=== PATIENT | female | born 1975 | race Caucasian/White ===

== ENCOUNTER → 2016-10-04 | Outpatient (CLI) | payer BC ==
[~2016-10-04] MED LIST: LIOT50TA3 PO; LTHCR300 PO; LTHSR450 PO; MULT-589 PO; RSP3 PO
[2016-10-04 09:45] LABS: GLUCOSE,FASTING 89 mg/dl (70-99)
[2016-10-04 09:55] LABS: ESTIMATED AVERAGE GLUCOSE 100 mg/dl; HA1C FLAG Normal (Normal)
== END | disposition home or self-care (01) ==
LOC: C.LAB 08:24
PROVIDERS: ATTEND Psychiatry & Neurology Psychiatry
DX: F31.2 Bipolar disorder, current episode manic severe with psychotic features (principal); F41.1 Generalized anxiety disorder; Z79.899 Other long term (current) drug therapy

== ENCOUNTER → 2016-11-19 | Outpatient (CLI) | payer BC ==
[2016-11-19 12:25] LABS: BLOOD UREA NITROGEN 10 mg/dl (7-18); BUN/CREATININE RATIO 17.8 (10-20); CARBON DIOXIDE 30 mmol/L (21-32); CHLORIDE 105 mmol/L (98-107); CREATININE 0.57 mg/dl (0.60-1.20); GLUCOSE 90 mg/dl (70-99); POTASSIUM 4.3 mmol/L (3.5-5.1); SODIUM 140 mmol/L (136-145)
[2016-11-19 12:35] LABS: THYROID STIMULATING HORMONE 0.154 uIu/ml (0.300-4.500)
== END | disposition home or self-care (01) ==
LOC: C.LAB 10:05
PROVIDERS: ATTEND Internal Medicine
DX: E03.9 Hypothyroidism, unspecified (principal); G47.00 Insomnia, unspecified

== ENCOUNTER → 2017-05-24 | Outpatient (CLI) | payer BC ==
[2017-05-24 10:35] LABS: HEMOGLOBIN A1C 4.9 % (4.5-5.6)
[2017-05-24 10:48] LABS: BLOOD UREA NITROGEN 11 mg/dl (7-18); CALCIUM 8.4 mg/dl (8.5-10.1); CARBON DIOXIDE 26 mmol/L (21-32); CREATININE 0.57 mg/dl (0.60-1.20); GLUCOSE 81 mg/dl (70-99); POTASSIUM 3.6 mmol/L (3.5-5.1); SODIUM 136 mmol/L (136-145)
[2017-05-24 10:51] LABS: CHOLESTEROL 199 mg/dl (0-200); LDL CHOLESTEROL CALCULATED 130 mg/dl
== END | disposition home or self-care (01) ==
LOC: C.LAB 09:33
PROVIDERS: ATTEND Internal Medicine
DX: E03.9 Hypothyroidism, unspecified (principal); F31.9 Bipolar disorder, unspecified

== ENCOUNTER 2019-02-25 14:34 | Inpatient (IN) ==
[2019-02-25] MEDS ORDERED: diazePAM 5 MG TABLET PO ONE (14:55)
[2019-02-25 15:22] LABS: Basophils # (auto) 0.02 K/uL (0-0.2); Basophils % (auto) 0.3 %; Eosinophils # (auto) 0.04 K/uL (0-0.5); Eosinophils % (auto) 0.5 %; Hematocrit (blood only) 42.2 % (37-47); Hemoglobin 14.4 g/dL (12.0-16.0); Immature Granulocytes # (auto) 0.01 K/uL (0.00-0.02); Immature Granulocytes % (auto) 0.1 %; Lymphocytes # (auto) 1.89 K/uL (1.2-3.4); Lymphocytes % (auto) 24.3 %; Mean Corpuscular Hemoglobin 30.5 pg (25-34); Mean Corpuscular Hgb Conc 34.1 g/dL (32-36); Mean Corpuscular Volume 89.4 fL (80-100); Mean Platelet Volume 9.5 fL (7.4-10.4); Monocytes # (auto) 0.38 K/uL (0.11-0.59); Monocytes % (auto) 4.9 %; Neutrophils # (auto) 5.43 K/uL (1.4-6.5); Neutrophils % (auto) 69.9 %; Platelet Count 284 K/uL (130-400); RDW Coefficient of Variation 12.4 % (11.5-14.5); RDW Standard Deviation 40.4 fL (36.4-46.3); Red Blood Count 4.72 M/uL (4.2-5.4); White Blood Count 7.77 K/uL (4.8-10.8)
[2019-02-25 15:41] LABS: Albumin Level 4.6 gm/dl (3.4-5.0); Calcium 8.9 mg/dl (8.5-10.1); Est GFR (African American) 83.4; Est GFR (Non-African American) 71.9; Potassium 3.8 mmol/L (3.5-5.1)
[2019-02-25 15:51] LABS: Albumin Globulin Ratio 1.3 (0.9-2); Bilirubin,Total 0.5 mg/dl (0.2-1); Globulin 3.6 gm/dl (2.5-4.0); Thyroid Stimulating Hormone 0.007 uIu/ml (0.300-4.500); Total Protein 8.2 gm/dl (6.4-8.2)
[2019-02-25 15:54] LABS: Appearance Urine Clear (Clear); Bilirubin Urine Negative (Negative); Blood Urine Negative (Negative); Color Urine Yellow; Glucose Urine UA Negative (Negative); Ketones Urine Negative (Negative); Leukocyte Esterase Urine Negative (Negative); Nitrite Urine Negative (Negative); Protein Urine Negative (Negative); Specific Gravity Urine 1.008 (1.000-1.030); Urobilinogen Urine Negative (Negative)
[2019-02-25 15:55] LABS: Acetaminophen < 2 ug/ml (10-30)
[2019-02-25 15:56] LABS: Salicylate < 1.7 mg/dl (2.8-20)
[2019-02-25 16:04] LABS: T4 Free Thyroxine 0.19 ng/dl (0.8-1.6)
[2019-02-25 16:15] LABS: Pregnancy Test, Serum Negative (Negative)
[2019-02-25 16:43] LABS: Amphetamines+Metham, Urine Neg (Neg); Barbiturates, Urine Neg (Neg); Benzodiazepine, Urine Neg (Neg); Cocaine, Urine Neg (Neg); MDMA (Ecstacy), Urine Neg (Neg); Methadone, Urine Neg (Neg); Opiate, Urine Neg (Neg); Phencyclidine, Urine Neg (Neg)
--- NOTE | 2019-02-25 18:19 | Emergency Department Note ---
Entered by Sanjana Alarcon acting as a scribe for History of Present Illness General Chief complaint: Mental Health Evaluation Stated complaint: MENTAL HEALTH EVALUATION Time Seen by Provider: 02/25/19 14:44 Source: patient History of Present Illness Provider complaint: Mental Health Evaluation Onset (ago): day(s) 6 Location: head Relieved By: + none Exacerbated By: + other (Stress) Associated symptoms: + other (Problems sleeping) The patient is a 43 year old female who presents to the Emergency Room with complaints of worsening mental health that began 6 days ago. The patient states that her symptoms are exacerbated by "extreme stress" but are not relieved by anything specific. The patient reports experiencing problems with sleeping. The patient's psychiatrist called in because the patient is experiencing a manic episode. The patient's mother reports that she is worried that the patient is going to hurt herself. Home Medications Home Medications Medication Instructions Recorded Confirmed Type diazepam 2 mg tablet 2 mg PO HS PRN tab 12/21/18 02/25/19 History risperidone 0.25 mg tablet 0.25 mg PO HS tab 12/21/18 02/25/19 History temazepam 7.5 mg capsule 7.5 mg PO HS PRN #30 cap 12/21/18 02/25/19 History liothyronine 50 mcg tablet 52.5 mcg PO BID 12/25/18 02/25/19 History multivitamin capsule 1 cap PO DAILY 12/25/18 02/25/19 History progesterone micronized 50 mg PO DAILY 02/25/19 02/25/19 History progesterone micronized 100 mg PO 1400 02/25/19 02/25/19 History Allergies Allergy/AdvReac Type Severity Reaction Status Date / Time chlorpromazine AdvReac Severe cardiac Verified 02/25/19 15:38 [From Thorazine] haloperidol [From Haldol] AdvReac Severe metabolic Verified 02/25/19 15:41 syndrome lithium AdvReac Severe metabolic Verified 02/25/19 15:42 syndrome olanzapine [From Zyprexa] AdvReac Severe metabolic Verified 02/25/19 15:39 syndrome paliperidone [From Invega] AdvReac Severe metabolic Verified 02/25/19 15:42 syndrome zolpidem [From Ambien] AdvReac Severe metabolic Verified 02/25/19 15:41 syndrome Past Med/Surg History Medical History Bipolar disorder Hypothyroidism Tinea pedis Hypertension Herpes zoster Surgical History H/O oral surgery Family History Father , FROM [place] AGE 52 Myocardial infarction Mother Ovarian cancer Social History Preferred Language: Syriac Communication Ability: Effective Visual Impairment: No Limitations Hearing Ability: Normal Tree Wrapper Required: No Beliefs That Will Affect Care: None Feels Safe at Home: Yes Smoking Status: Never smoker Hx Alcohol Use: Yes (social) Review of Systems See HPI for pertinent positives & negatives. and A total of 10 systems reviewed and were otherwise negative Physical Exam Vital Signs Vital Signs - 24 hr 02/25/19 14:39 02/25/19 16:35 02/25/19 19:45 Temperature 36.9 C Temperature Source Oral Oral Sepsis Recent Fever Within 48 Hours No Sepsis New/Unexplained Change in Mental Status No Sepsis Action Taken by Nursing No Action Required Pulse Rate 117 H 94 H Respiratory Rate 18 16 Respiratory Effort / Characteristics Non-Labored Spontaneous Respiratory Depth Normal Blood Pressure 143/103 H 116/82 Blood Pressure Mean 116 Pulse Oximetry 97 98 Oxygen Delivery Method Room Air Room Air GENERAL: Awake, alert, well-appearing, in no acute distress HENT: Normocephalic, atraumatic. Oropharynx unremarkable. EYES: Normal conjunctiva. Sclera non-icteric. NECK: Supple. No nuchal rigidity. FROM. No JVD. RESPIRATORY: Clear to auscultation. CARDIAC: Regular rate, normal rhythm. Extremities warm and well perfused. Pulses equal. ABDOMEN: Soft, non-distended. No tenderness to palpation. No rebound or guarding. No masses. RECTAL: Deferred. MUSCULOSKELETAL: Chest examination reveals no tenderness. The back is symmetrical on inspection without obvious abnormality. There is no CVA tenderness to palpation. No joint edema. LOWER EXTREMITIES: Calves are equal size bilaterally and non-tender. No edema. No discoloration. NEURO: Normal sensorium. No sensory or motor deficits noted. SKIN: No rash or jaundice noted. PSYCH: Manic. Flight of ideas. Pressured speech. Course 1451: Past medical records reviewed. The patient was evaluated in room A05. A complete history and physical exam was performed. Administered Medications Hydroxyzine HCl (Vistaril) 25 mg PO Q4H PRN PRN Reason: Anxiety Stop: 03/27/19 19:44 Last Admin: 02/26/19 12:06 Dose: 25 mg Documented by: [id number] Multivitamins (Multivitamin Tab) 1 tab PO 0600 [facility] Stop: 03/29/19 05:59 Last Admin: 02/27/19 06:03 Dose: 1 tab Documented by: [id number] Liothyronine 52.5 Mcg ~Non-Formulary Patient's Own Med 1 ea PO BID@0900,1400 [facility] Stop: 03/27/19 20:59 Last Admin: 02/27/19 14:43 Dose: 1 ea Documented by: [id number] Admin: 02/27/19 06:06 Dose: 1 ea Documented by: [id number] Admin: 02/26/19 14:23 Dose: 1 ea Documented by: [id number] Admin: 02/26/19 06:42 Dose: 1 ea Documented by: [id number] Progesterone 100 Mg: Non-Formulary Patient's Own Med 0.5 ea SL 06 [facility] Stop: 03/29/19 05:59 Last Admin: 02/27/19 06:06 Dose: 0.5 ea Documented by: [id number] Progesterone 100 Mg: Non-Formulary Patient's Own Med 1 ea SL 1929 [facility] Stop: 03/28/19 19:29 Last Admin: 02/27/19 19:35 Dose: 0.5 tabs Documented by: [id number] Admin: 02/26/19 19:35 Dose: 0.5 tabs Documented by: [id number] Risperidone (Risperdal) 0.5 mg PO 1929 [facility] Stop: 03/28/19 19:29 Last Admin: 02/27/19 19:30 Dose: 0.5 mg Documented by: [id number] Admin: 02/26/19 19:34 Dose: 0.5 mg Documented by: [id number] Temazepam (Restoril) 15 mg PO HSZ PRN PRN Reason: Insomnia Stop: 03/28/19 11:20 Last Admin: 02/26/19 20:27 Dose: 15 mg Documented by: [id number] Discontinued Medications Diazepam (Valium) 10 mg PO NOW ONE Stop: 02/25/19 14:56 Last Admin: 02/25/19 15:25 Dose: 10 mg Documented by: [id number] Multivitamins (Multivitamin Tab) 1 tab PO DAILY [facility] Stop: 03/28/19 08:59 Last Admin: 02/26/19 08:19 Dose: 1 tab Documented by: [id number] Cytomel 52.5 Mcg~Non -Formulary Patient's Own Med 1 ea PO BID [facility] Stop: 03/27/19 20:59 Last Admin: 02/25/19 21:55 Dose: Not Given Documented by: [id number] Progesterone 100mg Sl Tab~Non-Formulary Patient's Own Med 0.5 ea SL QAM [facility] Stop: 03/28/19 08:59 Last Admin: 02/26/19 06:43 Dose: 0.5 ea Documented by: [id number] Progesterone 100 Mg: Non-Formulary Patient's Own Med 1 ea SL HS [facility] Stop: 03/27/19 21:59 Last Admin: 02/25/19 22:36 Dose: 1 ea Documented by: [id number] Risperidone (Risperdal) 0.25 mg PO HS [facility] Stop: 03/27/19 20:59 Last Admin: 02/25/19 22:32 Dose: 0.25 mg Documented by: [id number] Medical Decision Making Differential Diagnosis Differential diagnosis: Etiologies such as psychiatric disorder, infection, hypoglycemia, electrolyte abnormalities, cardiac sources, intracerebral event, toxicological process, n eurologic disorder, as well as others were entertained. Medical Records Attestation: I reviewed the patient's medical records. Home Medications Current Medication List: was personally reviewed by me Laboratory Data Result diagrams: 02/25/19 15:10 02/25/19 15:10 Lab Results 02/25/19 02/25/19 02/25/19 Range/Units 15:10 15:10 15:10 WBC 7.77 (4.8-10.8) K/uL RBC 4.72 (4.2-5.4) M/uL Hgb 14.4 (12.0-16.0) g/dL Hct 42.2 (37-47) % MCV 89.4 (80-100) fL MCH 30.5 (25-34) pg MCHC 34.1 (32-36) g/dL RDW Std Deviation 40.4 (36.4-46.3) fL RDW Coeff of Snow 12.4 (11.5-14.5) % Plt Count 284 (130-400) K/uL MPV 9.5 (7.4-10.4) fL Immature Gran % (Auto) 0.1 % Neut % (Auto) 69.9 % Lymph % (Auto) 24.3 % [place] % (Auto) 4.9 % Eos % (Auto) 0.5 % Baso % (Auto) 0.3 % Immature Gran # (Auto) 0.01 (0.00-0.02) K/uL Neut # (Auto) 5.43 (1.4-6.5) K/uL Lymph # (Auto) 1.89 (1.2-3.4) K/uL [place] # (Auto) 0.38 (0.11-0.59) K/uL Eos # (Auto) 0.04 (0-0.5) K/uL Baso # (Auto) 0.02 (0-0.2) K/uL Sodium 139 (136-145) mmol/L Potassium 3.8 (3.5-5.1) mmol/L Chloride 105 (98-107) mmol/L Carbon Dioxide 28 (21-32) mmol/L Anion Gap 6.0 (3-11) BUN 11 (7-18) mg/dl Creatinine 0.96 (0.6-1.2) mg/dl Est Cr Clr Drug Dosing 62.0 ml/min Est GFR ( Amer) 83.4 Est GFR (Non-Af Amer) 71.9 BUN/Creatinine Ratio 12.0 (10-20) Glucose 142 H (70-99) mg/dl Calcium 8.9 (8.5-10.1) mg/dl Total Bilirubin 0.5 (0.2-1) mg/dl AST 8 L (15-37) U/L ALT 25 (12-78) U/L Alkaline Phosphatase 60 (45-117) U/L Total Protein 8.2 (6.4-8.2) gm/dl Albumin 4.6 (3.4-5.0) gm/dl Globulin 3.6 (2.5-4.0) gm/dl Albumin/Globulin Ratio 1.3 (0.9-2) TSH 0.007 L (0.300-4.500) uIu/ml Free T4 0.19 L (0.8-1.6) ng/dl HCG, Qual (Negative) Urine Color Urine Appearance (Clear) Urine pH (4.5-7.5) Ur Specific [place] (1.000-1.030) Urine Protein (Negative) Urine Glucose (UA) (Negative) Urine Ketones (Negative) Urine Blood (Negative) Urine Nitrite (Negative) Urine Bilirubin (Negative) Urine Urobilinogen (Negative) Ur Leukocyte Esterase (Negative) Salicylates < 1.7 L (2.8-20) mg/dl Urine Opiates Screen (Neg) Ur Methadone, Qual (Neg) Acetaminophen < 2 L (10-30) ug/ml Urine Barbiturates (Neg) Ur Phencyclidine (PCP) (Neg) U Amphetamin/Meth Scrn (Neg) MDMA (Ecstasy) Screen (Neg) U Benzodiazepines Scrn (Neg) Ur Cocaine Metabolite (Neg) U Marijuana (THC) Screen (Neg) Ethyl Alcohol mg/dL (0-3) mg/dl 02/25/19 02/25/19 02/25/19 Range/Units 15:10 15:13 15:20 WBC (4.8-10.8) K/uL RBC (4.2-5.4) M/uL Hgb (12.0-16.0) g/dL Hct (37-47) % MCV (80-100) fL MCH (25-34) pg MCHC (32-36) g/dL RDW Std Deviation (36.4-46.3) fL RDW Coeff of [place] (11.5-14.5) % Plt Count (130-400) K/uL MPV (7.4-10.4) fL Immature Gran % (Auto) % Neut % (Auto) % Lymph % (Auto) % [place] % (Auto) % Eos % (Auto) % Baso % (Auto) % Immature Gran # (Auto) (0.00-0.02) K/uL Neut # (Auto) (1.4-6.5) K/uL Lymph # (Auto) (1.2-3.4) K/uL [place] # (Auto) (0.11-0.59) K/uL Eos # (Auto) (0-0.5) K/uL Baso # (Auto) (0-0.2) K/uL Sodium (136-145) mmol/L Potassium (3.5-5.1) mmol/L Chloride (98-107) mmol/L Carbon Dioxide (21-32) mmol/L Anion Gap (3-11) BUN (7-18) mg/dl Creatinine (0.6-1.2) mg/dl Est Cr Clr Drug Dosing ml/min Est GFR ( Amer) Est GFR (Non-Af Amer) BUN/Creatinine Ratio (10-20) Glucose (70-99) mg/dl Calcium (8.5-10.1) mg/dl Total Bilirubin (0.2-1) mg/dl AST (15-37) U/L ALT (12-78) U/L Alkaline Phosphatase (45-117) U/L Total Protein (6.4-8.2) gm/dl Albumin (3.4-5.0) gm/dl Globulin (2.5-4.0) gm/dl Albumin/Globulin Ratio (0.9-2) TSH (0.300-4.500) uIu/ml Free T4 (0.8-1.6) ng/dl HCG, Qual Negative (Negative) Urine Color Urine Appearance (Clear) Urine pH (4.5-7.5) Ur Specific [place] (1.000-1.030) Urine Protein (Negative) Urine Glucose (UA) (Negative) Urine Ketones (Negative) Urine Blood (Negative) Urine Nitrite (Negative) Urine Bilirubin (Negative) Urine Urobilinogen (Negative) Ur Leukocyte Esterase (Negative) Salicylates (2.8-20) mg/dl Urine Opiates Screen Neg (Neg) Ur Methadone, Qual Neg (Neg) Acetaminophen (10-30) ug/ml Urine Barbiturates Neg (Neg) Ur Phencyclidine (PCP) Neg (Neg) U Amphetamin/Meth Scrn Neg (Neg) MDMA (Ecstasy) Screen Neg (Neg) U Benzodiazepines Scrn Neg (Neg) Ur Cocaine Metabolite Neg (Neg) U Marijuana (THC) Screen Neg (Neg) Ethyl Alcohol mg/dL < 3.0 (0-3) mg/dl 02/25/19 Range/Units 15:20 WBC (4.8-10.8) K/uL RBC (4.2-5.4) M/uL Hgb (12.0-16.0) g/dL Hct (37-47) % MCV (80-100) fL MCH (25-34) pg MCHC (32-36) g/dL RDW Std Deviation (36.4-46.3) fL RDW Coeff of [place] (11.5-14.5) % Plt Count (130-400) K/uL MPV (7.4-10.4) fL Immature Gran % (Auto) % Neut % (Auto) % Lymph % (Auto) % [place] % (Auto) % Eos % (Auto) % Baso % (Auto) % Immature Gran # (Auto) (0.00-0.02) K/uL Neut # (Auto) (1.4-6.5) K/uL Lymph # (Auto) (1.2-3.4) K/uL [place] # (Auto) (0.11-0.59) K/uL Eos # (Auto) (0-0.5) K/uL Baso # (Auto) (0-0.2) K/uL Sodium (136-145) mmol/L Potassium (3.5-5.1) mmol/L Chloride (98-107) mmol/L Carbon Dioxide (21-32) mmol/L Anion Gap (3-11) BUN (7-18) mg/dl Creatinine (0.6-1.2) mg/dl Est Cr Clr Drug Dosing ml/min Est GFR ( Amer) Est GFR (Non-Af Amer) BUN/Creatinine Ratio (10-20) Glucose (70-99) mg/dl Calcium (8.5-10.1) mg/dl Total Bilirubin (0.2-1) mg/dl AST (15-37) U/L ALT (12-78) U/L Alkaline Phosphatase (45-117) U/L Total Protein (6.4-8.2) gm/dl Albumin (3.4-5.0) gm/dl Globulin (2.5-4.0) gm/dl Albumin/Globulin Ratio (0.9-2) TSH (0.300-4.500) uIu/ml Free T4 (0.8-1.6) ng/dl HCG, Qual (Negative) Urine Color Yellow Urine Appearance Clear (Clear) Urine pH 6.0 (4.5-7.5) Ur Specific [place] 1.008 (1.000-1.030) Urine Protein Negative (Negative) Urine Glucose (UA) Negative (Negative) Urine Ketones Negative (Negative) Urine Blood Negative (Negative) Urine Nitrite Negative (Negative) Urine Bilirubin Negative (Negative) Urine Urobilinogen Negative (Negative) Ur Leukocyte Esterase Negative (Negative) Salicylates (2.8-20) mg/dl Urine Opiates Screen (Neg) Ur Methadone, Qual (Neg) Acetaminophen (10-30) ug/ml Urine Barbiturates (Neg) Ur Phencyclidine (PCP) (Neg) U Amphetamin/Meth Scrn (Neg) MDMA (Ecstasy) Screen (Neg) U Benzodiazepines Scrn (Neg) Ur Cocaine Metabolite (Neg) U Marijuana (THC) Screen (Neg) Ethyl Alcohol mg/dL (0-3) mg/dl Blood Pressure Blood Pressure Findings: Elevated blood pressure Blood Pressure Disposition: Referred to patients primary care provider MDM Narrative This is a 43-year-old female who presents emergency department over concerns of a manic episode. The patient was given Valium here in the emergency department. She was medically cleared by me. She was independently evaluated by case management as well as [facility]. and was subsequently admitted to [facility]. Patient and family were in agreement with the treatment plan. Impression & Plan Mood disorder Discharge Plan Visit Data *Final* Discharge Date/Time: 02/25/19 19:45 Chief Complaint: Mental Health Evaluation Stated Complaint: MENTAL HEALTH EVALUATION ED Provider: Tommy Dubose Discharge Problem: Mood disorder Patient Disposition: Admitted As Inpatient Discharge Instructions Interventions: ED Discharge Assessment Last Done: 02/25/19 19:45 The talat's documentation has been prepared under my direction and personally reviewed by me in its entirety. I confirm that the note above accurately reflects all work, treatment, procedures, and medical decision making performed by me.
[2019-02-25] MEDS ORDERED: MAGNESIUM HYDROXIDE SUSP 30 ML UDC PO PRN (19:45)
[2019-02-25] MEDS ORDERED: BISMUTH SUBSALICYLATE PER ML OMNICELL CHARGE PO PRN (19:45)
[2019-02-25] MEDS ORDERED: ACETAMINOPHEN 325 MG TAB PO PRN (19:45)
[2019-02-25] MEDS ORDERED: SODIUM CHLORIDE 0.65% NA SOLN 45 ML (OCEAN) PRN (19:45)
[2019-02-25] MEDS ORDERED: ALUMINUM/MAGNESIUM SUSP 30 ML UDC PO PRN (19:45)
[2019-02-25] MEDS ORDERED: NON-FORMULARY PATIENT'S OWN MED SCH (20:45)
[2019-02-25] MEDS ORDERED: risperiDONE 0.5 MG TABLET PO SCH (21:00)
[2019-02-25] MEDS ORDERED: NON-FORMULARY PATIENT'S OWN MED PO SCH (21:00)
[2019-02-25] MEDS ORDERED: LIOTHYRONINE SODIUM 25 MCG TAB PO SCH (21:00)
[2019-02-25] MEDS ORDERED: LIOTHYRONINE PO SCH (21:00)
[2019-02-25] MEDS ORDERED: PROGESTERONE 100 MG SL SCH (22:00)
[2019-02-26] MEDS: LIOTHYRONINE PO SCH ×2 (06:42→14:23)
[2019-02-26] MEDS ORDERED: PROGESTERONE 100 MG SL SCH ×2 (09:00→14:00)
[2019-02-26] MEDS ORDERED: MULTIVITAMIN TAB PO SCH (09:00)
--- NOTE | 2019-02-26 11:22 | History & Physical ---
Date of Service February 26, 2019 Impression / Recommendations Impression 43-year-old single female who lives with her mother in [place], has a history of bipolar type I, and is admitted with manic symptoms. She has been maintained on very low-dose risperidone, with frequent breakthrough symptoms, and per her own report had a fairly severe episode of psychosis over the summer which she opted to treat at home and took months to resolve. She reports chronic interpersonal discord with her mother, as mother would like her mood symptoms to be better controlled and they frequently disagree about the severity or even presence of active manic symptoms. Currently, she is recognizing that she is manic, and willing to increase her risperidone to 0.5 mg at bedtime and utilize diazepam and temazepam for sleep and anxiety. Inpatient treatment is medically necessary due to the severity of her symptoms and inability to function outside of the hospital. (1) Bipolar disorder: 02/26 -continue voluntary hospitalization, every 15 minute checks for safety, participation in groups and therapy. -Work on healthy coping skills and discharge safety plan. -Increase risperidone to 0.5 mg at bedtime. Check fasting lipid profile and glucose tomorrow. -Continue home dose of temazepam 15 mg at bedtime as needed and diazepam 2 mg daily as needed for severe anxiety/vargas. -Coordinate care with Dr. Locke; called him and left a message requesting a return call. -Coordinate care with therapist Sheila Buchanan. Family therapy has been recommended for the patient and her mother, and the patient is willing to pursue this. Present on Admission?: Yes (2) Hypothyroidism: Continue home dose of liothyronine. TSH on admission 0.007, and free T4 0.19. Present on Admission?: Yes Inventory Assets Strengths: Stable housing, supportive family, good rapport with outpatient providers Needs: Better control of vargas, family therapy Risk Factors Assessment Male: No : Yes Do You Have Access To A Gun?: No Health Problems: No Mental Health Diagnoses: Yes Substance Use Disorders: No Previous Attempt: No Family History of Suicide: No Previous Psychiatric Hospitalization: Yes Hopelessness: No Smoker: No Protective Factors Assessment : No Responsible for Young Children: No Employed: No Stable Relationships: No Supportive Family: Yes Good Rapport with Provider: Yes Psychiatric History Identifying Data CHINO ALONZO is a 43-year-old F who currently lives in [] [alone] with [], has a history of [], and was admitted on 02/25/19 19:55 on a [201 voluntary] [302 involuntary] commitment for []. Chief Complaint "I was doing great until the past 6 days". History of Present Illness On my assessment, the patient states she was referred to the hospital after her appointment with Dr. Locke yesterday, which she and her mother attended. She was doing well until 1 week ago on Halloween, as she was getting manic and her mother pointed out she was acting inappropriately. She and her mother have "not been getting along well at all world war III broke out." States their interactions got so heated that "I thought I might have to call crisis." She says her mother is "furious at me for not seeing my symptoms," although notes she trusts her mother and sister, who have been telling her she's manic and she needs to raise her risperidone dose. She admits thoughts are racing, and "I need things to be slowed down." Sleep is decreased and energy high. States she also had "a big blowup" with her brother 2 weeks ago, stating he a "toxic malignant narcissist, they want to destroy the family." She states she knows she is manic and needs to increase her risperidone, but only wants to increase to 0.5mg, and wants to add temazepam for sleep, as it has been helpful in the past. She denies SI, HI, and hallucinations, but reports paranoia "that if I talk to anyone, it will cause a problem with my mom." States there was an interaction with a neighbor months ago that her mother keeps bringing up, "I feel like I can't say anything right." Feels "under a microscope at home." She is also upset that "I lost my driving privileges," stating her mother "doesn't think I can focus" because of an incident with some curtains, that was difficult to follow. She states that over the summer she was "really stressed," and talks about buying 19 bowls "which I needed," and socks, and that mother thought these were symptoms of vargas, which the patient disagrees with. She says she called crisis in the middle of the night to come talk to her about the stress that this caused. She reports that in September she got psychotic but treated it at home by increasing her risperidone dose to 0.5mg daily and living "on the sun porch, it was my recovery room, surrounded by green." Another topic of contention with her mother is the patient's online dating, stating she wants to travel out of town to meet men, and her mother worries about her safety. She states she went to [facility] to meet a man and "my mom thought I was manic, but I wasn't, I know what was going on in my mind." She says she went to [facility] with her mother and sister the next day "and it was terrible,t hey picked on me about my hair and clothes." She has been taking diazepam about 50% of days for the past week, and has been exercising regularly as that helps stabilize mood. She states that Dr. Locke recommended she and her mother get family therapy, which she agrees with. Past Psychiatric History Previous Psych History: Previously saw Dr. Peter Current Psychiatric Diagnosis: Bipolar disorder Outpatient Services: Psychiatrist: Dr. Locke since 11/2017 Therapist: Loretta Bar Previous Psych Admissions: Multiple, last here 09/2017; [facility] Do You Have Access To A Gun?: No History of Previous Suicide Attempt: No Past Medication Trials: Luvox lithium (6 trials, thyroid issues) hydroxyzine zolpidem diazepam sertraline Allergies Allergy/AdvReac Type Severity Reaction Status Date / Time chlorpromazine AdvReac Severe cardiac Verified 02/25/19 15:38 [From Thorazine] haloperidol [From Haldol] AdvReac Severe metabolic Verified 02/25/19 15:41 syndrome lithium AdvReac Severe metabolic Verified 02/25/19 15:42 syndrome olanzapine [From Zyprexa] AdvReac Severe metabolic Verified 02/25/19 15:39 syndrome paliperidone [From Invega] AdvReac Severe metabolic Verified 02/25/19 15:42 syndrome zolpidem [From Ambien] AdvReac Severe metabolic Verified 02/25/19 15:41 syndrome Home Medications Home Medications Medication Instructions Recorded Confirmed Type diazepam 2 mg tablet 2 mg PO HS PRN tab 12/21/18 02/25/19 History risperidone 0.25 mg tablet 0.25 mg PO HS tab 12/21/18 02/25/19 History temazepam 7.5 mg capsule 7.5 mg PO HS PRN #30 cap 12/21/18 02/25/19 History liothyronine 50 mcg tablet 52.5 mcg PO BID 12/25/18 02/25/19 History multivitamin capsule 1 cap PO DAILY 12/25/18 02/25/19 History progesterone micronized 50 mg PO DAILY 02/25/19 02/25/19 History progesterone micronized 100 mg PO 1400 02/25/19 02/25/19 History Family History Family History of: Depression, Alcoholism/Drug Abuse (Per records, mother with history of alcohol abuse), Other-List under Comment and Bipolar (Maternal aunt) Family Mental Health History Comment: personality disorder Alcohol History Hx of Alcohol Use Over the Past 12 Months: No AUDIT Total Score: 0 Smoking Use Have You Smoked or Used Tobacco Products in the Last 30 Days: No Smoking Status: Never smoker Substance History Hx of Prescription Med Misuse Over the Past 12 Months: No Hx of Over the Counter Med Misuse Over the Past 12 Months: No Hx of Inhalent Misuse Over the Past 12 Months: No Hx of Organic Substance Use Over the Past 12 Months: No Hx of Illegal Substances/Street Drug Use Over Past 12 Months: No Problems as a Result of Past Substance Use: None Identified Personal History Living Arrangements: Home Living Arrangements Comments: With mother in [place] Highest Grade Completed: Graduate School Employment Status: 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 (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, 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.) Marital Status: Single Beliefs That Will Affect Care: None Current Legal Problems: No Hx Traumatic Life Events: No Patient History Medical History Bipolar disorder Hypothyroidism Tinea pedis Hypertension Herpes zoster Surgical History H/O oral surgery Family History Father , FROM [place] AGE 52 Myocardial infarction Mother Ovarian cancer Social History Preferred Language: Samoan Communication Ability: Effective Visual Impairment: No Limitations Hearing Ability: Normal Welt Cutter Required: No Beliefs That Will Affect Care: None Feels Safe at Home: Yes Smoking Status: Never smoker Hx Alcohol Use: Yes (social) Review of Systems Review of Systems: All systems reviewed & are unremarkable except as noted in HPI & below Physical Exam Psychiatric: Orientation: alert and cooperative Apperance: appropriately dressed and appropriately groomed; + did not appear stated age (Younger than stated age) Eye Contact: good eye contact Motor Behavior: steady gait and station and + psychomotor agitation Dramatic gesturing Speech is rapid, pressured, slightly loud Expansive, mildly irritable Thought Process: + flight of ideas and + looseness of associations Thought Content: + preoccupation (Wi th her assertions that her behavior does not represent manic symptoms and disagreements with mother about this) Suicidal Thoughts: denies suicidal thoughts Homicidal Thoughts: denies homicidal thoughts Hallucinations: no auditory hallucinations and no visual hallucinations Cognition: language grossly intact; + attention not intact Estimated Intelligence: consistent with education level Insight: + impaired insight Judgement: + fair judgement Vital Signs (Past 24 Hours): Last Vital Signs Temp 36.9 C 02/26/19 06:52 Pulse 88 02/26/19 06:53 Resp 16 02/26/19 06:52 BP 123/87 02/26/19 06:53 Pulse Ox 98 02/25/19 19:45 Exam Statement: A physical exam was performed in the ER prior to admission to the unit by Dr. Tommy Dubose. I accept that physical as correct/medical clearance for the inpatient physical exam. Results & Data Laboratory Results Laboratory Results - last 24 hr 02/25/19 02/25/19 02/25/19 15:10 15:10 15:10 WBC 7.77 RBC 4.72 Hgb 14.4 Hct 42.2 MCV 89.4 MCH 30.5 MCHC 34.1 RDW Std Deviation 40.4 RDW Coeff of Snow 12.4 Plt Count 284 MPV 9.5 Immature Gran % (Auto) 0.1 Neut % (Auto) 69.9 Lymph % (Auto) 24.3 [place] % (Auto) 4.9 Eos % (Auto) 0.5 Baso % (Auto) 0.3 Immature Gran # (Auto) 0.01 Neut # (Auto) 5.43 Lymph # (Auto) 1.89 [place] # (Auto) 0.38 Eos # (Auto) 0.04 Baso # (Auto) 0.02 Sodium 139 Potassium 3.8 Chloride 105 Carbon Dioxide 28 Anion Gap 6.0 BUN 11 Creatinine 0.96 Est Cr Clr Drug Dosing 62.0 Est GFR ( Amer) 83.4 Est GFR (Non-Af Amer) 71.9 BUN/Creatinine Ratio 12.0 Glucose 142 H Calcium 8.9 Total Bilirubin 0.5 AST 8 L ALT 25 Alkaline Phosphatase 60 Total Protein 8.2 Albumin 4.6 Globulin 3.6 Albumin/Globulin Ratio 1.3 TSH 0.007 L Free T4 0.19 L HCG, Qual Urine Color Urine Appearance Urine pH Ur Specific [place] Urine Protein Urine Glucose (UA) Urine Ketones Urine Blood Urine Nitrite Urine Bilirubin Urine Urobilinogen Ur Leukocyte Esterase Salicylates < 1.7 L Urine Opiates Screen Ur Methadone, Qual Acetaminophen < 2 L Urine Barbiturates Ur Phencyclidine (PCP) U Amphetamin/Meth Scrn MDMA (Ecstasy) Screen U Benzodiazepines Scrn Ur Cocaine Metabolite U Marijuana (THC) Screen Ethyl Alcohol mg/dL 02/25/19 02/25/19 02/25/19 15:10 15:13 15:20 WBC RBC Hgb Hct MCV MCH MCHC RDW Std Deviation RDW Coeff of [place] Plt Count MPV Immature Gran % (Auto) Neut % (Auto) Lymph % (Auto) [place] % (Auto) Eos % (Auto) Baso % (Auto) Immature Gran # (Auto) Neut # (Auto) Lymph # (Auto) [place] # (Auto) Eos # (Auto) Baso # (Auto) Sodium Potassium Chloride Carbon Dioxide Anion Gap BUN Creatinine Est Cr Clr Drug Dosing Est GFR ( Amer) Est GFR (Non-Af Amer) BUN/Creatinine Ratio Glucose Calcium Total Bilirubin AST ALT Alkaline Phosphatase Total Protein Albumin Globulin Albumin/Globulin Ratio TSH Free T4 HCG, Qual Negative Urine Color Urine Appearance Urine pH Ur Specific [place] Urine Protein Urine Glucose (UA) Urine Ketones Urine Blood Urine Nitrite Urine Bilirubin Urine Urobilinogen Ur Leukocyte Esterase Salicylates Urine Opiates Screen Neg Ur Methadone, Qual Neg Acetaminophen Urine Barbiturates Neg Ur Phencyclidine (PCP) Neg U Amphetamin/Meth Scrn Neg MDMA (Ecstasy) Screen Neg U Benzodiazepines Scrn Neg Ur Cocaine Metabolite Neg U Marijuana (THC) Screen Neg Ethyl Alcohol mg/dL < 3.0 02/25/19 15:20 WBC RBC Hgb Hct MCV MCH MCHC RDW Std Deviation RDW Coeff of [place] Plt Count MPV Immature Gran % (Auto) Neut % (Auto) Lymph % (Auto) [place] % (Auto) Eos % (Auto) Baso % (Auto) Immature Gran # (Auto) Neut # (Auto) Lymph # (Auto) [place] # (Auto) Eos # (Auto) Baso # (Auto) Sodium Potassium Chloride Carbon Dioxide Anion Gap BUN Creatinine Est Cr Clr Drug Dosing Est GFR ( Amer) Est GFR (Non-Af Amer) BUN/Creatinine Ratio Glucose Calcium Total Bilirubin AST ALT Alkaline Phosphatase Total Protein Albumin Globulin Albumin/Globulin Ratio TSH Free T4 HCG, Qual Urine Color Yellow Urine Appearance Clear Urine pH 6.0 Ur Specific [place] 1.008 Urine Protein Negative Urine Glucose (UA) Negative Urine Ketones Negative Urine Blood Negative Urine Nitrite Negative Urine Bilirubin Negative Urine Urobilinogen Negative Ur Leukocyte Esterase Negative Salicylates Urine Opiates Screen Ur Methadone, Qual Acetaminophen Urine Barbiturates Ur Phencyclidine (PCP) U Amphetamin/Meth Scrn MDMA (Ecstasy) Screen U Benzodiazepines Scrn Ur Cocaine Metabolite U Marijuana (THC) Screen Ethyl Alcohol mg/dL Current Inpatient Medications Current Inpatient Medications: Current Inpatient Medications Acetaminophen (Tylenol) 650 mg PO Q4H PRN PRN Reason: Headache or Minor Fever Stop: 03/27/19 19:44 Al Hydrox/Mg Hydrox/Simethicone (Maalox) 30 ml PO Q4H PRN PRN Reason: GI Upset Stop: 03/27/19 19:44 Bismuth Subsalicylate (Kaopectate) 15 ml PO PRN PRN PRN Reason: Loose Stool Stop: 03/27/19 19:44 Hydroxyzine HCl (Vistaril) 25 mg PO Q4H PRN PRN Reason: Anxiety Stop: 03/27/19 19:44 Hydroxyzine HCl (Vistaril) 50 mg PO HSZ PRN PRN Reason: Insomnia Stop: 03/27/19 19:44 Magnesium Hydroxide (Milk Of Magnesia) 30 ml PO DAILY PRN PRN Reason: Constipation Stop: 03/27/19 19:44 Multivitamins (Multivitamin Tab) 1 tab PO DAILY [place] Stop: 03/28/19 08:59 Last Admin: 02/26/19 08:19 Dose: 1 tab Documented by: Progesterone 100mg Sl Tab~Non-Formulary Patient's Own Med 0.5 ea SL QAM [facility] Stop: 03/28/19 08:59 Last Admin: 02/26/19 06:43 Dose: 0.5 ea Documented by: Progesterone 100 Mg: Non-Formulary Patient's Own Med 1 ea SL HS [facility] Stop: 03/27/19 21:59 Last Admin: 02/25/19 22:36 Dose: 1 ea Documented by: Liothyronine 52.5 Mcg ~Non-Formulary Patient's Own Med 1 ea PO BID@0900,1400 [facility] Stop: 03/27/19 20:59 Last Admin: 02/26/19 06:42 Dose: 1 ea Documented by: Risperidone (Risperdal) 0.25 mg PO [facility] Stop: 03/27/19 20:59 Last Admin: 02/25/19 22:32 Dose: 0.25 mg Documented by: Sodium Chloride ([place] Nasal) 1 - 2 sprays NA PRN PRN PRN Reason: Nasal Dryness/Congestion Stop: 03/27/19 19:44
[2019-02-26] MEDS ORDERED: diazePAM 2 MG TABLET PO PRN (12:23)
[2019-02-26] MEDS: risperiDONE 0.5 MG TABLET PO SCH (19:34)
[2019-02-26] MEDS: TEMAZEPAM 15 MG CAPSULE PO PRN (20:27)
[2019-02-26] MEDS ORDERED: risperiDONE 0.5 MG TABLET PO SCH (22:00)
[2019-02-27] MEDS: MULTIVITAMIN TAB PO SCH (06:03)
[2019-02-27] MEDS: LIOTHYRONINE PO SCH ×2 (06:06→14:43)
[2019-02-27 07:38] LABS: Glucose Fasting 87 mg/dl (70-99)
[2019-02-27 07:45] LABS: Chol HDL Ratio 3; Cholesterol 177 mg/dl (0-200); HDL Cholesterol 62 mg/dl; LDL Cholesterol Calculated 106 mg/dl; Triglycerides 46 mg/dl (0-150); VLDL Cholesterol 9 mg/dl
--- NOTE | 2019-02-27 17:37 | Psychiatric Progress Note ---
Date of Service February 27, 2019 Impression / Recommendations Impression 43-year-old single female who lives with her mother in [place], has a history of bipolar type I, and is admitted with manic symptoms. She has been maintained on very low-dose risperidone, with frequent breakthrough symptoms, and per her own report had a fairly severe episode of psychosis over the summer which she opted to treat at home and took months to resolve. She reports chronic interpersonal discord with her mother, as mother would like her mood symptoms to be better controlled and they frequently disagree about the severity or even presence of active manic symptoms. Currently, she is recognizing that she is manic, and willing to increase her risperidone to 0.5 mg at bedtime and utilize diazepam and temazepam for sleep and anxiety. Inpatient treatment is medically necessary due to the severity of her symptoms and inability to function outside of the hospital. The team agrees that the patient's condition has improved somewhat since the dose of risperidone has been increased. However, she continues to exhibit symptoms of vargas that include pressured speech and circumferential reality and tangentiality that sometimes approached flight of ideas. She does not exhibit an expansive, markedly irritable, or elated mood. However, she professes to have more insight into her condition and then she actually seems to have. She is fully pleasant and cooperative until the question of persistent, active psychiatric symptoms is raised, at which point the patient bristles and becomes visibly angry when I reflected that, in fact, I see pretty clear symptoms of persistent hypomania. I also got a bit of a "taste" of the patient's tendency to excitedly argue points, rather than consider what is being said to herand I can imagine that the patient's disagreements with her mother often center around the same tendency. She also tends to intellectualize her symptoms, minimize them, and a regular significance. I strongly advised the patient that she is going to need a higher dose than 0.5 mg of risperidone, given her past history and the fact that this would be a much lower dose than standard given her symptoms. However, the patient does have a point in saying that while she will except that she still has certain symptoms she has improved and would like to wait another day or 2 at the dose of 0.5 mg to see if she does not continue to improve. (1) Bipolar disorder: 02/26 -continue voluntary hospitalization, every 15 minute checks for safety, participation in groups and therapy. -Work on healthy coping skills and discharge safety plan. -Increase risperidone to 0.5 mg at bedtime. Check fasting lipid profile and glucose tomorrow. -Continue home dose of temazepam 15 mg at bedtime as needed and diazepam 2 mg daily as needed for severe anxiety/vargas. -Coordinate care with Dr. Locke; called him and left a message requesting a return call. -Coordinate care with therapist Sheila Buchanan. Family therapy has been recommended for the patient and her mother, and the patient is willing to pursue this. 02/27 -Today, the patient told me that she would consider increasing her dose of risperidone from 0.5 mg at bedtime to 0.75 mg at bedtime, but would have to "think about it, first." We have all strongly advised the patient that this is likely to be an inadequate dose, and that her insistence on not having a higher dose is likely to lead to a prolonged hospital stay. The patient does say that she will except this assertion, but is asking to wait another "day or 2" before increasing the dose. -She required temazepam last night for sleep, and says that part of the problem for her is that she typically goes to bed before 8:00 every night and awakens at about 4 in the morning the next day, so that the hours of sleep here in the hospital feel artificial 2 or and her assertion is that, at home, she sleeps much better than she has here. -The patient is very interested in family therapy, and says that she has read that family therapy is almost always recommended in cases in which a family member has bipolar disorder. I attempted to explain to the patient that that will depend upon the preparedness of the patient to actively and appropriately participated in the therapy. The patient indicated that she found this assertion to be irritating, but, as noted above, she is easily irritated and has trouble accepting thoughts and feedback that are inconsistent with her own assumptions. (This latter issue may be partially characterologic, but I believe it is intensified by the patient's hypomanic state.) (2) Hypothyroidism: Continue home dose of liothyronine. TSH on admission 0.007, and free T4 0.19. Inventory Assets Strengths: Stable housing, supportive family, good rapport with outpatient providers Needs: Better control of vargas, family therapy Risk Factors Assessment Male: No : Yes Do You Have Access To A Gun?: No Health Problems: No Mental Health Diagnoses: Yes Substance Use Disorders: No Previous Attempt: No Family History of Suicide: No Previous Psychiatric Hospitalization: Yes Hopelessness: No Smoker: No Protective Factors Assessment : No Responsible for Young Children: No Employed: No Stable Relationships: No Supportive Family: Yes Good Rapport with Provider: Yes Interval History Chief Complaint "I needed my medication adjusted". Review of Systems Sleep Information Total Hours of Sleep: 8.5 Sleep Comments: awake at 0600 Meal Information Percent Meal Consumed - Breakfast: 100 Percent Meal Consumed - Lunch: 100 Percent Meal Consumed - Dinner: 100 Subjective Subjective Patient was seen & assessed and interval progress reviewed with treatment team. I met individually with the patient in order to assess her current mental status, evaluate her response to treatment, coordinate any necessary changes in the patient's treatment regimen together with the patient, and address questions, issues and concerns that may arise. The patient begins by telling me that she recognized that she was becoming "hypomanic" and also recognizes that when she saw her outpatient psychiatrist it would be necessary for her to increase her dose of risperidone. Her perception is that the admission was precipitated by the fact that she and her mother had been bickering ("[place] War [place]") at home, a circumstance that she seems to attribute primarily to her mother, rather than to her self. She reports that on the evening prior to her admission she and her mother had been arguing, her mother stood in front of her and, while "yelling" at the patient and shaking her finger and the patient's face, stated something such as "I give up!" Which the patient said "well you did better" The patient's mother, according to patient, perceived this as a threat, possibly of physical harm, while the patient, herself, said that she had not meant to imply any threat of violence but, instead, meant that she thought that the situation had to be deescalated by the mother backing down and leaving the room. She said that the bickering continued the next day in the patient's outpatient psychiatrist office, and the patient says that she thinks that her doctor was overwhelmed by the fact that the patient and her mother argued loudly in his presence. She noted that he essentially said, "I think you need to go to the hospital" (to the patient) and "you need a break" (to the patient's mother.) When asked what symptoms of hypomania she felt that she was exhibiting, the patient had some trouble identifying what those were, but said that she knew she was thinking too fast, talking too fast, and her thoughts toward fully formed are organized. The patient also tells me that, as recently as 2017, she had presented with which she refers to as "bad psychotic symptoms," which, according the patient, included delusional believes, and auditory hallucinations. The patient acknowledges that in 2018, during the hospitalization, she needed to take risperidone at a dose of "close to 4 mg a day," and that, at that time, she needed the high dose because of her active symptomatology. However, she notes that for the past year or so she has been "fully stable" until recently on a dose of 0.25 mg once a day at bedtime. She agrees with her mother's report that her symptoms began to worsen towards the end of January and have crescendoed since then. Today, the patient notes that she feels that some of the stress she is feeling at home has to do with her mother's concern with the fact that the patient has been attempting to find a romantic partner through Internet "matches." The patient reports that she is not placing herself in danger with the men with whom she is communicating through the Internet, and is only met 1 of them in person. In that case, she only agreed to meet the man in a "neutral" location (a diner) for in an expensive dinner. She adds, "I liked him, I do not think I need to see him again, but it was not a bad date. He is not just an I am. He was also reluctant to picker tender a $10 check." The patient's point is that the mother's concerns in this regard are unfounded. Her belief is that hospitalization was arranged because the mother had implied that, perhaps, the patient was potentially violent. The patient, herself, insists that she has never been violent, was not suicidal, and has never threatened her mother with physical harm. Physical Exam Psychiatric Orientation: alert and oriented x 3 Apperance: appropriately dressed, appropriately groomed and appeared stated age Eye Contact: + fair eye contact Motor Behavior: steady gait and station Speech: + pressured speech Affect: + labile affect (Affect is mildly labile, and she clearly bristle when I pointed out evidence that her symptoms of hypomania have not fully resolved. Generally, however, she was pleasant and cooperative.) "I think I am in a good mood. I am happy, but not too happy." Thought Process: + circumstantial thought process and + tangential thought process Thought Content: reality based without delusions Suicidal Thoughts: denies suicidal thoughts Homicidal Thoughts: denies homicidal thoughts Hallucinations: no auditory hallucinations Cognition: recent memory grossly intact, remote memory grossly intact and l anguage grossly intact Estimated Intelligence: + above average estimated intelligence Insight: + limited insight When asked, Pointblank, if she thinks that she is continuing to show any symptoms of hypomania (in the face of pretty clear persistent symptoms) the patient hesitated, said "not really," and then said "well, may be, but it is m uch much better. I do not need more medicine." The patient also repeatedly asserted that she knows her own body about her than any psychiatrist and that she knows what the right dose of medications are for her. Judgement: + limited judgement Vital Signs (Past 24 Hours) Last Vital Signs Temp 36.5 C 02/27/19 06:23 Pulse 106 H 02/27/19 06:23 Resp 16 02/27/19 06:23 BP 122/88 02/27/19 06:23 Pulse Ox 98 02/25/19 19:45 Results & Data Laboratory Results Laboratory Results - last 24 hr 02/27/19 06:48 Fasting Glucose 87 Triglycerides 46 Cholesterol 177 LDL Cholesterol, Calc 106 VLDL Cholesterol, Calc 9 HDL Cholesterol 62 Cholesterol/HDL Ratio 3 Current Inpatient Medications Current Inpatient Medications: Current Inpatient Medications Acetaminophen (Tylenol) 650 mg PO Q4H PRN PRN Reason: Headache or Minor Fever Stop: 03/27/19 19:44 Al Hydrox/Mg Hydrox/Simethicone (Maalox) 30 ml PO Q4H PRN PRN Reason: GI Upset Stop: 03/27/19 19:44 Bismuth Subsalicylate (Kaopectate) 15 ml PO PRN PRN PRN Reason: Loose Stool Stop: 03/27/19 19:44 Diazepam (Valium) 2 mg PO DAILY PRN PRN Reason: anxiety or vargas Stop: 03/28/19 12:22 Hydroxyzine HCl (Vistaril) 25 mg PO Q4H PRN PRN Reason: Anxiety Stop: 03/27/19 19:44 Last Admin: 02/26/19 12:06 Dose: 25 mg Documented by: Hydroxyzine HCl (Vistaril) 50 mg PO HSZ PRN PRN Reason: Insomnia Stop: 03/27/19 19:44 Magnesium Hydroxide (Milk Of Magnesia) 30 ml PO DAILY PRN PRN Reason: Constipation Stop: 03/27/19 19:44 Multivitamins (Multivitamin Tab) 1 tab PO 0600 [facility] Stop: 03/29/19 05:59 Last Admin: 02/27/19 06:03 Dose: 1 tab Documented by: Liothyronine 52.5 Mcg ~Non-Formulary Patient's Own Med 1 ea PO BID@0900,1400 [facility] Stop: 03/27/19 20:59 Last Admin: 02/27/19 14:43 Dose: 1 ea Documented by: Progesterone 100 Mg: Non-Formulary Patient's Own Med 0.5 ea SL 06 [facility] Stop: 03/29/19 05:59 Last Admin: 02/27/19 06:06 Dose: 0.5 ea Documented by: Progesterone 100 Mg: Non-Formulary Patient's Own Med 1 ea SL 1929 [facility] Stop: 03/28/19 19:29 Last Admin: 02/26/19 19:35 Dose: 0.5 tabs Documented by: Risperidone (Risperdal) 0.5 mg PO 193 [facility] Stop: 03/28/19 19:29 Last Admin: 02/26/19 19:34 Dose: 0.5 mg Documented by: Sodium Chloride ([place] Nasal) 1 - 2 sprays NA PRN PRN PRN Reason: Nasal Dryness/Congestion Stop: 03/27/19 19:44 Temazepam (Restoril) 15 mg PO HSZ PRN PRN Reason: Insomnia Stop: 03/28/19 11:20 Last Admin: 02/26/19 20:27 Dose: 15 mg Documented by: Mental Health & Subst Abuse Tx Therapist Name of Therapist: Dr. Lia Bar Date of Therapist Appointment: 03/05/19 Time of Therapist Appointment: 10:45am Post Discharge Appointments Primary Care Physician Name Of Family Doctor: ORQUIDEA Mcdowell Time of Appointment with PCP: June 2019
[2019-02-27] MEDS: risperiDONE 0.5 MG TABLET PO SCH (19:30)
[2019-02-27] MEDS: TEMAZEPAM 15 MG CAPSULE PO PRN (20:24)
[2019-02-28] MEDS: MULTIVITAMIN TAB PO SCH (06:01)
[2019-02-28] MEDS: LIOTHYRONINE PO SCH ×2 (06:02→14:01)
--- NOTE | 2019-02-28 10:23 | Psychiatric Progress Note ---
Date of Service February 28, 2019 Impression / Recommendations Impression 43-year-old single female who lives with her mother in [place], has a history of bipolar type I, and is admitted with manic symptoms. She has been maintained on very low-dose risperidone, with frequent breakthrough symptoms, and per her own report had a fairly severe episode of psychosis over the summer which she opted to treat at home and took months to resolve. She reports chronic interpersonal discord with her mother, as mother would like her mood symptoms to be better controlled and they frequently disagree about the severity or even presence of active manic symptoms. She is recognizing that she has been manic, and was willing to increase her risperidone to 0.5 mg at bedtime and utilize diazepam and temazepam for sleep and anxiety. Inpatient treatment is medically necessary due to the severity of her symptoms and inability to function outside of the hospital. (1) Bipolar disorder: 02/26 -continue voluntary hospitalization, every 15 minute checks for safety, participation in groups and therapy. -Work on healthy coping skills and discharge safety plan. -Increase risperidone to 0.5 mg at bedtime. Check fasting lipid profile and glucose tomorrow. -Continue home dose of temazepam 15 mg at bedtime as needed and diazepam 2 mg daily as needed for severe anxiety/vargas. -Coordinate care with Dr. Locke; called him and left a message requesting a return call. -Coordinate care with therapist Sheila Buchanan. Family therapy has been recommended for the patient and her mother, and the patient is willing to pursue this. 02/27 -Today, the patient told me that she would consider increasing her dose of risperidone from 0.5 mg at bedtime to 0.75 mg at bedtime, but would have to "think about it, first." We have all strongly advised the patient that this is likely to be an inadequate dose, and that her insistence on not having a higher dose is likely to lead to a prolonged hospital stay. The patient does say that she will except this assertion, but is asking to wait another "day or 2" before increasing the dose. -She required temazepam last night for sleep, and says that part of the problem for her is that she typically goes to bed before 8:00 every night and awakens at about 4 in the morning the next day, so that the hours of sleep here in the hospital feel artificial 2 or and her assertion is that, at home, she sleeps much better than she has here. -The patient is very interested in family therapy, and says that she has read that family therapy is almost always recommended in cases in which a family member has bipolar disorder. I attempted to explain to the patient that that will depend upon the preparedness of the patient to actively and appropriately participated in the therapy. The patient indicated that she found this assertion to be irritating, but, as noted above, she is easily irritated and has trouble accepting thoughts and feedback that are inconsistent with her own assumptions. (This latter issue may be partially characterologic, but I believe it is intensified by the patient's hypomanic state.) 02/28 - Continue risperidone at 0.5mg qHS, as patient is reporting response to dose increase and is declining recommendation for further titration - Pt is at least agreeable to maintaining this dosage, rather than rapidly requesting taper on discharge - Determine if appropriate to have a family meeting prior to discharge - Coordinate with outpatient providers (2) Hypothyroidism: Continue home dose of liothyronine. TSH on admission 0.007, and free T4 0.19. Inventory Assets Strengths: Stable housing, supportive family, good rapport with outpatient providers Needs: Better control of vargas, family therapy Risk Factors Assessment Male: No : Yes Do You Have Access To A Gun?: No Health Problems: No Mental Health Diagnoses: Yes Substance Use Disorders: No Previous Attempt: No Family History of Suicide: No Previous Psychiatric Hospitalization: Yes Hopelessness: No Smoker: No Protective Factors Assessment : No Responsible for Young Children: No Employed: No Stable Relationships: No Supportive Family: Yes Good Rapport with Provider: Yes Interval History Identifying Information CHINO ALONZO is a 43-year-old female admitted voluntarily on 02/25/19 at 19:55 for mood instability and reported manic behaviors of decreased sleep, increased risk taking behaviors, impulsive spending, and racing thoughts. Pt was admitted at recommendation of her psychiatrist, after her mother verbalized concern during an outpatient appointment. Chief Complaint "Much better, my thoughts are much better." Review of Systems Notes Constitutional: denied Cardiovascular: denied Respiratory: denied Gastrointestinal: denied Neurological: denied Psychiatric: denies symptoms other than stated above Total of at least 10 systems reviewed, pertinent positives as above and in HPI. Sleep Information Total Hours of Sleep: 7 Sleep Comments: awake at 0600 Meal Information Percent Meal Consumed - Breakfast: 100 Percent Meal Consumed - Lunch: 100 Percent Meal Consumed - Dinner: 100 Subjective Subjective Patient was seen & assessed and interval progress reviewed with nursing and social work. Staff report the patient's mother verbalized additional concerns about the patient's behavior at home, apparently stating the patient would not be permitted to return home without agreeing to further titration of her risperidone. Pt was seen today to assess progress since admission. Pt states she is "much better" today, reporting improvement in mood and thoughts process. Pt feels that her "doubled dose" of risperidone is demonstrating increased efficacy over the day today. She states she is feeling "smoother" and "my brain is sorted out so much better." Pt states that she had planned on requesting a higher dose of risperidone at her outpatient psychiatric appointment, but "my mother screwed all that up." Pt was advised to consider maintaining her discharge dose of risperidone to improve stability and avoid the idea of having to guess if a medication increase is necessary of "if it will get better on its own." Pt tells this provider that she is planning to maintain 0.5mg of risperidone "for a long, long time." Pt was encouraged to consider further titration during this admission, but declines at this time. She denies SI/HI and other needs or concerns presently. Physical Exam Psychiatric Orientation: alert, oriented x 3 and cooperative (and pleasant) Apperance: appropriately dressed (casually, in sweater and gym pants), appropriately groomed and appeared stated age Eye Contact: good eye contact Motor Behavior: steady gait and station and no abnormal motor movements Speech: + pressured speech (somewhat) and normal rate/rhythm/volume of speech Affect: euthymic affect and mood congruent with affect Mood: no depressed mood ("much better") Thought Process: goal directed thought process and clear/coherent thought process Thought Content: reality based without delusions; no hopelessness Suicidal Thoughts: denies suicidal thoughts and denies suicidal intent Homicidal Thoughts: denies homicidal thoughts Hallucinations: no auditory hallucinations and no visual hallucinations Cognition: attention grossly intact and language grossly intact Insight: + limited insight (improving over course of admission) limited insight with regard to perceived benefits of therapeutic dosing of risperidone Judgement: + fair judgement Vital Signs (Past 24 Hours) Last Vital Signs Temp 36.7 C 02/28/19 07:00 Pulse 99 H 02/28/19 07:01 Resp 18 11/09/19 07:00 BP 144/91 H 02/28/19 07:01 Pulse Ox 98 02/25/19 19:45 Results & Data Current Inpatient Medications Current Inpatient Medications: Current Inpatient Medications Acetaminophen (Tylenol) 650 mg PO Q4H PRN PRN Reason: Headache or Minor Fever Stop: 03/27/19 19:44 Al Hydrox/Mg Hydrox/Simethicone (Maalox) 30 ml PO Q4H PRN PRN Reason: GI Upset Stop: 03/27/19 19:44 Bismuth Subsalicylate (Kaopectate) 15 ml PO PRN PRN PRN Reason: Loose Stool Stop: 03/27/19 19:44 Diazepam (Valium) 2 mg PO DAILY PRN PRN Reason: anxiety or vargas Stop: 03/28/19 12:22 Hydroxyzine HCl (Vistaril) 25 mg PO Q4H PRN PRN Reason: Anxiety Stop: 03/27/19 19:44 Last Admin: 02/26/19 12:06 Dose: 25 mg Documented by: Hydroxyzine HCl (Vistaril) 50 mg PO HSZ PRN PRN Reason: Insomnia Stop: 03/27/19 19:44 Magnesium Hydroxide (Milk Of Magnesia) 30 ml PO DAILY PRN PRN Reason: Constipation Stop: 03/27/19 19:44 Multivitamins (Multivitamin Tab) 1 tab PO 0600 [facility] Stop: 03/29/19 05:59 Last Admin: 02/28/19 06:01 Dose: 1 tab Documented by: Liothyronine 52.5 Mcg ~Non-Formulary Patient's Own Med 1 ea PO BID@0900,1400 [facility] Stop: 03/27/19 20:59 Last Admin: 02/28/19 06:02 Dose: 1 ea Documented by: Progesterone 100 Mg: Non-Formulary Patient's Own Med 0.5 ea SL 0600 [facility] Stop: 03/29/19 05:59 Last Admin: 02/28/19 06:03 Dose: 0.5 ea Documented by: Progesterone 100 Mg: Non-Formulary Patient's Own Med 1 ea SL 1930 [facility] Stop: 03/28/19 19:29 Last Admin: 02/27/19 19:35 Dose: 0.5 tabs Documented by: Risperidone (Risperdal) 0.5 mg PO 1929 [facility] Stop: 03/28/19 19:29 Last Admin: 02/27/19 19:30 Dose: 0.5 mg Documented by: Sodium Chloride ([place] Nasal) 1 - 2 sprays NA PRN PRN PRN Reason: Nasal Dryness/Congestion Stop: 03/27/19 19:44 Temazepam (Restoril) 15 mg PO HSZ PRN PRN Reason: Insomnia Stop: 03/28/19 11:20 Last Admin: 02/27/19 20:24 Dose: 15 mg Documented by: Mental Health & Subst Abuse Tx Therapist Name of Therapist: Dr. Lia Bar Date of Therapist Appointment: 03/05/19 Time of Therapist Appointment: 10:45am Post Discharge Appointments Primary Care Physician Name Of Family Doctor: ORQUIDEA Mcdowell Time of Appointment with PCP: June 2019
[2019-02-28] MEDS: risperiDONE 0.5 MG TABLET PO SCH (19:10)
[2019-03-01] MEDS: LIOTHYRONINE PO SCH ×2 (05:56→13:57)
[2019-03-01] MEDS: MULTIVITAMIN TAB PO SCH (06:21)
--- NOTE | 2019-03-01 10:06 | Psychiatric Progress Note ---
Date of Service March 01, 2019 Impression / Recommendations Impression 43-year-old single female who lives with her mother in [place], has a history of bipolar type I, and is admitted with manic symptoms. She has been maintained on very low-dose risperidone, with frequent breakthrough symptoms, and per her own report had a fairly severe episode of psychosis over the summer which she opted to treat at home and took months to resolve. She reports chronic interpersonal discord with her mother, as mother would like her mood symptoms to be better controlled and they frequently disagree about the severity or even presence of active manic symptoms. She is recognizing that she has been manic, and was willing to increase her risperidone to 0.5 mg at bedtime and utilize diazepam and temazepam for sleep and anxiety. Inpatient treatment is medically necessary due to the severity of her symptoms and inability to function outside of the hospital. (1) Bipolar disorder: 02/26 -continue voluntary hospitalization, every 15 minute checks for safety, participation in groups and therapy. -Work on healthy coping skills and discharge safety plan. -Increase risperidone to 0.5 mg at bedtime. Check fasting lipid profile and glucose tomorrow. -Continue home dose of temazepam 15 mg at bedtime as needed and diazepam 2 mg daily as needed for severe anxiety/vargas. -Coordinate care with Dr. Locke; called him and left a message requesting a return call. -Coordinate care with therapist Sheila Buchanan. Family therapy has been recommended for the patient and her mother, and the patient is willing to pursue this. 02/27 -Today, the patient told me that she would consider increasing her dose of risperidone from 0.5 mg at bedtime to 0.75 mg at bedtime, but would have to "think about it, first." We have all strongly advised the patient that this is likely to be an inadequate dose, and that her insistence on not having a higher dose is likely to lead to a prolonged hospital stay. The patient does say that she will except this assertion, but is asking to wait another "day or 2" before increasing the dose. -She required temazepam last night for sleep, and says that part of the problem for her is that she typically goes to bed before 8:00 every night and awakens at about 4 in the morning the next day, so that the hours of sleep here in the hospital feel artificial 2 or and her assertion is that, at home, she sleeps much better than she has here. -The patient is very interested in family therapy, and says that she has read that family therapy is almost always recommended in cases in which a family member has bipolar disorder. I attempted to explain to the patient that that will depend upon the preparedness of the patient to actively and appropriately participated in the therapy. The patient indicated that she found this assertion to be irritating, but, as noted above, she is easily irritated and has trouble accepting thoughts and feedback that are inconsistent with her own assumptions. (This latter issue may be partially characterologic, but I believe it is intensified by the patient's hypomanic state.) 02/28 - 03/01 - Continue risperidone at 0.5mg qHS, as patient is reporting response to dose increase and is declining recommendation for further titration - Pt is at least agreeable to maintaining this dosage, rather than rapidly requesting taper on discharge - Determine if appropriate to have a family meeting prior to discharge - Coordinate with outpatient providers (2) Hypothyroidism: Continue home dose of liothyronine. TSH on admission 0.007, and free T4 0.19. Inventory Assets Strengths: Stable housing, supportive family, good rapport with outpatient providers Needs: Better control of vargas, family therapy Risk Factors Assessment Male: No : Yes Do You Have Access To A Gun?: No Health Problems: No Mental Health Diagnoses: Yes Substance Use Disorders: No Previous Attempt: No Family History of Suicide: No Previous Psychiatric Hospitalization: Yes Hopelessness: No Smoker: No Protective Factors Assessment : No Responsible for Young Children: No Employed: No Stable Relationships: No Supportive Family: Yes Good Rapport with Provider: Yes Interval History Identifying Information ALBINO ALONZO is a 43-year-old female admitted voluntarily on 02/25/19 at 19:55 for mood instability and reported manic behaviors of decreased sleep, increased risk taking behaviors, impulsive spending, and racing thoughts. Pt was admitted at recommendation of her psychiatrist, after her mother verbalized concern during an outpatient appointment. Chief Complaint "Yeah, we wrote letters during group. I wrote one to myself." Review of Systems Notes Constitutional: denied Cardiovascular: denied Respiratory: denied Gastrointestinal: denied Neurological: denied Psychiatric: denies symptoms other than stated above Total of at least 10 systems reviewed, pertinent positives as above and in HPI. Sleep Information Total Hours of Sleep: 5.75 Sleep Comments: Albino was up early per her usual to get quality nurse medications. Meal Information Percent Meal Consumed - Breakfast: 100 Percent Meal Consumed - Lunch: 100 Percent Meal Consumed - Dinner: 100 Subjective Subjective Patient was seen & assessed and interval progress reviewed with nursing and social work. Staff report the patient has been doing well and is participating regularly in group programming. She did receive a prn of hydroxyzine yesterday, after a reportedly difficult conversation with her mother. She is anticipating another visit with her mother this afternoon. Pt was seen today to assess progress since admission. Pt states she is doing "much better" and has noticed improvement in her condition over the course of her hospitalization. She participated in a letter-writing group this morning, stating she wrote a letter "to myself, to remind myself to use my coping skills and stay on the right path." Pt states she is "feeling hopeful" for the visit with her mother later, and admits that they have been having decent phone calls. Pt states that she would like for her mother and her to "start over today", as she feels her mother has been holding several events "over my head, holding me under a microscope." Pt states is planning to "choose my battles" regarding arguments the pair has had, and to "just lover her." Pt declines any adjustments to her medication, again reiterating that she recognized she would need a dose increase, and is now feeling that her mood is stable and her thoughts are appropriately slowed. Pt denies other needs or concerns at this time, and is willing to schedule a family meeting with her mother for early this coming week. Physical Exam Psychiatric Orientation: alert, oriented x 3 and cooperative (and pleasant) Apperance: appropriately dressed (casually, in zip-up sweatshirt and running pants), appropriately groomed and appeared stated age Eye Contact: good eye contact Motor Behavior: steady gait and station and no abnormal motor movements Speech: normal rate/rhythm/volume of speech Affect: euthymic affect (mildly elevated, but significantly more consistent) and mood congruent with affect Mood: no depressed mood ("Pretty good, I feel a lot better") Thought Process: goal directed thought process and clear/coherent thought process ("slowed down enough that I can see things better") Thought Content: reality based without delusions; no hopelessness and no worthlessness Suicidal Thoughts: denies suicidal thoughts Homicidal Thoughts: denies homicidal thoughts Hallucinations: no auditory hallucinations and no visual hallucinations Cognition: attention grossly intact and language grossly intact Insight: + fair insight Judgement: + fair judgement Vital Signs (Past 24 Hours) Last Vital Signs Temp 36.7 C 03/01/19 06:44 Pulse 81 03/01/19 06:44 Resp 18 03/01/19 06:44 BP 130/90 03/01/19 06:44 Pulse Ox 98 02/25/19 19:45 Results & Data Current Inpatient Medications Current Inpatient Medications: Current Inpatient Medications Acetaminophen (Tylenol) 650 mg PO Q4H PRN PRN Reason: Headache or Minor Fever Stop: 03/27/19 19:44 Al Hydrox/Mg Hydrox/Simethicone (Maalox) 30 ml PO Q4H PRN PRN Reason: GI Upset Stop: 03/27/19 19:44 Bismuth Subsalicylate (Kaopectate) 15 ml PO PRN PRN PRN Reason: Loose Stool Stop: 03/27/19 19:44 Diazepam (Valium) 2 mg PO DAILY PRN PRN Reason: anxiety or vargas Stop: 03/28/19 12:22 Hydroxyzine HCl (Vistaril) 25 mg PO Q4H PRN PRN Reason: Anxiety Stop: 03/27/19 19:44 Last Admin: 02/26/19 12:06 Dose: 25 mg Documented by: Hydroxyzine HCl (Vistaril) 50 mg PO HSZ PRN PRN Reason: Insomnia Stop: 03/27/19 19:44 Magnesium Hydroxide (Milk Of Magnesia) 30 ml PO DAILY PRN PRN Reason: Constipation Stop: 03/27/19 19:44 Multivitamins (Multivitamin Tab) 1 tab PO 0600 [facility] Stop: 03/29/19 05:59 Last Admin: 03/01/19 06:21 Dose: 1 tab Documented by: Liothyronine 52.5 Mcg ~Non-Formulary Patient's Own Med 1 ea PO BID@0900,1400 [facility] Stop: 03/27/19 20:59 Last Admin: 03/01/19 05:56 Dose: 1 ea Documented by: Progesterone 100 Mg: Non-Formulary Patient's Own Med 0.5 ea SL 0600 [facility] Stop: 03/29/19 05:59 Last Admin: 03/01/19 06:00 Dose: 0.5 ea Documented by: Progesterone 100 Mg: Non-Formulary Patient's Own Med 1 ea SL 1929 [facility] Stop: 03/28/19 19:29 Last Admin: 02/28/19 19:11 Dose: 0.5 tabs Documented by: Risperidone (Risperdal) 0.5 mg PO 1929 [facility] Stop: 03/28/19 19:29 Last Admin: 02/28/19 19:10 Dose: 0.5 mg Documented by: Sodium Chloride ([place] Nasal) 1 - 2 sprays NA PRN PRN PRN Reason: Nasal Dryness/Congestion Stop: 03/27/19 19:44 Temazepam (Restoril) 15 mg PO HSZ PRN PRN Reason: Insomnia Stop: 03/28/19 11:20 Last Admin: 02/27/19 20:24 Dose: 15 mg Documented by: Mental Health & Subst Abuse Tx Therapist Name of Therapist: Dr. Lia Bar Date of Therapist Appointment: 03/05/19 Time of Therapist Appointment: 10:45am Post Discharge Appointments Primary Care Physician Name Of Family Doctor: ORQUIDEA Mcdowell Time of Appointment with PCP: June 2019
[2019-03-01] MEDS: risperiDONE 0.5 MG TABLET PO SCH (19:34)
[2019-03-02] MEDS: LIOTHYRONINE PO SCH ×2 (05:58→14:37)
[2019-03-02] MEDS: MULTIVITAMIN TAB PO SCH (07:57)
--- NOTE | 2019-03-02 11:50 | Psychiatric Progress Note ---
Date of Service March 02, 2019 Impression / Recommendations Impression 43-year-old single female who lives with her mother in [place], has a history of bipolar type I, and is admitted with manic symptoms. She has been maintained on very low-dose risperidone, with frequent breakthrough symptoms, and per her own report had a fairly severe episode of psychosis over the summer which she opted to treat at home and took months to resolve. She reports chronic interpersonal discord with her mother, as mother would like her mood symptoms to be better controlled and they frequently disagree about the severity or even presence of active manic symptoms. She is recognizing that she has been manic, and was willing to increase her risperidone to 0.5 mg at bedtime and utilize diazepam and temazepam for sleep and anxiety. Participated in family meeting with mother, where boundaries were a topic discussed. Pt is to return to live with her mother after discharge. Inpatient treatment is medically necessary due to the severity of her symptoms and inability to function outside of the hospital. (1) Bipolar disorder: 02/26 -continue voluntary hospitalization, every 15 minute checks for safety, participation in groups and therapy. -Work on healthy coping skills and discharge safety plan. -Increase risperidone to 0.5 mg at bedtime. Check fasting lipid profile and glucose tomorrow. -Continue home dose of temazepam 15 mg at bedtime as needed and diazepam 2 mg daily as needed for severe anxiety/vargas. -Coordinate care with Dr. Locke; called him and left a message requesting a return call. -Coordinate care with therapist Sheila Buchanan. Family therapy has been recommended for the patient and her mother, and the patient is willing to pursue this. 02/27 -Today, the patient told me that she would consider increasing her dose of risperidone from 0.5 mg at bedtime to 0.75 mg at bedtime, but would have to "think about it, first." We have all strongly advised the patient that this is likely to be an inadequate dose, and that her insistence on not having a higher dose is likely to lead to a prolonged hospital stay. The patient does say that she will except this assertion, but is asking to wait another "day or 2" before increasing the dose. -She required temazepam last night for sleep, and says that part of the problem for her is that she typically goes to bed before 8:00 every night and awakens at about 4 in the morning the next day, so that the hours of sleep here in the hospital feel artificial 2 or and her assertion is that, at home, she sleeps much better than she has here. -The patient is very interested in family therapy, and says that she has read that family therapy is almost always recommended in cases in which a family member has bipolar disorder. I attempted to explain to the patient that that will depend upon the preparedness of the patient to actively and appropriately participated in the therapy. The patient indicated that she found this assertion to be irritating, but, as noted above, she is easily irritated and has trouble accepting thoughts and feedback that are inconsistent with her own assumptions. (This latter issue may be partially characterologic, but I believe it is intensified by the patient's hypomanic state.) 02/28 - 03/01 - Continue risperidone at 0.5mg qHS, as patient is reporting response to dose increase and is declining recommendation for further titration - Pt is at least agreeable to maintaining this dosage, rather than rapidly requesting taper on discharge - Determine if appropriate to have a family meeting prior to discharge - Coordinate with outpatient providers 03/02 - Continue risperidone 0.5mg qHS, as patient continues to decline further titration - Family meeting held via phone with mother this morning. It reportedly went well and boundaries were discussed - Still attempting to solidify outpatient appointments with therapist and psychiatrist (2) Hypothyroidism: Continue home dose of liothyronine. TSH on admission 0.007, and free T4 0.19. Inventory Assets Strengths: Stable housing, supportive family, good rapport with outpatient providers Needs: Better control of vargas, family therapy Risk Factors Assessment Male: No : Yes Do You Have Access To A Gun?: No Health Problems: No Mental Health Diagnoses: Yes Substance Use Disorders: No Previous Attempt: No Family History of Suicide: No Previous Psychiatric Hospitalization: Yes Hopelessness: No Smoker: No Protective Factors Assessment : No Responsible for Young Children: No Employed: No Stable Relationships: No Supportive Family: Yes Good Rapport with Provider: Yes Interval History Identifying Information CHINO ALONZO is a 43-year-old female admitted voluntarily on 02/25/19 at 19:55 for mood instability and reported manic behaviors of decreased sleep, increased risk taking behaviors, impulsive spending, and racing thoughts. Pt was admitted at recommendation of her psychiatrist, after her mother verbalized concern during an outpatient appointment. Chief Complaint "I feel much better after my meeting with my mom." Review of Systems Notes Constitutional: denied Cardiovascular: denied Respiratory: denied Gastrointestinal: denied Neurological: denied Psychiatric: denies symptoms other than stated above Total of at least 10 systems reviewed, pertinent positives as above and in HPI. Sleep Information Total Hours of Sleep: 7 Sleep Comments: awake at 0600 for her usual am meds Meal Information Percent Meal Consumed - Breakfast: 100 Percent Meal Consumed - Lunch: 100 Percent Meal Consumed - Dinner: 100 Nutrition Comment: documented from the patient meal record Subjective Subjective Patient was seen & assessed and interval progress reviewed with treatment team. Staff reports the patient appears to be improving in regards to elevated mood and pressured speech. She appears to be less reactive during interactions with her mother. She is scheduled for a family meeting with her mother by phone this morning. Patient was seen today following this meeting to assess progress since admission. Patient states the meeting went well, and she feels "much better" now that she and her mother have talked. The patient states they were able to discuss the differences and what she and her mother perceive as symptoms of vargas. Patient states that she was able to provide explanations as to why she does not do some of her behavior as abnormal. Patient also demonstrated insight by recognizing that there are some behaviors that she needs to change in order to help her mother feel more comfortable. Patient states that she is planning to keep her bedroom neat, as this is been an area of concern in the past. She is also planning to "give up the [employer]", as she states "even though I am not really excessively spending, I think my mom sees the bags and thinks that I am manic." The patient states that she was pleased to hear that her mother is planning to pursue individual counseling as well. Patient was able to recognize what she believes to be manic symptoms, indicating a need for medication adjustments: These include, "finishing my mother sentences" and "when my thoughts and reactions are just too quick." Patient states she is hopeful for "a new beginning" with her mother. She states her mother felt comfortable with her returning home tomorrow, and patient feels comfortable with this as well. Patient is aware that aftercare appointments have not all been scheduled at this time. Patient denies suicidal ideation and other needs or concerns presently. Physical Exam Psychiatric Orientation: alert, oriented x 3 and cooperative (And pleasant) Apperance: appropriately dressed, appropriately groomed and appeared stated age Eye Contact: good eye contact Motor Behavior: steady gait and station and no abnormal motor movements Speech: normal rate/rhythm/volume of speech Affect: euthymic affect (Remains mildly elevated; however, less reactive) and mood congruent with affect Mood: no depressed mood ("I am feeling much better") Thought Process: goal directed thought process, clear/coherent thought process and thought association intact Thought Content: reality based without delusions; no hopelessness Suicidal Thoughts: denies suicidal thoughts and denies suicidal intent Homicidal Thoughts: denies homicidal thoughts Hallucinations: no auditory hallucinations and no visual hallucinations Cognition: attention grossly intact and language grossly intact Insight: + fair insight Judgement: + fair judgement Vital Signs (Past 24 Hours) Last Vital Signs Temp 36.6 C 03/02/19 06:55 Pulse 79 03/02/19 06:56 Resp 18 03/02/19 06:55 BP 104/67 03/02/19 06:56 Pulse Ox 98 02/25/19 19:45 Results & Data Current Inpatient Medications Current Inpatient Medications: Current Inpatient Medications Acetaminophen (Tylenol) 650 mg PO Q4H PRN PRN Reason: Headache or Minor Fever Stop: 03/27/19 19:44 Al Hydrox/Mg Hydrox/Simethicone (Maalox) 30 ml PO Q4H PRN PRN Reason: GI Upset Stop: 03/27/19 19:44 Bismuth Subsalicylate (Kaopectate) 15 ml PO PRN PRN PRN Reason: Loose Stool Stop: 03/27/19 19:44 Diazepam (Valium) 2 mg PO DAILY PRN PRN Reason: anxiety or vargas Stop: 03/28/19 12:22 Hydroxyzine HCl (Vistaril) 25 mg PO Q4H PRN PRN Reason: Anxiety Stop: 03/27/19 19:44 Last Admin: 02/26/19 12:06 Dose: 25 mg Documented by: Hydroxyzine HCl (Vistaril) 50 mg PO HSZ PRN PRN Reason: Insomnia Stop: 03/27/19 19:44 Magnesium Hydroxide (Milk Of Magnesia) 30 ml PO DAILY PRN PRN Reason: Constipation Stop: 03/27/19 19:44 Multivitamins (Multivitamin Tab) 1 tab PO 0600 [facility] Stop: 03/29/19 05:59 Last Admin: 03/02/19 07:57 Dose: 1 tab Documented by: Liothyronine 52.5 Mcg ~Non-Formulary Patient's Own Med 1 ea PO BID@0900,1400 [facility] Stop: 03/27/19 20:59 Last Admin: 03/02/19 05:58 Dose: 1 ea Documented by: Progesterone 100 Mg: Non-Formulary Patient's Own Med 0.5 ea SL 06 [facility] Stop: 03/29/19 05:59 Last Admin: 03/02/19 06:01 Dose: 0.5 ea Documented by: Progesterone 100 Mg: Non-Formulary Patient's Own Med 1 ea SL 1929 [facility] Stop: 03/28/19 19:29 Last Admin: 03/01/19 19:34 Dose: 0.5 tabs Documented by: Risperidone (Risperdal) 0.5 mg PO 1929 [facility] Stop: 03/28/19 19:29 Last Admin: 03/01/19 19:34 Dose: 0.5 mg Documented by: Sodium Chloride ([place] Nasal) 1 - 2 sprays NA PRN PRN PRN Reason: Nasal Dryness/Congestion Stop: 03/27/19 19:44 Temazepam (Restoril) 15 mg PO HSZ PRN PRN Reason: Insomnia Stop: 03/28/19 11:20 Last Admin: 02/27/19 20:24 Dose: 15 mg Documented by: Mental Health & Subst Abuse Tx Therapist Name of Therapist: Dr. Lia Bar Date of Therapist Appointment: 03/05/19 Time of Therapist Appointment: 10:45am Post Discharge Appointments Primary Care Physician Name Of Family Doctor: ORQUIDEA Mcdowell Time of Appointment with PCP: June 2019 Other #1: Name of Aftercare Appointment: [facility] Crisis Hotline Phone Number of Aftercare Appointment: Aftercare Appointment Comment: As Needed. #2: Name of Aftercare Appointment: [facility] Hotline Phone Number of Aftercare Appointment: [phone] Aftercare Appointment Comment: Hotline for someone to talk to as needed. Not a crisis line, but similar. #3: Name of Aftercare Appointment: Dr. Swathi Owusu Phone Number of Aftercare Appointment: [phone] Aftercare Appointment Comment: [address] [place] [address]
[2019-03-02] MEDS: risperiDONE 0.5 MG TABLET PO SCH (18:58)
[2019-03-02] MEDS: TEMAZEPAM 15 MG CAPSULE PO PRN (23:02)
[2019-03-03] MEDS: LIOTHYRONINE PO SCH ×2 (05:57→14:06)
[2019-03-03] MEDS: MULTIVITAMIN TAB PO SCH (05:57)
--- NOTE | 2019-03-03 09:24 | Discharge Summary ---
Date of Service March 03, 2019 History of Present Illness On my assessment, the patient states she was referred to the hospital after her appointment with Dr. Locke yesterday, which she and her mother attended. She was doing well until 1 week ago on , as she was getting manic and her mother pointed out she was acting inappropriately. She and her mother have "not been getting along well at all world war III broke out." States their interactions got so heated that "I thought I might have to call crisis." She says her mother is "furious at me for not seeing my symptoms," although notes she trusts her mother and sister, who have been telling her she's manic and she needs to raise her risperidone dose. She admits thoughts are racing, and "I need things to be slowed down." Sleep is decreased and energy high. States she also had "a big blowup" with her brother 2 weeks ago, stating he a "toxic malignant narcissist, they want to destroy the family." She states she knows she is manic and needs to increase her risperidone, but only wants to increase to 0.5mg, and wants to add temazepam for sleep, as it has been helpful in the past. She denies SI, HI, and hallucinations, but reports paranoia "that if I talk to anyone, it will cause a problem with my mom." States there was an interaction with a neighbor months ago that her mother keeps bringing up, "I feel like I can't say anything right." Feels "under a microscope at home." She is also upset that "I lost my driving privileges," stating her mother "doesn't think I can focus" because of an incident with some curtains, that was difficult to follow. She states that over the summer she was "really stressed," and talks about bu dorothea 19 bowls "which I needed," and socks, and that mother thought these were symptoms of vargas, which the patient disagrees with. She says she called crisis in the middle of the night to come talk to her about the stress that this caused. She reports that in September she got psychotic but treated it at home by increasing her risperidone dose to 0.5mg daily and living "on the sun porch, it was my recovery room, surrounded by green." Another topic of contention with her mother is the patient's online dating, stating she wants to travel out of town to meet men, and her mother worries about her safety. She states she went to [place] to meet a man and "my mom thought I was manic, but I wasn't, I know what was going on in my mind." She says she went [facility] her mother and sister the next day "and it was terrible,t hey picked on me about my hair and clothes." She has been taking diazepam about 50% of days for the past week, and has been exercising regularly as that helps stabilize mood. She states that Dr. Locke recommended she and her mother get family therapy, which she agrees with. Physical Exam Psychiatric Orientation: alert and cooperative Apperance: appropriately dressed, appropriately groomed and appeared stated age Eye Contact: good eye contact Motor Behavior: steady gait and station and no abnormal motor movements Hyperverbal, pressured, rapid. Mildly expansive. "Really good." Thought Process: + circumstantial thought process But able to be redirected. Thought Content: + cognitive distortions (Rationalizing her manic symptoms.) Suicidal Thoughts: denies suicidal thoughts Homicidal Thoughts: denies homicidal thoughts Hallucinations: no auditory hallucinations and no visual hallucinations Cognition: recent memory grossly intact, attention grossly intact and language grossly intact Estimated Intelligence: consistent with education level Insight: + limited insight Judgement: + fair judgement Vital Signs (Past 24 Hours) Last Vital Signs Temp 36.4 C L 03/03/19 07:04 Pulse 114 H 03/03/19 07:05 Resp 18 03/03/19 07:04 BP 133/89 03/03/19 07:05 Pulse Ox 98 02/25/19 19:45 Principal Diagnosis Bipolar disorder type I, current episode manic Psychiatric Data Patient was hospitalized on our unit for 6 days. On admission, her risperidone was increased to 0.5 mg at bedtime. She declined recommendations for further dose increase, stating her belief that she was "not really manic," and that her mother was overreacting to her behavior. She utilized temazepam for sleep, and was observed to be sleeping well in the hospital. She was eating well, and performing ADLs independently. She attended and participated in groups and therapy, and was appropriate in her behaviors and interactions with others. Care was coordinated with her outpatient psychiatrist and therapist, and a referral made for family therapy for the patient and her mother. Her outpatient therapist, Lia Bar Psy.D., was contacted and provided information: She has been working with [facility] and weekly sessions since October 2014, and has noted increased symptoms over the past 3 months, including irritability, pressured speech, and increased interpersonal conflict between she and her mother. She admitted to purchasing multiple things, for example 11 bowls at a [employer] store and like new children's toys, but provided explanations for why she did this, and felt that her mother was overreacting and mistakenly attributing her behavior to vargas. Although for the past month Albino reported that she and her mother had been able to process some of their arguments, Albino continued to present as more keyed up and animated, with significant interpersonal sensitivity. She reported feeling unfairly criticized by both her mother and sister, with significant frustration that they were pointing out her problematic behaviors, for example of accusing her being too loud, inappropriate, and embarrassing when out in public. She had a family meeting with her mother on 03/02/2019; during which her mother stated her intention to get her own therapist whom she wanted to teacher about her daughter's illness. Passive aggressive behavior and poor boundaries were evident, and mother was critical of the patient and her treating clinicians. The patient tolerated it well, took notes, and stated she felt the meeting went well. The patient reported that mood improved and stabilized while on the unit, and she felt optimistic that she and her mother would be able to improve their relationship and communication. A referral was placed to [facility] unit requesting case management services, but noted she did not want her mother to know about it. Day of Discharge Assessment Staff report the patient is attending and participating in groups, is hyperverbal but able to be redirected, and continues to eat and sleep well. She has taken temazepam for sleep 3 out of the last 5 nights, and has not required diazepam. On my assessment, she reports mood has stabilized, her thoughts are no longer racing, and that she feels calmer and less anxious. She denies thoughts of harming herself or anyone else, and denies psychotic symptoms. She denies side effects to medications, and feels she is on the appropriate dose of risperidone and does not need to increase it further. She states that her meeting with the director social welfare and her mother was very helpful, "because she is getting her own therapist." She is hopeful that they can continue to work on their relationship and appropriate boundaries. She continues to focus on the many examples of times when she feels her mother misinterpreted her behavior as manifestations of vargas. She is focused on switching to a different therapist, as her mother has encouraged her to do this, but reiterated that the recommendation was for both she and her mother to continue individual therapy, while also pursuing family counseling with a separate therapist. She is requesting discharge, and denies any safety concerns with leaving the hospital. Transition of Care Transition Of Care Record: was reviewed with the patient Advance Directives Advance Directives Information Provided: Yes Advance Directives: Yes Mental Health Advance Directive: Yes Advance Directives on File: Yes Living Will: Yes Power of Loader Operator Supervisor: Yes Advance Directives Reason:: Declines as Mental Health Visit. Risk Factors Assessment Risk factors were mitigated by admission to the inpatient unit, adjusting medications to target manic symptoms, psychoeducation about her diagnosis and the recommended treatment, coordination of care with her outpatient psychiatrist and therapist, and a family meeting with her mother whom she lives with and has significant interpersonal conflict, involving her in groups and therapy, working on healthy coping skills and a discharge safety plan. She was referred for high level of outpatient services (family therapy and blended case management), and although additional medication titration was recommended, she declined. Although she continues to have mild manic symptoms, she is in good behavioral control and is reporting improvement in symptoms since the time of admission, has consistently denied thoughts of harming herself or others, and has not been threatening or aggressive. She is eating, sleeping, and tending to her ADLs independently. She is requesting discharge, and as she is no longer at acute risk of harm to herself, can be managed as an outpatient at this time. She denies a history of violence, has not endorsed thoughts of harming others or aggressive behavior, and is not at increased risk for harm to others. Male: No : Yes Do You Have Access To A Gun?: No Health Problems: No Mental Health Diagnoses: Yes Substance Use Disorders: No Previous Attempt: No Family History of Suicide: No Previous Psychiatric Hospitalization: Yes Hopelessness: No Smoker: No Protective Factors Assessment : No Responsible for Young Children: No Employed: No Stable Relationships: No Supportive Family: Yes Good Rapport with Provider: Yes Tobacco Cessation at Discharge Tobacco Cessation Medication Prescribed at Discharge: Not Applicable/Non-Smoker Total Time Total Time Spent: Greater Than 30 Minutes Discharge Data Consultations 02/25/19 19:46 ED Decision to Admit Stat Lab Results 02/25/19 02/25/19 02/25/19 15:10 15:10 15:10 WBC 7.77 RBC 4.72 Hgb 14.4 Hct 42.2 MCV 89.4 MCH 30.5 MCHC 34.1 RDW Std Deviation 40.4 RDW Coeff of Snow 12.4 Plt Count 284 MPV 9.5 Immature Gran % (Auto) 0.1 Neut % (Auto) 69.9 Lymph % (Auto) 24.3 Harney % (Auto) 4.9 Eos % (Auto) 0.5 Baso % (Auto) 0.3 Immature Gran # (Auto) 0.01 Neut # (Auto) 5.43 Lymph # (Auto) 1.89 Harney # (Auto) 0.38 Eos # (Auto) 0.04 Baso # (Auto) 0.02 Sodium 139 Potassium 3.8 Chloride 105 Carbon Dioxide 28 Anion Gap 6.0 BUN 11 Creatinine 0.96 Est Cr Clr Drug Dosing 62.0 Est GFR ( Amer) 83.4 Est GFR (Non-Af Amer) 71.9 BUN/Creatinine Ratio 12.0 Glucose 142 H Fasting Glucose Calcium 8.9 Total Bilirubin 0.5 AST 8 L ALT 25 Alkaline Phosphatase 60 Total Protein 8.2 Albumin 4.6 Globulin 3.6 Albumin/Globulin Ratio 1.3 Triglycerides Cholesterol LDL Cholesterol, Calc VLDL Cholesterol, Calc HDL Cholesterol Cholesterol/HDL Ratio TSH 0.007 L Free T4 0.19 L HCG, Qual Urine Color Urine Appearance Urine pH Ur Specific Richmond Urine Protein Urine Glucose (UA) Urine Ketones Urine Blood Urine Nitrite Urine Bilirubin Urine Urobilinogen Ur Leukocyte Esterase Salicylates < 1.7 L Urine Opiates Screen Ur Methadone, Qual Acetaminophen < 2 L Urine Barbiturates Ur Phencyclidine (PCP) U Amphetamin/Meth Scrn MDMA (Ecstasy) Screen U Benzodiazepines Scrn Ur Cocaine Metabolite U Marijuana (THC) Screen Ethyl Alcohol mg/dL 02/25/19 02/25/19 02/25/19 15:10 15:13 15:20 WBC RBC Hgb Hct MCV MCH MCHC RDW Std Deviation RDW Coeff of Snow Plt Count MPV Immature Gran % (Auto) Neut % (Auto) Lymph % (Auto) Harney % (Auto) Eos % (Auto) Baso % (Auto) Immature Gran # (Auto) Neut # (Auto) Lymph # (Auto) Harney # (Auto) Eos # (Auto) Baso # (Auto) Sodium Potassium Chloride Carbon Dioxide Anion Gap BUN Creatinine Est Cr Clr Drug Dosing Est GFR ( Amer) Est GFR (Non-Af Amer) BUN/Creatinine Ratio Glucose Fasting Glucose Calcium Total Bilirubin AST ALT Alkaline Phosphatase Total Protein Albumin Globulin Albumin/Globulin Ratio Triglycerides Cholesterol LDL Cholesterol, Calc VLDL Cholesterol, Calc HDL Cholesterol Cholesterol/HDL Ratio TSH Free T4 HCG, Qual Negative Urine Color Urine Appearance Urine pH Ur Specific Richmond Urine Protein Urine Glucose (UA) Urine Ketones Urine Blood Urine Nitrite Urine Bilirubin Urine Urobilinogen Ur Leukocyte Esterase Salicylates Urine Opiates Screen Neg Ur Methadone, Qual Neg Acetaminophen Urine Barbiturates Neg Ur Phencyclidine (PCP) Neg U Amphetamin/Meth Scrn Neg MDMA (Ecstasy) Screen Neg U Benzodiazepines Scrn Neg Ur Cocaine Metabolite Neg U Marijuana (THC) Screen Neg Ethyl Alcohol mg/dL < 3.0 02/25/19 02/27/19 15:20 06:48 WBC RBC Hgb Hct MCV MCH MCHC RDW Std Deviation RDW Coeff of Snow Plt Count MPV Immature Gran % (Auto) Neut % (Auto) Lymph % (Auto) Harney % (Auto) Eos % (Auto) Baso % (Auto) Immature Gran # (Auto) Neut # (Auto) Lymph # (Auto) Harney # (Auto) Eos # (Auto) Baso # (Auto) Sodium Potassium Chloride Carbon Dioxide Anion Gap BUN Creatinine Est Cr Clr Drug Dosing Est GFR ( Amer) Est GFR (Non-Af Amer) BUN/Creatinine Ratio Glucose Fasting Glucose 87 Calcium Total Bilirubin AST ALT Alkaline Phosphatase Total Protein Albumin Globulin Albumin/Globulin Ratio Triglycerides 46 Cholesterol 177 LDL Cholesterol, Calc 106 VLDL Cholesterol, Calc 9 HDL Cholesterol 62 Cholesterol/HDL Ratio 3 TSH Free T4 HCG, Qual Urine Color Yellow Urine Appearance Clear Urine pH 6.0 Ur Specific Richmond 1.008 Urine Protein Negative Urine Glucose (UA) Negative Urine Ketones Negative Urine Blood Negative Urine Nitrite Negative Urine Bilirubin Negative Urine Urobilinogen Negative Ur Leukocyte Esterase Negative Salicylates Urine Opiates Screen Ur Methadone, Qual Acetaminophen Urine Barbiturates Ur Phencyclidine (PCP) U Amphetamin/Meth Scrn MDMA (Ecstasy) Screen U Benzodiazepines Scrn Ur Cocaine Metabolite U Marijuana (THC) Screen Ethyl Alcohol mg/dL Hospital Course (1) Bipolar disorder: 02/26 -continue voluntary hospitalization, every 15 minute checks for safety, participation in groups and therapy. -Work on healthy coping skills and discharge safety plan. -Increase risperidone to 0.5 mg at bedtime. Check fasting lipid profile and glucose tomorrow. -Continue home dose of temazepam 15 mg at bedtime as needed and diazepam 2 mg daily as needed for severe anxiety/vargas. -Coordinate care with Dr. Locke; called him and left a message requesting a return call. -Coordinate care with therapist Sheila Buchanan. Family therapy has been recommended for the patient and her mother, and the patient is willing to pursue this. 02/27 -Today, the patient told me that she would consider increasing her dose of risperidone from 0.5 mg at bedtime to 0.75 mg at bedtime, but would have to "think about it, first." We have all strongly advised the patient that this is likely to be an inadequate dose, and that her insistence on not having a higher dose is likely to lead to a prolonged hospital stay. The patient does say that she will except this assertion, but is asking to wait another "day or 2" before increasing the dose. -She required temazepam last night for sleep, and says that part of the problem for her is that she typically goes to bed before 8:00 every night and awakens at about 4 in the morning the next day, so that the hours of sleep here in the hospital feel artificial 2 or and her assertion is that, at home, she sleeps much better than she has here. -The patient is very interested in family therapy, and says that she has read that family therapy is almost always recommended in cases in which a family member has bipolar disorder. I attempted to explain to the patient that that will depend upon the preparedness of the patient to actively and appropriately participated in the therapy. The patient indicated that she found this assertion to be irritating, but, as noted above, she is easily irritated and has trouble accepting thoughts and feedback that are inconsistent with her own assumptions. (This latter issue may be partially characterologic, but I believe it is intensified by the patient's hypomanic state.) 02/28 - 03/01 - Continue risperidone at 0.5mg qHS, as patient is reporting response to dose increase and is declining recommendation for further titration - Pt is at least agreeable to maintaining this dosage, rather than rapidly requesting taper on discharge - Determine if appropriate to have a family meeting prior to discharge - Coordinate with outpatient providers 03/02 - Continue risperidone 0.5mg qHS, as patient continues to decline further titration - Family meeting held via phone with mother this morning. It reportedly went well and boundaries were discussed - Still attempting to solidify outpatient appointments with therapist and psychiatrist 03/03 -Patient requesting discharge. States she has ample supply of risperidone at home, so no new prescription issued. -Follow-up with Dr. Locke 03/11/2019, and therapist Lia Bar 03/05/2019. -Referral was made to Swathi Owusu for family therapy for the patient and her mother. -Referral made to the [facility] for blended case management. -Fasting glucose and lipid profile checked on 02/27/2019 for monitoring on an atypical antipsychotic; all values within normal limits. (2) Hypothyroidism: Continue home dose of liothyronine. TSH on admission 0.007, and free T4 0.19. Mental Health & Subst Abuse Tx Psychiatrist Name of Psychiatrist: [facility] - Dr. Locke Psychiatrist's Date of Appointment with Psychiatrist: 03/11/19 Time of Appointment with Psychiatrist: 11:20 a.m. Psychiatric Appointment Comment: [id number], [place] [address] Therapist Name of Therapist: Dr. Lia Bar Therapist's Date of Therapist Appointment: 03/05/19 Time of Therapist Appointment: 10:45am Therapy Appointment Comment: [id number], [place] [address] Provisioning Specialist Name of Provisioning Specialist: [employer] Phone Number for Provisioning Specialist: [phone] Time of Appointment with Provisioning Specialist: Will follow up with you to complete referral Case Management Appointment Comment: [address] [facility], [address], [place] Post Discharge Appointments Primary Care Physician Name Of Family Doctor: [facility] Time of Appointment with PCP: June 2019 Provider Appointment Comment: [id number], [place] [address] Smoking Cessation Counseling Tobacco Cessation Medication Prescribed at Discharge: Not Applicable/Non-Smoker Contact Information Discharge Discharge [address]: [address] [place] [address] Discharge Plan Discharge Items Patient Disposition: Home - Self-Care Reason For Visit: BIPOLAR DISORDER Discharge Diagnosis: bipolar disorder, current episode manic Activity: Per Instructions section Non-emergency contact: Primary Care Provider, Psychiatrist and Therapist Call non-emergency contact if: you have any medication questions and your symptoms worsen Follow-up/Referrals: James [facility] MD [Primary Care Provider] - Diet: Regular Addtl Attending Provider Instructions: SPECIAL CARE INSTRUCTIONS: 1. Follow through with your scheduled aftercare appointments. If unable to keep an appointment, please call to reschedule. 2. Take your medication only as prescribed. Medication should not be changed or stopped without the approval of your doctor. In the event of worsening symptoms or concerns about side effects, contact your doctor immediately. 3. Utilize new healthy coping skills, anger management skills, and stress management skills learned during your hospitalization. Journal feelings and process them with a support person. Identify stressors or situations that may result in relapse, deterioration or inappropriate behaviors and develop a plan to deal with those issues. 4. If your coping skills are ineffective and you are in crisis, contact your outpatient providers for direction. If unable to reach your providers, please call the CAN HELP LINE AT or go to the closest Emergency Room. 5. Avoid alcohol and un-prescribed drugs. 6. You have been provided with the Mental Health Advance Directives Pamphlet for your review. AFTERCARE APPOINTMENTS: * Please call your insurance company prior to your scheduled appointment to confirm your aftercare providers are covered. Take your insurance information to your appointments. WHO TO CALL AND WHEN: Medical Emergencies: For questions or emergencies related to your hospital stay, please contact the Inpatient Behavioral Health Unit at [phone]. A orthotic/prosthetic clinician is on-call 12/11 for the Behavioral Health Unit for emergencies At any time you feel your situation is an emergency, you may also call 911 immediately. Your Doctors Instructions noted above were prepared by provider Noemi Tavera MD. Pending Studies at Discharge: No Stand-Alone Forms: [facility], Smoking Cessation Medications and DC Order Prescriptions: Continued diazepam 2 mg tablet 2 mg PO HS PRN (Reason: Anxiety) RF: 0 temazepam 7.5 mg capsule 7.5 mg PO HS PRN (Reason: Anxiety) Qty: 30 RF: 0 liothyronine 50 mcg tablet 52.5 mcg PO BID RF: 0 multivitamin capsule 1 cap PO DAILY RF: 0 progesterone micronized 100 mg Capsule 100 mg PO 1400 RF: 0 progesterone micronized 100 mg Capsule 50 mg PO DAILY RF: 0 Changed risperidone 0.25 mg tablet 0.5 mg PO HS Qty: 0 RF: 0 Discharge Orders: Discharge Order (Routine); Ordered 03/03/19 Ordered By: Noemi Tavera Admission Data Admit Date/Time: 02/25/19 19:55 Attending Provider: Noemi Tavera Admit Provider: Audrey Keen Primary Care Provider: James [facility] Other Providers: Audrey Keen Coding Level of Care Code 23293 D/C day mgmt > 30 min Diagnoses Bipolar disorder F31.9 Hypothyroidism E03.9
== END 2019-03-03 16:00 | disposition home or self-care (01) | DRG 885 ==
LOC: ED 14:34 → 3S 19:45

== ENCOUNTER 2020-09-14 11:16 | Inpatient (IN) ==
[2020-09-14 11:39] VITALS: O2SAT 99
[2020-09-14 11:49] LABS: Basophils # (auto) 0.01 K/uL (0-0.2); Basophils % (auto) 0.1 %; Eosinophils # (auto) 0.01 K/uL (0-0.5); Eosinophils % (auto) 0.1 %; Hematocrit (blood only) 43.2 % (37-47); Hemoglobin 14.9 g/dL (12.0-16.0); Immature Granulocytes # (auto) 0.01 K/uL (0.00-0.02); Immature Granulocytes % (auto) 0.1 %; Lymphocytes # (auto) 1.34 K/uL (1.2-3.4); Mean Corpuscular Hemoglobin 30.4 pg (25-34); Mean Corpuscular Hgb Conc 34.5 g/dL (32-36); Mean Corpuscular Volume 88.2 fL (80-100); Mean Platelet Volume 9.3 fL (7.4-10.4); Monocytes # (auto) 0.45 K/uL (0.11-0.59); Monocytes % (auto) 5.7 %; Neutrophils # (auto) 6.05 K/uL (1.4-6.5); Platelet Count 299 K/uL (130-400); RDW Standard Deviation 41.5 fL (36.4-46.3); White Blood Count 7.87 K/uL (4.8-10.8)
[2020-09-14 12:10] LABS: Alanine Aminotransferase 41 U/L (12-78); Albumin Level 4.4 gm/dl (3.4-5.0); Aspartate Aminotransferase 18 U/L (15-37); BUN Creatinine Ratio 14.8 (10-20); Blood Urea Nitrogen 9 mg/dl (7-18); Carbon Dioxide 24 mmol/L (21-32); Chloride 106 mmol/L (98-107); Creatinine Clr Calc Pharmacy 120.5 ml/min; Est GFR (African American) 128.1 ml/min; Est GFR (Non-African American) 110.5 ml/min; Glucose 108 mg/dl (70-99); Potassium 3.4 mmol/L (3.5-5.1); Sodium 137 mmol/L (136-145)
[2020-09-14 12:11] LABS: Appearance Urine Clear (Clear); Bilirubin Urine Negative (Negative); Blood Urine Negative (Negative); Color Urine Yellow; Glucose Urine UA Negative (Negative); Ketones Urine Trace (Negative); Leukocyte Esterase Urine Negative (Negative); Nitrite Urine Negative (Negative); Protein Urine Negative (Negative); Specific Gravity Urine 1.005 (1.000-1.030); Urobilinogen Urine Negative (Negative); pH Urine 6.5 (4.5-7.5)
[2020-09-14 12:16] LABS: Amphetamines+Metham, Urine Neg (Neg); Barbiturates, Urine Neg (Neg); Benzodiazepine, Urine Neg (Neg); Cocaine, Urine Neg (Neg); MDMA (Ecstacy), Urine Neg (Neg); Methadone, Urine Neg (Neg); Opiate, Urine Neg (Neg); Phencyclidine, Urine Neg (Neg)
[2020-09-14 12:20] LABS: Albumin Globulin Ratio 1.3 (0.9-2); Alkaline Phosphatase 62 U/L (45-117); Bilirubin,Total 0.7 mg/dl (0.2-1); Globulin 3.3 gm/dl (2.5-4.0); Thyroid Stimulating Hormone < 0.005 uIu/ml (0.300-4.500); Total Protein 7.7 gm/dl (6.4-8.2)
[2020-09-14 12:27] LABS: Acetaminophen < 2 ug/ml (10-30); Salicylate < 1.7 mg/dl (2.8-20)
--- NOTE | 2020-09-14 12:35 | Emergency Department Note ---
Impression & Plan Bipolar disorder, Mood disorder ED Provider Note NAME: CHINO ALONZO AGE: 45 SEX: F : 1975 ARRIVES VIA: Ambulance INFORMANT: Patient ED PROVIDER(S): Kris Vaz DO CHIEF COMPLAINT: Mood disorder HPI: Patient is a 45-year-old female that presents to the ER for not being able to sleep. She notes that she has been unable to sleep for the past 2 nights. She has been following up with her psychiatrist Dr. Brand. She denies any suicidal or homicidal ideations. No auditory visual hallucinations. She notes her mind is not racing but that she cannot just fall asleep. They recently increased her risperidone but does not believe that is helping. ROS: See above HPI for pertinent positives & negatives. A total of 10 systems reviewed and were otherwise negative. PAST MEDICAL HISTORY:See Below PAST SURGICAL HISTORY:See Below FAMILY HISTORY:See Below SOCIAL HISTORY:See Below HOME MEDICATIONS:See Below ALLERGIES:See Below VITALS:See Below PHYSICAL EXAMINATION: GENERAL: Sitting up in bed, alert, well appearing, well nourished, no distress, non-toxic EYE EXAM: normal conjunctiva. PERRL and EOM's grossly intact. OROPHARYNX: no exudate, no erythema, lips, buccal mucosa, and tongue normal and mucous membranes are moist NECK: supple, no nuchal rigidity, no adenopathy, non-tender LUNGS: Clear to auscultation. Normal chest wall mechanics HEART: no murmurs, S1 normal and S2 normal ABDOMEN: abdomen soft, non-tender, normo-active bowel sounds, no masses, no rebound or guarding. UPPER EXTREMITIES: upper extremities are grossly normal. LOWER EXTREMITIES: No pitting edema. NEURO EXAM: Normal sensorium, cranial nerves II-XII grossly intact, normal speech, no gross weakness of arms, no gross weakness of legs. PSYCH: Denies any suicidal homicidal ideations. No auditory visual hallucinations MEDICAL DECISION MAKING: Patient is a 45-year-old female who presents the ER for depression. She was referred in by her psychiatrist. Labs were obtained and showed no significant leukocytosis or anemia. BMP with mild hypokalemia. LFTs bilirubin was unremarkable. TSH was low. Free T4 was low. This will need to be followed up on by her PCP. BMP was unremarkable. was negative. Tox was negative. Covid was negative. Patient was seen and evaluated admitted to [facility]. Observation Status: Indication: Medical stability Patient with a family history of cancer, was seen first at 1125 hrs and was necessary in order to determine medical stability and avoid unnecessary admissi on. Upon reevaluation, 4.5 hours of observation revealed that the patient should be admitted to [address] [place] [address]. Disposition date and time 09/14/20 1600. Triage Nursing notes reviewed. Limited review of prior medical records performed Vital Signs: reviewed and remarkable for HTN Differential diagnosis: Mood disorder, infection, hypoglycemia, electrolyte abnormalities, cardiac sources, intracerebral event, toxicologic, trauma, neurologic, as well as other pathologies. ER treatment provided: See below Diagnostics interpreted by me: Laboratory studies: As stated above and show below. Imaging studies: See below Consultation(s): none Procedures: none Critical Care: None Past Med/Surg History Medical History (Updated 09/14/20 @ 17:03 by Kris Vaz DO) Bipolar disorder Herpes zoster (2018) Hypertension Hypothyroidism Tinea pedis Surgical History H/O oral surgery Family History Father , FROM [place] AGE 52 Myocardial infarction Mother Ovarian cancer Denies family history of Colon cancer Prostate cancer Breast cancer Social History Smoking Status: Never smoker Hx Alcohol Use: Yes (social) Preferred Language: Tajik Communication Ability: Effective Visual Impairment: No Limitations Hearing Ability: Normal Food Processor Required: No Beliefs That Will Affect Care: None Feels Safe at Home: Yes Assistive Devices: None Allergies Allergies Allergy/AdvReac Type Severity Reaction Status Date / Time chlorpromazine AdvReac Severe cardiac Verified 06/25/19 14:37 [From Thorazine] haloperidol [From Haldol] AdvReac Severe metabolic Verified 06/25/19 14:37 syndrome lithium AdvReac Severe metabolic Verified 06/25/19 14:37 syndrome olanzapine [From Zyprexa] AdvReac Severe metabolic Verified 06/25/19 14:37 syndrome paliperidone [From Invega] AdvReac Severe metabolic Verified 06/25/19 14:37 syndrome zolpidem [From Ambien] AdvReac Severe metabolic Verified 06/25/19 14:37 syndrome Home Meds Home Medications Medication Instructions Recorded Confirmed diazepam 2 mg tablet 2 mg PO HS PRN tab 12/21/18 09/14/20 temazepam 7.5 mg capsule 30 mg PO HS PRN #30 cap 12/21/18 09/14/20 liothyronine 50 mcg tablet 52.5 mcg PO BID 12/25/18 09/14/20 multivitamin 1 cap PO DAILY 12/25/18 09/14/20 progesterone micronized 50 mg PO DAILY 02/25/19 09/14/20 progesterone micronized 100 mg PO 1400 02/25/19 09/14/20 risperidone 0.25 mg disintegrating 0.75 mg PO BID tab 06/25/19 09/14/20 tablet Results & Data (ED) Vital Signs Vital Signs - 24 hr 09/14/20 11:36 09/14/20 14:08 Temperature 36.8 C Temperature Source Oral Pulse Rate 98 H Pulse Rate [Finger] 88 Respiratory Rate 16 17 Blood Pressure 178/105 H Blood Pressure [Right Arm] 157/89 H Blood Pressure Mean 129 Blood Pressure Mean [Right Arm] 111 Pulse Oximetry 99 99 Oxygen Delivery Method Room Air Room Air Sepsis Recent Fever Within 48 Hours No Sepsis New/Unexplained Change in Mental Status N/A Sepsis Action Taken by Nursing No Action Required Laboratory Data Result diagrams: 09/14/20 11:31 09/14/20 11:31 Lab Results 09/14/20 09/14/20 09/14/20 Range/Units 11:22 11:22 11:22 WBC (4.8-10.8) K/uL RBC (4.2-5.4) M/uL Hgb (12.0-16.0) g/dL Hct (37-47) % MCV (80-100) fL MCH (25-34) pg MCHC (32-36) g/dL RDW Std Deviation (36.4-46.3) fL RDW Coeff of Snow (11.5-14.5) % Plt Count (130-400) K/uL MPV (7.4-10.4) fL Immature Gran % (Auto) % Neut % (Auto) % Lymph % (Auto) % [place] % (Auto) % Eos % (Auto) % Baso % (Auto) % Neut # (Auto) (1.4-6.5) K/uL Lymph # (Auto) (1.2-3.4) K/uL [place] # (Auto) (0.11-0.59) K/uL Eos # (Auto) (0-0.5) K/uL Baso # (Auto) (0-0.2) K/uL Immature Gran # (Auto) (0.00-0.02) K/uL Sodium (136-145) mmol/L Potassium (3.5-5.1) mmol/L Chloride (98-107) mmol/L Carbon Dioxide (21-32) mmol/L Anion Gap (3-11) BUN (7-18) mg/dl Creatinine (0.6-1.2) mg/dl Est Cr Clr Drug Dosing ml/min Est GFR ( Amer) ml/min Est GFR (Non-Af Amer) ml/min BUN/Creatinine Ratio (10-20) Glucose (70-99) mg/dl Calcium (8.5-10.1) mg/dl Total Bilirubin (0.2-1) mg/dl AST (15-37) U/L ALT (12-78) U/L Alkaline Phosphatase (45-117) U/L Total Protein (6.4-8.2) gm/dl Albumin (3.4-5.0) gm/dl Globulin (2.5-4.0) gm/dl Albumin/Globulin Ratio (0.9-2) TSH (0.300-4.500) uIu/ml Free T4 (0.8-1.6) ng/dl Free T3 (2.3-4.2) pg/ml Urine Color Yellow Urine Appearance Clear (Clear) Urine pH 6.5 (4.5-7.5) Ur Specific Lohn 1.005 (1.000-1.030) Urine Protein Negative (Negative) Urine Glucose (UA) Negative (Negative) Urine Ketones Trace H (Negative) Urine Blood Negative (Negative) Urine Nitrite Negative (Negative) Urine Bilirubin Negative (Negative) Urine Urobilinogen Negative (Negative) Ur Leukocyte Esterase Negative (Negative) POC Ur Test NEG (NEG) Salicylates (2.8-20) mg/dl Urine Opiates Screen Neg (Neg) Ur Methadone, Qual Neg (Neg) Acetaminophen (10-30) ug/ml Urine Barbiturates Neg (Neg) Ur Phencyclidine (PCP) Neg (Neg) U Amphetamin/Meth Scrn Neg (Neg) MDMA (Ecstasy) Screen Neg (Neg) U Benzodiazepines Scrn Neg (Neg) Ur Cocaine Metabolite Neg (Neg) U Marijuana (THC) Screen Neg (Neg) Ethyl Alcohol mg/dL (0-3) mg/dl COVID-19 Eval Order SARS-CoV-2, RNA, NAAT (NEGATIVE) 09/14/20 09/14/20 09/14/20 Range/Units 11:31 11:31 11:31 WBC 7.87 (4.8-10.8) K/uL RBC 4.90 (4.2-5.4) M/uL Hgb 14.9 (12.0-16.0) g/dL Hct 43.2 (37-47) % MCV 88.2 (80-100) fL MCH 30.4 (25-34) pg MCHC 34.5 (32-36) g/dL RDW Std Deviation 41.5 (36.4-46.3) fL RDW Coeff of Snow 13.0 (11.5-14.5) % Plt Count 299 (130-400) K/uL MPV 9.3 (7.4-10.4) fL Immature Gran % (Auto) 0.1 % Neut % (Auto) 77.0 % Lymph % (Auto) 17.0 % [place] % (Auto) 5.7 % Eos % (Auto) 0.1 % Baso % (Auto) 0.1 % Neut # (Auto) 6.05 (1.4-6.5) K/uL Lymph # (Auto) 1.34 (1.2-3.4) K/uL [place] # (Auto) 0.45 (0.11-0.59) K/uL Eos # (Auto) 0.01 (0-0.5) K/uL Baso # (Auto) 0.01 (0-0.2) K/uL Immature Gran # (Auto) 0.01 (0.00-0.02) K/uL Sodium 137 (136-145) mmol/L Potassium 3.4 L (3.5-5.1) mmol/L Chloride 106 (98-107) mmol/L Carbon Dioxide 24 (21-32) mmol/L Anion Gap 6.0 (3-11) BUN 9 (7-18) mg/dl Creatinine 0.58 L (0.6-1.2) mg/dl Est Cr Clr Drug Dosing 120.5 ml/min Est GFR ( Amer) 128.1 ml/min Est GFR (Non-Af Amer) 110.5 ml/min BUN/Creatinine Ratio 14.8 (10-20) Glucose 108 H (70-99) mg/dl Calcium 9.0 (8.5-10.1) mg/dl Total Bilirubin 0.7 (0.2-1) mg/dl AST 18 (15-37) U/L ALT 41 (12-78) U/L Alkaline Phosphatase 62 (45-117) U/L Total Protein 7.7 (6.4-8.2) gm/dl Albumin 4.4 (3.4-5.0) gm/dl Globulin 3.3 (2.5-4.0) gm/dl Albumin/Globulin Ratio 1.3 (0.9-2) TSH < 0.005 L (0.300-4.500) uIu/ml Free T4 (0.8-1.6) ng/dl Free T3 (2.3-4.2) pg/ml Urine Color Urine Appearance (Clear) Urine pH (4.5-7.5) Ur Specific Lohn (1.000-1.030) Urine Protein (Negative) Urine Glucose (UA) (Negative) Urine Ketones (Negative) Urine Blood (Negative) Urine Nitrite (Negative) Urine Bilirubin (Negative) Urine Urobilinogen (Negative) Ur Leukocyte Esterase (Negative) POC Ur Test (NEG) Salicylates < 1.7 L (2.8-20) mg/dl Urine Opiates Screen (Neg) Ur Methadone, Qual (Neg) Acetaminophen < 2 L (10-30) ug/ml Urine Barbiturates (Neg) Ur Phencyclidine (PCP) (Neg) U Amphetamin/Meth Scrn (Neg) MDMA (Ecstasy) Screen (Neg) U Benzodiazepines Scrn (Neg) Ur Cocaine Metabolite (Neg) U Marijuana (THC) Screen (Neg) Ethyl Alcohol mg/dL (0-3) mg/dl COVID-19 Eval Order SARS-CoV-2, RNA, NAAT (NEGATIVE) 05/09/14/20 09/14/20 Range/Units 11:31 11:31 11:32 WBC (4.8-10.8) K/uL RBC (4.2-5.4) M/uL Hgb (12.0-16.0) g/dL Hct (37-47) % MCV (80-100) fL MCH (25-34) pg MCHC (32-36) g/dL RDW Std Deviation (36.4-46.3) fL RDW Coeff of Snow (11.5-14.5) % Plt Count (130-400) K/uL MPV (7.4-10.4) fL Immature Gran % (Auto) % Neut % (Auto) % Lymph % (Auto) % [place] % (Auto) % Eos % (Auto) % Baso % (Auto) % Neut # (Auto) (1.4-6.5) K/uL Lymph # (Auto) (1.2-3.4) K/uL [place] # (Auto) (0.11-0.59) K/uL Eos # (Auto) (0-0.5) K/uL Baso # (Auto) (0-0.2) K/uL Immature Gran # (Auto) (0.00-0.02) K/uL Sodium (136-145) mmol/L Potassium (3.5-5.1) mmol/L Chloride (98-107) mmol/L Carbon Dioxide (21-32) mmol/L Anion Gap (3-11) BUN (7-18) mg/dl Creatinine (0.6-1.2) mg/dl Est Cr Clr Drug Dosing ml/min Est GFR ( Amer) ml/min Est GFR (Non-Af Amer) ml/min BUN/Creatinine Ratio (10-20) Glucose (70-99) mg/dl Calcium (8.5-10.1) mg/dl Total Bilirubin (0.2-1) mg/dl AST (15-37) U/L ALT (12-78) U/L Alkaline Phosphatase (45-117) U/L Total Protein (6.4-8.2) gm/dl Albumin (3.4-5.0) gm/dl Globulin (2.5-4.0) gm/dl Albumin/Globulin Ratio (0.9-2) TSH (0.300-4.500) uIu/ml Free T4 0.17 L (0.8-1.6) ng/dl Free T3 6.17 H (2.3-4.2) pg/ml Urine Color Urine Appearance (Clear) Urine pH (4.5-7.5) Ur Specific Lohn (1.000-1.030) Urine Protein (Negative) Urine Glucose (UA) (Negative) Urine Ketones (Negative) Urine Blood (Negative) Urine Nitrite (Negative) Urine Bilirubin (Negative) Urine Urobilinogen (Negative) Ur Leukocyte Esterase (Negative) POC Ur Test (NEG) Salicylates (2.8-20) mg/dl Urine Opiates Screen (Neg) Ur Methadone, Qual (Neg) Acetaminophen (10-30) ug/ml Urine Barbiturates (Neg) Ur Phencyclidine (PCP) (Neg) U Amphetamin/Meth Scrn (Neg) MDMA (Ecstasy) Screen (Neg) U Benzodiazepines Scrn (Neg) Ur Cocaine Metabolite (Neg) U Marijuana (THC) Screen (Neg) Ethyl Alcohol mg/dL < 3.0 (0-3) mg/dl COVID-19 Eval Order SARS-CoV-2, RNA, NAAT (NEGATIVE) 09/14/20 09/14/20 Range/Units 13:40 13:40 WBC (4.8-10.8) K/uL RBC (4.2-5.4) M/uL Hgb (12.0-16.0) g/dL Hct (37-47) % MCV (80-100) fL MCH (25-34) pg MCHC (32-36) g/dL RDW Std Deviation (36.4-46.3) fL RDW Coeff of Snow (11.5-14.5) % Plt Count (130-400) K/uL MPV (7.4-10.4) fL Immature Gran % (Auto) % Neut % (Auto) % Lymph % (Auto) % [place] % (Auto) % Eos % (Auto) % Baso % (Auto) % Neut # (Auto) (1.4-6.5) K/uL Lymph # (Auto) (1.2-3.4) K/uL [place] # (Auto) (0.11-0.59) K/uL Eos # (Auto) (0-0.5) K/uL Baso # (Auto) (0-0.2) K/uL Immature Gran # (Auto) (0.00-0.02) K/uL Sodium (136-145) mmol/L Potassium (3.5-5.1) mmol/L Chloride (98-107) mmol/L Carbon Dioxide (21-32) mmol/L Anion Gap (3-11) BUN (7-18) mg/dl Creatinine (0.6-1.2) mg/dl Est Cr Clr Drug Dosing ml/min Est GFR ( Amer) ml/min Est GFR (Non-Af Amer) ml/min BUN/Creatinine Ratio (10-20) Glucose (70-99) mg/dl Calcium (8.5-10.1) mg/dl Total Bilirubin (0.2-1) mg/dl AST (15-37) U/L ALT (12-78) U/L Alkaline Phosphatase (45-117) U/L Total Protein (6.4-8.2) gm/dl Albumin (3.4-5.0) gm/dl Globulin (2.5-4.0) gm/dl Albumin/Globulin Ratio (0.9-2) TSH (0.300-4.500) uIu/ml Free T4 (0.8-1.6) ng/dl Free T3 (2.3-4.2) pg/ml Urine Color Urine Appearance (Clear) Urine pH (4.5-7.5) Ur Specific Lohn (1.000-1.030) Urine Protein (Negative) Urine Glucose (UA) (Negative) Urine Ketones (Negative) Urine Blood (Negative) Urine Nitrite (Negative) Urine Bilirubin (Negative) Urine Urobilinogen (Negative) Ur Leukocyte Esterase (Negative) POC Ur Test (NEG) Salicylates (2.8-20) mg/dl Urine Opiates Screen (Neg) Ur Methadone, Qual (Neg) Acetaminophen (10-30) ug/ml Urine Barbiturates (Neg) Ur Phencyclidine (PCP) (Neg) U Amphetamin/Meth Scrn (Neg) MDMA (Ecstasy) Screen (Neg) U Benzodiazepines Scrn (Neg) Ur Cocaine Metabolite (Neg) U Marijuana (THC) Screen (Neg) Ethyl Alcohol mg/dL (0-3) mg/dl COVID-19 Eval Order Covid19 [facility] SARS-CoV-2, RNA, NAAT NEGATIVE (NEGATIVE) Administered Medications Quetiapine Fumarate (Quetiapine Fumarate 25 Mg Tablet) 50 mg PO Q4 PRN PRN Reason: Anxiety/Insomnia Stop: 10/14/20 19:59 Last Admin: 09/14/20 16:50 Dose: 50 mg Documented by: [id number] Discharge Plan Visit Data Chief Complaint: Mental Health Evaluation ED Provider: Kris Vaz Discharge Problem: Bipolar disorder, Mood disorder Discharge Instructions Interventions: ED Discharge Assessment Last Done: 09/14/20 15:30 Discharge Problem: Bipolar disorder Qualifiers: Active/Remission status: remission status unspecified Qualified Code(s): F31.9 - Bipolar disorder, unspecified
[2020-09-14] MEDS ORDERED: SODIUM CHLORIDE 0.65% NA SOLN 45 ML (OCEAN) PRN (14:47)
[2020-09-14] MEDS ORDERED: BISMUTH SUBSALICYLATE LIQD 236 ML PO PRN (14:47)
[2020-09-14] MEDS ORDERED: ALUMINUM/MAGNESIUM SUSP 30 ML UDC PO PRN (14:47)
[2020-09-14] MEDS ORDERED: MAGNESIUM HYDROXIDE SUSP 30 ML UDC PO PRN (14:47)
[2020-09-14] MEDS ORDERED: hydrOXYzine HCl 25 MG TAB PO PRN ×2 (14:47)
[2020-09-14] MEDS ORDERED: ACETAMINOPHEN 325 MG TAB PO PRN (14:47)
[2020-09-14] MEDS ORDERED: TEMAZEPAM 15 MG CAPSULE PO PRN ×2 (14:50→20:00)
[2020-09-14] MEDS ORDERED: risperiDONE ODT 0.5 MG SOLTAB PO PRN (15:12)
[2020-09-14] MEDS ORDERED: BENZTROPINE MESYLATE 0.5 MG TAB PO PRN (15:12)
--- NOTE | 2020-09-14 16:39 | History & Physical ---
Date of Service September 14, 2020 Impression / Recommendations Impression 45 yo female disabled from longstanding bipolar I dx, overcorrected for hypothyroidism for >1 year presents with recurrent vargas (insomnia 3 days but disorganized thoughts/mood shift/preoccupations requiring hospitalization for >1 week). She was hospitalized at the recommendation of her outpatient psychiatrist who knows her very well. (1) Bipolar disorder: 09/14/20 The patient was admitted to the [facility] ([facility]) on q15 min checks (behavioral with suicide precautions) for safety. The patient will participate in group, recreational, and milieu therapies and will be offered additional individual and family sessions as clinically appropriate. She was unable to fully review the risks/benefits/alternatives re: antipsychotic medication as a mood stabilizer at this time. She is not willing to take extra Risperdal. Will offer Seroquel 50 mg as a 1 time dose as she would like to rest and titrate if needed; I cannot currently confirm past reaction to thorazine. She does have a fasting lipid profile on her chart from June 2020 but no recent fasting glucose so ordered for the am. Active/Remission status: currently active Current bipolar episode type: manic Current episode severity: moderate Qualified Code(s): F31.12 - Bipolar disorder, current episode manic without psychotic features, moderate (2) Abnormal thyroid stimulating hormone (TSH) level: the patient's liothyronine will be held pending consultation with her rattan worker and/or Dr. Mcdowell as overcorrection appears to be worsening and thyrotoxicosis may be contributing to her presentation. Inventory Assets Strengths: intelligent, voluntary Needs: increase insight into medical impact to her psychiatric condition. Risk Factors Assessment Do You Have Access To A Gun?: No Protective Factors Assessment Employed: No Psychiatric History Identifying Data CHINO ALONZO is a 45-year-old F who was referred to the ED by her outpatient psychiatrist Dr. Locke. She has a history of bipolar disorder, and was admitted on 09/14/20 14:47 on a 201 voluntary commitment for vargas. Chief Complaint "I'm not having racing thoughts I just need to be put down, I feel like my eyes are popping open". clarified that "put down" means medicated for sleep. History of Present Illness The patient's speech is fast and she is not particularly cooperative with interview. She would only confirm that she needs sleep and that her meds are "exactly where they should be" and limited interview even further when I suggested that her thyroid overcorrection could be contributing to her presentation. She was unsure about signing a release for her rattan worker as "I don't want you to change anything" and a free T3 and T4 were added to her ED labs. She denies racing thoughts but is disorganized in conversation. 09/14/20 13:37 - Case Management ED Psych by Cecilia Cohen Received a call from Dr. Locke LEATHER LEVELER reporting that he saw pt yesterday and spoke to her today. Hx of bipolar, currently paranoid, bizarre and delusional thinking..."family never wanted her" not sleeping, psychosis...but will minimize symptoms. Mom is undergoing intensive treatment for melanoma/CA....and patient is her major support... wanted to increase her meds to risperdal 0.75 mg BID...and patient was/may not be receptive to that...also restoril 30 mg HS. Mom called EMS. Met with patient who appears to be having difficulty processing thoughts and questions asked of her. Pt reports that she has not slept at all for over 24 hours. She reports that she is in a manic phase. When asked how long this has been going on she states 24 hours and 6 months. When asked what her stressors are she reports I wanted my brother to come home without his corcoran on. Apparently her brother lives in [place]. Pt states I need to be in the hospital, I need a meal. I need to be amongst friends. Pt denies SI, she denies prior SA. She has had previous inpatient treatment at [facility], [facility] and [facility]. Pt difficult to assess due to her difficulty processing and long delays is answering questions. Also reviewed previous record from 2019 where she was admitted for similar symptoms. She denies "any problems since then" and denied any other hospitalizations. She repeatedly requested thorazine as "I got it once when I was 17 yo". Reviewed it is an allergy on her [facility] chart from 2019. I imagine means tachy or orthostasis but she is a very poor historian at this time. Past Psychiatric History Previous Psych History: prior course of treatment with Dr. Peter Current Psychiatric Diagnosis: Bipolar I Outpatient Services: [facility], [facility] therapist Sheila Buchanan. Previous Psych Admissions: multiple--[facility] (03/10 most recent, 10/07), also [facility], and [facility] starting in her teens. Do You Have Access To A Gun?: No History of Previous Suicide Attempt: No Describe Attempts in the Past: Denies SI/SA Past Medication Trials: likely not an inclusive list but chart notes thorazine, haldol, lithium, olanzapine, paliperidone, zolpidem, Luvox, current meds, Zoloft. PDMP database reviewed given combo of Valium and Restoril prns. Allergies Allergy/AdvReac Type Severity Reaction Status Date / Time chlorpromazine AdvReac Severe cardiac Verified 06/25/19 14:37 [From Thorazine] haloperidol [From Haldol] AdvReac Severe metabolic Verified 06/25/19 14:37 syndrome lithium AdvReac Severe metabolic Verified 06/25/19 14:37 syndrome olanzapine [From Zyprexa] AdvReac Severe metabolic Verified 06/25/19 14:37 syndrome paliperidone [From Invega] AdvReac Severe metabolic Verified 06/25/19 14:37 syndrome zolpidem [From Ambien] AdvReac Severe metabolic Verified 06/25/19 14:37 syndrome Home Medications Medication Instructions Recorded Confirmed Type diazepam 2 mg tablet 2 mg PO HS PRN tab 12/21/18 09/14/20 History temazepam 7.5 mg capsule 30 mg PO HS PRN #30 cap 12/21/18 09/14/20 History liothyronine 50 mcg tablet 52.5 mcg PO BID 12/25/18 09/14/20 History multivitamin 1 cap PO DAILY 12/25/18 09/14/20 History progesterone micronized 50 mg PO DAILY 02/25/19 09/14/20 History progesterone micronized 100 mg PO 1400 02/25/19 09/14/20 History risperidone 0.25 mg disintegrating 0.75 mg PO BID tab 06/25/19 09/14/20 History tablet Family History Family History of: Doesn't Know Alcohol History Hx of Alcohol Use Over the Past 12 Months: No Smoking Use Smoking Status: Never smoker Substance History Hx of Prescription Med Misuse Over the Past 12 Months: No Hx of Over the Counter Med Misuse Over the Past 12 Months: No Hx of Inhalent Misuse Over the Past 12 Months: No Hx of Organic Substance Use Over the Past 12 Months: No Hx of Illegal Substances/Street Drug Use Over Past 12 Months: No Personal History Living Arrangements: Home (with mother but seems irritated about it) Highest Grade Completed: Graduate School 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) Marital Status: Single Number Of Children: 0 Beliefs That Will Affect Care: None Hx Traumatic Life Events: No Patient History Medical History (Updated 09/14/20 @ 16:51 by Audrey Keen MD) Bipolar disorder Herpes zoster (2018) Hypertension Hypothyroidism Tinea pedis Surgical History H/O oral surgery Family History Father , FROM [place] AGE 52 Myocardial infarction Mother Ovarian cancer Denies family history of Colon cancer Prostate cancer Breast cancer Social History Smoking Status: Never smoker Hx Alcohol Use: Yes (social) Preferred Language: Romanian Communication Ability: Effective Visual Impairment: No Limitations Hearing Ability: Normal [employer] Required: No Beliefs That Will Affect Care: None Feels Safe at Home: Yes Assistive Devices: None Review of Systems Review of Systems: Unobtainable due to mental health condition Physical Exam Psychiatric: Orientation: alert Apperance: + disheveled Eye Contact: + poor eye contact Motor Behavior: + psychomotor agitation Speech: + pressured speech Affect: + constricted affect Mood: + anxious mood and + irritable mood Thought Process: + concrete thought process Thought Content: + cognitive distortions Suicidal Thoughts: denies suicidal thoughts Homicidal Thoughts: denies homicidal thoughts Hallucinations: no auditory hallucinations and no visual hallucinations Cognition: + attention not intact Estimated Intelligence: consistent with education level Insight: + poor insight Judgement: + poor judgement Vital Signs (Past 24 Hours): Last Vital Signs Temp 36.8 C 09/14/20 11:36 Pulse 82 09/14/20 15:30 Resp 17 09/14/20 15:30 BP 168/90 H 09/14/20 15:30 Pulse Ox 99 09/14/20 15:30 Exam Statement: A physical exam was performed in the ED by Dr. Vaz for the purposes of medical clearance. I accept that physical as correct and adequate for the purposes of the inpatient physical exam. Results & Data ([facility]) Laboratory Results Laboratory Results - last 24 hr 09/14/20 09/14/20 09/14/20 11:22 11:22 11:22 WBC RBC Hgb Hct MCV MCH MCHC RDW Std Deviation RDW Coeff of [place] Plt Count MPV Immature Gran % (Auto) Neut % (Auto) Lymph % (Auto) [place] % (Auto) Eos % (Auto) Baso % (Auto) Neut # (Auto) Lymph # (Auto) [place] # (Auto) Eos # (Auto) Baso # (Auto) Immature Gran # (Auto) Sodium Potassium Chloride Carbon Dioxide Anion Gap BUN Creatinine Est Cr Clr Drug Dosing Est GFR ( Amer) Est GFR (Non-Af Amer) BUN/Creatinine Ratio Glucose Calcium Total Bilirubin AST ALT Alkaline Phosphatase Total Protein Albumin Globulin Albumin/Globulin Ratio TSH Free T4 Free T3 Urine Color Yellow Urine Appearance Clear Urine pH 6.5 Ur Specific [place] 1.005 Urine Protein Negative Urine Glucose (UA) Negative Urine Ketones Trace H Urine Blood Negative Urine Nitrite Negative Urine Bilirubin Negative Urine Urobilinogen Negative Ur Leukocyte Esterase Negative POC Ur Test NEG Salicylates Urine Opiates Screen Neg Ur Methadone, Qual Neg Acetaminophen Urine Barbiturates Neg Ur Phencyclidine (PCP) Neg U Amphetamin/Meth Scrn Neg MDMA (Ecstasy) Screen Neg U Benzodiazepines Scrn Neg Ur Cocaine Metabolite Neg U Marijuana (THC) Screen Neg Ethyl Alcohol mg/dL COVID-19 Eval Order SARS-CoV-2, RNA, NAAT 09/14/20 09/14/20 09/14/20 11:31 11:31 11:31 WBC 7.87 RBC 4.90 Hgb 14.9 Hct 43.2 MCV 88.2 MCH 30.4 MCHC 34.5 RDW Std Deviation 41.5 RDW Coeff of Snow 13.0 Plt Count 299 MPV 9.3 Immature Gran % (Auto) 0.1 Neut % (Auto) 77.0 Lymph % (Auto) 17.0 [place] % (Auto) 5.7 Eos % (Auto) 0.1 Baso % (Auto) 0.1 Neut # (Auto) 6.05 Lymph # (Auto) 1.34 [place] # (Auto) 0.45 Eos # (Auto) 0.01 Baso # (Auto) 0.01 Immature Gran # (Auto) 0.01 Sodium 137 Potassium 3.4 L Chloride 106 Carbon Dioxide 24 Anion Gap 6.0 BUN 9 Creatinine 0.58 L Est Cr Clr Drug Dosing 120.5 Est GFR ( Amer) 128.1 Est GFR (Non-Af Amer) 110.5 BUN/Creatinine Ratio 14.8 Glucose 108 H Calcium 9.0 Total Bilirubin 0.7 AST 18 ALT 41 Alkaline Phosphatase 62 Total Protein 7.7 Albumin 4.4 Globulin 3.3 Albumin/Globulin Ratio 1.3 TSH < 0.005 L Free T4 Free T3 Urine Color Urine Appearance Urine pH Ur Specific [place] Urine Protein Urine Glucose (UA) Urine Ketones Urine Blood Urine Nitrite Urine Bilirubin Urine Urobilinogen Ur Leukocyte Esterase POC Ur Test Salicylates < 1.7 L Urine Opiates Screen Ur Methadone, Qual Acetaminophen < 2 L Urine Barbiturates Ur Phencyclidine (PCP) U Amphetamin/Meth Scrn MDMA (Ecstasy) Screen U Benzodiazepines Scrn Ur Cocaine Metabolite U Marijuana (THC) Screen Ethyl Alcohol mg/dL COVID-19 Eval Order SARS-CoV-2, RNA, NAAT 09/14/20 09/14/20 09/14/20 11:31 11:31 11:32 WBC RBC Hgb Hct MCV MCH MCHC RDW Std Deviation RDW Coeff of [place] Plt Count MPV Immature Gran % (Auto) Neut % (Auto) Lymph % (Auto) [place] % (Auto) Eos % (Auto) Baso % (Auto) Neut # (Auto) Lymph # (Auto) [place] # (Auto) Eos # (Auto) Baso # (Auto) Immature Gran # (Auto) Sodium Potassium Chloride Carbon Dioxide Anion Gap BUN Creatinine Est Cr Clr Drug Dosing Est GFR ( Amer) Est GFR (Non-Af Amer) BUN/Creatinine Ratio Glucose Calcium Total Bilirubin AST ALT Alkaline Phosphatase Total Protein Albumin Globulin Albumin/Globulin Ratio TSH Free T4 0.17 L Free T3 6.17 H Urine Color Urine Appearance Urine pH Ur Specific [place] Urine Protein Urine Glucose (UA) Urine Ketones Urine Blood Urine Nitrite Urine Bilirubin Urine Urobilinogen Ur Leukocyte Esterase POC Ur Test Salicylates Urine Opiates Screen Ur Methadone, Qual Acetaminophen Urine Barbiturates Ur Phencyclidine (PCP) U Amphetamin/Meth Scrn MDMA (Ecstasy) Screen U Benzodiazepines Scrn Ur Cocaine Metabolite U Marijuana (THC) Screen Ethyl Alcohol mg/dL < 3.0 COVID-19 Eval Order SARS-CoV-2, RNA, NAAT 09/14/20 09/14/20 13:40 13:40 WBC RBC Hgb Hct MCV MCH MCHC RDW Std Deviation RDW Coeff of [place] Plt Count MPV Immature Gran % (Auto) Neut % (Auto) Lymph % (Auto) [place] % (Auto) Eos % (Auto) Baso % (Auto) Neut # (Auto) Lymph # (Auto) [place] # (Auto) Eos # (Auto) Baso # (Auto) Immature Gran # (Auto) Sodium Potassium Chloride Carbon Dioxide Anion Gap BUN Creatinine Est Cr Clr Drug Dosing Est GFR ( Amer) Est GFR (Non-Af Amer) BUN/Creatinine Ratio Glucose Calcium Total Bilirubin AST ALT Alkaline Phosphatase Total Protein Albumin Globulin Albumin/Globulin Ratio TSH Free T4 Free T3 Urine Color Urine Appearance Urine pH Ur Specific [place] Urine Protein Urine Glucose (UA) Urine Ketones Urine Blood Urine Nitrite Urine Bilirubin Urine Urobilinogen Ur Leukocyte Esterase POC Ur Test Salicylates Urine Opiates Screen Ur Methadone, Qual Acetaminophen Urine Barbiturates Ur Phencyclidine (PCP) U Amphetamin/Meth Scrn MDMA (Ecstasy) Screen U Benzodiazepines Scrn Ur Cocaine Metabolite U Marijuana (THC) Screen Ethyl Alcohol mg/dL COVID-19 Eval [facility] SARS-CoV-2, RNA, NAAT NEGATIVE Current Inpatient Medications Current Inpatient Medications: Current Inpatient Medications Acetaminophen (Acetaminophen 325 Mg Tab) 650 mg PO Q4H PRN PRN Reason: Headache or Minor Fever Stop: 10/14/20 14:46 Al Hydrox/Mg Hydrox/Simethicone (Aluminum/Magnesium Susp 30 Ml Udc) 30 ml PO Q4H PRN PRN Reason: GI Upset Stop: 10/14/20 14:46 Benztropine Mesylate (Benztropine Mesylate 0.5 Mg Tab) 0.5 mg PO Q6H PRN PRN Reason: muscle spasm Stop: 10/14/20 15:11 Bismuth Subsalicylate (Bismuth Subsalicylate Liqd 236 Ml) 15 ml PO PRN PRN PRN Reason: Loose Stool Stop: 10/14/20 14:46 Diazepam (Diazepam 2 Mg Tablet) 2 mg PO DAILY PRN PRN Reason: Anxiety Stop: 10/14/20 19:59 Hydroxyzine HCl (Hydroxyzine Hcl 25 Mg Tab) 50 mg PO HSZ PRN PRN Reason: Insomnia Stop: 10/14/20 14:46 Hydroxyzine HCl (Hydroxyzine Hcl 25 Mg Tab) 25 mg PO Q4H PRN PRN Reason: Anxiety Stop: 10/14/20 14:46 Magnesium Hydroxide (Magnesium Hydroxide Susp 30 Ml Udc) 30 ml PO DAILY PRN PRN Reason: Constipation Stop: 10/14/20 14:46 Miscellaneous (Progesterone~Order Awaiting Action) 1 ea N/A QS [place] Stop: 10/14/20 15:59 Miscellaneous (Progesterone~Order Awaiting Action) 1 ea N/A QS [place] Stop: 10/14/20 15:59 Multivitamins/Minerals (Cerovite Adv Formula Tab) 1 tab PO DAILY [place] Stop: 10/15/20 08:59 Quetiapine Fumarate (Quetiapine Fumarate 25 Mg Tablet) 50 mg PO Q4 PRN PRN Reason: Anxiety/Insomnia Stop: 10/14/20 19:59 Risperidone (Risperidone Odt 0.5 Mg Soltab) 0.75 mg PO BID@0900,1930 [place] Stop: 10/14/20 19:29 Sodium Chloride (Sodium Chloride 0.65% Na Soln 45 Ml (Faith)) 1 - 2 sprays NA PRN PRN PRN Reason: Nasal Dryness/Congestion Stop: 10/14/20 14:46 Temazepam (Temazepam 15 Mg Capsule) 30 mg PO HS PRN PRN Reason: Insomnia Stop: 10/14/20 19:59
[2020-09-14] MEDS: QUEtiapine FUMARATE 25 MG TABLET PO PRN ×2 (16:50→22:24)
[2020-09-14] MEDS: diazePAM 2 MG TABLET PO PRN (19:08)
[2020-09-14] MEDS: risperiDONE ODT 0.5 MG SOLTAB PO SCH (19:09)
[2020-09-14] MEDS ORDERED: risperiDONE ODT 0.5 MG SOLTAB PO SCH (21:00)
[2020-09-15] MEDS: QUEtiapine FUMARATE 25 MG TABLET PO PRN ×3 (03:16→17:28)
[2020-09-15] MEDS: CEROVITE ADV FORMULA TAB PO SCH (09:07)
[2020-09-15] MEDS: risperiDONE ODT 0.5 MG SOLTAB PO SCH ×2 (09:07→22:11)
--- NOTE | 2020-09-15 12:05 | Psychiatric Progress Note ---
Date of Service September 15, 2020 Impression / Recommendations Impression 45 yo female disabled from longstanding bipolar I dx, overcorrected for hypothyroidism for >1 year presents with recurrent vargas (insomnia 3 days but disorganized thoughts/mood shift/preoccupations requiring hospitalization for >1 week). Hospitalized for severe insomnia and psychosis. Currently preoccupied with socio political content, paranoid delusions and highly resistant to medications. (1) Bipolar disorder: 09/15/20 patient discussed with outpatient psychiatrist Dr. Locke. Ideally would titrate her Risperdal to 1 mg BID when agreeable, supports use of prn Seroquel for now, no documentation re: thorazine allergy and feels it would be preferrable to Restoril if able to try/taper here. States that she has been decompensating in the setting of increased stress of dealing with mother's help (treatment for malignant melanoma). 09/14/20 The patient was admitted to the [facility] ([facility] mental health unit) on q15 min checks (behavioral with suicide precautions) for safety. The patient will participate in group, recreational, and milieu therapies and will be offered additional individual and family sessions as clinically appropriate. She was unable to fully review the risks/benefits/alternatives re: antipsychotic medication as a mood stabilizer at this time. She is not willing to take extra Risperdal. Will offer Seroquel 50 mg as a 1 time dose as she would like to rest and titrate if needed; I cannot currently confirm past reaction to thorazine. She does have a fasting lipid profile on her chart from June 2020 but no recent fasting glucose so ordered for the am. (2) Abnormal thyroid stimulating hormone (TSH) level: 09/15/20 >1 hr spent calling patient's PCP Dr. Mcdowell to coordinate care and called [facility] and [facility] pharmacies trying to track down prescriber for her liothyronine. Staff able to get additional info from mother and I spoke with Lilian Moreno at [facility] in [place]. Reviewed patient's thyroid labs and she agreed that should be decreased due to concerns about manic presentation. I've decide to cut the dose in half after discussion with hospitalist (patient is not able to tolerate a formal consult at this time) and will require repeat labs in 6 weeks. 09/14/20 the patient's liothyronine will be held pending consultation with her papeterie table assembler and/or Dr. Mcdowell as overcorrection appears to be worsening and thyrotoxicosis may be contributing to her presentation. Inventory Assets Strengths: intelligent, voluntary Needs: increase insight into medical impact to her psychiatric condition. Risk Factors Assessment Do You Have Access To A Gun?: No Protective Factors Assessment Employed: No Interval History Chief Complaint "either take that mask off or you get out of here right now!" Review of Systems Sleep Information Total Hours of Sleep: 5 Meal Information Percent Meal Consumed - Breakfast: 0 Percent Meal Consumed - Dinner: 0 Nutrition Comment: pt. did not want to come out of her room Subjective Subjective Patient was seen & assessed and interval progress reviewed with nursing and social work. patient charged at a staff yesterday in fear yelling "we have to get out of here". She slept 5 hrs then again with 2 prn doses of Seroquel. Makes repeated statements about CovID not being real and demanding to call [facility] Marcos. easily overstimulated. unable to eat with peers in day room, in room with lights out. staff checked on her when screaming and she stated she was silent screaming for . Prn Valium and SEroquel prior to my interaction with her. Physical Exam Psychiatric Orientation: alert Apperance: + disheveled Eye Contact: + poor eye contact Motor Behavior: + psychomotor agitation Speech: + pressured speech Affect: + constricted affect Mood: + anxious mood and + irritable mood Thought Process: + concrete thought process Thought Content: + cognitive distortions Suicidal Thoughts: denies suicidal thoughts Homicidal Thoughts: denies homicidal thoughts Hallucinations: no auditory hallucinations and no visual hallucinations Cognition: + attention not intact Estimated Intelligence: consistent with education level Insight: + poor insight Judgement: + poor judgement Vital Signs (Past 24 Hours) Last Vital Signs Temp 36.6 C 09/14/20 17:28 Pulse 81 09/14/20 17:28 Resp 18 09/14/20 17:28 BP 159/97 H 09/14/20 17:28 Pulse Ox 99 09/14/20 17:28 Results & Data ([facility]) Laboratory Results Laboratory Results - last 24 hr 09/14/20 09/14/20 09/14/20 11:22 11:22 11:31 Sodium 137 Potassium 3.4 L Chloride 106 Carbon Dioxide 24 Anion Gap 6.0 BUN 9 Creatinine 0.58 L Est Cr Clr Drug Dosing 120.5 Est GFR ( Amer) 128.1 Est GFR (Non-Af Amer) 110.5 BUN/Creatinine Ratio 14.8 Glucose 108 H Fasting Glucose Calcium 9.0 Total Bilirubin 0.7 AST 18 ALT 41 Alkaline Phosphatase 62 Total Protein 7.7 Albumin 4.4 Globulin 3.3 Albumin/Globulin Ratio 1.3 TSH < 0.005 L Free T4 Free T3 Urine Color Yellow Urine Appearance Clear Urine pH 6.5 Ur Specific [place] 1.005 Urine Protein Negative Urine Glucose (UA) Negative Urine Ketones Trace H Urine Blood Negative Urine Nitrite Negative Urine Bilirubin Negative Urine Urobilinogen Negative Ur Leukocyte Esterase Negative Salicylates Urine Opiates Screen Neg Ur Methadone, Qual Neg Acetaminophen Urine Barbiturates Neg Ur Phencyclidine (PCP) Neg U Amphetamin/Meth Scrn Neg MDMA (Ecstasy) Screen Neg U Benzodiazepines Scrn Neg Ur Cocaine Metabolite Neg U Marijuana (THC) Screen Neg Ethyl Alcohol mg/dL COVID-19 Eval Order SARS-CoV-2, RNA, NAAT 09/14/20 09/14/20 09/14/20 11:31 11:31 11:31 Sodium Potassium Chloride Carbon Dioxide Anion Gap BUN Creatinine Est Cr Clr Drug Dosing Est GFR ( Amer) Est GFR (Non-Af Amer) BUN/Creatinine Ratio Glucose Fasting Glucose Calcium Total Bilirubin AST ALT Alkaline Phosphatase Total Protein Albumin Globulin Albumin/Globulin Ratio TSH Free T4 0.17 L Free T3 Urine Color Urine Appearance Urine pH Ur Specific [place] Urine Protein Urine Glucose (UA) Urine Ketones Urine Blood Urine Nitrite Urine Bilirubin Urine Urobilinogen Ur Leukocyte Esterase Salicylates < 1.7 L Urine Opiates Screen Ur Methadone, Qual Acetaminophen < 2 L Urine Barbiturates Ur Phencyclidine (PCP) U Amphetamin/Meth Scrn MDMA (Ecstasy) Screen U Benzodiazepines Scrn Ur Cocaine Metabolite U Marijuana (THC) Screen Ethyl Alcohol mg/dL < 3.0 COVID-19 Eval Order SARS-CoV-2, RNA, NAAT 09/14/20 09/14/20 09/14/20 11:32 13:40 13:40 Sodium Potassium Chloride Carbon Dioxide Anion Gap BUN Creatinine Est Cr Clr Drug Dosing Est GFR ( Amer) Est GFR (Non-Af Amer) BUN/Creatinine Ratio Glucose Fasting Glucose Calcium Total Bilirubin AST ALT Alkaline Phosphatase Total Protein Albumin Globulin Albumin/Globulin Ratio TSH Free T4 Free T3 6.17 H Urine Color Urine Appearance Urine pH Ur Specific [place] Urine Protein Urine Glucose (UA) Urine Ketones Urine Blood Urine Nitrite Urine Bilirubin Urine Urobilinogen Ur Leukocyte Esterase Salicylates Urine Opiates Screen Ur Methadone, Qual Acetaminophen Urine Barbiturates Ur Phencyclidine (PCP) U Amphetamin/Meth Scrn MDMA (Ecstasy) Screen U Benzodiazepines Scrn Ur Cocaine Metabolite U Marijuana (THC) Screen Ethyl Alcohol mg/dL COVID-19 Eval [facility] SARS-CoV-2, RNA, NAAT NEGATIVE 09/15/20 07:36 Sodium Potassium Chloride Carbon Dioxide Anion Gap BUN Creatinine Est Cr Clr Drug Dosing Est GFR ( Amer) Est GFR (Non-Af Amer) BUN/Creatinine Ratio Glucose Fasting Glucose 79 Calcium Total Bilirubin AST ALT Alkaline Phosphatase Total Protein Albumin Globulin Albumin/Globulin Ratio TSH Free T4 Free T3 Urine Color Urine Appearance Urine pH Ur Specific [place] Urine Protein Urine Glucose (UA) Urine Ketones Urine Blood Urine Nitrite Urine Bilirubin Urine Urobilinogen Ur Leukocyte Esterase Salicylates Urine Opiates Screen Ur Methadone, Qual Acetaminophen Urine Barbiturates Ur Phencyclidine (PCP) U Amphetamin/Meth Scrn MDMA (Ecstasy) Screen U Benzodiazepines Scrn Ur Cocaine Metabolite U Marijuana (THC) Screen Ethyl Alcohol mg/dL COVID-19 Eval Order SARS-CoV-2, RNA, NAAT Current Inpatient Medications Current Inpatient Medications: Current Inpatient Medications Acetaminophen (Acetaminophen 325 Mg Tab) 650 mg PO Q4H PRN PRN Reason: Headache or Minor Fever Stop: 10/14/20 14:46 Al Hydrox/Mg Hydrox/Simethicone (Aluminum/Magnesium Susp 30 Ml Udc) 30 ml PO Q4H PRN PRN Reason: GI Upset Stop: 10/14/20 14:46 Benztropine Mesylate (Benztropine Mesylate 0.5 Mg Tab) 0.5 mg PO Q6H PRN PRN Reason: muscle spasm Stop: 10/14/20 15:11 Bismuth Subsalicylate (Bismuth Subsalicylate Liqd 236 Ml) 15 ml PO PRN PRN PRN Reason: Loose Stool Stop: 10/14/20 14:46 Diazepam (Diazepam 2 Mg Tablet) 2 mg PO DAILY PRN PRN Reason: Anxiety Stop: 10/14/20 19:59 Last Admin: 09/14/20 19:08 Dose: 2 mg Documented by: Hydroxyzine HCl (Hydroxyzine Hcl 25 Mg Tab) 50 mg PO HSZ PRN PRN Reason: Insomnia Stop: 10/14/20 14:46 Hydroxyzine HCl (Hydroxyzine Hcl 25 Mg Tab) 25 mg PO Q4H PRN PRN Reason: Anxiety Stop: 10/14/20 14:46 Magnesium Hydroxide (Magnesium Hydroxide Susp 30 Ml Udc) 30 ml PO DAILY PRN PRN Reason: Constipation Stop: 10/14/20 14:46 Miscellaneous (Progesterone~Order Awaiting Action) 1 ea N/A QS [facility] Stop: 10/14/20 15:59 Miscellaneous (Progesterone~Order Awaiting Action) 1 ea N/A QS [facility] Stop: 10/14/20 15:59 Multivitamins/Minerals (Cerovite Adv Formula Tab) 1 tab PO DAILY [place] Stop: 10/15/20 08:59 Last Admin: 09/15/20 09:07 Dose: 1 tab Documented by: Quetiapine Fumarate (Quetiapine Fumarate 25 Mg Tablet) 50 mg PO Q4 PRN PRN Reason: Anxiety/Insomnia Stop: 10/14/20 19:59 Last Admin: 09/15/20 03:16 Dose: 50 mg Documented by: Risperidone (Risperidone Odt 0.5 Mg Soltab) 0.75 mg PO BID@0900,1930 [facility] Stop: 10/14/20 19:29 Last Admin: 09/15/20 09:07 Dose: 0.75 mg Documented by: Sodium Chloride (Sodium Chloride 0.65% Na Soln 45 Ml ([place])) 1 - 2 sprays NA PRN PRN PRN Reason: Nasal Dryness/Congestion Stop: 10/14/20 14:46 Temazepam (Temazepam 15 Mg Capsule) 30 mg PO HS PRN PRN Reason: Insomnia Stop: 10/14/20 19:59 Last Admin: 09/14/20 22:23 Dose: 30 mg Documented by: Mental Health & Subst Abuse Tx Psychiatrist Name of Psychiatrist: [facility] - Dr. Locek Psychiatrist's Psychiatric Appointment Comment: [facility] Therapist Name of Therapist: Dr. Swathi Owusu Therapist's Therapy Appointment Comment: [address] [facility] Electronic Equipment Maint Tech Name of Electronic Equipment Maint Tech: None Post Discharge Appointments Primary Care Physician Name Of Family Doctor: ORQUIDEA Mcdowell Primary Care Provider Appointment Comment: [address] Contact Information Discharge Discharge [address]: [address] [place] [address] (1) Bipolar disorder Active/Remission status: remission status unspecified Qualified Code(s): F31.9 - Bipolar disorder, unspecified
[2020-09-15] MEDS: diazePAM 2 MG TABLET PO PRN (12:32)
[2020-09-15] MEDS ORDERED: QUEtiapine FUMARATE 100 MG TABLET PO PRN (13:16)
[2020-09-15] MEDS ORDERED: LORazepam 2 MG/ML VIAL (IM USE) IM STA (22:25)
[2020-09-15] MEDS ORDERED: LORazepam 2 MG/ML VIAL (IM USE) ONE (22:26)
--- NOTE | 2020-09-15 22:34 | Progress Note ---
Date of Service September 15, 2020 Assessment & Plan Admission and Anticipated Discharge Date Admission Date: 302 completed, security to unit to assist staff in administering Ativan 2 mg IM now. Will attempt to provide necessary personal care after. Mother notified by nursing and delegate. Multiple attempts were made to maintain patient on voluntary commitment. Subjective patient has been escalating, wandering into peer room and refusing to leave and using personal items (like chapstick) as remains delusional and doesn't believe that COVID exists. She attempted to hit security earlier during room change. This alternates with periods of catatonia where refuses to respond to staff. She urinated on self and was resistant/swatted at staff when they attempted to change her as soaked up front of top of scrubs and lower. Spoke with delegate Malcom on way to examine patient. Patient would not engage in exam with me. Review of Systems Review of Systems: Unobtainable due to cognitive status Physical Exam Physical Exam: patient refused to engaged with me, staring at ceiling catatonic, mouth movements. she then everted gaze. psychomotor retardation. smells of urine.
[2020-09-15] MEDS ORDERED: LORazepam 2 MG/ML VIAL (IM USE) IM PRN (23:08)
[2020-09-16] MEDS: CEROVITE ADV FORMULA TAB PO SCH (09:40)
[2020-09-16] MEDS ORDERED: LORazepam 1 MG TAB PO PRN (12:13)
--- NOTE | 2020-09-16 12:24 | Psychiatric Progress Note ---
Date of Service September 16, 2020 Impression / Recommendations Impression 45 yo female admit with disorganized and paranoid thoughts and severe insomnia due to bipolar illness as well as contributing factor of iatrogenic hyperthyroidism. She is now on a 302 involuntary commitment due to disorganized and unsafe behaviors on unit. (1) Bipolar disorder: 09/16/20 Today she is agreeable to Risperdal increase. Sleep has improved largely without Seroquel so will d/c in favor of Risperdal M tab prn as her preference. Reviewed that treatment of choice for catatonia (should recur) is Ativan and will receive 1 mg standing this pm in addition to prn. If recurs would suggest standing dosing. 303 petition completed for hearing on 09/20 at 10 am. 09/15/20 patient discussed with outpatient psychiatrist Dr. Locke. Ideally would titrate her Risperdal to 1 mg BID when agreeable, supports use of prn Seroquel for now, no documentation re: thorazine allergy and feels it would be preferrable to Restoril if able to try/taper here. States that she has been d ecompensating in the setting of increased stress of dealing with mother's help (treatment for malignant melanoma). 09/14/20 The patient was admitted to the [facility] ([facility] mental health unit) on q15 min checks (behavioral with suicide precautions) for safety. The patient will participate in group, recreational, and milieu therapies and will be offered additional individual and family sessions as clinically appropriate. She was unable to fully review the risks/benefits/alternatives re: antipsychotic medication as a mood stabilizer at this time. She is not willing to take extra Risperdal. Will offer Seroquel 50 mg as a 1 time dose as she would like to rest and titrate if needed; I cannot currently confirm past reaction to thorazine. She does have a fasting lipid profile on her chart from June 2020 but no recent fasting glucose so ordered for the am. (2) Abnormal thyroid stimulating hormone (TSH) level: 09/16/20--restart liothyronine at 50 mcg daily starting tomorrow am. ?possible second dose contributing to sleep difficulties and overall dose to manic presentation/psychosis. 09/15/20 >1 hr spent calling patient's PCP Dr. Mcdowell to coordinate care and called [facility] and [facility] pharmacies trying to track down prescriber for her liothyronine. Staff able to get additional info from mother and I spoke with Lilian Moreno at [facility] in [place]. Reviewed patient's thyroid labs and she agreed that should be decreased due to concerns about manic presentation. I've decide to cut the dose in half after discussion with hospitalist (patient is not able to tolerate a formal consult at this time) and will require repeat labs in 6 weeks. 09/14/20 the patient's liothyronine will be held pending consultation with her sap consultant and/or Dr. Mcdowell as overcorrection appears to be worsening and thyrotoxicosis may be contributing to her presentation. Risk Factors Assessment Do You Have Access To A Gun?: No Protective Factors Assessment Employed: No Interval History Chief Complaint "no I don't remember but believe I get like that, yeah I'll take whatever". Review of Systems Sleep Information Total Hours of Sleep: 4.75 Meal Information Percent Meal Consumed - Breakfast: 100 Percent Meal Consumed - Lunch: 100 Percent Meal Consumed - Dinner: 0 Nutrition Comment: Pt is resting. Subjective Subjective Patient was seen & assessed and interval progress reviewed with treatment team. See interim progress note, patient decompensated yesterday pm and was exhibiting near aggression alternating with catatonia due to disorganization. No futher incontinence. Pleasant this am, slept well, ate in day room and attended group. Met with patient to review change in commitment status, indication for IM, and med changes recommended in consultation with outpatient psychiatrist. She was thankful for her care and was made aware of 303 commitment hearing next week as behavior has been unpredictable. Physical Exam Psychiatric Orientation: alert Apperance: appropriately dressed Eye Contact: good eye contact Motor Behavior: no abnormal motor movements less spontaneous, still borders on pressured. Affect: + constricted affect Mood: + anxious mood Thought Process: + tangential thought process Thought Content: + paranoid Suicidal Thoughts: denies suicidal thoughts Homicidal Thoughts: denies homicidal thoughts Hallucinations: no auditory hallucinations and no visual hallucinations Cognition: + attention not intact Estimated Intelligence: consistent with education level Insight: + impaired insight Judgement: + impaired judgement Vital Signs (Past 24 Hours) Last Vital Signs Temp 36.6 C 09/14/20 17:28 Pulse 81 09/14/20 17:28 Resp 18 09/14/20 17:28 BP 159/97 H 09/14/20 17:28 Pulse Ox 99 09/14/20 17:28 Results & Data ([facility]) Current Inpatient Medications Current Inpatient Medications: Current Inpatient Medications Acetaminophen (Acetaminophen 325 Mg Tab) 650 mg PO Q4H PRN PRN Reason: Headache or Minor Fever Stop: 10/14/20 14:46 Al Hydrox/Mg Hydrox/Simethicone (Aluminum/Magnesium Susp 30 Ml Udc) 30 ml PO Q4H PRN PRN Reason: GI Upset Stop: 10/14/20 14:46 Benztropine Mesylate (Benztropine Mesylate 0.5 Mg Tab) 0.5 mg PO Q6H PRN PRN Reason: muscle spasm Stop: 10/14/20 15:11 Bismuth Subsalicylate (Bismuth Subsalicylate Liqd 236 Ml) 15 ml PO PRN PRN PRN Reason: Loose Stool Stop: 10/14/20 14:46 Hydroxyzine HCl (Hydroxyzine Hcl 25 Mg Tab) 50 mg PO HSZ PRN PRN Reason: Insomnia Stop: 10/14/20 14:46 Hydroxyzine HCl (Hydroxyzine Hcl 25 Mg Tab) 25 mg PO Q4H PRN PRN Reason: Anxiety Stop: 10/14/20 14:46 Lorazepam (Lorazepam 2 Mg/Ml Vial (Im Use)) 2 mg IM Q6 PRN PRN Reason: Agitation Stop: 10/15/20 23:07 Magnesium Hydroxide (Magnesium Hydroxide Susp 30 Ml Udc) 30 ml PO DAILY PRN PRN Reason: Constipation Stop: 10/14/20 14:46 Miscellaneous (Progesterone~Order Awaiting Action) 1 ea N/A QS [facility] Stop: 10/14/20 15:59 Last Admin: 09/16/20 09:44 Dose: Not Given Documented by: Multivitamins/Minerals (Cerovite Adv Formula Tab) 1 tab PO DAILY [place] Stop: 10/15/20 08:59 Last Admin: 09/16/20 09:40 Dose: 1 tab Documented by: Quetiapine Fumarate (Quetiapine Fumarate 100 Mg Tablet) 100 mg PO DAILY PRN PRN Reason: Insomnia Stop: 10/15/20 19:29 Risperidone (Risperidone Odt 1mg) 1 mg PO BID@0900,1930 [facility] Stop: 10/15/20 23:46 Last Admin: 09/16/20 09:40 Dose: 1 mg Documented by: Sodium Chloride (Sodium Chloride 0.65% Na Soln 45 Ml ([place])) 1 - 2 sprays NA PRN PRN PRN Reason: Nasal Dryness/Congestion Stop: 10/14/20 14:46 Temazepam (Temazepam 15 Mg Capsule) 30 mg PO HS PRN PRN Reason: Insomnia Stop: 10/14/20 19:59 Last Admin: 09/14/20 22:23 Dose: 30 mg Documented by: Mental Health & Subst Abuse Tx Psychiatrist Name of Psychiatrist: [facility] - Dr. Locke Psychiatrist's Psychiatric Appointment Comment: [facility] Therapist Name of Therapist: Dr. Swathi Owusu Therapist's Therapy Appointment Comment: [address] [facility] Wage Conciliator Name of Wage Conciliator: None Post Discharge Appointments Primary Care Physician Name Of Family Doctor: ORQUIDEA Mcdowell Primary Care Provider Appointment Comment: [address] Contact Information Discharge Discharge Address: [address] [place] [address] (1) Bipolar disorder Active/Remission status: remission status unspecified Qualified Code(s): F31.9 - Bipolar disorder, unspecified
[2020-09-16] MEDS: LORazepam 1 MG TAB PO SCH (19:00)
[2020-09-16] MEDS ORDERED: LORazepam 1 MG TAB PO SCH (19:30)
[2020-09-17] MEDS: LIOTHYRONINE SODIUM 25 MCG TAB PO SCH (07:41)
[2020-09-17] MEDS: CEROVITE ADV FORMULA TAB PO SCH (07:41)
--- NOTE | 2020-09-17 13:17 | Psychiatric Progress Note ---
Date of Service September 17, 2020 Impression / Recommendations Impression 45 yo female admit with disorganized and paranoid thoughts and severe insomnia due to bipolar illness as well as contributing factor of iatrogenic hyperthyroidism. She is now on a 302 involuntary commitment due to disorganized and unsafe behaviors on unit. (1) Bipolar disorder: 09/17/2020 We will continue with up titration of risperidone. Patient currently on 1 mg twice daily, will plan to increase nighttime dose to 2 mg to aid with sleep as well as mood stabilization. 09/16/20 Today she is agreeable to Risperdal increase. Sleep has improved largely without Seroquel so will d/c in favor of Risperdal M tab prn as her preference. Reviewed that treatment of choice for catatonia (should recur) is Ativan and will receive 1 mg standing this pm in addition to prn. If recurs would suggest standing dosing. 303 petition completed for hearing on 09/20 at 10 am. 09/15/20 patient discussed with outpatient psychiatrist Dr. Locke. Ideally would titrate her Risperdal to 1 mg BID when agreeable, supports use of prn Seroquel for now, no documentation re: thorazine allergy and feels it would be preferrable to Restoril if able to try/taper here. States that she has been de compensating in the setting of increased stress of dealing with mother's help (treatment for malignant melanoma). 09/14/20 The patient was admitted to the [facility] ([facility] mental health unit) on q15 min checks (behavioral with suicide precautions) for safety. The patient will participate in group, recreational, and milieu therapies and will be offered additional individual and family sessions as clinically appropriate. She was unable to fully review the risks/benefits/alternatives re: antipsychotic medication as a mood stabilizer at this time. She is not willing to take extra Risperdal. Will offer Seroquel 50 mg as a 1 time dose as she would like to rest and titrate if needed; I cannot currently confirm past reaction to thorazine. She does have a fasting lipid profile on her chart from June 2020 but no recent fasting glucose so ordered for the am. (2) Abnormal thyroid stimulating hormone (TSH) level: 09/16/20--restart liothyronine at 50 mcg daily starting tomorrow am. ?possible second dose contributing to sleep difficulties and overall dose to manic presentation/psychosis. 09/15/20 >1 hr spent calling patient's PCP Dr. Mcdowell to coordinate care and called [facility] and [facility] pharmacies trying to track down prescriber for her liothyronine. Staff able to get additional info from mother and I spoke with Lilian Moreno at [facility] in [place]. Reviewed patient's thyroid labs and she agreed that should be decreased due to concerns about manic presentation. I've decide to cut the dose in half after discussion with hospitalist (patient is not able to tolerate a formal consult at this time) and will require repeat labs in 6 weeks. 09/14/20 the patient's liothyronine will be held pending consultation with her campus wellness coordinator and/or Dr. Mcdowell as overcorrection appears to be worsening and thyrotoxicosis may be contributing to her presentation. Risk Factors Assessment Do You Have Access To A Gun?: No Protective Factors Assessment Employed: No Interval History Chief Complaint "I know a lot of things that can get me in a lot of trouble". Review of Systems Sleep Information Total Hours of Sleep: 5 Meal Information Percent Meal Consumed - Breakfast: 100 Percent Meal Consumed - Lunch: 100 Percent Meal Consumed - Dinner: 100 Nutrition Comment: Pt is resting. Subjective Subjective Patient was seen & assessed and interval progress reviewed with treatment team nursing and social work. Patient reporting poor sleep with early awakenings. She reports a strong appetite denies any issues eating. Patient is denying any side effects of the medication currently. Agreeable to increase dosage. Regarding her symptoms, patient continues to be disorganized, tangential, rapid and pressurized with her speech, and expressing increased goal oriented activity indicative of acute vargas. Some work was done today to get patient to have some insight into this. She recognizes her need for hospitalization as well as medications. Does waver on this however during the course of the conversation. Her level of intellect is beneficial for her insight. Physical Exam Psychiatric Orientation: alert Apperance: appropriately dressed and + disheveled Eye Contact: good eye contact and + poor eye contact Motor Behavior: no abnormal motor movements and + psychomotor agitation Speech: + pressured speech Affect: + constricted affect Mood: + anxious mood and + irritable mood Thought Process: + tangential thought process and + concrete thought process Thought Content: + paranoid and + cognitive distortions Suicidal Thoughts: denies suicidal thoughts Homicidal Thoughts: denies homicidal thoughts Hallucinations: no auditory hallucinations and no visual hallucinations Cognition: + attention not intact Estimated Intelligence: consistent with education level Insight: + poor insight and + impaired insight Judgement: + poor judgement and + impaired judgement Vital Signs (Past 24 Hours) Last Vital Signs Temp 36.7 C 09/17/20 06:00 Pulse 91 H 09/17/20 06:33 Resp 16 09/17/20 06:00 BP 140/97 09/17/20 06:33 Pulse Ox 99 09/14/20 17:28 Results & Data ([facility]) Current Inpatient Medications Current Inpatient Medications: Current Inpatient Medications Acetaminophen (Acetaminophen 325 Mg Tab) 650 mg PO Q4H PRN PRN Reason: Headache or Minor Fever Stop: 10/14/20 14:46 Al Hydrox/Mg Hydrox/Simethicone (Aluminum/Magnesium Susp 30 Ml Udc) 30 ml PO Q4H PRN PRN Reason: GI Upset Stop: 10/14/20 14:46 Benztropine Mesylate (Benztropine Mesylate 0.5 Mg Tab) 0.5 mg PO Q6H PRN PRN Reason: muscle spasm Stop: 10/14/20 15:11 Bismuth Subsalicylate (Bismuth Subsalicylate Liqd 236 Ml) 15 ml PO PRN PRN PRN Reason: Loose Stool Stop: 10/14/20 14:46 Hydroxyzine HCl (Hydroxyzine Hcl 25 Mg Tab) 50 mg PO HSZ PRN PRN Reason: Insomnia Stop: 10/14/20 14:46 Hydroxyzine HCl (Hydroxyzine Hcl 25 Mg Tab) 25 mg PO Q4H PRN PRN Reason: Anxiety Stop: 10/14/20 14:46 Liothyronine Sodium (Liothyronine Sodium 25 Mcg Tab) 50 mcg PO QAM [place] Stop: 10/17/20 08:59 Last Admin: 09/17/20 07:41 Dose: 50 mcg Documented by: Lorazepam (Lorazepam 2 Mg/Ml Vial (Im Use)) 2 mg IM Q6 PRN PRN Reason: Agitation Stop: 10/15/20 23:07 Lorazepam (Lorazepam 1 Mg Tab) 1 mg PO Q4 PRN PRN Reason: Anxiety/Agitation Stop: 10/16/20 12:12 Last Admin: 09/17/20 11:34 Dose: 1 mg Documented by: Lorazepam (Lorazepam 1 Mg Tab) 1 mg PO DAILY@1930 [place] Stop: 10/16/20 19:29 Last Admin: 09/16/20 19:00 Dose: 1 mg Documented by: Magnesium Hydroxide (Magnesium Hydroxide Susp 30 Ml Udc) 30 ml PO DAILY PRN PRN Reason: Constipation Stop: 10/14/20 14:46 Multivitamins/Minerals (Cerovite Adv Formula Tab) 1 tab PO DAILY [place] Stop: 10/15/20 08:59 Last Admin: 09/17/20 07:41 Dose: 1 tab Documented by: Risperidone (Risperidone Odt 1mg) 1 mg PO BID@0900,1930 [place] Stop: 10/15/20 23:46 Last Admin: 09/17/20 07:41 Dose: 1 mg Documented by: Risperidone (Risperidone Odt 1mg) 1 mg PO Q6 PRN PRN Reason: Anxiety/Agitation Stop: 10/16/20 12:12 Last Admin: 09/17/20 11:34 Dose: 1 mg Documented by: Sodium Chloride (Sodium Chloride 0.65% Na Soln 45 Ml ([place])) 1 - 2 sprays NA PRN PRN PRN Reason: Nasal Dryness/Congestion Stop: 10/14/20 14:46 Mental Health & Subst Abuse Tx Psychiatrist Name of Psychiatrist: [facility] - Dr. Locke Psychiatrist's Psychiatric Appointment Comment: [facility] Therapist Name of Therapist: Dr. Swathi Owusu Therapist's Therapy Appointment Comment: [address] [facility] [place] Integrated Pest Management Technician Name of Integrated Pest Management Technician: None Post Discharge Appointments Primary Care Physician Name Of Family Doctor: ORQUIDEA Mcdowell Primary Care Provider Appointment Comment: [address] Contact Information Discharge Discharge [address]: [address] [place] [id number] (1) Bipolar disorder Active/Remission status: remission status unspecified Qualified Code(s): F31.9 - Bipolar disorder, unspecified
[2020-09-17] MEDS: LORazepam 1 MG TAB PO SCH (19:35)
[2020-09-18] MEDS: LIOTHYRONINE SODIUM 25 MCG TAB PO SCH (08:35)
[2020-09-18] MEDS: CEROVITE ADV FORMULA TAB PO SCH (08:40)
--- NOTE | 2020-09-18 15:45 | Psychiatric Progress Note ---
Date of Service September 18, 2020 Impression / Recommendations Impression 45 yo female admit with disorganized and paranoid thoughts and severe insomnia due to bipolar illness as well as contributing factor of iatrogenic hyperthyroidism. She is now on a 302 involuntary commitment due to disorganized and unsafe behaviors on unit. (1) Bipolar disorder: 09/17/2020 We will continue with up titration of risperidone. Patient currently on 1 mg twice daily, will plan to increase nighttime dose to 2 mg to aid with sleep as well as mood stabilization. 09/16/20 Today she is agreeable to Risperdal increase. Sleep has improved largely without Seroquel so will d/c in favor of Risperdal M tab prn as her preference. Reviewed that treatment of choice for catatonia (should recur) is Ativan and will receive 1 mg standing this pm in addition to prn. If recurs would suggest standing dosing. 303 petition completed for hearing on 09/20 at 10 am. 09/15/20 patient discussed with outpatient psychiatrist Dr. Locke. Ideally would titrate her Risperdal to 1 mg BID when agreeable, supports use of prn Seroquel for now, no documentation re: thorazine allergy and feels it would be preferrable to Restoril if able to try/taper here. States that she has been de compensating in the setting of increased stress of dealing with mother's help (treatment for malignant melanoma). 09/14/20 The patient was admitted to the [facility] ([facility]) on q15 min checks (behavioral with suicide precautions) for safety. The patient will participate in group, recreational, and milieu therapies and will be offered additional individual and family sessions as clinically appropriate. She was unable to fully review the risks/benefits/alternatives re: antipsychotic medication as a mood stabilizer at this time. She is not willing to take extra Risperdal. Will offer Seroquel 50 mg as a 1 time dose as she would like to rest and titrate if needed; I cannot currently confirm past reaction to thorazine. She does have a fasting lipid profile on her chart from June 2020 but no recent fasting glucose so ordered for the am. (2) Abnormal thyroid stimulating hormone (TSH) level: 09/16/20--restart liothyronine at 50 mcg daily starting tomorrow am. ?possible second dose contributing to sleep difficulties and overall dose to manic presentation/psychosis. 09/15/20 >1 hr spent calling patient's PCP Dr. Mcdowell to coordinate care and called [facility] and [facility] pharmacies trying to track down prescriber for her liothyronine. Staff able to get additional info from mother and I spoke with Lilian Moreno at [facility] in [place]. Reviewed patient's thyroid labs and she agreed that should be decreased due to concerns about manic presentation. I've decide to cut the dose in half after discussion with hospitalist (patient is not able to tolerate a formal consult at this time) and will require repeat labs in 6 weeks. 09/14/20 the patient's liothyronine will be held pending consultation with her gis web developer and/or Dr. Mcdowell as overcorrection appears to be worsening and thyrotoxicosis may be contributing to her presentation. Risk Factors Assessment Do You Have Access To A Gun?: No Protective Factors Assessment Employed: No Interval History Chief Complaint "I am doing okay". Review of Systems Sleep Information Total Hours of Sleep: 5.5 Meal Information Percent Meal Consumed - Breakfast: 100 Percent Meal Consumed - Lunch: 100 Percent Meal Consumed - Dinner: 100 Nutrition Comment: Pt is resting. Subjective Subjective Patient was seen & assessed and interval progress reviewed with treatment team nursing and social work Patient appears to be making incremental progress. Still somewhat disordered and tangential. Delusional believes still present. Had difficult time in group yesterday had to be redirected at times. Patient is somewhat hesitant to take medications but is ultimately able to with some encouragement. Patient took wide. Of risperidone, was spoken to about incorporating this into her standing regimen. Patient initially hesitant. Reports achieving sleep last night with the increased dosage. Reports no issues with meals. No side effects reported or observed. Physical Exam Psychiatric Orientation: alert Apperance: appropriately dressed and + disheveled Eye Contact: good eye contact and + poor eye contact Motor Behavior: no abnormal motor movements and + psychomotor agitation Speech: + pressured speech Affect: + constricted affect Mood: + anxious mood and + irritable mood Thought Process: + tangential thought process and + concrete thought process Thought Content: + paranoid and + cognitive distortions Suicidal Thoughts: denies suicidal thoughts Homicidal Thoughts: denies homicidal thoughts Hallucinations: no auditory hallucinations and no visual hallucinations Cognition: + attention not intact Estimated Intelligence: consistent with education level Insight: + poor insight and + impaired insight Judgement: + poor judgement and + impaired judgement Vital Signs (Past 24 Hours) Last Vital Signs Temp 36.6 C 09/18/20 06:00 Pulse 100 H 09/18/20 06:29 Resp 16 09/18/20 06:00 BP 133/90 09/18/20 06:29 Pulse Ox 99 09/14/20 17:28 Results & Data ([facility]) Current Inpatient Medications Current Inpatient Medications: Current Inpatient Medications Acetaminophen (Acetaminophen 325 Mg Tab) 650 mg PO Q4H PRN PRN Reason: Headache or Minor Fever Stop: 10/14/20 14:46 Al Hydrox/Mg Hydrox/Simethicone (Aluminum/Magnesium Susp 30 Ml Udc) 30 ml PO Q4H PRN PRN Reason: GI Upset Stop: 10/14/20 14:46 Benztropine Mesylate (Benztropine Mesylate 0.5 Mg Tab) 0.5 mg PO Q6H PRN PRN Reason: muscle spasm Stop: 10/14/20 15:11 Bismuth Subsalicylate (Bismuth Subsalicylate Liqd 236 Ml) 15 ml PO PRN PRN PRN Reason: Loose Stool Stop: 10/14/20 14:46 Hydroxyzine HCl (Hydroxyzine Hcl 25 Mg Tab) 50 mg PO HSZ PRN PRN Reason: Insomnia Stop: 10/14/20 14:46 Hydroxyzine HCl (Hydroxyzine Hcl 25 Mg Tab) 25 mg PO Q4H PRN PRN Reason: Anxiety Stop: 10/14/20 14:46 Liothyronine Sodium (Liothyronine Sodium 25 Mcg Tab) [facility] Stop: 10/17/20 08:59 Last Admin: 09/18/20 08:35 Dose: 50 mcg Documented by: Lorazepam (Lorazepam 2 Mg/Ml Vial (Im Use)) 2 mg IM Q6 PRN PRN Reason: Agitation Stop: 10/15/20 23:07 Lorazepam (Lorazepam 1 Mg Tab) 1 mg PO Q4 PRN PRN Reason: Anxiety/Agitation Stop: 10/16/20 12:12 Last Admin: 09/17/20 11:34 Dose: 1 mg Documented by: Lorazepam (Lorazepam 1 Mg Tab) 1 mg PO DAILY@1930 [facility] Stop: 10/16/20 19:29 Last Admin: 09/17/20 19:35 Dose: 1 mg Documented by: Magnesium Hydroxide (Magnesium Hydroxide Susp 30 Ml Udc) 30 ml PO DAILY PRN PRN Reason: Constipation Stop: 10/14/20 14:46 Multivitamins/Minerals (Cerovite Adv Formula Tab) 1 tab PO DAILY [place] Stop: 10/15/20 08:59 Last Admin: 09/18/20 08:40 Dose: 1 tab Documented by: Risperidone (Risperidone Odt 1mg) 1 mg PO Q6 PRN PRN Reason: Anxiety/Agitation Stop: 10/16/20 12:12 Last Admin: 09/18/20 11:23 Dose: 1 mg Documented by: Risperidone (Risperidone Odt 1mg) 2 mg PO 1929 [place] Stop: 10/17/20 19:29 Last Admin: 09/17/20 19:46 Dose: 2 mg Documented by: Sodium Chloride (Sodium Chloride 0.65% Na Soln 45 Ml ([employer])) 1 - 2 sprays NA PRN PRN PRN Reason: Nasal Dryness/Congestion Stop: 10/14/20 14:46 Mental Health & Subst Abuse Tx Psychiatrist Name of Psychiatrist: [facility] - Dr. Locke Psychiatrist's Psychiatric Appointment Comment: [address] Therapist Name of Therapist: Dr. Swathi Owusu Therapist's Therapy Appointment Comment: [address] [facility] Rubber Cutter Name of Rubber Cutter: None Post Discharge Appointments Primary Care Physician Name Of Family Doctor: ORQUIDEA Mcdowell Primary Care Provider Appointment Comment: [address] Contact Information Discharge Discharge Address: [address] [place] [address] (1) Bipolar disorder Active/Remission status: remission status unspecified Qualified Code(s): F31.9 - Bipolar disorder, unspecified
[2020-09-18] MEDS: LORazepam 1 MG TAB PO SCH (19:06)
[2020-09-19] MEDS: CEROVITE ADV FORMULA TAB PO SCH (07:59)
[2020-09-19] MEDS: LIOTHYRONINE SODIUM 25 MCG TAB PO SCH (08:00)
--- NOTE | 2020-09-19 15:22 | Psychiatric Progress Note ---
Date of Service September 19, 2020 Impression / Recommendations Impression 45 yo female admit with disorganized and paranoid thoughts and severe insomnia due to bipolar illness as well as contributing factor of iatrogenic hyperthyroidism. She is now on a 302 involuntary commitment due to disorganized and unsafe behaviors on unit. (1) Bipolar disorder: 1patient continues to display manic symptoms. Will increase risperidone to 2 mg twice daily starting tomorrow. 09/17/2020 We will continue with up titration of risperidone. Patient currently on 1 mg twice daily, will plan to increase nighttime dose to 2 mg to aid with sleep as well as mood stabilization. 09/16/20 Today she is agreeable to Risperdal increase. Sleep has improved largely without Seroquel so will d/c in favor of Risperdal M tab prn as her preference. Reviewed that treatment of choice for catatonia (should recur) is Ativan and will receive 1 mg standing this pm in addition to prn. If recurs would suggest standing dosing. 303 petition completed for hearing on 09/20 at 10 am. 09/15/20 patient discussed with outpatient psychiatrist Dr. Locke. Ideally would titrate her Risperdal to 1 mg BID when agreeable, supports use of prn Seroquel for now, no documentation re: thorazine allergy and feels it would be preferrable to Restoril if able to try/taper here. States that she has been decompensating in the setting of increased stress of dealing with mother's help (treatment for malignant melanoma). 09/14/20 The patient was admitted to the [facility] ([facility] inpatient mental health unit) on q15 min checks (behavioral with suicide precautions) for safety. The patient will participate in group, recreational, and milieu therapies and will be offered additional individual and family sessions as clinically appropriate. She was unable to fully review the risks/benefits/alternatives re: antipsychotic medication as a mood stabilizer at this time. She is not willing to take extra Risperdal. Will offer Seroquel 50 mg as a 1 time dose as she would like to rest and titrate if needed; I cannot currently confirm past reaction to thorazine. She does have a fasting lipid profile on her chart from June 2020 but no recent fasting glucose so ordered for the am. (2) Abnormal thyroid stimulating hormone (TSH) level: 09/16/20--restart liothyronine at 50 mcg daily starting tomorrow am. ?possible second dose contributing to sleep difficulties and overall dose to manic presentation/psychosis. 09/15/20 >1 hr spent calling patient's PCP Dr. Mcdowell to coordinate care and called [facility] and [facility] pharmacies trying to track down prescriber for her liothyronine. Staff able to get additional info from mother and I spoke with Lilian Moreno at [facility] in [place]. Reviewed patient's thyroid labs and she agreed that should be decreased due to concerns about manic presentation. I've decide to cut the dose in half after discussion with hospitalist (patient is not able to tolerate a formal consult at this time) and will require repeat labs in 6 weeks. 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 Mcdowell as overcorrection appears to be worsening and thyrotoxicosis may be contributing to her presentation. Risk Factors Assessment Do You Have Access To A Gun?: No Protective Factors Assessment Employed: No Interval History Chief Complaint "I'm doing really good, i feel really good". Review of Systems Sleep Information Total Hours of Sleep: 6 Meal Information Percent Meal Consumed - Breakfast: 100 Percent Meal Consumed - Lunch: 100 Percent Meal Consumed - Dinner: 100 Nutrition Comment: Pt is resting. Subjective Subjective Patient was seen & assessed and interval progress reviewed with treatment team nursing and social work Patient reports a decent night of sleep and is reporting a strong appetite and finishing all her meals. No side effects of the medication reported or observed. Patient did mention feeling a little tired after the medication but was instructed that this is to be expected. Patient stated that she was feeling much better, but then went on to talk about worship and politics incessantly in a very pressured way. 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 Patient initially was not happy to hear this and resisted taking any more medication. Eventually she was able to be talked into accepting the increase in treatment. Physical Exam Psychiatric Orientation: alert Apperance: appropriately dressed and + disheveled Eye Contact: good eye contact and + poor eye contact Motor Behavior: no abnormal motor movements and + psychomotor agitation Speech: + pressured speech Affect: + constricted affect Mood: + anxious mood and + irritable mood Thought Process: + tangential thought process and + concrete thought process Thought Content: + paranoid and + cognitive distortions Suicidal Thoughts: denies suicidal thoughts Homicidal Thoughts: denies homicidal thoughts Hallucinations: no auditory hallucinations and no visual hallucinations Cognition: + attention not intact Estimated Intelligence: consistent with education level Insight: + poor insight and + impaired insight Judgement: + poor judgement and + impaired judgement Vital Signs (Past 24 Hours) Last Vital Signs Temp 36.7 C 09/19/20 06:00 Pulse 89 09/19/20 06:29 Resp 15 09/19/20 06:00 BP 129/87 09/19/20 06:29 Pulse Ox 99 09/14/20 17:28 Results & Data ([facility]) Current Inpatient Medications Current Inpatient Medications: Current Inpatient Medications Acetaminophen (Acetaminophen 325 Mg Tab) 650 mg PO Q4H PRN PRN Reason: Headache or Minor Fever Stop: 10/14/20 14:46 Al Hydrox/Mg Hydrox/Simethicone (Aluminum/Magnesium Susp 30 Ml Udc) 30 ml PO Q4H PRN PRN Reason: GI Upset Stop: 10/14/20 14:46 Benztropine Mesylate (Benztropine Mesylate 0.5 Mg Tab) 0.5 mg PO Q6H PRN PRN Reason: muscle spasm Stop: 10/14/20 15:11 Bismuth Subsalicylate (Bismuth Subsalicylate Liqd 236 Ml) 15 ml PO PRN PRN PRN Reason: Loose Stool Stop: 10/14/20 14:46 Hydroxyzine HCl (Hydroxyzine Hcl 25 Mg Tab) 50 mg PO HSZ PRN PRN Reason: Insomnia Stop: 10/14/20 14:46 Hydroxyzine HCl (Hydroxyzine Hcl 25 Mg Tab) 25 mg PO Q4H PRN PRN Reason: Anxiety Stop: 10/14/20 14:46 Liothyronine Sodium (Liothyronine Sodium 25 Mcg Tab) 50 mcg PO QAM [place] Stop: 10/17/20 08:59 Last Admin: 09/19/20 08:00 Dose: 50 mcg Documented by: Lorazepam (Lorazepam 2 Mg/Ml Vial (Im Use)) 2 mg IM Q6 PRN PRN Reason: Agitation Stop: 10/15/20 23:07 Lorazepam (Lorazepam 1 Mg Tab) 1 mg PO Q4 PRN PRN Reason: Anxiety/Agitation Stop: 10/16/20 12:12 Last Admin: 09/17/20 11:34 Dose: 1 mg Documented by: Lorazepam (Lorazepam 1 Mg Tab) 1 mg PO DAILY@1930 [place] Stop: 10/16/20 19:29 Last Admin: 09/18/20 19:06 Dose: 1 mg Documented by: Magnesium Hydroxide (Magnesium Hydroxide Susp 30 Ml Udc) 30 ml PO DAILY PRN PRN Reason: Constipation Stop: 10/14/20 14:46 Multivitamins/Minerals (Cerovite Adv Formula Tab) 1 tab PO DAILY [place] Stop: 10/15/20 08:59 Last Admin: 09/19/20 07:59 Dose: 1 tab Documented by: Risperidone (Risperidone Odt 1mg) 1 mg PO Q6 PRN PRN Reason: Anxiety/Agitation Stop: 10/16/20 12:12 Last Admin: 09/18/20 11:23 Dose: 1 mg Documented by: Risperidone (Risperidone Odt 1mg) 2 mg PO BID [place] Stop: 10/19/20 20:59 Sodium Chloride (Sodium Chloride 0.65% Na Soln 45 Ml ([place])) 1 - 2 sprays NA PRN PRN PRN Reason: Nasal Dryness/Congestion Stop: 10/14/20 14:46 Mental Health & Subst Abuse Tx Psychiatrist Name of Psychiatrist: [facility] - Dr. Locke Psychiatrist's Psychiatric Appointment Comment: [facility] Therapist Name of Therapist: Dr. Swathi Owusu Therapist's Therapy Appointment Comment: [address] [facility] Neuropsychology Division Chief Name of Neuropsychology Division Chief: None Post Discharge Appointments Primary Care Physician Name Of Family Doctor: ORQUIDEA Mcdowell Primary Care Provider Appointment Comment: [address] Contact Information Discharge Discharge [address]: [address] [place] [id number] (1) Bipolar disorder Active/Remission status: remission status unspecified Qualified Code(s): F31.9 - Bipolar disorder, unspecified
[2020-09-19] MEDS: LORazepam 1 MG TAB PO SCH (19:22)
[2020-09-20] MEDS: LIOTHYRONINE SODIUM 25 MCG TAB PO SCH (07:59)
[2020-09-20] MEDS: CEROVITE ADV FORMULA TAB PO SCH (07:59)
--- NOTE | 2020-09-20 13:11 | Psychiatric Progress Note ---
Date of Service September 20, 2020 Impression / Recommendations Impression 45 yo female admit with disorganized and paranoid thoughts and severe insomnia due to bipolar illness as well as contributing factor of iatrogenic hyperthyroidism. She is now on a 302 involuntary commitment due to disorganized and unsafe behaviors on unit. (1) Bipolar disorder: 1patient continues to display manic symptoms. Will increase risperidone to 2 mg twice daily starting tomorrow. 09/17/2020 We will continue with up titration of risperidone. Patient currently on 1 mg twice daily, will plan to increase nighttime dose to 2 mg to aid with sleep as well as mood stabilization. 09/16/20 Today she is agreeable to Risperdal increase. Sleep has improved largely without Seroquel so will d/c in favor of Risperdal M tab prn as her preference. Reviewed that treatment of choice for catatonia (should recur) is Ativan and will receive 1 mg standing this pm in addition to prn. If recurs would suggest standing dosing. 303 petition completed for hearing on 09/20 at 10 am. 09/15/20 patient discussed with outpatient psychiatrist Dr. Locke. Ideally would titrate her Risperdal to 1 mg BID when agreeable, supports use of prn Seroquel for now, no documentation re: thorazine allergy and feels it would be preferrable to Restoril if able to try/taper here. States that she has been decompensating in the setting of increased stress of dealing with mother's help (treatment for malignant melanoma). 09/14/20 The patient was admitted to the [facility] ([facility] inpatient mental health unit) on q15 min checks (behavioral with suicide precautions) for safety. The patient will participate in group, recreational, and milieu therapies and will be offered additional individual and family sessions as clinically appropriate. She was unable to fully review the risks/benefits/alternatives re: antipsychotic medication as a mood stabilizer at this time. She is not willing to take extra Risperdal. Will offer Seroquel 50 mg as a 1 time dose as she would like to rest and titrate if needed; I cannot currently confirm past reaction to thorazine. She does have a fasting lipid profile on her chart from June 2020 but no recent fasting glucose so ordered for the am. (2) Abnormal thyroid stimulating hormone (TSH) level: 09/16/20--restart liothyronine at 50 mcg daily starting tomorrow am. ?possible second dose contributing to sleep difficulties and overall dose to manic presentation/psychosis. 09/15/20 >1 hr spent calling patient's PCP Dr. Mcdowell to coordinate care and called [facility] and [facility] pharmacies trying to track down prescriber for her liothyronine. Staff able to get additional info from mother and I spoke with Lilian Moreno at [facility] in [place]. Reviewed patient's thyroid labs and she agreed that should be decreased due to concerns about manic presentation. I've decide to cut the dose in half after discussion with hospitalist (patient is not able to tolerate a formal consult at this time) and will require repeat labs in 6 weeks. 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 Mcdowell as overcorrection appears to be worsening and thyrotoxicosis may be contributing to her presentation. 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 Review of Systems Sleep Information Total Hours of Sleep: 5.5 Sleep Comments: Pt was awake occasionally through the night but with redirection was able to return to bed and sleep. Meal Information Percent Meal Consumed - Breakfast: 100 Percent Meal Consumed - Lunch: 100 Percent Meal Consumed - Dinner: 100 Nutrition Comment: Pt is resting. Subjective Subjective Patient was seen & assessed and interval progress reviewed with treatment team nursing and social work Patient reports sleeping somewhat decently last night. She reports feeling tired this morning due to the medication. Patient still with bizarre thoughts and tangential thought process as well as pressured speech and delusional believes. Does seem to be somewhat less distressed by them and more easily redirectable, however patient's thinking is still not appropriate or logical at this time. Court was held today for the patient, at first patient stated she wanted to attend later decided against it. Court supported the petition to extend inpatient stay. Physical Exam Mental Examination Appearance: Well Groomed Eye Contact: Maintains Eye Contact Motor Behavior: Unremarkable Speech: Tangential and Pressured Mood: Irritable and Expansive Affect: Irritable and Labile Thought Process: Disorganized, Perseveration and Tangential Insight: Fair Judgement: Poor Psychiatric Orientation: alert Apperance: appropriately dressed and + disheveled Eye Contact: good eye contact and + poor eye contact Motor Behavior: no abnormal motor movements and + psychomotor agitation Speech: + pressured speech Affect: + constricted affect Mood: + anxious mood and + irritable mood Thought Process: + tangential thought process and + concrete thought process Thought Content: + paranoid and + cognitive distortions Suicidal Thoughts: denies suicidal thoughts Homicidal Thoughts: denies homicidal thoughts Hallucinations: no auditory hallucinations and no visual hallucinations Cognition: + attention not intact Estimated Intelligence: consistent with education level Insight: + poor insight and + impaired insight Judgement: + poor judgement and + impaired judgement Vital Signs (Past 24 Hours) Last Vital Signs Temp 36.6 C 09/20/20 06:36 Pulse 96 H 09/20/20 06:37 Resp 16 09/20/20 06:36 BP 134/93 09/20/20 06:37 Pulse Ox 99 09/14/20 17:28 Results & Data ([facility]) Current Inpatient Medications Current Inpatient Medications: Current Inpatient Medications Acetaminophen (Acetaminophen 325 Mg Tab) 650 mg PO Q4H PRN PRN Reason: Headache or Minor Fever Stop: 10/14/20 14:46 Al Hydrox/Mg Hydrox/Simethicone (Aluminum/Magnesium Susp 30 Ml Udc) 30 ml PO Q4H PRN PRN Reason: GI Upset Stop: 10/14/20 14:46 Benztropine Mesylate (Benztropine Mesylate 0.5 Mg Tab) 0.5 mg PO Q6H PRN PRN Reason: muscle spasm Stop: 10/14/20 15:11 Bismuth Subsalicylate (Bismuth Subsalicylate Liqd 236 Ml) 15 ml PO PRN PRN PRN Reason: Loose Stool Stop: 10/14/20 14:46 Hydroxyzine HCl (Hydroxyzine Hcl 25 Mg Tab) 50 mg PO HSZ PRN PRN Reason: Insomnia Stop: 10/14/20 14:46 Hydroxyzine HCl (Hydroxyzine Hcl 25 Mg Tab) 25 mg PO Q4H PRN PRN Reason: Anxiety Stop: 10/14/20 14:46 Liothyronine Sodium (Liothyronine Sodium 25 Mcg Tab) 50 mcg PO QAM [place] Stop: 10/17/20 08:59 Last Admin: 09/20/20 07:59 Dose: 50 mcg Documented by: Lorazepam (Lorazepam 2 Mg/Ml Vial (Im Use)) 2 mg IM Q6 PRN PRN Reason: Agitation Stop: 10/15/20 23:07 Lorazepam (Lorazepam 1 Mg Tab) 1 mg PO Q4 PRN PRN Reason: Anxiety/Agitation Stop: 10/16/20 12:12 Last Admin: 09/17/20 11:34 Dose: 1 mg Documented by: Lorazepam (Lorazepam 1 Mg Tab) 1 mg PO DAILY@1930 [facility] Stop: 10/16/20 19:29 Last Admin: 09/19/20 19:22 Dose: 1 mg Documented by: Magnesium Hydroxide (Magnesium Hydroxide Susp 30 Ml Udc) 30 ml PO DAILY PRN PRN Reason: Constipation Stop: 10/14/20 14:46 Multivitamins/Minerals (Cerovite Adv Formula Tab) 1 tab PO DAILY [place] Stop: 10/15/20 08:59 Last Admin: 09/20/20 07:59 Dose: 1 tab Documented by: Risperidone (Risperidone Odt 1mg) 1 mg PO Q6 PRN PRN Reason: Anxiety/Agitation Stop: 10/16/20 12:12 Last Admin: 09/18/20 11:23 Dose: 1 mg Documented by: Risperidone (Risperidone Odt 1mg) 2 mg PO BID [place] Stop: 10/19/20 20:59 Last Admin: 09/20/20 07:59 Dose: 2 mg Documented by: Sodium Chloride (Sodium Chloride 0.65% Na Soln 45 Ml ([place])) 1 - 2 sprays NA PRN PRN PRN Reason: Nasal Dryness/Congestion Stop: 10/14/20 14:46 Mental Health & Subst Abuse Tx Psychiatrist Name of Psychiatrist: [facility] - Dr. Locke Psychiatrist's Psychiatric Appointment Comment: [address] Therapist Name of Therapist: Dr. Swathi Owusu Therapist's Therapy Appointment Comment: [address] [facility] Engine Installer Name of Engine Installer: None Post Discharge Appointments Primary Care Physician Name Of Family Doctor: ORQUIDEA Mcdowell Primary Care Provider Appointment Comment: [address] [facility], [address] [place] [address] Contact Information Discharge Discharge Address: [address] [place] [address], [place], [place] [address] (1) Bipolar disorder Active/Remission status: remission status unspecified Qualified Code(s): F31.9 - Bipolar disorder, unspecified
[2020-09-20] MEDS: LORazepam 1 MG TAB PO SCH (19:32)
[2020-09-21] MEDS: CEROVITE ADV FORMULA TAB PO SCH (09:11)
[2020-09-21] MEDS: LIOTHYRONINE SODIUM 25 MCG TAB PO SCH (09:11)
--- NOTE | 2020-09-21 13:28 | Psychiatric Progress Note ---
Date of Service September 21, 2020 Impression / Recommendations Impression 45 yo female admit with disorganized and paranoid thoughts and severe insomnia due to bipolar illness as well as contributing factor of iatrogenic hyperthyroidism. She is now on a 302 involuntary commitment due to disorganized and unsafe behaviors on unit. (1) Bipolar disorder: 09/21/2020-- PAtient continues on 2mg BID of risperidone. 09/19/2020atient continues to display manic symptoms. Will increase risperidone to 2 mg twice daily starting tomorrow. 09/17/2020 We will continue with up titration of risperidone. Patient currently on 1 mg twice daily, will plan to increase nighttime dose to 2 mg to aid with sleep as well as mood stabilization. 09/16/20 Today she is agreeable to Risperdal increase. Sleep has improved largely without Seroquel so will d/c in favor of Risperdal M tab prn as her preference. Reviewed that treatment of choice for catatonia (should recur) is Ativan and will receive 1 mg standing this pm in addition to prn. If recurs would suggest standing dosing. 303 petition completed for hearing on 09/20 at 10 am. 09/15/20 patient discussed with outpatient psychiatrist Dr. Locke. Ideally would titrate her Risperdal to 1 mg BID when agreeable, supports use of prn Seroquel for now, no documentation re: thorazine allergy and feels it would be preferrable to Restoril if able to try/taper here. States that she has been decompensating in the setting of increased stress of dealing with mother's help (treatment for malignant melanoma). 09/14/20 The patient was admitted to the [facility] ([facility] mental [facility] unit) on q15 min checks (behavioral with suicide precautions) for safety. The patient will participate in group, recreational, and milieu therapies and will be offered additional individual and family sessions as clinically appropriate. She was unable to fully review the risks/benefits/alternatives re: antipsychotic medication as a mood stabilizer at this time. She is not willing to take extra Risperdal. Will offer Seroquel 50 mg as a 1 time dose as she would like to rest and titrate if needed; I cannot currently confirm past reaction to thorazine. She does have a fasting lipid profile on her chart from June 2020 but no recent fasting glucose so ordered for the am. (2) Abnormal thyroid stimulating hormone (TSH) level: 09/16/20--restart liothyronine at 50 mcg daily starting tomorrow am. ?possible second dose contributing to sleep difficulties and overall dose to manic presentation/psychosis. 09/15/20 >1 hr spent calling patient's PCP Dr. Mcdowell to coordinate care and called [facility] and [facility] pharmacies trying to track down prescriber for her liothyronine. Staff able to get additional info from mother and I spoke with Lilian Moreno at [facility] in [place]. Reviewed patient's thyroid labs and she agreed that should be decreased due to concerns about manic presentation. I've decide to cut the dose in half after discussion with hospitalist (patient is not able to tolerate a formal consult at this time) and will require repeat labs in 6 weeks. 09/14/20 the patient's liothyronine will be held pending consultation with her coke wheeler and/or Dr. Mcdowell as overcorrection appears to be worsening and thyrotoxicosis may be contributing to her presentation. Risk Factors Assessment Do You Have Access To A Gun?: No Protective Factors Assessment Employed: No Interval History Chief Complaint "I'm okay but the medication makes me tired". Review of Systems Sleep Information Total Hours of Sleep: 7.75 Sleep Comments: pt on q-15 minute checks Meal Information Percent Meal Consumed - Breakfast: 100 Percent Meal Consumed - Lunch: 100 Percent Meal Consumed - Dinner: 100 Nutrition Comment: Pt is resting. Subjective Subjective Patient was seen & assessed and interval progress reviewed with treatment team nursing and social work Patient reports compliance with medications. She does report feeling tired from the increased dose. she was educated that this is to be expected and not to worry as she will grow tolerant to its sedating properties. Patient still somewhat hyper-focused on conspiracies. Continues to deny her need for more medication or longer treatment but is cooperative with care and recommendations. Patient continues with pressured speech. Physical Exam Psychiatric Orientation: alert Apperance: appropriately dressed and + disheveled Eye Contact: good eye contact and + poor eye contact Motor Behavior: no abnormal motor movements and + psychomotor agitation Speech: + pressured speech Affect: + constricted affect Mood: + anxious mood and + irritable mood Thought Process: + tangential thought process and + concrete thought process Thought Content: + paranoid and + cognitive distortions Suicidal Thoughts: denies suicidal thoughts Homicidal Thoughts: denies homicidal thoughts Hallucinations: no auditory hallucinations and no visual hallucinations Cognition: + attention not intact Estimated Intelligence: consistent with education level Insight: + poor insight and + impaired insight Judgement: + poor judgement and + impaired judgement Vital Signs (Past 24 Hours) Last Vital Signs Temp 37 C 09/21/20 06:32 Pulse 80 09/21/20 06:33 Resp 16 09/21/20 06:32 BP 127/90 09/21/20 06:33 Pulse Ox 99 09/14/20 17:28 Results & Data ([facility]) Current Inpatient Medications Current Inpatient Medications: Current Inpatient Medications Acetaminophen (Acetaminophen 325 Mg Tab) 650 mg PO Q4H PRN PRN Reason: Headache or Minor Fever Stop: 10/14/20 14:46 Al Hydrox/Mg Hydrox/Simethicone (Aluminum/Magnesium Susp 30 Ml Udc) 30 ml PO Q4H PRN PRN Reason: GI Upset Stop: 10/14/20 14:46 Benztropine Mesylate (Benztropine Mesylate 0.5 Mg Tab) 0.5 mg PO Q6H PRN PRN Reason: muscle spasm Stop: 10/14/20 15:11 Bismuth Subsalicylate (Bismuth Subsalicylate Liqd 236 Ml) 15 ml PO PRN PRN PRN Reason: Loose Stool Stop: 10/14/20 14:46 Hydroxyzine HCl (Hydroxyzine Hcl 25 Mg Tab) 50 mg PO HSZ PRN PRN Reason: Insomnia Stop: 10/14/20 14:46 Hydroxyzine HCl (Hydroxyzine Hcl 25 Mg Tab) 25 mg PO Q4H PRN PRN Reason: Anxiety Stop: 10/14/20 14:46 Liothyronine Sodium (Liothyronine Sodium 25 Mcg Tab) 50 mcg PO QAM [place] Stop: 10/17/20 08:59 Last Admin: 09/21/20 09:11 Dose: 50 mcg Documented by: Lorazepam (Lorazepam 2 Mg/Ml Vial (Im Use)) 2 mg IM Q6 PRN PRN Reason: Agitation Stop: 10/15/20 23:07 Lorazepam (Lorazepam 1 Mg Tab) 1 mg PO Q4 PRN PRN Reason: Anxiety/Agitation Stop: 10/16/20 12:12 Last Admin: 09/17/20 11:34 Dose: 1 mg Documented by: Lorazepam (Lorazepam 1 Mg Tab) 1 mg PO DAILY@1930 [facility] Stop: 10/16/20 19:29 Last Admin: 09/20/20 19:32 Dose: 1 mg Documented by: Magnesium Hydroxide (Magnesium Hydroxide Susp 30 Ml Udc) 30 ml PO DAILY PRN PRN Reason: Constipation Stop: 10/14/20 14:46 Multivitamins/Minerals (Cerovite Adv Formula Tab) 1 tab PO DAILY [place] Stop: 10/15/20 08:59 Last Admin: 09/21/20 09:11 Dose: 1 tab Documented by: Risperidone (Risperidone Odt 1mg) 1 mg PO Q6 PRN PRN Reason: Anxiety/Agitation Stop: 10/16/20 12:12 Last Admin: 09/18/20 11:23 Dose: 1 mg Documented by: Risperidone (Risperidone Odt 1mg) 2 mg PO BID [place] Stop: 10/19/20 20:59 Last Admin: 09/21/20 09:11 Dose: 2 mg Documented by: Sodium Chloride (Sodium Chloride 0.65% Na Soln 45 Ml ([place])) 1 - 2 sprays NA PRN PRN PRN Reason: Nasal Dryness/Congestion Stop: 10/14/20 14:46 Mental Health & Subst Abuse Tx Psychiatrist Name of Psychiatrist: [facility] - Dr. Locke Psychiatrist's Psychiatric Appointment Comment: [facility] Therapist Name of Therapist: Dr. Swathi Owusu Therapist's Therapy Appointment Comment: [address] [facility] Vineyard Tender Name of Vineyard Tender: None Post Discharge Appointments Primary Care Physician Name Of Family Doctor: ORQUIDEA Mcdowell Primary Care Provider Appointment Comment: [address] Contact Information Discharge Discharge Address: [address] [place] [id number] (1) Bipolar disorder Active/Remission status: remission status unspecified Qualified Code(s): F31.9 - Bipolar disorder, unspecified
[2020-09-21] MEDS: LORazepam 1 MG TAB PO SCH (20:25)
[2020-09-22] MEDS: LIOTHYRONINE SODIUM 25 MCG TAB PO SCH (08:41)
[2020-09-22] MEDS: CEROVITE ADV FORMULA TAB PO SCH (08:41)
--- NOTE | 2020-09-22 15:26 | Psychiatric Progress Note ---
Date of Service September 22, 2020 Impression / Recommendations Impression 45 yo female admit with disorganized and paranoid thoughts and severe insomnia due to bipolar illness as well as contributing factor of iatrogenic hyperthyroidism. She is now on a 302 involuntary commitment due to disorganized and unsafe behaviors on unit. (1) Bipolar disorder: 09/21/2020-- PAtient continues on 2mg BID of risperidone. 09/19/2020atient continues to display manic symptoms. Will increase risperidone to 2 mg twice daily starting tomorrow. 09/17/2020 We will continue with up titration of risperidone. Patient currently on 1 mg twice daily, will plan to increase nighttime dose to 2 mg to aid with sleep as well as mood stabilization. 09/16/20 Today she is agreeable to Risperdal increase. Sleep has improved largely without Seroquel so will d/c in favor of Risperdal M tab prn as her preference. Reviewed that treatment of choice for catatonia (should recur) is Ativan and will receive 1 mg standing this pm in addition to prn. If recurs would suggest standing dosing. 303 petition completed for hearing on 09/20 at 10 am. 09/15/20 patient discussed with outpatient psychiatrist Dr. Locke. Ideally would titrate her Risperdal to 1 mg BID when agreeable, supports use of prn Seroquel for now, no documentation re: thorazine allergy and feels it would be preferrable to Restoril if able to try/taper here. States that she has been decompensating in the setting of increased stress of dealing with mother's help (treatment for malignant melanoma). 09/14/20 The patient was admitted to the [facility] on q15 min checks (behavioral with suicide precautions) for safety. The patient will participate in group, recreational, and milieu therapies and will be offered additional individual and family sessions as clinically appropriate. She was unable to fully review the risks/benefits/alternatives re: antipsychotic medication as a mood stabilizer at this time. She is not willing to take extra Risperdal. Will offer Seroquel 50 mg as a 1 time dose as she would like to rest and titrate if needed; I cannot currently confirm past reaction to thorazine. She does have a fasting lipid profile on her chart from June 2020 but no recent fasting glucose so ordered for the am. (2) Abnormal thyroid stimulating hormone (TSH) level: 09/16/20--restart liothyronine at 50 mcg daily starting tomorrow am. ?possible second dose contributing to sleep difficulties and overall dose to manic presentation/psychosis. 09/15/20 >1 hr spent calling patient's PCP Dr. Mcdowell to coordinate care and called [facility] and [facility] pharmacies trying to track down prescriber for her liothyronine. Staff able to get additional info from mother and I spoke with Lilian Moreno at [facility] in [place]. Reviewed patient's thyroid labs and she agreed that should be decreased due to concerns about manic presentation. I've decide to cut the dose in half after discussion with hospitalist (patient is not able to tolerate a formal consult at this time) and will require repeat labs in 6 weeks. 09/14/20 the patient's liothyronine will be held pending consultation with her chauffeur motorbus and/or Dr. Mcdowell as overcorrection appears to be worsening and thyrotoxicosis may be contributing to her presentation. Risk Factors Assessment Do You Have Access To A Gun?: No Protective Factors Assessment Employed: No Interval History Chief Complaint "I'm feeling fine today, I realized a lot". Review of Systems Sleep Information Total Hours of Sleep: 6.5 Sleep Comments: pt on q-15 minute checks Meal Information Percent Meal Consumed - Breakfast: 100 Percent Meal Consumed - Lunch: 100 Percent Meal Consumed - Dinner: 100 Nutrition Comment: Pt is resting. Subjective Subjective Patient was seen & assessed and interval progress reviewed with treatment team nursing and social work Patient reports that she is feeling better. reports that her thoughts are more organized and that her mood is less chaotic. She participates meaningfully in group, although is still somewhat tangential at times. Patient states that she is no longer so tired in the mornings. She feels she is getting accustomed to the medications. Physical Exam Psychiatric Orientation: alert Apperance: appropriately dressed and + disheveled Eye Contact: good eye contact and + poor eye contact Motor Behavior: no abnormal motor movements and + psychomotor agitation Speech: + pressured speech Affect: + constricted affect Mood: + anxious mood and + irritable mood Thought Process: + tangential thought process and + concrete thought process Thought Content: + paranoid and + cognitive distortions Suicidal Thoughts: denies suicidal thoughts Homicidal Thoughts: denies homicidal thoughts Hallucinations: no auditory hallucinations and no visual hallucinations Cognition: + attention not intact Estimated Intelligence: consistent with education level Insight: + poor insight and + impaired insight Judgement: + poor judgement and + impaired judgement Vital Signs (Past 24 Hours) Last Vital Signs Temp 36.7 C 09/22/20 06:00 Pulse 86 09/22/20 06:40 Resp 16 09/22/20 06:00 BP 134/89 09/22/20 06:40 Pulse Ox 99 09/14/20 17:28 Results & Data ([facility]) Current Inpatient Medications Current Inpatient Medications: Current Inpatient Medications Acetaminophen (Acetaminophen 325 Mg Tab) 650 mg PO Q4H PRN PRN Reason: Headache or Minor Fever Stop: 10/14/20 14:46 Al Hydrox/Mg Hydrox/Simethicone (Aluminum/Magnesium Susp 30 Ml Udc) 30 ml PO Q4H PRN PRN Reason: GI Upset Stop: 10/14/20 14:46 Benztropine Mesylate (Benztropine Mesylate 0.5 Mg Tab) 0.5 mg PO Q6H PRN PRN Reason: muscle spasm Stop: 10/14/20 15:11 Bismuth Subsalicylate (Bismuth Subsalicylate Liqd 236 Ml) 15 ml PO PRN PRN PRN Reason: Loose Stool Stop: 10/14/20 14:46 Hydroxyzine HCl (Hydroxyzine Hcl 25 Mg Tab) 50 mg PO HSZ PRN PRN Reason: Insomnia Stop: 10/14/20 14:46 Hydroxyzine HCl (Hydroxyzine Hcl 25 Mg Tab) 25 mg PO Q4H PRN PRN Reason: Anxiety Stop: 10/14/20 14:46 Liothyronine Sodium (Liothyronine Sodium 25 Mcg Tab) 50 mcg PO QAM [place] Stop: 10/17/20 08:59 Last Admin: 09/22/20 08:41 Dose: 50 mcg Documented by: Lorazepam (Lorazepam 2 Mg/Ml Vial (Im Use)) 2 mg IM Q6 PRN PRN Reason: Agitation Stop: 10/15/20 23:07 Lorazepam (Lorazepam 1 Mg Tab) 1 mg PO Q4 PRN PRN Reason: Anxiety/Agitation Stop: 10/16/20 12:12 Last Admin: 09/17/20 11:34 Dose: 1 mg Documented by: Lorazepam (Lorazepam 1 Mg Tab) 1 mg PO DAILY@1930 [place] Stop: 10/16/20 19:29 Last Admin: 09/21/20 20:25 Dose: 1 mg Documented by: Magnesium Hydroxide (Magnesium Hydroxide Susp 30 Ml Udc) 30 ml PO DAILY PRN PRN Reason: Constipation Stop: 10/14/20 14:46 Last Admin: 09/22/20 13:55 Dose: 30 ml Documented by: Multivitamins/Minerals (Cerovite Adv Formula Tab) 1 tab PO DAILY [place] Stop: 10/15/20 08:59 Last Admin: 09/22/20 08:41 Dose: 1 tab Documented by: Risperidone (Risperidone Odt 1mg) 1 mg PO Q6 PRN PRN Reason: Anxiety/Agitation Stop: 10/16/20 12:12 Last Admin: 09/18/20 11:23 Dose: 1 mg Documented by: Risperidone (Risperidone Odt 1mg) 2 mg PO BID [place] Stop: 10/19/20 20:59 Last Admin: 09/22/20 08:42 Dose: 2 mg Documented by: Sodium Chloride (Sodium Chloride 0.65% Na Soln 45 Ml ([place])) 1 - 2 sprays NA PRN PRN PRN Reason: Nasal Dryness/Congestion Stop: 10/14/20 14:46 Mental Health & Subst Abuse Tx Psychiatrist Name of Psychiatrist: [facility] - Dr. Locke Psychiatrist's Psychiatric Appointment Comment: [facility] Therapist Name of Therapist: Dr. Swathi Owusu Therapist's Date of Therapist Appointment: 09/30/20 Time of Therapist Appointment: 10:00 am Therapy Appointment Comment: [address] [facility] Medical Program Specialist Name of Medical Program Specialist: None Post Discharge Appointments Primary Care Physician Name Of Family Doctor: ORQUIDEA Mcdowell Primary Care Provider Appointment Comment: [facility] Contact Information Discharge Discharge Address: [address] [place] [address] (1) Bipolar disorder Active/Remission status: remission status unspecified Qualified Code(s): F31.9 - Bipolar disorder, unspecified
[2020-09-22] MEDS: LORazepam 1 MG TAB PO SCH (19:49)
[2020-09-23] MEDS: CEROVITE ADV FORMULA TAB PO SCH (08:42)
[2020-09-23] MEDS: LIOTHYRONINE SODIUM 25 MCG TAB PO SCH (08:42)
--- NOTE | 2020-09-23 13:58 | Psychiatric Progress Note ---
Date of Service September 23, 2020 Impression / Recommendations Impression 45 yo female admit with disorganized and paranoid thoughts and severe insomnia due to bipolar illness as well as contributing factor of iatrogenic hyperthyroidism. She is now on a 302 involuntary commitment due to disorganized and unsafe behaviors on unit. (1) Bipolar disorder: 09/21/2020-- Patient continues on 2mg BID of risperidone. 09/19/2020atient continues to display manic symptoms. Will increase risperidone to 2 mg twice daily starting tomorrow. 09/17/2020 We will continue with up titration of risperidone. Patient currently on 1 mg twice daily, will plan to increase nighttime dose to 2 mg to aid with sleep as well as mood stabilization. 09/16/20 Today she is agreeable to Risperdal increase. Sleep has improved largely without Seroquel so will d/c in favor of Risperdal M tab prn as her preference. Reviewed that treatment of choice for catatonia (should recur) is Ativan and will receive 1 mg standing this pm in addition to prn. If recurs would suggest standing dosing. 303 petition completed for hearing on 09/20 at 10 am. 09/15/20 patient discussed with outpatient psychiatrist Dr. Locke. Ideally would titrate her Risperdal to 1 mg BID when agreeable, supports use of prn Seroquel for now, no documentation re: thorazine allergy and feels it would be preferrable to Restoril if able to try/taper here. States that she has been decompensating in the setting of increased stress of dealing with mother's help (treatment for malignant melanoma). 09/14/20 The patient was admitted to the [facility] on q15 min checks (behavioral with suicide precautions) for safety. The patient will participate in group, recreational, and milieu therapies and will be offered additional individual and family sessions as clinically appropriate. She was unable to fully review the risks/benefits/alternatives re: antipsychotic medication as a mood stabilizer at this time. She is not willing to take extra Risperdal. Will offer Seroquel 50 mg as a 1 time dose as she would like to rest and titrate if needed; I cannot currently confirm past reaction to thorazine. She does have a fasting lipid profile on her chart from June 2020 but no recent fasting glucose so ordered for the am. (2) Abnormal thyroid stimulating hormone (TSH) level: 09/16/20--restart liothyronine at 50 mcg daily starting tomorrow am. ?possible second dose contributing to sleep difficulties and overall dose to manic presentation/psychosis. 09/15/20 >1 hr spent calling patient's PCP Dr. Mcdowell to coordinate care and called [facility] and [facility] pharmacies trying to track down prescriber for her liothyronine. Staff able to get additional info from mother and I spoke with Lilian Moreno at [facility] in [place]. Reviewed patient's thyroid labs and she agreed that should be decreased due to concerns about manic presentation. I've decide to cut the dose in half after discussion with hospitalist (patient is not able to tolerate a formal consult at this time) and will require repeat labs in 6 weeks. 09/14/20 the patient's liothyronine will be held pending consultation with her geometrician and/or Dr. Mcdowell as overcorrection appears to be worsening and thyrotoxicosis may be contributing to her presentation. Risk Factors Assessment Do You Have Access To A Gun?: No Protective Factors Assessment Employed: No Interval History Chief Complaint "Thank you I am feeling good". Review of Systems Sleep Information Total Hours of Sleep: 7 Sleep Comments: pt on q-15 minute checks Meal Information Percent Meal Consumed - Breakfast: 100 Percent Meal Consumed - Lunch: 100 Percent Meal Consumed - Dinner: 100 Nutrition Comment: Pt is resting. Subjective Subjective Patient was seen & assessed and interval progress reviewed with treatment team nursing and social work. Patient seen today interacting appropriately with peers. Attends group and participates meaningfully. Patient denies any side effects of the medication. She reports that she is sleeping well with an estimated 7 hours of sleep per night. She also states that she is eating well without issues with appetite. Patient's mood is more level. She is less distressed by these conspiracy theories that she constantly talks about. She does continue to speak of these conspiracies but is not as hyper focused on them. Speech is still somewhat pressured although much improved. Physical Exam Psychiatric Orientation: alert Apperance: appropriately dressed and + disheveled Eye Contact: good eye contact and + poor eye contact Motor Behavior: no abnormal motor movements and + psychomotor agitation Speech: + pressured speech Affect: + constricted affect Mood: + anxious mood and + irritable mood Thought Process: + tangential thought process and + concrete thought process Thought Content: + paranoid and + cognitive distortions Suicidal Thoughts: denies suicidal thoughts Homicidal Thoughts: denies homicidal thoughts Hallucinations: no auditory hallucinations and no visual hallucinations Cognition: + attention not intact Estimated Intelligence: consistent with education level Insight: + poor insight and + impaired insight Judgement: + poor judgement and + impaired judgement Vital Signs (Past 24 Hours) Last Vital Signs Temp 36.9 C 09/23/20 06:00 Pulse 90 09/23/20 06:26 Resp 16 09/23/20 06:00 BP 118/85 09/23/20 06:26 Pulse Ox 99 09/14/20 17:28 Results & Data ([facility]) Current Inpatient Medications Current Inpatient Medications: Current Inpatient Medications Acetaminophen (Acetaminophen 325 Mg Tab) 650 mg PO Q4H PRN PRN Reason: Headache or Minor Fever Stop: 10/14/20 14:46 Al Hydrox/Mg Hydrox/Simethicone (Aluminum/Magnesium Susp 30 Ml Udc) 30 ml PO Q4H PRN PRN Reason: GI Upset Stop: 10/14/20 14:46 Benztropine Mesylate (Benztropine Mesylate 0.5 Mg Tab) 0.5 mg PO Q6H PRN PRN Reason: muscle spasm Stop: 10/14/20 15:11 Bismuth Subsalicylate (Bismuth Subsalicylate Liqd 236 Ml) 15 ml PO PRN PRN PRN Reason: Loose Stool Stop: 10/14/20 14:46 Hydroxyzine HCl (Hydroxyzine Hcl 25 Mg Tab) 50 mg PO HSZ PRN PRN Reason: Insomnia Stop: 10/14/20 14:46 Hydroxyzine HCl (Hydroxyzine Hcl 25 Mg Tab) 25 mg PO Q4H PRN PRN Reason: Anxiety Stop: 10/14/20 14:46 Liothyronine Sodium (Liothyronine Sodium 25 Mcg Tab) 50 mcg PO QAM [place] Stop: 10/17/20 08:59 Last Admin: 09/23/20 08:42 Dose: 50 mcg Documented by: Lorazepam (Lorazepam 2 Mg/Ml Vial (Im Use)) 2 mg IM Q6 PRN PRN Reason: Agitation Stop: 10/15/20 23:07 Lorazepam (Lorazepam 1 Mg Tab) 1 mg PO Q4 PRN PRN Reason: Anxiety/Agitation Stop: 10/16/20 12:12 Last Admin: 09/17/20 11:34 Dose: 1 mg Documented by: Lorazepam (Lorazepam 1 Mg Tab) 1 mg PO DAILY@1930 [place] Stop: 10/16/20 19:29 Last Admin: 09/22/20 19:49 Dose: 1 mg Documented by: Magnesium Hydroxide (Magnesium Hydroxide Susp 30 Ml Udc) 30 ml PO DAILY PRN PRN Reason: Constipation Stop: 10/14/20 14:46 Last Admin: 09/22/20 13:55 Dose: 30 ml Documented by: Multivitamins/Minerals (Cerovite Adv Formula Tab) 1 tab PO DAILY [place] Stop: 10/15/20 08:59 Last Admin: 09/23/20 08:42 Dose: 1 tab Documented by: Risperidone (Risperidone Odt 1mg) 1 mg PO Q6 PRN PRN Reason: Anxiety/Agitation Stop: 10/16/20 12:12 Last Admin: 09/18/20 11:23 Dose: 1 mg Documented by: Risperidone (Risperidone Odt 1mg) 2 mg PO BID [place] Stop: 10/19/20 20:59 Last Admin: 09/23/20 08:42 Dose: 2 mg Documented by: Sodium Chloride (Sodium Chloride 0.65% Na Soln 45 Ml ([place])) 1 - 2 sprays NA P RN PRN PRN Reason: Nasal Dryness/Congestion Stop: 10/14/20 14:46 Mental Health & Subst Abuse Tx Psychiatrist Name of Psychiatrist: [facility] - Dr. Locke Psychiatrist's Psychiatric Appointment Comment: [facility] [address] Therapist Name of Therapist: Dr. Swathi Owusu Therapist's Date of Therapist Appointment: 09/30/20 Time of Therapist Appointment: 10:00 am Therapy Appointment Comment: [address] [facility] Workforce Services Representative Name of Workforce Services Representative: None Post Discharge Appointments Primary Care Physician Name Of Family Doctor: ORQUIDEA Mcdowell Primary Care Provider Appointment Comment: [facility] [address] Contact Information Discharge Discharge Address: [address] [place] [id number] (1) Bipolar disorder Active/Remission status: remission status unspecified Qualified Code(s): F31.9 - Bipolar disorder, unspecified
[2020-09-23] MEDS: LORazepam 1 MG TAB PO SCH (19:34)
[2020-09-24] MEDS: LIOTHYRONINE SODIUM 25 MCG TAB PO SCH (08:26)
[2020-09-24] MEDS: CEROVITE ADV FORMULA TAB PO SCH (08:26)
--- NOTE | 2020-09-24 16:38 | Psychiatric Progress Note ---
Date of Service September 24, 2020 Impression / Recommendations Impression 45 yo female admit with disorganized and paranoid thoughts and severe insomnia due to bipolar illness as well as contributing factor of iatrogenic hyperthyroidism. She is now on a 302 involuntary commitment due to disorganized and unsafe behaviors on unit. (1) Bipolar disorder: 09/24/20- Will decrease Risperidone to 3mg daily and monitor, - consider additinal mood stabilizer , encourage use of benadryl for sleep. 09/21/2020-- Patient continues on 2mg BID of risperidone. 09/19/2020atient continues to display manic symptoms. Will increase risperidone to 2 mg twice daily starting tomorrow. 09/17/2020 We will continue with up titration of risperidone. Patient currently on 1 mg twice daily, will plan to increase nighttime dose to 2 mg to aid with sleep as well as mood stabilization. 09/16/20 Today she is agreeable to Risperdal increase. Sleep has improved largely without Seroquel so will d/c in favor of Risperdal M tab prn as her preference. Reviewed that treatment of choice for catatonia (should recur) is Ativan and will receive 1 mg standing this pm in addition to prn. If recurs would suggest standing dosing. 303 petition completed for hearing on 09/20 at 10 am. 09/15/20 patient discussed with outpatient psychiatrist Dr. Locke. Ideally would titrate her Risperdal to 1 mg BID when agreeable, supports use of prn Seroquel for now, no documentation re: thorazine allergy and feels it would be preferrable to Restoril if able to try/taper here. States that she has been decompensating in the setting of increased stress of dealing with mother's help (treatment for malignant melanoma). 09/14/20 The patient was admitted to the [facility] ([facility] inpatient mental health unit) on q15 min checks (behavioral with suicide precautions) for safety. The patient will participate in group, recreational, and milieu therapies and will be offered additional individual and family sessions as clinically appropriate. She was unable to fully review the risks/benefits/alternatives re: antipsychotic medication as a mood stabilizer at this time. She is not willing to take extra Risperdal. Will offer Seroquel 50 mg as a 1 time dose as she would like to rest and titrate if needed; I cannot currently confirm past reaction to thorazine. She does have a fasting lipid profile on her chart from June 2020 but no recent fasting glucose so ordered for the am. (2) Abnormal thyroid stimulating hormone (TSH) level: 09/16/20--restart liothyronine at 50 mcg daily starting tomorrow am. ?possible second dose contributing to sleep difficulties and overall dose to manic presentation/psychosis. 09/15/20 >1 hr spent calling patient's PCP Dr. Mcdowell to coordinate care and called [facility] and [facility] pharmacies trying to track down prescriber for her liothyronine. Staff able to get additional info from mother and I spoke with Lilian Moreno at [facility] in [place]. Reviewed patient's thyroid labs and she agreed that should be decreased due to concerns about manic presentation. I've decide to cut the dose in half after discussion with hospitalist (patient is not able to tolerate a formal consult at this time) and will require repeat labs in 6 weeks. 09/14/20 the patient's liothyronine will be held pending consultation with her sizing machine and drier operator and/or Dr. Mcdowell as overcorrection appears to be worsening and thyrotoxicosis may be contributing to her presentation. Risk Factors Assessment Do You Have Access To A Gun?: No Protective Factors Assessment Employed: No Interval History Chief Complaint "[I think I am much happier with way things are going I feel good about the current arrangements with my family"]". Review of Systems Sleep Information Total Hours of Sleep: 6.5 Sleep Comments: pt on q-15 minute checks Meal Information Percent Meal Consumed - Breakfast: 100 Percent Meal Consumed - Lunch: 100 Percent Meal Consumed - Dinner: 100 Nutrition Comment: Pt is resting. Subjective Subjective Patient was seen & assessed and interval progress reviewed with nursing and social work patient reports that current dose of risperidone is giving her a tight band around her head" I would like to sleep and I can see why the doctor would have raised my dose but I would feel more comfortable with 3.5 mg/day" patient sleeping well eating all her meals slept 6-1/2 hours yesterday patient also taking daily showers patient had a very active family meeting with good participation. Physical Exam Psychiatric Orientation: alert, oriented x 3, oriented to person and cooperative Apperance: appropriately dressed; not disheveled Eye Contact: good eye contact; not poor eye contact Motor Behavior: no abnormal motor movements; no psychomotor agitation Speech: + pressured speech Affect: + anxious affect; no constricted affect Mood: + anxious mood; no irritable mood Thought Process: clear/coherent thought process, + perseveration and + concrete thought process; thought process not tangential Thought Content: + cognitive distortions; not paranoid Suicidal Thoughts: denies suicidal thoughts Homicidal Thoughts: denies homicidal thoughts Hallucinations: no auditory hallucinations and no visual hallucinations Cognition: + attention not intact Estimated Intelligence: consistent with education level Insight: + impaired insight; not poor insight Judgement: + impaired judgement; not poor judgement Improved judgment , working with provider on medication doses Vital Signs (Past 24 Hours) Last Vital Signs Temp 36.8 C 09/24/20 06:28 Pulse 93 H 09/24/20 06:29 Resp 16 09/24/20 06:28 BP 119/74 09/24/20 06:29 Pulse Ox 99 09/14/20 17:28 Results & Data ([facility]) Current Inpatient Medications Current Inpatient Medications: Current Inpatient Medications Acetaminophen (Acetaminophen 325 Mg Tab) 650 mg PO Q4H PRN PRN Reason: Headache or Minor Fever Stop: 10/14/20 14:46 Al Hydrox/Mg Hydrox/Simethicone (Aluminum/Magnesium Susp 30 Ml Udc) 30 ml PO Q4H PRN PRN Reason: GI Upset Stop: 10/14/20 14:46 Benztropine Mesylate (Benztropine Mesylate 0.5 Mg Tab) 0.5 mg PO Q6H PRN PRN Reason: muscle spasm Stop: 10/14/20 15:11 Bismuth Subsalicylate (Bismuth Subsalicylate Liqd 236 Ml) 15 ml PO PRN PRN PRN Reason: Loose Stool Stop: 10/14/20 14:46 Diphenhydramine HCl (Diphenhydramine Capsule 25 Mg Cap) 50 mg PO HS PRN PRN Reason: Insomnia Stop: 10/24/20 12:56 Hydroxyzine HCl (Hydroxyzine Hcl 25 Mg Tab) 50 mg PO HSZ PRN PRN Reason: Insomnia Stop: 10/14/20 14:46 Hydroxyzine HCl (Hydroxyzine Hcl 25 Mg Tab) 25 mg PO Q4H PRN PRN Reason: Anxiety Stop: 10/14/20 14:46 Liothyronine Sodium (Liothyronine Sodium 25 Mcg Tab) 50 mcg PO QAM [place] Stop: 10/17/20 08:59 Last Admin: 09/24/20 08:26 Dose: 50 mcg Documented by: Lorazepam (Lorazepam 2 Mg/Ml Vial (Im Use)) 2 mg IM Q6 PRN PRN Reason: Agitation Stop: 10/15/20 23:07 Lorazepam (Lorazepam 1 Mg Tab) 1 mg PO Q4 PRN PRN Reason: Anxiety/Agitation Stop: 10/16/20 12:12 Last Admin: 09/17/20 11:34 Dose: 1 mg Documented by: Lorazepam (Lorazepam 1 Mg Tab) 1 mg PO DAILY@1930 [place] Stop: 10/16/20 19:29 Last Admin: 09/23/20 19:34 Dose: 1 mg Documented by: Magnesium Hydroxide (Magnesium Hydroxide Susp 30 Ml Udc) 30 ml PO DAILY PRN PRN Reason: Constipation Stop: 10/14/20 14:46 Last Admin: 09/22/20 13:55 Dose: 30 ml Documented by: Multivitamins/Minerals (Cerovite Adv Formula Tab) 1 tab PO DAILY [place] Stop: 10/15/20 08:59 Last Admin: 09/24/20 08:26 Dose: 1 tab Documented by: Risperidone (Risperidone Odt 1mg) 2 mg PO HS [place] Stop: 10/24/20 21:59 Risperidone (Risperidone Odt 1mg) 1 mg PO QAM [place] Stop: 10/25/20 08:59 Sodium Chloride (Sodium Chloride 0.65% Na Soln 45 Ml ([place])) 1 - 2 sprays NA PRN PRN PRN Reason: Nasal Dryness/Congestion Stop: 10/14/20 14:46 Mental Health & Subst Abuse Tx Psychiatrist Name of Psychiatrist: [facility] - Dr. Locke Psychiatrist's Date of Appointment with Psychiatrist: 09/28/20 Time of Appointment with Psychiatrist: 12:00 p.m. Psychiatric Appointment Comment: [facility] Therapist Name of Therapist: Dr. Swathi Owusu Therapist's Date of Therapist Appointment: 09/30/20 Time of Therapist Appointment: 10:00 am Therapy Appointment Comment: [address] [facility] Diesel Scoop Operator Name of Diesel Scoop Operator: None Post Discharge Appointments Primary Care Physician Name Of Family Doctor: ORQUIDEA Mcdowell Primary Care Date of Appointment with PCP: 10/04/20 Time of Appointment with PCP: 1:30 p.m. Provider Appointment Comment: [facility] [address] Contact Information Discharge Discharge Address: [address] [place] [address] (1) Bipolar disorder Active/Remission status: remission status unspecified Qualified Code(s): F31.9 - Bipolar disorder, unspecified
[2020-09-24] MEDS: LORazepam 1 MG TAB PO SCH (20:14)
[2020-09-24] MEDS: diphenhydrAMINE Capsule 25 MG CAP PO PRN (20:52)
[2020-09-25] MEDS: LIOTHYRONINE SODIUM 25 MCG TAB PO SCH (08:44)
[2020-09-25] MEDS: CEROVITE ADV FORMULA TAB PO SCH (08:44)
--- NOTE | 2020-09-25 12:00 | Psychiatric Progress Note ---
Date of Service September 25, 2020 Impression / Recommendations Impression 45 yo female admit with disorganized and paranoid thoughts and severe insomnia due to bipolar illness as well as contributing factor of iatrogenic hyperthyroidism. She is now on a 302 involuntary commitment due to disorganized and unsafe behaviors on unit. (1) Bipolar disorder: 09/25/20- [place] she slept really well last night felt the Benadryl helped. We will continue 3 mg of Risperdal will monitor for decompensating symptoms given patient has been known to decompensate on lower doses of medication. 09/24/20- Will decrease Risperidone to 3mg daily and monitor, - consider additinal mood stabilizer , encourage use of benadryl for sleep. 09/21/2020-- Patient continues on 2mg BID of risperidone. 09/19/2020atient continues to display manic symptoms. Will increase risperidone to 2 mg twice daily starting tomorrow. 09/17/2020 We will continue with up titration of risperidone. Patient currently on 1 mg twice daily, will plan to increase nighttime dose to 2 mg to aid with sleep as well as mood stabilization. 09/16/20 Today she is agreeable to Risperdal increase. Sleep has improved largely without Seroquel so will d/c in favor of Risperdal M tab prn as her preference. Reviewed that treatment of choice for catatonia (should recur) is Ativan and will receive 1 mg standing this pm in addition to prn. If recurs would suggest standing dosing. 303 petition completed for hearing on 09/20 at 10 am. 09/15/20 patient discussed with outpatient psychiatrist Dr. Locke. Ideally would titrate her Risperdal to 1 mg BID when agreeable, supports use of prn Seroquel for now, no documentation re: thorazine allergy and feels it would be preferrable to Restoril if able to try/taper here. States that she has been decompensating in the setting of increased stress of dealing with mother's help (treatment for malignant melanoma). 09/14/20 The patient was admitted to the [facility] on q15 min checks (behavioral with suicide precautions) for safety. The patient will participate in group, recreational, and milieu therapies and will be offered additional individual and family sessions as clinically appropriate. She was unable to fully review the risks/benefits/alternatives re: antipsychotic medication as a mood stabilizer at this time. She is not willing to take extra Risperdal. Will offer Seroquel 50 mg as a 1 time dose as she would like to rest and titrate if needed; I cannot currently confirm past reaction to thorazine. She does have a fasting lipid profile on her chart from June 2020 but no recent fasting glucose so ordered for the am. (2) Abnormal thyroid stimulating hormone (TSH) level: 09/25/20-stable at this time continues on Cytomel will follow-up with outpatient flight engineer manager on discharge. 09/16/20--restart liothyronine at 50 mcg daily starting tomorrow am. ?possible second dose contributing to sleep difficulties and overall dose to manic presentation/psychosis. 09/15/20 >1 hr spent calling patient's PCP Dr. Mcdowell to coordinate care and called [facility] and [facility] pharmacies trying to track down prescriber for her liothyronine. Staff able to get additional info from mother and I spoke with Lilian Moreno at [facility] in [place]. Reviewed patient's thyroid labs and she agreed that should be decreased due to concerns about manic presentation. I've decide to cut the dose in half after discussion with hospitalist (patient is not able to tolerate a formal consult at this time) and will require repeat labs in 6 weeks. 09/14/20 the patient's liothyronine will be held pending consultation with her flight engineer manager and/or Dr. Mcdowell as overcorrection appears to be worsening and thyrotoxicosis may be contributing to her presentation. Risk Factors Assessment Do You Have Access To A Gun?: No Protective Factors Assessment Employed: No Interval History Chief Complaint "[I think I am doing better I am looking forward to the lower dose of the Risperdal I am also concerned about taking my medications too late]". Review of Systems Sleep Information Total Hours of Sleep: 6.75 Sleep Comments: Pt verbalized that she felt she woke early at approximately 0330. 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 Meal Information Percent Meal Consumed - Breakfast: 100 Percent Meal Consumed - Lunch: 100 Percent Meal Consumed - Dinner: 100 Nutrition Comment: Pt is resting. Subjective Subjective Patient was seen & assessed and interval progress reviewed with nursing and social work Patient reports feeling happy within the Risperdal dose that she is planning to trial today she also reports wanting to Take her meds earlier because her bedtime is 8 PM per patient. Telephone Order Dispatcher encouraged patient to keep her bedtime at 9 PM to discourage media analytics manager awakening. Patient also felt the Benadryl helped significantly with sleep. No evidence of response to internal stimuli conversation was appropriate. Denies suicidal thoughts. Physical Exam Psychiatric Orientation: alert, oriented x 3, oriented to person and cooperative Apperance: appropriately dressed; not disheveled Eye Contact: good eye contact; not poor eye contact Motor Behavior: no abnormal motor movements; no psychomotor agitation Speech: + pressured speech Affect: + anxious affect; no constricted affect Mood: + anxious mood; no irritable mood Thought Process: clear/coherent thought process, + perseveration and + concrete thought process; thought process not tangential Thought Content: + cognitive distortions; not paranoid Suicidal Thoughts: denies suicidal thoughts Homicidal Thoughts: denies homicidal thoughts Hallucinations: no auditory hallucinations and no visual hallucinations Cognition: + attention not intact Estimated Intelligence: consistent with education level Insight: + impaired insight; not poor insight Judgement: + impaired judgement; not poor judgement Vital Signs (Past 24 Hours) Last Vital Signs Temp 36.8 C 09/25/20 06:38 Pulse 75 09/25/20 06:39 Resp 16 09/25/20 06:38 BP 119/85 09/25/20 06:39 Pulse Ox 99 09/14/20 17:28 Results & Data ([facility]) Current Inpatient Medications Current Inpatient Medications: Current Inpatient Medications Acetaminophen (Acetaminophen 325 Mg Tab) 650 mg PO Q4H PRN PRN Reason: Headache or Minor Fever Stop: 10/14/20 14:46 Al Hydrox/Mg Hydrox/Simethicone (Aluminum/Magnesium Susp 30 Ml Udc) 30 ml PO Q4H PRN PRN Reason: GI Upset Stop: 10/14/20 14:46 Benztropine Mesylate (Benztropine Mesylate 0.5 Mg Tab) 0.5 mg PO Q6H PRN PRN Reason: muscle spasm Stop: 10/14/20 15:11 Bismuth Subsalicylate (Bismuth Subsalicylate Liqd 236 Ml) 15 ml PO PRN PRN PRN Reason: Loose Stool Stop: 10/14/20 14:46 Diphenhydramine HCl (Diphenhydramine Capsule 25 Mg Cap) 50 mg PO HS PRN PRN Reason: Insomnia Stop: 10/24/20 12:56 Last Admin: 09/24/20 20:52 Dose: 50 mg Documented by: Hydroxyzine HCl (Hydroxyzine Hcl 25 Mg Tab) 50 mg PO HSZ PRN PRN Reason: Insomnia Stop: 10/14/20 14:46 Hydroxyzine HCl (Hydroxyzine Hcl 25 Mg Tab) 25 mg PO Q4H PRN PRN Reason: Anxiety Stop: 10/14/20 14:46 Liothyronine Sodium (Liothyronine Sodium 25 Mcg Tab) 50 mcg PO QAM [place] Stop: 10/17/20 08:59 Last Admin: 09/25/20 08:44 Dose: 50 mcg Documented by: Lorazepam (Lorazepam 2 Mg/Ml Vial (Im Use)) 2 mg IM Q6 PRN PRN Reason: Agitation Stop: 10/15/20 23:07 Lorazepam (Lorazepam 1 Mg Tab) 1 mg PO Q4 PRN PRN Reason: Anxiety/Agitation Stop: 10/16/20 12:12 Last Admin: 09/17/20 11:34 Dose: 1 mg Documented by: Lorazepam (Lorazepam 1 Mg Tab) 1 mg PO DAILY@1930 [facility] Stop: 10/16/20 19:29 Last Admin: 09/24/20 20:14 Dose: 1 mg Documented by: Magnesium Hydroxide (Magnesium Hydroxide Susp 30 Ml Udc) 30 ml PO DAILY PRN PRN Reason: Constipation Stop: 10/14/20 14:46 Last Admin: 09/22/20 13:55 Dose: 30 ml Documented by: Multivitamins/Minerals (Cerovite Adv Formula Tab) 1 tab PO DAILY [place] Stop: 10/15/20 08:59 Last Admin: 09/25/20 08:44 Dose: 1 tab Documented by: Risperidone (Risperidone Odt 1mg) 2 mg PO HS [place] Stop: 10/24/20 21:59 Last Admin: 09/24/20 20:49 Dose: 2 mg Documented by: Risperidone (Risperidone Odt 1mg) 1 mg PO QAM [place] Stop: 10/25/20 08:59 Last Admin: 09/25/20 08:44 Dose: 1 mg Documented by: Sodium Chloride (Sodium Chloride 0.65% Na Soln 45 Ml ([place])) 1 - 2 sprays NA PRN PRN PRN Reason: Nasal Dryness/Congestion Stop: 10/14/20 14:46 Mental Health & Subst Abuse Tx Psychiatrist Name of Psychiatrist: [facility] - Dr. Locke Psychiatrist's Date of Appointment with Psychiatrist: 09/28/20 Time of Appointment with Psychiatrist: 12:00 p.m. Psychiatric Appointment Comment: [facility] Therapist Name of Therapist: Dr. Swathi Owusu Therapist's Date of Therapist Appointment: 09/30/20 Time of Therapist Appointment: 10:00 am Therapy Appointment Comment: [address] [facility] Metal Tank Builder Name of Metal Tank Builder: None Post Discharge Appointments Primary Care Physician Name Of Family Doctor: ORQUIDEA Mcdowell Primary Care Date of Appointment with PCP: 10/04/20 Time of Appointment with PCP: 1:30 p.m. Provider Appointment Comment: [address] Contact Information Discharge Discharge Address: [address] [place] [id number] (1) Bipolar disorder Active/Remission status: remission status unspecified Qualified Code(s): F31.9 - Bipolar disorder, unspecified
[2020-09-25] MEDS: LORazepam 1 MG TAB PO SCH (20:48)
[2020-09-25] MEDS: diphenhydrAMINE Capsule 25 MG CAP PO PRN (21:06)
[2020-09-26] MEDS: CEROVITE ADV FORMULA TAB PO SCH (08:33)
[2020-09-26] MEDS: LIOTHYRONINE SODIUM 25 MCG TAB PO SCH (08:33)
--- NOTE | 2020-09-26 19:23 | Psychiatric Progress Note ---
Date of Service September 26, 2020 Impression / Recommendations Impression 45 yo female admit with disorganized and paranoid thoughts and severe insomnia due to bipolar illness as well as contributing factor of iatrogenic hyperthyroidism. She is now on a 302 involuntary commitment due to disorganized and unsafe behaviors on unit. (1) Bipolar disorder: 09/26/20- no side effects from loer dose noted 09/25/20- [place] she slept really well last night felt the Benadryl helped. We will continue 3 mg of Risperdal will monitor for decompensating symptoms given patient has been known to decompensate on lower doses of medication. 09/24/20- Will decrease Risperidone to 3mg daily and monitor, - consider additinal mood stabilizer , encourage use of benadryl for sleep. 09/21/2020-- Patient continues on 2mg BID of risperidone. 09/19/2020atient continues to display manic symptoms. Will increase risperidone to 2 mg twice daily starting tomorrow. 09/17/2020 We will continue with up titration of risperidone. Patient currently on 1 mg twice daily, will plan to increase nighttime dose to 2 mg to aid with sleep as well as mood stabilization. 09/16/20 Today she is agreeable to Risperdal increase. Sleep has improved largely without Seroquel so will d/c in favor of Risperdal M tab prn as her preference. Reviewed that treatment of choice for catatonia (should recur) is Ativan and will receive 1 mg standing this pm in addition to prn. If recurs would suggest standing dosing. 303 petition completed for hearing on 09/20 at 10 am. 09/15/20 patient discussed with outpatient psychiatrist Dr. Locke. Ideally would titrate her Risperdal to 1 mg BID when agreeable, supports use of prn Seroquel for now, no documentation re: thorazine allergy and feels it would be preferrable to Restoril if able to try/taper here. States that she has been decompensating in the setting of increased stress of dealing with mother's help (treatment for malignant melanoma). 09/14/20 The patient was admitted to the [facility] ([facility]) on q15 min checks (behavioral with suicide precautions) for safety. The patient will participate in group, recreational, and milieu therapies and will be offered additional individual and family sessions as clinically appropriate. She was unable to fully review the risks/benefits/alternatives re: antipsychotic medication as a mood stabilizer at this time. She is not willing to take extra Risperdal. Will offer Seroquel 50 mg as a 1 time dose as she would like to rest and titrate if needed; I cannot currently confirm past reaction to thorazine. She does have a fasting lipid profile on her chart from June 2020 but no recent fasting glucose so ordered for the am. (2) Abnormal thyroid stimulating hormone (TSH) level: 09/25/20-stable at this time continues on Cytomel will follow-up with outpatient test lab technician on discharge. 09/16/20--restart liothyronine at 50 mcg daily starting tomorrow am. ?possible second dose contributing to sleep difficulties and overall dose to manic presentation/psychosis. 09/15/20 >1 hr spent calling patient's PCP Dr. Mcdowell to coordinate care and called [facility] and [facility] pharmacies trying to track down prescriber for her liothyronine. Staff able to get additional info from mother and I spoke with Lilian Moreno at [facility] in [place]. Reviewed patient's thyroid labs and she agreed that should be decreased due to concerns about manic presentation. I've decide to cut the dose in half after discussion with hospitalist (patient is not able to tolerate a formal consult at this time) and will require repeat labs in 6 weeks. 09/14/20 the patient's liothyronine will be held pending consultation with her test lab technician and/or Dr. Mcdowell as overcorrection appears to be worsening and thyrotoxicosis may be contributing to her presentation. Risk Factors Assessment Do You Have Access To A Gun?: No Protective Factors Assessment Employed: No Interval History Chief Complaint "[I think I am doing much better]". Review of Systems Sleep Information Total Hours of Sleep: 6.5 Sleep Comments: pt given med's per rn. pt on q-15 minute check. pt stated of sleeping better last night Meal Information Percent Meal Consumed - Breakfast: 100 Percent Meal Consumed - Lunch: 100 Percent Meal Consumed - Dinner: 100 Nutrition Comment: Pt is resting. Subjective Subjective Patient was seen & assessed and interval progress reviewed with treatment team nursing and social work. Patient eating meals and grooming appears to be, denies side effects. Physical Exam Psychiatric Orientation: alert, oriented x 3, oriented to person and cooperative Apperance: appropriately dressed; not disheveled Eye Contact: good eye contact; not poor eye contact Motor Behavior: no abnormal motor movements; no psychomotor agitation Speech: + pressured speech Affect: + anxious affect; no constricted affect Mood: + anxious mood; no irritable mood Thought Process: clear/coherent thought process, + perseveration and + concrete thought process; thought process not tangential Thought Content: + cognitive distortions; not paranoid Suicidal Thoughts: denies suicidal thoughts Homicidal Thoughts: denies homicidal thoughts Hallucinations: no auditory hallucinations and no visual hallucinations Cognition: + attention not intact Estimated Intelligence: consistent with education level Insight: + impaired insight; not poor insight Judgement: + impaired judgement; not poor judgement Vital Signs (Past 24 Hours) Last Vital Signs Temp 36.7 C 09/26/20 06:40 Pulse 76 09/26/20 06:40 Resp 16 09/26/20 06:40 BP 129/88 09/26/20 06:40 Pulse Ox 99 09/14/20 17:28 Results & Data ([facility]) Current Inpatient Medications Current Inpatient Medications: Current Inpatient Medications Acetaminophen (Acetaminophen 325 Mg Tab) 650 mg PO Q4H PRN PRN Reason: Headache or Minor Fever Stop: 10/14/20 14:46 Al Hydrox/Mg Hydrox/Simethicone (Aluminum/Magnesium Susp 30 Ml Udc) 30 ml PO Q4H PRN PRN Reason: GI Upset Stop: 10/14/20 14:46 Benztropine Mesylate (Benztropine Mesylate 0.5 Mg Tab) 0.5 mg PO Q6H PRN PRN Reason: muscle spasm Stop: 10/14/20 15:11 Bismuth Subsalicylate (Bismuth Subsalicylate Liqd 236 Ml) 15 ml PO PRN PRN PRN Reason: Loose Stool Stop: 10/14/20 14:46 Diphenhydramine HCl (Diphenhydramine Capsule 25 Mg Cap) 50 mg PO HS PRN PRN Reason: Insomnia Stop: 10/24/20 12:56 Last Admin: 09/25/20 21:06 Dose: 50 mg Documented by: Hydroxyzine HCl (Hydroxyzine Hcl 25 Mg Tab) 50 mg PO HSZ PRN PRN Reason: Insomnia Stop: 10/14/20 14:46 Hydroxyzine HCl (Hydroxyzine Hcl 25 Mg Tab) 25 mg PO Q4H PRN PRN Reason: Anxiety Stop: 10/14/20 14:46 Liothyronine Sodium (Liothyronine Sodium 25 Mcg Tab) 50 mcg PO QAM [facility] Stop: 10/17/20 08:59 Last Admin: 09/26/20 08:33 Dose: 50 mcg Documented by: Lorazepam (Lorazepam 2 Mg/Ml Vial (Im Use)) 2 mg IM Q6 PRN PRN Reason: Agitation Stop: 10/15/20 23:07 Lorazepam (Lorazepam 1 Mg Tab) 1 mg PO Q4 PRN PRN Reason: Anxiety/Agitation Stop: 10/16/20 12:12 Last Admin: 09/17/20 11:34 Dose: 1 mg Documented by: Lorazepam (Lorazepam 1 Mg Tab) 1 mg PO DAILY@1930 [facility] Stop: 10/16/20 19:29 Last Admin: 09/25/20 20:48 Dose: 1 mg Documented by: Magnesium Hydroxide (Magnesium Hydroxide Susp 30 Ml Udc) 30 ml PO DAILY PRN PRN Reason: Constipation Stop: 10/14/20 14:46 Last Admin: 09/22/20 13:55 Dose: 30 ml Documented by: Multivitamins/Minerals (Cerovite Adv Formula Tab) 1 tab PO DAILY [facility] Stop: 10/15/20 08:59 Last Admin: 09/26/20 08:33 Dose: 1 tab Documented by: Risperidone (Risperidone Odt 1mg) 2 mg PO HS [facility] Stop: 10/24/20 21:59 Last Admin: 09/25/20 20:49 Dose: 2 mg Documented by: Risperidone (Risperidone Odt 1mg) 1 mg PO QAM [facility] Stop: 10/25/20 08:59 Last Admin: 09/26/20 08:33 Dose: 1 mg Documented by: Sodium Chloride (Sodium Chloride 0.65% Na Soln 45 Ml ([place])) 1 - 2 sprays NA PRN PRN PRN Reason: Nasal Dryness/Congestion Stop: 10/14/20 14:46 Mental Health & Subst Abuse Tx Psychiatrist Name of Psychiatrist: [facility] - Dr. Locke Psychiatrist's Date of Appointment with Psychiatrist: 09/28/20 Time of Appointment with Psychiatrist: 12:00 p.m. Psychiatric Appointment Comment: [address] [facility], [address] [place] [address] Therapist Name of Therapist: Dr. Swathi Owusu Therapist's Date of Therapist Appointment: 09/30/20 Time of Therapist Appointment: 10:00 am Therapy Appointment Comment: [address] [facility] Concrete Bucket Loader Name of Concrete Bucket Loader: None Post Discharge Appointments Primary Care Physician Name Of Family Doctor: ORQUIDEA Mcdowell Primary Care Date of Appointment with PCP: 10/04/20 Time of Appointment with PCP: 1:30 p.m. Provider Appointment Comment: [address] Contact Information Discharge Discharge Address: [address] [place] [address] (1) Bipolar disorder Active/Remission status: remission status unspecified Qualified Code(s): F31.9 - Bipolar disorder, unspecified
[2020-09-26] MEDS: LORazepam 1 MG TAB PO SCH (20:04)
[2020-09-26] MEDS: diphenhydrAMINE Capsule 25 MG CAP PO PRN (21:03)
[2020-09-27] MEDS: CEROVITE ADV FORMULA TAB PO SCH (08:39)
[2020-09-27] MEDS: LIOTHYRONINE SODIUM 25 MCG TAB PO SCH (08:39)
--- NOTE | 2020-09-27 19:04 | Psychiatric Progress Note ---
Date of Service September 27, 2020 Impression / Recommendations Impression 45 yo female admit with disorganized and paranoid thoughts and severe insomnia due to bipolar illness as well as contributing factor of iatrogenic hyperthyroidism. She is now on a 302 involuntary commitment due to disorganized and unsafe behaviors on unit. (1) Bipolar disorder: - doing better tolerating lower dose , will look at discharge for 09/2809/26/20- no side effects from loer dose noted 09/25/20- Scott she slept really well last night felt the Benadryl helped. We will continue 3 mg of Risperdal will monitor for decompensating symptoms given patient has been known to decompensate on lower doses of medication. 09/24/20- Will decrease Risperidone to 3mg daily and monitor, - consider additinal mood stabilizer , encourage use of benadryl for sleep. 09/21/2020-- Patient continues on 2mg BID of risperidone. 09/19/2020atient continues to display manic symptoms. Will increase risperidone to 2 mg twice daily starting tomorrow. 09/17/2020 We will continue with up titration of risperidone. Patient currently on 1 mg twice daily, will plan to increase nighttime dose to 2 mg to aid with sleep as well as mood stabilization. 09/16/20 Today she is agreeable to Risperdal increase. Sleep has improved largely without Seroquel so will d/c in favor of Risperdal M tab prn as her preference. Reviewed that treatment of choice for catatonia (should recur) is Ativan and will receive 1 mg standing this pm in addition to prn. If recurs would suggest standing dosing. 303 petition completed for hearing on 09/20 at 10 am. 09/15/20 patient discussed with outpatient psychiatrist Dr. Lcoke. Ideally would titrate her Risperdal to 1 mg BID when agreeable, supports use of prn Seroquel for now, no documentation re: thorazine allergy and feels it would be prefe rrable to Restoril if able to try/taper here. States that she has been decompensating in the setting of increased stress of dealing with mother's help (treatment for malignant melanoma). 09/14/20 The patient was admitted to the [facility] ([facility] mental health unit) on q15 min checks (behavioral with suicide precautions) for safety. The patient will participate in group, recreational, and milieu therapies and will be offered additional individual and family sessions as clinically appropriate. She was unable to fully review the risks/benefits/alternatives re: antipsychotic medication as a mood stabilizer at this time. She is not willing to take extra Risperdal. Will offer Seroquel 50 mg as a 1 time dose as she would like to rest and titrate if needed; I cannot currently confirm past reaction to thorazine. She does have a fasting lipid profile on her chart from June 2020 but no recent fasting glucose so ordered for the am. (2) Abnormal thyroid stimulating hormone (TSH) level: 09/25/20-stable at this time continues on Cytomel will follow-up with outpatient fluorescent solution mixer on discharge. 09/16/20--restart liothyronine at 50 mcg daily starting tomorrow am. ?possible second dose contributing to sleep difficulties and overall dose to manic presentation/psychosis. 09/15/20 >1 hr spent calling patient's PCP Dr. Mcdowell to coordinate care and called [facility] and [facility] pharmacies trying to track down prescriber for her liothyronine. Staff able to get additional info from mother and I spoke with Lilian Moreno at [facility] in [place]. Reviewed patient's thyroid labs and she agreed that should be decreased due to concerns about manic presentation. I've decide to cut the dose in half after discussion with hospitalist (patient is not able to tolerate a formal consult at this time) and will require repeat labs in 6 weeks. 09/14/20 the patient's liothyronine will be held pending consultation with her fluorescent solution mixer and/or Dr. Mcdowell as overcorrection appears to be worsening and thyrotoxicosis may be contributing to her presentation. Risk Factors Assessment Do You Have Access To A Gun?: No Protective Factors Assessment Employed: No Interval History Chief Complaint "[I think I am doing great]". Review of Systems Sleep Information Total Hours of Sleep: 6.5 Sleep Comments: pt given med's per rn. pt on q-15 minute check. pt stated of sleeping better last night Meal Information Percent Meal Consumed - Breakfast: 100 Percent Meal Consumed - Lunch: 100 Percent Meal Consumed - Dinner: 100 Nutrition Comment: Pt is resting. Subjective Subjective Patient was seen & assessed and interval progress reviewed with nursing and social work Patient seen in the milieu actively attending groups reports her mood is better this denies suicidal ideation affect is good no side effects to current medication denies suicidal thoughts or homicidal thoughts more organized in terms of her thinking Physical Exam Psychiatric Orientation: alert, oriented x 3, oriented to person and cooperative Apperance: appropriately dressed; not disheveled Eye Contact: good eye contact; not poor eye contact Motor Behavior: no abnormal motor movements; no psychomotor agitation Speech: + pressured speech Affect: + anxious affect; no constricted affect Mood: + anxious mood; no irritable mood Thought Process: clear/coherent thought process, + perseveration and + concrete thought process; thought process not tangential Thought Content: + cognitive distortions; not paranoid Suicidal Thoughts: denies suicidal thoughts Homicidal Thoughts: denies homicidal thoughts Hallucinations: no auditory hallucinations and no visual hallucinations Cognition: + attention not intact Estimated Intelligence: consistent with education level Insight: + impaired insight; not poor insight Judgement: + impaired judgement; not poor judgement Vital Signs (Past 24 Hours) Last Vital Signs Temp 36.6 C 09/27/20 06:41 Pulse 76 09/27/20 06:42 Resp 16 09/27/20 06:41 BP 137/92 09/27/20 06:42 Pulse Ox 99 09/14/20 17:28 Results & Data ([facility]) Current Inpatient Medications Current Inpatient Medications: Current Inpatient Medications Acetaminophen (Acetaminophen 325 Mg Tab) 650 mg PO Q4H PRN PRN Reason: Headache or Minor Fever Stop: 10/14/20 14:46 Al Hydrox/Mg Hydrox/Simethicone (Aluminum/Magnesium Susp 30 Ml Udc) 30 ml PO Q4H PRN PRN Reason: GI Upset Stop: 10/14/20 14:46 Benztropine Mesylate (Benztropine Mesylate 0.5 Mg Tab) 0.5 mg PO Q6H PRN PRN Reason: muscle spasm Stop: 10/14/20 15:11 Bismuth Subsalicylate (Bismuth Subsalicylate Liqd 236 Ml) 15 ml PO PRN PRN PRN Reason: Loose Stool Stop: 10/14/20 14:46 Diphenhydramine HCl (Diphenhydramine Capsule 25 Mg Cap) 50 mg PO HS PRN PRN Reason: Insomnia Stop: 10/24/20 12:56 Last Admin: 09/26/20 21:03 Dose: 50 mg Documented by: Hydroxyzine HCl (Hydroxyzine Hcl 25 Mg Tab) 50 mg PO HSZ PRN PRN Reason: Insomnia Stop: 10/14/20 14:46 Hydroxyzine HCl (Hydroxyzine Hcl 25 Mg Tab) 25 mg PO Q4H PRN PRN Reason: Anxiety Stop: 10/14/20 14:46 Liothyronine Sodium (Liothyronine Sodium 25 Mcg Tab) 50 mcg PO QAM [place] Stop: 10/17/20 08:59 Last Admin: 09/27/20 08:39 Dose: 50 mcg Documented by: Lorazepam (Lorazepam 2 Mg/Ml Vial (Im Use)) 2 mg IM Q6 PRN PRN Reason: Agitation Stop: 10/15/20 23:07 Lorazepam (Lorazepam 1 Mg Tab) 1 mg PO Q4 PRN PRN Reason: Anxiety/Agitation Stop: 10/16/20 12:12 Last Admin: 09/17/20 11:34 Dose: 1 mg Documented by: Lorazepam (Lorazepam 1 Mg Tab) 1 mg PO DAILY@1930 [facility] Stop: 10/16/20 19:29 Last Admin: 09/26/20 20:04 Dose: 1 mg Documented by: Magnesium Hydroxide (Magnesium Hydroxide Susp 30 Ml Udc) 30 ml PO DAILY PRN PRN Reason: Constipation Stop: 10/14/20 14:46 Last Admin: 09/22/20 13:55 Dose: 30 ml Documented by: Multivitamins/Minerals (Cerovite Adv Formula Tab) 1 tab PO DAILY [place] Stop: 10/15/20 08:59 Last Admin: 09/27/20 08:39 Dose: 1 tab Documented by: Risperidone (Risperidone Odt 1mg) 2 mg PO HS [place] Stop: 10/24/20 21:59 Last Admin: 09/26/20 21:02 Dose: 2 mg Documented by: Risperidone (Risperidone Odt 1mg) 1 mg PO QAM [place] Stop: 10/25/20 08:59 Last Admin: 09/27/20 08:39 Dose: 1 mg Documented by: Sodium Chloride (Sodium Chloride 0.65% Na Soln 45 Ml ([place])) 1 - 2 sprays NA PRN PRN PRN Reason: Nasal Dryness/Congestion Stop: 10/14/20 14:46 Mental Health & Subst Abuse Tx Psychiatrist Name of Psychiatrist: [facility] - Dr. Locke Psychiatrist's Date of Appointment with Psychiatrist: 09/28/20 Time of Appointment with Psychiatrist: 12:00 p.m. Psychiatric Appointment Comment: [facility] Therapist Name of Therapist: Dr. Swathi Owusu Therapist's Date of Therapist Appointment: 09/30/20 Time of Therapist Appointment: 10:00 am Therapy Appointment Comment: [address] [facility] [employer] Machinist Name of Marine Machinist: None Post Discharge Appointments Primary Care Physician Name Of Family Doctor: ORQUIDEA Mcdowell [facility] Date of Appointment with PCP: 10/04/20 Time of Appointment with PCP: 1:30 p.m. Provider Appointment Comment: [address] Contact Information Discharge Discharge Address: [address] [place] [address] (1) Bipolar disorder Active/Remission status: remission status unspecified Qualified Code(s): F31.9 - Bipolar disorder, unspecified
[2020-09-27] MEDS: LORazepam 1 MG TAB PO SCH (19:14)
[2020-09-27] MEDS: diphenhydrAMINE Capsule 25 MG CAP PO PRN (21:04)
[2020-09-28 06:47] VITALS: TEMP 98.2
[2020-09-28] MEDS: LIOTHYRONINE SODIUM 25 MCG TAB PO SCH (08:50)
[2020-09-28] MEDS: CEROVITE ADV FORMULA TAB PO SCH (08:51)
[2020-09-28 10:47] VITALS: BP 129/87; PULSE 88
--- NOTE | 2020-09-28 12:42 | Discharge Summary ---
Date of Service September 28, 2020 History of Present Illness CHINO SAENZ is a 45-year-old F who was referred to the ED by her outpatient psychiatrist Dr. Locke. She has a history of bipolar disorder, and was admitted on 09/14/20 14:47 on a 201 voluntary commitment. When admitted she was psychotic in the context of bipolar illness. Please refer to admission H&P below and information given by other providers 09/14/20 13:37 - Case Management ED Psych by Cecilia Cohen Received a call from Dr. Locke COLLECTIONS MANAGER reporting that he saw pt yesterday and spoke to her today. Hx of bipolar, currently paranoid, bizarre and delusional thinking..."family never wanted her" not sleeping, psychosis...but will minimize symptoms. Mom is undergoing intensive treatment for melanoma/CA....and patient is her major support... wanted to increase her meds to risperdal 0.75 mg BID...and patient was/may not be receptive to that...also restoril 30 mg HS. Mom called EMS. Met with patient who appears to be having difficulty processing thoughts and questions asked of her. Pt reports that she has not slept at all for over 24 hours. She reports that she is in a manic phase. When asked how long this has been going on she states 24 hours and 6 months. When asked what her stressors are she reports I wanted my brother to come home without his corcoran on. Apparently her brother lives in [place]. Pt states I need to be in the hospital, I need a meal. I need to be amongst friends. Pt denies SI, she denies prior SA. She has had previous inpatient treatment at [place], [facility] and [facility]. Pt difficult to assess due to her difficulty processing and long delays is answering questions. Also reviewed previous record from 2019 where she was admitted for similar symptoms. She denies "any problems since then" and denied any other hospitalizations. She repeatedly requested thorazine as "I got it once when I was 17 yo". Reviewed it is an allergy on her ishBowl chart from 2019. I imagine means tachy or orthostasis but she is a very poor historian at this time. Physical Exam Psychiatric Orientation: alert, oriented x 3, oriented to person and cooperative Apperance: appropriately dressed; not disheveled Eye Contact: good eye contact; not poor eye contact Motor Behavior: no abnormal motor movements; no psychomotor agitation Speech: + pressured speech Affect: + anxious affect; no constricted affect Mood: + anxious mood; no irritable mood Thought Process: clear/coherent thought process, + perseveration and + concrete thought process; thought process not tangential Thought Content: + cognitive distortions; not paranoid Suicidal Thoughts: denies suicidal thoughts Homicidal Thoughts: denies homicidal thoughts Hallucinations: no auditory hallucinations and no visual hallucinations Cognition: + attention not intact Estimated Intelligence: consistent with education level Insight: + impaired insight; not poor insight Judgement: + impaired judgement; not poor judgement Vital Signs (Past 24 Hours) Last Vital Signs Temp 36.8 C 09/28/20 10:46 Pulse 88 09/28/20 10:46 Resp 16 09/28/20 10:46 BP 129/87 09/28/20 10:46 Pulse Ox 99 09/28/20 10:46 Principal Diagnosis Bipolar Unspecified Psychiatric Data See daily summary report for day-to-day presentation initial safety was maintained and the patient was cooperative with care medication changes included addition of risperidone to a higher titrated to a higher dose of 3 mg daily patient tolerated this very well family session was held family was pleased with patient's progress and a safety plan was developed prior to discharge Day of Discharge Assessment Patient voices readiness for discharge she is alert affect is good there is improvement noted in her mood she denies any thoughts to harm herself or other people her thoughts remain very organized and there is no evidence of psychosis she is able to problem solve patient agrees to take the medication as prescribed and feels her current dose" is a blessing patient is stable for discharge and at this time she is stable for outpatient level of care she denies any thoughts of suicide Transition of Care Transition Of Care Record: was reviewed with the patient Advance Directives Advance Directives Information Provided: Yes Advance Directives: Yes Mental Health Advance Directive: Yes Advance Directives on File: Yes Living Will: No Power of Ct Technician: Yes Power of Ct Technician Name: Елена Saenz Power of Ct Technician (C) [phone] (H) Advance Directives Reason:: Declines as Mental Health Visit. Risk Factors Assessment Male: No Do You Have Access To A Gun?: No Mental Health Diagnoses: Yes Substance Use Disorders: No Protective Factors Assessment : No Employed: No Supportive Family: Yes Good Rapport with Provider: Yes Tobacco Cessation at Discharge Tobacco Cessation Medication Prescribed at Discharge: Not Applicable/Non-Smoker Discharge Data Lab Results 09/14/20 09/14/20 09/14/20 11:22 11:22 11:22 WBC RBC Hgb Hct MCV MCH MCHC RDW Std Deviation RDW Coeff of Snow Plt Count MPV Immature Gran % (Auto) Neut % (Auto) Lymph % (Auto) [place] % (Auto) Eos % (Auto) Baso % (Auto) Neut # (Auto) Lymph # (Auto) [place] # (Auto) Eos # (Auto) Baso # (Auto) Immature Gran # (Auto) Sodium Potassium Chloride Carbon Dioxide Anion Gap BUN Creatinine Est Cr Clr Drug Dosing Est GFR ( Amer) Est GFR (Non-Af Amer) BUN/Creatinine Ratio Glucose Fasting Glucose Calcium Total Bilirubin AST ALT Alkaline Phosphatase Total Protein Albumin Globulin Albumin/Globulin Ratio TSH Free T4 Free T3 Urine Color Yellow Urine Appearance Clear Urine pH 6.5 Ur Specific [place] 1.005 Urine Protein Negative Urine Glucose (UA) Negative Urine Ketones Trace H Urine Blood Negative Urine Nitrite Negative Urine Bilirubin Negative Urine Urobilinogen Negative Ur Leukocyte Esterase Negative POC Ur Test NEG Salicylates Urine Opiates Screen Neg Ur Methadone, Qual Neg Acetaminophen Urine Barbiturates Neg Ur Phencyclidine (PCP) Neg U Amphetamin/Meth Scrn Neg MDMA (Ecstasy) Screen Neg U Benzodiazepines Scrn Neg Ur Cocaine Metabolite Neg U Marijuana (THC) Screen Neg Ethyl Alcohol mg/dL COVID-19 Eval Order SARS-CoV-2, RNA, NAAT 09/14/20 09/14/20 09/14/20 11:31 11:31 11:31 WBC 7.87 RBC 4.90 Hgb 14.9 Hct 43.2 MCV 88.2 MCH 30.4 MCHC 34.5 RDW Std Deviation 41.5 RDW Coeff of Snow 13.0 Plt Count 299 MPV 9.3 Immature Gran % (Auto) 0.1 Neut % (Auto) 77.0 Lymph % (Auto) 17.0 [place] % (Auto) 5.7 Eos % (Auto) 0.1 Baso % (Auto) 0.1 Neut # (Auto) 6.05 Lymph # (Auto) 1.34 [place] # (Auto) 0.45 Eos # (Auto) 0.01 Baso # (Auto) 0.01 Immature Gran # (Auto) 0.01 Sodium 137 Potassium 3.4 L Chloride 106 Carbon Dioxide 24 Anion Gap 6.0 BUN 9 Creatinine 0.58 L Est Cr Clr Drug Dosing 120.5 Est GFR ( Amer) 128.1 Est GFR (Non-Af Amer) 110.5 BUN/Creatinine Ratio 14.8 Glucose 108 H Fasting Glucose Calcium 9.0 Total Bilirubin 0.7 AST 18 ALT 41 Alkaline Phosphatase 62 Total Protein 7.7 Albumin 4.4 Globulin 3.3 Albumin/Globulin Ratio 1.3 TSH < 0.005 L Free T4 Free T3 Urine Color Urine Appearance Urine pH Ur Specific [place] Urine Protein Urine Glucose (UA) Urine Ketones Urine Blood Urine Nitrite Urine Bilirubin Urine Urobilinogen Ur Leukocyte Esterase POC Ur Test Salicylates < 1.7 L Urine Opiates Screen Ur Methadone, Qual Acetaminophen < 2 L Urine Barbiturates Ur Phencyclidine (PCP) U Amphetamin/Meth Scrn MDMA (Ecstasy) Screen U Benzodiazepines Scrn Ur Cocaine Metabolite U Marijuana (THC) Screen Ethyl Alcohol mg/dL COVID-19 Eval Order SARS-CoV-2, RNA, NAAT 09/14/20 09/14/20 09/14/20 11:31 11:31 11:32 WBC RBC Hgb Hct MCV MCH MCHC RDW Std Deviation RDW Coeff of Snow Plt Count MPV Immature Gran % (Auto) Neut % (Auto) Lymph % (Auto) [place] % (Auto) Eos % (Auto) Baso % (Auto) Neut # (Auto) Lymph # (Auto) [place] # (Auto) Eos # (Auto) Baso # (Auto) Immature Gran # (Auto) Sodium Potassium Chloride Carbon Dioxide Anion Gap BUN Creatinine Est Cr Clr Drug Dosing Est GFR ( Amer) Est GFR (Non-Af Amer) BUN/Creatinine Ratio Glucose Fasting Glucose Calcium Total Bilirubin AST ALT Alkaline Phosphatase Total Protein Albumin Globulin Albumin/Globulin Ratio TSH Free T4 0.17 L Free T3 6.17 H Urine Color Urine Appearance Urine pH Ur Specific [place] Urine Protein Urine Glucose (UA) Urine Ketones Urine Blood Urine Nitrite Urine Bilirubin Urine Urobilinogen Ur Leukocyte Esterase POC Ur Test Salicylates Urine Opiates Screen Ur Methadone, Qual Acetaminophen Urine Barbiturates Ur Phencyclidine (PCP) U Amphetamin/Meth Scrn MDMA (Ecstasy) Screen U Benzodiazepines Scrn Ur Cocaine Metabolite U Marijuana (THC) Screen Ethyl Alcohol mg/dL < 3.0 COVID-19 Eval Order SARS-CoV-2, RNA, NAAT 09/14/20 09/14/20 09/15/20 13:40 13:40 07:36 WBC RBC Hgb Hct MCV MCH MCHC RDW Std Deviation RDW Coeff of Snow Plt Count MPV Immature Gran % (Auto) Neut % (Auto) Lymph % (Auto) [place] % (Auto) Eos % (Auto) Baso % (Auto) Neut # (Auto) Lymph # (Auto) [place] # (Auto) Eos # (Auto) Baso # (Auto) Immature Gran # (Auto) Sodium Potassium Chloride Carbon Dioxide Anion Gap BUN Creatinine Est Cr Clr Drug Dosing Est GFR ( Amer) Est GFR (Non-Af Amer) BUN/Creatinine Ratio Glucose Fasting Glucose 79 Calcium Total Bilirubin AST ALT Alkaline Phosphatase Total Protein Albumin Globulin Albumin/Globulin Ratio TSH Free T4 Free T3 Urine Color Urine Appearance Urine pH Ur Specific [place] Urine Protein Urine Glucose (UA) Urine Ketones Urine Blood Urine Nitrite Urine Bilirubin Urine Urobilinogen Ur Leukocyte Esterase POC Ur Test Salicylates Urine Opiates Screen Ur Methadone, Qual Acetaminophen Urine Barbiturates Ur Phencyclidine (PCP) U Amphetamin/Meth Scrn MDMA (Ecstasy) Screen U Benzodiazepines Scrn Ur Cocaine Metabolite U Marijuana (THC) Screen Ethyl Alcohol mg/dL COVID-19 Eval Order Covid19 [facility]Now [facility] SARS-CoV-2, RNA, NAAT NEGATIVE Hospital Course (1) Bipolar disorder: 09/27/20- doing better tolerating lower dose , will look at discharge for 09/2809/26/20- no side effects from loer dose noted 09/25/20- [place] she slept really well last night felt the Benadryl helped. We will continue 3 mg of Risperdal will monitor for decompensating symptoms given patient has been known to decompensate on lower doses of medication. 09/24/20- Will decrease Risperidone to 3mg daily and monitor, - consider additinal mood stabilizer , encourage use of benadryl for sleep. 09/21/2020-- Patient continues on 2mg BID of risperidone. 09/19/2020atient continues to display manic symptoms. Will increase risperidone to 2 mg twice daily starting tomorrow. 09/17/2020 We will continue with up titration of risperidone. Patient currently on 1 mg twice daily, will plan to increase nighttime dose to 2 mg to aid with sleep as well as mood stabilization. 09/16/20 Today she is agreeable to Risperdal increase. Sleep has improved largely without Seroquel so will d/c in favor of Risperdal M tab prn as her preference. Reviewed that treatment of choice for catatonia (should recur) is Ativan and will receive 1 mg standing this pm in addition to prn. If recurs would suggest standing dosing. 303 petition completed for hearing on 09/20 at 10 am. 09/15/20 patient discussed with outpatient psychiatrist Dr. Locke. Ideally would titrate her Risperdal to 1 mg BID when agreeable, supports use of prn Seroquel for now, no documentation re: thorazine allergy and feels it would be preferrable to Restoril if able to try/taper here. States that she has been decompensating in the setting of increased stress of dealing with mother's help (treatment for malignant melanoma). 09/14/20 The patient was admitted to the [facility] ([facility] inpatient mental health unit) on q15 min checks (behavioral with suicide precautions) for safety. The patient will participate in group, recreational, and milieu therapies and will be offered additional individual and family sessions as clinically appropriate. She was unable to fully review the risks/benefits/alternatives re: antipsychotic medication as a mood stabilizer at this time. She is not willing to take extra Risperdal. Will offer Seroquel 50 mg as a 1 time dose as she would like to rest and titrate if needed; I cannot currently confirm past reaction to thorazine. She does have a fasting lipid profile on her chart from June 2020 but no recent fasting glucose so ordered for the am. (2) Abnormal thyroid stimulating hormone (TSH) level: 09/25/20-stable at this time continues on Cytomel will follow-up with outpatient genetic scientist on discharge. 09/16/20--restart liothyronine at 50 mcg daily starting tomorrow am. ?possible second dose contributing to sleep difficulties and overall dose to manic presentation/psychosis. 09/15/20 >1 hr spent calling patient's PCP Dr. Mcdowell to coordinate care and called [facility] and [facility] pharmacies trying to track down prescriber for her liothyronine. Staff able to get additional info from mother and I spoke with Lilian Moreno at [facility] in [place]. Reviewed patient's thyroid labs and she agreed that should be decreased due to concerns about manic presentation. I've decide to cut the dose in half after discussion with hospitalist (patient is not able to tolerate a formal consult at this time) and will require repeat labs in 6 weeks. 09/14/20 the patient's liothyronine will be held pending consultation with her genetic scientist and/or Dr. Mcdowell as overcorrection appears to be worsening and thyrotoxicosis may be contributing to her presentation. Mental Health & Subst Abuse Tx Psychiatrist Name of Psychiatrist: [facility] - Dr. Locke *pt. is on wait list for earlier appt. Psychiatrist's Date of Appointment with Psychiatrist: 10/27/20 Time of Appointment with Psychiatrist: 8:10 AM Psychiatric Appointment Comment: [address] [facility] [place] Psychiatrist Release of Information: Obtained, Reviewed and Signed Therapist Name of Therapist: Dr. Swathi Owusu Therapist's Date of Therapist Appointment: 09/30/20 Time of Therapist Appointment: 10:00 am Therapy Appointment Comment: [address] [facility] Therapist Release of Information: Obtained, Reviewed and Signed Parts Cataloger Name of Parts Cataloger: None Post Discharge Appointments Primary Care Physician Name Of Family Doctor: [facility] - Dr. Mcdowell Primary Care Date of Appointment with PCP: 10/04/20 Time of Appointment with PCP: 1:30 p.m. Provider Appointment Comment: [address] [facility], [address] [place] [address] Primary Care Release of Information: Obtained, Reviewed and Signed Smoking Cessation Counseling Tobacco Cessation Medication Prescribed at Discharge: Not Applicable/Non-Smoker Contact Information Discharge Discharge Address: [address] [place] [address] Discharge Plan Discharge Items Patient Disposition: Home - Self-Care Reason For Visit: PSYCHOSIS Discharge Diagnosis: Bipolar Depression Condition on Discharge: Good Activity: Resume your previous activity Non-emergency contact: Primary Care Provider Call non-emergency contact if: you have any medication questions and your symptoms worsen Follow-up/Referrals: James Mcdowell MD [Primary Care Provider] - Diet: Regular Addtl Attending Provider Instructions: SPECIAL CARE INSTRUCTIONS: 1. Follow through with your scheduled aftercare appointments. If unable to keep an appointment, please call to reschedule. 2. Take your medication only as prescribed. Medication should not be changed or stopped without the approval of your doctor. In the event of worsening symptoms or concerns about side effects, contact your doctor immediately. 3. Utilize new healthy coping skills, anger management skills, and stress management skills learned during your hospitalization. Journal feelings and process them with a support person. Identify stressors or situations that may result in relapse, deterioration or inappropriate behaviors and develop a plan to deal with those issues. 4. If your coping skills are ineffective and you are in crisis, contact your outpatient providers for direction. If unable to reach your providers, please call the [facility] CRISIS LINE AT , go to the [facility] walk-in center at [address], [place], or go to the closest Emergency Room. 5. Avoid alcohol and un-prescribed drugs. 6. You have been provided with the Mental Health Advance Directives Pamphlet for your review. AFTERCARE APPOINTMENTS: * Please call your insurance company prior to your scheduled appointment to confirm your aftercare providers are covered. Take your insurance information to your appointments. WHO TO CALL AND WHEN: Medical Emergencies: For questions or emergencies related to your hospital stay, please contact the Inpatient Behavioral Health Unit at [phone]. A senior sharepoint developer is on-call 12/11 for the Behavioral Health Unit for emergencies At any time you feel your situation is an emergency, you may also call 911 immediately. Pending Studies at Discharge: No Stand-Alone Forms: My [employer], Smoking Cessation Medications and DC Order Prescriptions: New diphenhydramine HCl [Benadryl] 25 mg Capsule 50 mg PO HS PRN (Reason: anxiety) Qty: 60 RF: 0 lorazepam 1 mg Tablet 1 mg PO DAILY@1930 Qty: 30 RF: 1 liothyronine 25 mcg Tablet 50 mcg PO QAM Qty: 30 RF: 0 Certavite-Antioxidant 18-400 mg-mcg Tablet 1 tab PO DAILY Qty: 30 RF: 0 risperidone 1 mg tablet 1 mg PO DAILY Qty: 30 RF: 0 risperidone 2 mg tablet 2 mg PO HS Qty: 30 RF: 0 Discontinued diazepam 2 mg tablet 2 mg PO HS PRN (Reason: Anxiety) RF: 0 liothyronine 50 mcg tablet 52.5 mcg PO BID RF: 0 risperidone 0.25 mg tablet,disintegrating 0.75 mg PO BID RF: 0 progesterone micronized 100 mg Capsule 100 mg PO 1400 RF: 0 progesterone micronized 100 mg Capsule 50 mg PO DAILY RF: 0 multivitamin 1 tab PO DAILY RF: 0 temazepam 30 mg Capsule 30 mg PO HS PRN (Reason: Insomnia) RF: 0 Discharge Orders: Discharge Order (Routine); Ordered 09/28/20 Ordered By: Omayra Gibbons Admission Data Admit Date/Time: 09/14/20 14:47 Attending Provider: Chandana Pappas Admit Provider: Audrey Keen Primary Care Provider: James Mcdowell Other Interventions: Discharge Summary Assessment (RN) Last Done: 09/28/20 10:46 PSY Interdisciplinary Discharge Planning Last Done: 09/28/20 10:47 Coding Level of Care Code 77366 D/C day mgmt 30 min or < Diagnoses Bipolar disorder F31.9 Active/Remission status: remission status unspecified Abnormal thyroid stimulating hormone (TSH) level R79.89
== END 2020-09-28 12:18 | disposition home or self-care (01) | DRG 885 ==
LOC: ED 11:16 → SUATTDRO 14:47 → 3S 14:47

== ENCOUNTER 2020-10-28 20:56 | Inpatient (IN) ==
[2020-10-28] MEDS ORDERED: ALUMINUM/MAGNESIUM SUSP 30 ML UDC PO PRN (21:53)
[2020-10-28] MEDS ORDERED: ACETAMINOPHEN 325 MG TAB PO PRN (21:53)
[2020-10-28] MEDS ORDERED: MAGNESIUM HYDROXIDE SUSP 30 ML UDC PO PRN (21:53)
[2020-10-28] MEDS ORDERED: BISMUTH SUBSALICYLATE LIQD 236 ML PO PRN (21:53)
[2020-10-28] MEDS ORDERED: SODIUM CHLORIDE 0.65% NA SOLN 45 ML (OCEAN) PRN (21:53)
[2020-10-28] MEDS ORDERED: hydrOXYzine HCl 25 MG TAB PO PRN ×2 (21:53)
--- NOTE | 2020-10-28 21:54 | Emergency Department Note ---
ED Visit Note The patient was taken in signout from Dr. French at change of shift after the patient had been in the emergency department for approximately 87 hours with bed search pending for psychiatric admission for psychosis. The patient was initially seen by Dr. Alex on 10/24. Please see her note for details of the patient's visit. Upon signout the patient's current status was under a 303 which was approved today due to her psychosis. Patient had been seen by psychiatry, Dr. Keen, and recommendations appreciated. Recommends additional Risperdal of 1 mg if the patient were to escalate. I was informed by nursing staff that the patient was becoming more restless this evening and so she was given her 1 mg Risperdal early which per report was beg inning to have effect. She was subsequently seen by [facility] staff and admitted for further psychiatric management. .
[2020-10-28] MEDS: TEMAZEPAM 15 MG CAPSULE PO SCH (22:08)
[2020-10-28] MEDS: risperiDONE 1 MG TABLET PO PRN (22:10)
[2020-10-28] MEDS: PROPRANOLOL HCL 10 MG TAB PO SCH (22:11)
[2020-10-29] MEDS: risperiDONE 1 MG TABLET PO PRN (05:15)
[2020-10-29] MEDS: LIOTHYRONINE SODIUM 25 MCG TAB PO SCH (07:52)
[2020-10-29] MEDS: PROPRANOLOL HCL 10 MG TAB PO SCH ×2 (07:52→20:35)
[2020-10-29] MEDS ORDERED: risperiDONE 1 MG TABLET PO SCH (09:00)
--- NOTE | 2020-10-29 11:36 | History & Physical ---
Date of Service October 29, 2020 Impression / Recommendations Impression 45-year-old female with bipolar 1 and history of medication noncompliance presenting in a manic state. Patient has been taking a very low dose of risperidone which is likely contributing to her symptoms. Compliance has been an issue with this patient as she will frequently refuse increases in her medication regimen. Patient will require inpatient hospitalization for safety, stabilization, medication management. (1) Bipolar 1 disorder: The patient was admitted to the [facility] ([facility]) on every 15 minute checks (behavioral with suicide precautions for safety. The patient will participate in group, recreational, and milieu therapies and will be offered additional individual and family sessions as clinically appropriate. 10/29/2020- patient formerly 1 mg twice daily of risperidone, will plan to increase this to 2 mg twice daily over the next 2 days. Inventory Assets Strengths: Intelligence Needs: Insight Risk Factors Assessment Male: No : Yes Do You Have Access To A Gun?: No Health Problems: No Mental Health Diagnoses: Yes Substance Use Disorders: No Previous Attempt: No Psychiatric History Identifying Data ALBINO ALONZO is a 45-year-old F who currently lives with mother, has a history of bipolar 1 and noncompliance, and was admitted on 10/28/20 20:56 on a 303 involuntary commitment for acute manic episode. Chief Complaint "I just really need the help". History of Present Illness As per manager spa" Patient brought into ED by PSP. Patient was seen at her residence by mobile coffee plantation worker/Lizet who followed to ED to meet [facility] Beny delegate/Malcom to complete a petitioning statement for involuntary commitment. Petition reads: "This coffee plantation worker responded to a wellness check with PSP for Albino. Albino displayed extreme psychosis as evidenced by delusional beliefs thinking she was/is the virgin Eva. She believes her loved ones are . Albino would repeat "I can't have a knife, I can't have a knife." Albino would become verbally aggressive at times telling PSP to "fuck off. This coffee plantation worker believes a mental health evaluation is needed as soon as possible. Furthermore, this coffee plantation worker observed Albino "Kneeing" "her mother while coming down the steps." Accompanied Dr. Alex to meet with patient. Patient stated she was discharged from [facility] yesterday morning. Patient stated "they kicked me out of there. Patient stated she was on a 303. Patient talking about the illuminate and stated she "need to go to a place in [place] and there are 4 guys that need to go with me." Patient stated she "knows something that is bad." When asked what that was she replied "sex." Patient is out of touch with reality. She has flight of ideas and tangential speech. Patient stated to this emergency department aide that she believes she aborted her sister. Process of medical clearance and mental health evaluation explained to patient by physician. " Patient then spent approximately 4 days in the emergency department where she was intermittently compliant with her medication. She was visited by selling underwriter in the emergency department for purposes of 303 petition at which point she continued to display delusional, psychotic and irritable behavior. Bed availability opened up on 3 S. and patient was admitted last night, upon meeting with the patient today she is more insightful and willing to acknowledge her need for help as well as increased dosages of medication. She has thus far been compliant with her medication on the unit. She continues to display psychotic and delusional believes including paranoid and persecutory delusions about the people in [place] being after her. She denies any recent substance use or abuse. Past Psychiatric History Current Psychiatric Diagnosis: bipolar I Do You Have Access To A Gun?: No Allergies Allergy/AdvReac Type Severity Reaction Status Date / Time chlorpromazine AdvReac Severe cardiac Verified 06/25/19 14:37 [From Thorazine] haloperidol [From Haldol] AdvReac Severe metabolic Verified 06/25/19 14:37 syndrome lithium AdvReac Severe metabolic Verified 06/25/19 14:37 syndrome olanzapine [From Zyprexa] AdvReac Severe metabolic Verified 06/25/19 14:37 syndrome paliperidone [From Invega] AdvReac Severe metabolic Verified 06/25/19 14:37 syndrome zolpidem [From Ambien] AdvReac Severe metabolic Verified 06/25/19 14:37 syndrome Home Medications Medication Instructions Recorded Confirmed Type diazepam [Valium] 2 mg PO TID PRN 10/14/20 10/25/20 History liothyronine [Cytomel] 50 mcg DAILY 10/14/20 10/25/20 History risperidone 1 mg PO BID 10/14/20 10/25/20 History temazepam 30 mg PO HS 10/14/20 10/25/20 History Family History Family History of: Doesn't Know Alcohol History Hx of Alcohol Use Over the Past 12 Months: No AUDIT Total Score: 0 Smoking Use Have You Smoked or Used Tobacco Products in the Last 30 Days: No Smoking Status: Never smoker Substance History Hx of Prescription Med Misuse Over the Past 12 Months: No Hx of Over the Counter Med Misuse Over the Past 12 Months: No Hx of Inhalent Misuse Over the Past 12 Months: No Hx of Organic Substance Use Over the Past 12 Months: No Hx of Illegal Substances/Street Drug Use Over Past 12 Months: No Problems as a Result of Past Substance Use: None Identified Personal History Living Arrangements: Home Highest Grade Completed: College Marital Status: Single Beliefs That Will Affect Care: None Hx Traumatic Life Events: No Patient History Medical History (Updated 10/29/20 @ 11:44 by Chandana Pappas MD) Bipolar disorder Herpes zoster (2018) Hypertension Hypothyroidism Tinea pedis Surgical History H/O oral surgery Family History Father , FROM [place] AGE 52 Myocardial infarction Mother Ovarian cancer Denies family history of Colon cancer Prostate cancer Breast cancer Social History Smoking Status: Never smoker Hx Alcohol Use: Yes (social) Preferred Language: Qatari Communication Ability: Effective Visual Impairment: No Limitations Hearing Ability: Normal Lever Tender Required: No Beliefs That Will Affect Care: None Feels Safe at Home: No Assistive Devices: None Review of Systems Review of Systems: All systems reviewed & are unremarkable except as noted in HPI & below Physical Exam Psychiatric: Orientation: alert and oriented x 3 Apperance: appropriately groomed Eye Contact: + poor eye contact Speech: normal rate/rhythm/volume of speech Affect: + anxious affect, + labile affect and + irritable affect Mood: + anxious mood and + irritable mood Thought Process: + tangential thought process, + flight of ideas, + looseness of associations and + perseveration Thought Content: + preoccupation, + paranoid, + delusions, + ideas of reference, + persecution and + self deprecation Suicidal Thoughts: denies suicidal thoughts Homicidal Thoughts: denies homicidal thoughts Hallucinations: no auditory hallucinations and no gustatory hallucinations Cognition: recent memory grossly intact Estimated Intelligence: consistent with education level Insight: + poor insight Judgement: + poor judgement Vital Signs (Past 24 Hours): Last Vital Signs Temp 36.7 C 10/29/20 06:30 Pulse 69 10/29/20 06:30 Resp 16 10/29/20 06:30 BP 129/92 10/29/20 06:30 Pulse Ox 97 10/28/20 22:19 Exam Statement: A physical exam was performed in the ER prior to admission to the unit by Dr. Quan. I accept that physical as correct/medical clearance for the inpatient physical exam. Results & Data ([facility]) Current Inpatient Medications Current Inpatient Medications: Current Inpatient Medications Acetaminophen (Acetaminophen 325 Mg Tab) 650 mg PO Q4H PRN PRN Reason: Headache or Minor Fever Stop: 11/27/20 21:52 Al Hydrox/Mg Hydrox/Simethicone (Aluminum/Magnesium Susp 30 Ml Udc) 30 ml PO Q4H PRN PRN Reason: GI Upset Stop: 11/27/20 21:52 Bismuth Subsalicylate (Bismuth Subsalicylate Liqd 236 Ml) 15 ml PO PRN PRN PRN Reason: Loose Stool Stop: 11/27/20 21:52 Hydroxyzine HCl (Hydroxyzine Hcl 25 Mg Tab) 50 mg PO HSZ PRN PRN Reason: Insomnia Stop: 11/27/20 21:52 Hydroxyzine HCl (Hydroxyzine Hcl 25 Mg Tab) 25 mg PO Q4H PRN PRN Reason: Anxiety Stop: 11/27/20 21:52 Liothyronine Sodium (Liothyronine Sodium 25 Mcg Tab) 50 mcg PO QAM [place] Stop: 11/28/20 08:59 Last Admin: 10/29/20 07:52 Dose: 50 mcg Documented by: Lorazepam (Lorazepam 1 Mg Tab) 2 mg PO Q6 PRN PRN Reason: Anxiety/Agitation Stop: 11/27/20 21:42 Magnesium Hydroxide (Magnesium Hydroxide Susp 30 Ml Udc) 30 ml PO DAILY PRN PRN Reason: Constipation Stop: 11/27/20 21:52 Propranolol HCl (Propranolol Hcl 10 Mg Tab) 10 mg PO BID [place] Stop: 11/27/20 21:59 Last Admin: 10/29/20 07:52 Dose: 10 mg Documented by: Risperidone (Risperidone 1 Mg Tablet) 1 mg PO Q6 PRN PRN Reason: Anxiety/Agitation Stop: 11/27/20 21:43 Last Admin: 10/29/20 05:15 Dose: 1 mg Documented by: Risperidone (Risperidone 2 Mg Tablet) 2 mg PO BID [place] Stop: 11/28/20 20:59 Sodium Chloride (Sodium Chloride 0.65% Na Soln 45 Ml ([place])) 1 - 2 sprays NA PRN PRN PRN Reason: Nasal Dryness/Congestion Stop: 11/27/20 21:52 Temazepam (Temazepam 15 Mg Capsule) 30 mg PO 2100 [place] Stop: 11/28/20 20:59 Last Admin: 10/28/20 22:08 Dose: 30 mg Documented by:
[2020-10-29] MEDS: risperiDONE 2 MG TABLET PO SCH (20:35)
[2020-10-29] MEDS: TEMAZEPAM 15 MG CAPSULE PO SCH (21:29)
[2020-10-30] MEDS: PROPRANOLOL HCL 10 MG TAB PO SCH ×2 (07:46→21:25)
[2020-10-30] MEDS: LIOTHYRONINE SODIUM 25 MCG TAB PO SCH (07:46)
[2020-10-30] MEDS: risperiDONE 2 MG TABLET PO SCH (07:47)
--- NOTE | 2020-10-30 09:29 | Psychiatric Progress Note ---
Date of Service October 30, 2020 Impression / Recommendations Impression 45-year-old female with bipolar 1 and history of medication noncompliance presenting in a manic state. Patient has been taking a very low dose of risperidone which is likely contributing to her symptoms. Compliance has been an issue with this patient as she will frequently refuse increases in her medication regimen. Patient will require inpatient hospitalization for safety, stabilization, medication management. (1) Bipolar 1 disorder: The patient was admitted to the [facility] ([facility] mental health unit) on every 15 minute checks (behavioral with suicide precautions for safety. The patient will participate in group, recreational, and milieu therapies and will be offered additional individual and family sessions as clinically appropriate. 10/30/2020atient risperidone now up to 4 mg daily, patient remains psychotic and delusional, will plan to increase medication over the next coming days. 10/29/2020- patient formerly 1 mg twice daily of risperidone, will plan to increase this to 2 mg twice daily over the next 2 days. Inventory Assets Strengths: Intelligence Needs: Insight Risk Factors Assessment Male: No : Yes Do You Have Access To A Gun?: No Health Problems: No Mental Health Diagnoses: Yes Substance Use Disorders: No Previous Attempt: No Interval History Chief Complaint "I'm good i'm ready to go". Review of Systems Sleep Information Total Hours of Sleep: 7 Meal Information Percent Meal Consumed - Breakfast: 100 Percent Meal Consumed - Lunch: 100 Percent Meal Consumed - Dinner: 100 Subjective Subjective Patient was seen & assessed and interval progress reviewed with treatment team nursing and social work Patient continues to be delusional and oddly related. Continues to make strange statements regarding her ADLs and requesting to be discharged. Patient was explained that she will need several more days of medication treatment to which she was unhappy and exited the room. Did request Ativan nightly which is already prescribed to her. No side effects of the risperidone reported or observed. Patient is eating well but is reporting poor sleep despite a observed 7 hours of sleep. I spent 30 minutes with the patient, 50% of which was dedicated to counselling and coordination of care. Physical Exam Psychiatric Orientation: alert and oriented x 3 Apperance: appropriately groomed Eye Contact: + poor eye contact Speech: normal rate/rhythm/volume of speech Affect: + anxious affect, + labile affect and + irritable affect Mood: + anxious mood and + irritable mood Thought Process: + tangential thought process, + flight of ideas, + looseness of associations and + perseveration Thought Content: + preoccupation, + paranoid, + delusions, + ideas of reference, + persecution and + self deprecation Suicidal Thoughts: denies suicidal thoughts Homicidal Thoughts: denies homicidal thoughts Hallucinations: no auditory hallucinations and no gustatory hallucinations Cognition: recent memory grossly intact Estimated Intelligence: consistent with education level Insight: + poor insight Judgement: + poor judgement Vital Signs (Past 24 Hours) Last Vital Signs Temp 36.6 C 10/30/20 07:12 Pulse 83 10/30/20 07:12 Resp 18 10/30/20 07:12 BP 145/112 H 10/30/20 07:12 Pulse Ox 97 10/28/20 22:19 Results & Data ([facility]) Current Inpatient Medications Current Inpatient Medications: Current Inpatient Medications Acetaminophen (Acetaminophen 325 Mg Tab) 650 mg PO Q4H PRN PRN Reason: Headache or Minor Fever Stop: 11/27/20 21:52 Al Hydrox/Mg Hydrox/Simethicone (Aluminum/Magnesium Susp 30 Ml Udc) 30 ml PO Q4H PRN PRN Reason: GI Upset Stop: 11/27/20 21:52 Bismuth Subsalicylate (Bismuth Subsalicylate Liqd 236 Ml) 15 ml PO PRN PRN PRN Reason: Loose Stool Stop: 11/27/20 21:52 Hydroxyzine HCl (Hydroxyzine Hcl 25 Mg Tab) 50 mg PO HSZ PRN PRN Reason: Insomnia Stop: 11/27/20 21:52 Hydroxyzine HCl (Hydroxyzine Hcl 25 Mg Tab) 25 mg PO Q4H PRN PRN Reason: Anxiety Stop: 11/27/20 21:52 Liothyronine Sodium (Liothyronine Sodium 25 Mcg Tab) 50 mcg PO QAM [place] Stop: 11/28/20 08:59 Last Admin: 10/30/20 07:46 Dose: 50 mcg Documented by: Lorazepam (Lorazepam 1 Mg Tab) 2 mg PO Q6 PRN PRN Reason: Anxiety/Agitation Stop: 11/27/20 21:42 Magnesium Hydroxide (Magnesium Hydroxide Susp 30 Ml Udc) 30 ml PO DAILY PRN PRN Reason: Constipation Stop: 11/27/20 21:52 Propranolol HCl (Propranolol Hcl 10 Mg Tab) 10 mg PO BID [place] Stop: 11/27/20 21:59 Last Admin: 10/30/20 07:46 Dose: 10 mg Documented by: Risperidone (Risperidone 1 Mg Tablet) 1 mg PO Q6 PRN PRN Reason: Anxiety/Agitation Stop: 11/27/20 21:43 Last Admin: 10/29/20 05:15 Dose: 1 mg Documented by: Risperidone (Risperidone 2 Mg Tablet) 2 mg PO BID [place] Stop: 11/28/20 20:59 Last Admin: 10/30/20 07:47 Dose: 2 mg Documented by: Sodium Chloride (Sodium Chloride 0.65% Na Soln 45 Ml ([place])) 1 - 2 sprays NA PRN PRN PRN Reason: Nasal Dryness/Congestion Stop: 11/27/20 21:52 Temazepam (Temazepam 15 Mg Capsule) 30 mg PO 2100 [place] Stop: 11/28/20 20:59 Last Admin: 10/29/20 21:29 Dose: 30 mg Documented by: Mental Health & Subst Abuse Tx Psychiatrist Name of Psychiatrist: [facility] - Dr. Locke Psychiatrist's Psychiatric Appointment Comment: [address] [facility], [address] [place] [address] Therapist Name of Therapist: Dr. Swathi Owusu Therapist's [facility] Name of Director Health: None Post Discharge Appointments Primary Care Physician Name Of Family Doctor: EVA Mcdowell Primary Care Provider Appointment Comment: [address], [address], [place] Smoking Cessation Counseling Tobacco Cessation Medication Prescribed at Discharge: Not Applicable/Non-Smoker Contact Information Discharge Discharge Address: [address] [place] [id number]
[2020-10-30] MEDS ORDERED: LORazepam 2 MG/ML VIAL (IM USE) ONE (14:12)
[2020-10-30] MEDS ORDERED: HALOPERIDOL LACTATE 5 MG/ML 1 ML VIAL ONE (14:13)
[2020-10-30] MEDS ORDERED: diphenhydrAMINE 50 MG/ML VIAL ONE (14:14)
[2020-10-30] MEDS ORDERED: diphenhydrAMINE 50 MG/ML VIAL IM STA (14:21)
[2020-10-30] MEDS ORDERED: LORazepam 2 MG/ML VIAL (IM USE) IM STA (14:21)
[2020-10-30] MEDS ORDERED: HALOPERIDOL LACTATE 5 MG/ML 1 ML VIAL IM STA (14:21)
--- NOTE | 2020-10-30 15:40 | Communication Note ---
Date of Service: October 30, 2020 Nurse came to alert me that patient was being aggressive and attempting to escape from the unit. Upon speaking to the patient she demanded to be released, stated that she would be waiting there until 6 PM when her ride would arrive, and eventually became increasingly aggressive. During the encounter patient was obviously in a psychotic state with intermittent inappropriate laughing and periods of lucidity where she would respond politely followed by periods of aggression both verbal and physical. Attempts were made to walk patient back to her room however patient was incessantly refusing and continued to increase her irritability. She stated "fuck you" multiple times to nurse as well as medical writer. She motioned towards nurse and began pulling on the door at which point security was called. Security came up and helped escort the patient to her room, initially having to put hands on momentarily, however upon doing so patient then began to walk voluntarily towards her room and no longer required hands-on. Patient was ordered a IM injection of 5 mg of Haldol, 2 mg of Ativan, 50 mg of Benadryl, which she received to good effect. Patient was resting comfortably in her room following the encounter. No restraints had to be used during the course of this interaction. No staff members or patients were harmed during this interaction.
[2020-10-30] MEDS: TEMAZEPAM 15 MG CAPSULE PO SCH (21:25)
[2020-10-30] MEDS ORDERED: risperiDONE 3 MG TABLET PO SCH (22:00)
[2020-10-31] MEDS: LIOTHYRONINE SODIUM 25 MCG TAB PO SCH (07:32)
[2020-10-31] MEDS: PROPRANOLOL HCL 10 MG TAB PO SCH ×2 (07:32→21:37)
[2020-10-31] MEDS ORDERED: risperiDONE 3 MG TABLET PO SCH (09:00)
[2020-10-31] MEDS ORDERED: risperiDONE 2 MG TABLET PO SCH (09:00)
[2020-10-31] MEDS ORDERED: LORazepam 2 MG/ML VIAL (IM USE) IM PRN (10:17)
[2020-10-31] MEDS ORDERED: HALOPERIDOL LACTATE 5 MG/ML 1 ML VIAL IM PRN (10:17)
--- NOTE | 2020-10-31 12:10 | Psychiatric Progress Note ---
Date of Service October 31, 2020 Impression / Recommendations Impression 45-year-old female with bipolar 1 and history of medication noncompliance presenting in a manic state. Patient has been taking a very low dose of risperidone which is likely contributing to her symptoms. Compliance has been an issue with this patient as she will frequently refuse increases in her medication regimen. Patient will require inpatient hospitalization for safety, stabilization, medication management. (1) Bipolar 1 disorder: The patient was admitted to the [facility] ([facility]) on every 15 minute checks (behavioral with suicide precautions for safety. The patient will participate in group, recreational, and milieu therapies and will be offered additional individual and family sessions as clinically appropriate. 10/31/2020atient took 2 mg of risperidone this morning, will plan to increase to 3 mg to 4 tomorrow morning. Will increase nightly dose to 4 mg today. Also added Haldol and Ativan as needed agitation. 10/30/2020atient risperidone now up to 4 mg daily, patient remains psychotic and delusional, will plan to increase medication over the next coming days. 10/29/2020- patient formerly 1 mg twice daily of risperidone, will plan to increase this to 2 mg twice daily over the next 2 days. Inventory Assets Strengths: Intelligence Needs: Insight Risk Factors Assessment Male: No : Yes Do You Have Access To A Gun?: No Health Problems: No Mental Health Diagnoses: Yes Substance Use Disorders: No Previous Attempt: No Interval History Chief Complaint "Julianne Alvarado, thank you". Review of Systems Sleep Information Total Hours of Sleep: 8 Meal Information Percent Meal Consumed - Breakfast: 100 Percent Meal Consumed - Lunch: 100 Percent Meal Consumed - Dinner: 0 Nutrition Comment: Sleeping Subjective Subjective Patient was seen & assessed and interval progress reviewed with treatment team nursing and social work Patient continues to showcase extreme mood lability. She has pleasant and cooperative at times and then moments later will be calm aggressive with outbursts and severe delusional statements. Patient at times will have very poor insight, insisting that she is not mentally ill and demanding to leave the hospital along with noncompliance. Sometimes patient is able to be redirected and compliant with medications. Yesterday afternoon patient had a incident which required IM injections of haloperidol for her safety as well as staff safety. No side effects of Risperdal observed or reported. Patient seems to be sleeping and eating her meals okay. I spent 30 minutes with the patient, 50% of which was dedicated to counselling and coordination of care. Physical Exam Psychiatric Orientation: alert and oriented x 3 Apperance: appropriately groomed Eye Contact: + poor eye contact Speech: normal rate/rhythm/volume of speech Affect: + anxious affect, + labile affect and + irritable affect Mood: + anxious mood and + irritable mood Thought Process: + tangential thought process, + flight of ideas, + looseness of associations and + perseveration Thought Content: + preoccupation, + paranoid, + delusions, + ideas of reference, + persecution and + self deprecation Suicidal Thoughts: denies suicidal thoughts Homicidal Thoughts: denies homicidal thoughts Hallucinations: no auditory hallucinations and no gustatory hallucinations Cognition: recent memory grossly intact Estimated Intelligence: consistent with education level Insight: + poor insight Judgement: + poor judgement Vital Signs (Past 24 Hours) Last Vital Signs Temp 36.7 C 10/31/20 07:05 Pulse 99 H 10/31/20 07:06 Resp 16 10/31/20 07:05 BP 135/94 10/31/20 07:06 Pulse Ox 97 10/28/20 22:19 Results & Data ([facility]) Current Inpatient Medications Current Inpatient Medications: Current Inpatient Medications Acetaminophen (Acetaminophen 325 Mg Tab) 650 mg PO Q4H PRN PRN Reason: Headache or Minor Fever Stop: 11/27/20 21:52 Al Hydrox/Mg Hydrox/Simethicone (Aluminum/Magnesium Susp 30 Ml Udc) 30 ml PO Q4H PRN PRN Reason: GI Upset Stop: 11/27/20 21:52 Bismuth Subsalicylate (Bismuth Subsalicylate Liqd 236 Ml) 15 ml PO PRN PRN PRN Reason: Loose Stool Stop: 11/27/20 21:52 Haloperidol Lactate (Haloperidol Lactate 5 Mg/Ml 1 Ml Vial) 5 mg IM Q6 PRN PRN Reason: Severe Agitation Stop: 11/30/20 10:16 Hydroxyzine HCl (Hydroxyzine Hcl 25 Mg Tab) 50 mg PO HSZ PRN PRN Reason: Insomnia Stop: 11/27/20 21:52 Hydroxyzine HCl (Hydroxyzine Hcl 25 Mg Tab) 25 mg PO Q4H PRN PRN Reason: Anxiety Stop: 11/27/20 21:52 Liothyronine Sodium (Liothyronine Sodium 25 Mcg Tab) 50 mcg PO QAM [place] Stop: 11/28/20 08:59 Last Admin: 10/31/20 07:32 Dose: 50 mcg Documented by: Lorazepam (Lorazepam 1 Mg Tab) 2 mg PO Q6 PRN PRN Reason: Anxiety/Agitation Stop: 11/27/20 21:42 Lorazepam (Lorazepam 2 Mg/Ml Vial (Im Use)) 2 mg IM Q6 PRN PRN Reason: Agitation Stop: 11/30/20 10:16 Magnesium Hydroxide (Magnesium Hydroxide Susp 30 Ml Udc) 30 ml PO DAILY PRN PRN Reason: Constipation Stop: 11/27/20 21:52 Propranolol HCl (Propranolol Hcl 10 Mg Tab) 10 mg PO BID [place] Stop: 11/27/20 21:59 Last Admin: 10/31/20 07:32 Dose: 10 mg Documented by: Risperidone (Risperidone 1 Mg Tablet) 1 mg PO Q6 PRN PRN Reason: Anxiety/Agitation Stop: 11/27/20 21:43 Last Admin: 10/29/20 05:15 Dose: 1 mg Documented by: Risperidone (Risperidone 3 Mg Tablet) 3 mg PO QAM [place] Stop: 12/01/20 08:59 Risperidone (Risperidone 2 Mg Tablet) 4 mg PO HS [place] Stop: 11/30/20 21:59 Sodium Chloride (Sodium Chloride 0.65% Na Soln 45 Ml ([place])) 1 - 2 sprays NA PRN PRN PRN Reason: Nasal Dryness/Congestion Stop: 11/27/20 21:52 Temazepam (Temazepam 15 Mg Capsule) 30 mg PO 2100 [place] Stop: 11/28/20 20:59 Last Admin: 10/30/20 21:25 Dose: 30 mg Documented by: Mental Health & Subst Abuse Tx Psychiatrist Name of Psychiatrist: [facility] - Dr. Locke Psychiatrist's Psychiatric Appointment Comment: [address] Therapist Name of Therapist: Dr. Swathi Owusu [facility]rapist[facility] Name of Small Parts Assembler: None Post Discharge Appointments Primary Care Physician Name Of Family Doctor: EVA Mcdowell Primary Care Provider Appointment Comment: [address], [facility], [place] Smoking Cessation Counseling Tobacco Cessation Medication Prescribed at Discharge: Not Applicable/Non-Smoker Contact Information Discharge Discharge Address: [address] [place] [address]
[2020-10-31] MEDS: TEMAZEPAM 15 MG CAPSULE PO SCH (21:37)
[2020-10-31] MEDS: risperiDONE 2 MG TABLET PO SCH (21:37)
[2020-11-01] MEDS: LIOTHYRONINE SODIUM 25 MCG TAB PO SCH (08:27)
[2020-11-01] MEDS: PROPRANOLOL HCL 10 MG TAB PO SCH ×2 (08:27→23:02)
[2020-11-01] MEDS: risperiDONE 3 MG TABLET PO SCH (08:27)
--- NOTE | 2020-11-01 11:57 | Psychiatric Progress Note ---
Date of Service November 01, 2020 Impression / Recommendations Impression 45-year-old female with bipolar 1 and history of medication noncompliance presenting in a manic state. Patient has been taking a very low dose of risperidone which is likely contributing to her symptoms. Compliance has been an issue with this patient as she will frequently refuse increases in her medication regimen. Patient will require inpatient hospitalization for safety, stabilization, medication management. (1) Bipolar 1 disorder: The patient was admitted to the [facility] ([facility] unit) on every 15 minute checks (behavioral with suicide precautions for safety. The patient will participate in group, recreational, and milieu therapies and will be offered additional individual and family sessions as clinically appropriate. 11/01/2020atient continues to be compliant on risperidone and seems to be improving although mood remains labile with psychosis evident. We will plan to continue to uptitrate risperidone to max dose over the next two days 10/31/2020atient took 2 mg of risperidone this morning, will plan to increase to 3 mg to 4 tomorrow morning. Will increase nightly dose to 4 mg today. Also added Haldol and Ativan as needed agitation. 10/30/2020atient risperidone now up to 4 mg daily, patient remains psychotic and delusional, will plan to increase medication over the next coming days. 10/29/2020- patient formerly 1 mg twice daily of risperidone, will plan to increase this to 2 mg twice daily over the next 2 days. Inventory Assets Strengths: Intelligence Needs: Insight Risk Factors Assessment Male: No : Yes Do You Have Access To A Gun?: No Health Problems: No Mental Health Diagnoses: Yes Substance Use Disorders: No Previous Attempt: No Interval History Chief Complaint "Hi good morning". Review of Systems Sleep Information Total Hours of Sleep: 7 Meal Information Percent Meal Consumed - Breakfast: 100 Percent Meal Consumed - Lunch: 100 Percent Meal Consumed - Dinner: 100 Nutrition Comment: Sleeping Subjective Subjective Patient was seen & assessed and interval progress reviewed with treatment team nursing and social work Per nursing report patient is compliant with her medications, eating her meals, and sleeping a full 7 hours of sleep. Patient is often observed pacing the hallway with a blank stare on her face and at times seems to be responding internally. Patient awful also display significant mood swings with episodes of inappropriate laughter followed by episodes of unconsolable crying. Despite this, patient does seem to be improving from her initial presentation, and thankfully there were no episodes of irritability or aggression today or yesterday. Patient denies any side effects of the medications, none reported or observed. I spent 30 minutes with the patient, 50% of which was dedicated to counselling and coordination of care. Physical Exam Psychiatric Orientation: alert and oriented x 3 Apperance: appropriately groomed Eye Contact: + poor eye contact Speech: normal rate/rhythm/volume of speech Affect: + anxious affect, + labile affect and + irritable affect Mood: + anxious mood and + irritable mood Thought Process: + tangential thought process, + flight of ideas, + looseness of associations and + perseveration Thought Content: + preoccupation, + paranoid, + delusions, + ideas of reference, + persecution and + self deprecation Suicidal Thoughts: denies suicidal thoughts Homicidal Thoughts: denies homicidal thoughts Hallucinations: no auditory hallucinations and no gustatory hallucinations Cognition: recent memory grossly intact Estimated Intelligence: consistent with education level Insight: + poor insight Judgement: + poor judgement Vital Signs (Past 24 Hours) Last Vital Signs Temp 36.7 C 11/01/20 06:37 Pulse 76 11/01/20 06:38 Resp 16 11/01/20 06:37 BP 145/100 H 11/01/20 06:38 Pulse Ox 97 10/28/20 22:19 Results & Data ([facility]) Current Inpatient Medications Current Inpatient Medications: Current Inpatient Medications Acetaminophen (Acetaminophen 325 Mg Tab) 650 mg PO Q4H PRN PRN Reason: Headache or Minor Fever Stop: 11/27/20 21:52 Al Hydrox/Mg Hydrox/Simethicone (Aluminum/Magnesium Susp 30 Ml Udc) 30 ml PO Q4H PRN PRN Reason: GI Upset Stop: 11/27/20 21:52 Bismuth Subsalicylate (Bismuth Subsalicylate Liqd 236 Ml) 15 ml PO PRN PRN PRN Reason: Loose Stool Stop: 11/27/20 21:52 Haloperidol Lactate (Haloperidol Lactate 5 Mg/Ml 1 Ml Vial) 5 mg IM Q6 PRN PRN Reason: Severe Agitation Stop: 11/30/20 10:16 Hydroxyzine HCl (Hydroxyzine Hcl 25 Mg Tab) 50 mg PO HSZ PRN PRN Reason: Insomnia Stop: 11/27/20 21:52 Hydroxyzine HCl (Hydroxyzine Hcl 25 Mg Tab) 25 mg PO Q4H PRN PRN Reason: Anxiety Stop: 11/27/20 21:52 Liothyronine Sodium (Liothyronine Sodium 25 Mcg Tab) 50 mcg PO QAM [facility] Stop: 11/28/20 08:59 Last Admin: 11/01/20 08:27 Dose: 50 mcg Documented by: Lorazepam (Lorazepam 1 Mg Tab) 2 mg PO Q6 PRN PRN Reason: Anxiety/Agitation Stop: 11/27/20 21:42 Lorazepam (Lorazepam 2 Mg/Ml Vial (Im Use)) 2 mg IM Q6 PRN PRN Reason: Agitation Stop: 11/30/20 10:16 Magnesium Hydroxide (Magnesium Hydroxide Susp 30 Ml Udc) 30 ml PO DAILY PRN PRN Reason: Constipation Stop: 11/27/20 21:52 Last Admin: 10/31/20 17:47 Dose: 30 ml Documented by: Propranolol HCl (Propranolol Hcl 10 Mg Tab) 10 mg PO BID [facility] Stop: 11/27/20 21:59 Last Admin: 11/01/20 08:27 Dose: 10 mg Documented by: Risperidone (Risperidone 1 Mg Tablet) 1 mg PO Q6 PRN PRN Reason: Anxiety/Agitation Stop: 11/27/20 21:43 Last Admin: 10/29/20 05:15 Dose: 1 mg Documented by: Risperidone (Risperidone 3 Mg Tablet) 3 mg PO QAM [facility] Stop: 12/01/20 08:59 Last Admin: 11/01/20 08:27 Dose: 3 mg Documented by: Risperidone (Risperidone 2 Mg Tablet) 4 mg PO HS [facility] Stop: 11/30/20 21:59 Last Admin: 10/31/20 21:37 Dose: 4 mg Documented by: Sodium Chloride (Sodium Chloride 0.65% Na Soln 45 Ml ([facility])) 1 - 2 sprays NA PRN PRN PRN Reason: Nasal Dryness/Congestion Stop: 11/27/20 21:52 Temazepam (Temazepam 15 Mg Capsule) 30 mg PO 2100 [facility] Stop: 11/28/20 20:59 Last Admin: 10/31/20 21:37 Dose: 30 mg Documented by: Mental Health & Subst Abuse Tx Psychiatrist Name of Psychiatrist: [facility] - Dr. Locke Psychiatrist's Psychiatric Appointment Comment: [address] [facility], [place] Therapist Name of Therapist: Dr. Swathi Owusu Therapist's Therapy Appointment Comment: [address], [place] Wildlife Manager Name of Wildlife Manager: None Post Discharge Appointments Primary Care Physician Name Of Family Doctor: EVA Mcdowell Primary Care Provider Appointment Comment: [address], [place] Smoking Cessation Counseling Tobacco Cessation Medication Prescribed at Discharge: Not Applicable/Non-Smoker Contact Information Discharge Discharge Address: [address] [place] [id number]
[2020-11-01] MEDS: LORazepam 1 MG TAB PO PRN (22:35)
[2020-11-01] MEDS: TEMAZEPAM 15 MG CAPSULE PO SCH (23:02)
[2020-11-01] MEDS: risperiDONE 2 MG TABLET PO SCH (23:03)
[2020-11-02] MEDS: LIOTHYRONINE SODIUM 25 MCG TAB PO SCH (07:30)
[2020-11-02] MEDS: risperiDONE 3 MG TABLET PO SCH (07:30)
[2020-11-02] MEDS: PROPRANOLOL HCL 10 MG TAB PO SCH ×2 (07:31→19:37)
--- NOTE | 2020-11-02 10:46 | Psychiatric Progress Note ---
Date of Service November 02, 2020 Impression / Recommendations Impression 45-year-old female with bipolar 1 and history of medication noncompliance presenting in a manic state. Patient has been taking a very low dose of risperidone which is likely contributing to her symptoms. Compliance has been an issue with this patient as she will frequently refuse increases in her medication regimen. Patient will require inpatient hospitalization for safety, stabilization, medication management. (1) Bipolar 1 disorder: The patient was admitted to the [facility] ([facility] unit) on every 15 minute checks (behavioral with suicide precautions for safety. The patient will participate in group, recreational, and milieu therapies and will be offered additional individual and family sessions as clinically appropriate. 11/02/2020-- Patient noncompliant and refusing medications. Continues to to be psychotic and delusional. 11/01/2020atient continues to be compliant on risperidone and seems to be improving although mood remains labile with psychosis evident. We will plan to continue to uptitrate risperidone to max dose over the next two days 10/31/2020atient took 2 mg of risperidone this morning, will plan to increase to 3 mg to 4 tomorrow morning. Will increase nightly dose to 4 mg today. Also added Haldol and Ativan as needed agitation. 10/30/2020atient risperidone now up to 4 mg daily, patient remains psychotic and delusional, will plan to increase medication over the next coming days. 10/29/2020- patient formerly 1 mg twice daily of risperidone, will plan to increase this to 2 mg twice daily over the next 2 days. Inventory Assets Strengths: Intelligence Needs: Insight Risk Factors Assessment Male: No : Yes Do You Have Access To A Gun?: No Health Problems: No Mental Health Diagnoses: Yes Substance Use Disorders: No Previous Attempt: No Interval History Identifying Information 45-year-old woman who presented with acute manic episode in the context of known bipolar disorder. Chief Complaint "I am not taking any more medicine". Review of Systems Sleep Information Total Hours of Sleep: 6 Meal Information Percent Meal Consumed - Breakfast: 100 Percent Meal Consumed - Lunch: 100 Percent Meal Consumed - Dinner: 100 Nutrition Comment: Sleeping Subjective Subjective Patient was seen & assessed and interval progress reviewed with treatment team nursing and social work Patient continues to be labile, will start a conversation very irritably and will switch to laughing assisted through the conversation before becoming irritable again. Patient is still delusional regarding her living situation, claims that she has 6 she can live with when patient is in fact single and living with her mother. Patient was noncompliant with risperidone medication last night. Patient seems to be hyper focused on the dosing level as opposed to the effect of the medication. Today upon conversation she was initially refusing the medication, but stated that she will think about taking the medication later on tonight. It is in my medical opinion that patient will not continue to improve unless she is compliant with medications. Patient does eat her meals and is denying any side effects of the medication. Per nursing report is sleeping approximately 6 hours per night. I spent 30 minutes with the patient, 50% of which was dedicated to counselling and coordination of care. Physical Exam Psychiatric Orientation: alert and oriented x 3 Apperance: appropriately groomed Eye Contact: + poor eye contact Speech: normal rate/rhythm/volume of speech Affect: + anxious affect, + labile affect and + irritable affect Mood: + anxious mood and + irritable mood Thought Process: + tangential thought process, + flight of ideas, + looseness of associations and + perseveration Thought Content: + preoccupation, + paranoid, + delusions, + ideas of reference, + persecution and + self deprecation Suicidal Thoughts: denies suicidal thoughts Homicidal Thoughts: denies homicidal thoughts Hallucinations: no auditory hallucinations and no gustatory hallucinations Cognition: recent memory grossly intact Estimated Intelligence: consistent with education level Insight: + poor insight Judgement: + poor judgement Vital Signs (Past 24 Hours) Last Vital Signs Temp 36.7 C 11/02/20 06:18 Pulse 96 H 11/02/20 06:19 Resp 16 11/02/20 06:18 BP 135/98 11/02/20 06:19 Pulse Ox 97 10/28/20 22:19 Results & Data ([facility]) Current Inpatient Medications Current Inpatient Medications: Current Inpatient Medications Acetaminophen (Acetaminophen 325 Mg Tab) 650 mg PO Q4H PRN PRN Reason: Headache or Minor Fever Stop: 11/27/20 21:52 Al Hydrox/Mg Hydrox/Simethicone (Aluminum/Magnesium Susp 30 Ml Udc) 30 ml PO Q4H PRN PRN Reason: GI Upset Stop: 11/27/20 21:52 Bismuth Subsalicylate (Bismuth Subsalicylate Liqd 236 Ml) 15 ml PO PRN PRN PRN Reason: Loose Stool Stop: 11/27/20 21:52 Haloperidol Lactate (Haloperidol Lactate 5 Mg/Ml 1 Ml Vial) 5 mg IM Q6 PRN PRN Reason: Severe Agitation Stop: 11/30/20 10:16 Hydroxyzine HCl (Hydroxyzine Hcl 25 Mg Tab) 50 mg PO HSZ PRN PRN Reason: Insomnia Stop: 11/27/20 21:52 Hydroxyzine HCl (Hydroxyzine Hcl 25 Mg Tab) 25 mg PO Q4H PRN PRN Reason: Anxiety Stop: 11/27/20 21:52 Liothyronine Sodium (Liothyronine Sodium 25 Mcg Tab) 50 mcg PO QAM [facility] Stop: 11/28/20 08:59 Last Admin: 11/02/20 07:30 Dose: 50 mcg Documented by: Lorazepam (Lorazepam 1 Mg Tab) 2 mg PO Q6 PRN PRN Reason: Anxiety/Agitation Stop: 11/27/20 21:42 Last Admin: 11/01/20 22:35 Dose: 2 mg Documented by: Lorazepam (Lorazepam 2 Mg/Ml Vial (Im Use)) 2 mg IM Q6 PRN PRN Reason: Agitation Stop: 11/30/20 10:16 Magnesium Hydroxide (Magnesium Hydroxide Susp 30 Ml Udc) 30 ml PO DAILY PRN PRN Reason: Constipation Stop: 11/27/20 21:52 Last Admin: 10/31/20 17:47 Dose: 30 ml Documented by: Propranolol HCl (Propranolol Hcl 10 Mg Tab) 10 mg PO BID [facility] Stop: 11/27/20 21:59 Last Admin: 11/02/20 07:31 Dose: 10 mg Documented by: Risperidone (Risperidone 1 Mg Tablet) 1 mg PO Q6 PRN PRN Reason: Anxiety/Agitation Stop: 11/27/20 21:43 Last Admin: 10/29/20 05:15 Dose: 1 mg Documented by: Risperidone (Risperidone 3 Mg Tablet) 3 mg PO QAM [facility] Stop: 12/01/20 08:59 Last Admin: 11/02/20 07:30 Dose: 3 mg Documented by: Risperidone (Risperidone 2 Mg Tablet) 4 mg PO HS [facility] Stop: 11/30/20 21:59 Last Admin: 11/01/20 23:03 Dose: Not Given Documented by: Sodium Chloride (Sodium Chloride 0.65% Na Soln 45 Ml ([facility])) 1 - 2 sprays NA PRN PRN PRN Reason: Nasal Dryness/Congestion Stop: 11/27/20 21:52 Temazepam (Temazepam 15 Mg Capsule) 30 mg PO 2100 [facility] Stop: 11/28/20 20:59 Last Admin: 11/01/20 23:02 Dose: Not Given Documented by: Mental Health & Subst Abuse Tx Psychiatrist Name of Psychiatrist: [facility] - Dr. Locke Psychiatrist's Psychiatric Appointment Comment: [address] [facility], [address], [place] Therapist Name of Therapist: Dr. Swathi Owusu Therapist's Therapy Appointment [facility] [address] [facility] Supplemental Manager Name of Supplemental Manager: None Post Discharge Appointments Primary Care Physician Name Of Family Doctor: EVA Mcdowell Primary Care Provider Appointment Comment: [address], [place] Smoking Cessation Counseling Tobacco Cessation Medication Prescribed at Discharge: Not Applicable/Non-Smoker Contact Information Discharge Discharge Address: [address] [place] [address]
--- NOTE | 2020-11-02 11:31 | Communication Note ---
Date of Service: November 02, 2020 Due to patient's unimproved condition as well as medication noncompliance, I believe it is in the best interest of the patient to be provided with IM antip sychotic medications of haloperidol 5 mg if she were to refuse her p.o. risperidone. I will ask for a second psychiatrist to evaluate the patient and the medications prior to proceeding with the plan.
--- NOTE | 2020-11-02 14:47 | Communication Note ---
Date of Service: November 02, 2020 Patient seen. Interim history reviewed. Patient discussed with Dr. Pappas and nurse senior network administrator Jenny Valles RN. Attempts have been made to titrate R isperdal and she is becoming increasingly resistant and not signing LILIBETH for family. She is labile, will charge to nurses station swearing, refuse to leave area near the entrance at times as wants to leave. Lability and disorganization with pressured speech resulting in ongoing need for elopement precautions and medically necessary private room. Patient only willing to meet with me to complain about her care. She does not understand that she is on a 303 commitment and is requesting a 72 hour notice. Reality oriented. Reviewed that ideally would begin another mood stabilizing medication to minimize her total daily dose of Risperdal. She has multiple allergies listed to antipsychotics, has tolerated Haldol for acute admin and Haldol allergy could not be confirmed by her outpatient psychiatrist. She remains restless, pressured speech, labile, angry and walked out of our session. She is unable to engage in meaningful risks/benefits surrounding her treatment and has shown no improvement from last contact, in fact she is more irritable. She continues to lack insight into her need for inpatient hospitalization and mood stabilizing medication. She denies SI/HI. No evidence of EPS or akathisia. Imp: ongoing vargas Plan: I agree that patient remains at significant risk of or serious disability in the next 30 days if not hospitalized and more effective antipsychotic/mood stabilizing medication. This is her third hospitalization in recent months and following discharge from [facility] she was unable to maintain herself outside of the hospital for more than a few hours. She is will only agree to Risperdal 2 mg total daily dose which is not effective for the severity of her condition and she meets all criteria for medication over objection. My understanding is that her mother has a POA, encouraged Dr. Pappas to review the mental health wording and engage mother in the medical decision making process and discussion of preferences, ex. IM Haldol or Geodon acutely if re fusing recommended dose of Haldol and mood stabilizers. Hopefully patient will agree to a trial of Depakote or Lamictal as she improves with ongoing treatment. It is likely that she will require an extended outpatient commitment and possible conversion to a GIBBS before discharge.
[2020-11-02] MEDS: TEMAZEPAM 15 MG CAPSULE PO SCH (19:38)
[2020-11-02] MEDS: risperiDONE 2 MG TABLET PO SCH (19:38)
[2020-11-03] MEDS: LIOTHYRONINE SODIUM 25 MCG TAB PO SCH (07:35)
[2020-11-03] MEDS: risperiDONE 3 MG TABLET PO SCH (07:36)
[2020-11-03] MEDS: PROPRANOLOL HCL 10 MG TAB PO SCH ×2 (07:36→20:14)
--- NOTE | 2020-11-03 11:14 | Psychiatric Progress Note ---
Date of Service November 03, 2020 Impression / Recommendations Impression 45-year-old female with bipolar 1 and history of medication noncompliance presenting in a manic state. Patient has been taking a very low dose of risperidone which is likely contributing to her symptoms. Compliance has been an issue with this patient as she will frequently refuse increases in her medication regimen. Patient will require inpatient hospitalization for safety, stabilization, medication management. (1) Bipolar 1 disorder: The patient was admitted to the [facility] ([facility]) on every 15 minute checks (behavioral with suicide precautions for safety. The patient will participate in group, recreational, and milieu therapies and will be offered additional individual and family sessions as clinically appropriate. 11/03/2020atient was compliant with medications, will plan to increase to 4 mg twice daily starting tomorrow. 11/02/2020-- Patient noncompliant and refusing medications. Continues to to be psychotic and delusional. 11/01/2020atient continues to be compliant on risperidone and seems to be improving although mood remains labile with psychosis evident. We will plan to continue to uptitrate risperidone to max dose over the next two days 10/31/2020atient took 2 mg of risperidone this morning, will plan to increase to 3 mg to 4 tomorrow morning. Will increase nightly dose to 4 mg today. Also added Haldol and Ativan as needed agitation. 10/30/2020atient risperidone now up to 4 mg daily, patient remains psychotic and delusional, will plan to increase medication over the next coming days. 10/29/2020- patient formerly 1 mg twice daily of risperidone, will plan to increase this to 2 mg twice daily over the next 2 days. Inventory Assets Strengths: Intelligence Needs: Insight Risk Factors Assessment Male: No : Yes Do You Have Access To A Gun?: No Health Problems: No Mental Health Diagnoses: Yes Substance Use Disorders: No Previous Attempt: No Interval History Identifying Information 45-year-old woman who presented with acute manic episode in the context of known bipolar disorder. Chief Complaint "I took my medications, I need to cut my toenails, I know the rodriguez is going to make everything okay". Review of Systems Sleep Information Total Hours of Sleep: 6.75 Meal Information Percent Meal Consumed - Breakfast: 100 Percent Meal Consumed - Lunch: 100 Percent Meal Consumed - Dinner: 100 Nutrition Comment: Sleeping Subjective Subjective Patient was seen & assessed and interval progress reviewed with treatment team nursing and social work Per nursing report patient was compliant with her medications and received a good night sleep with approximately 7 hours. She is eating all her meals and has no issues with appetite. She does occasionally attend groups although interaction is minimal. Patient is still somewhat delusional although seems calmer today and more willing to be cooperative. Patient's toenails were cut today. I spent 30 minutes with the patient, 50% of which was dedicated to counselling and coordination of care. Physical Exam Psychiatric Orientation: alert and oriented x 3 Apperance: appropriately groomed Eye Contact: + poor eye contact Speech: normal rate/rhythm/volume of speech Affect: + anxious affect, + labile affect and + irritable affect Mood: + anxious mood and + irritable mood Thought Process: + tangential thought process, + flight of ideas, + looseness of associations and + perseveration Thought Content: + preoccupation, + paranoid, + delusions, + ideas of reference, + persecution and + self deprecation Suicidal Thoughts: denies suicidal thoughts Homicidal Thoughts: denies homicidal thoughts Hallucinations: no auditory hallucinations and no gustatory hallucinations Cognition: recent memory grossly intact Estimated Intelligence: consistent with education level Insight: + poor insight Judgement: + poor judgement Vital Signs (Past 24 Hours) Last Vital Signs Temp 36.6 C 11/03/20 06:38 Pulse 89 11/03/20 06:38 Resp 18 11/03/20 06:38 BP 139/100 11/03/20 06:38 Pulse Ox 97 10/28/20 22:19 Results & Data ([facility]) Current Inpatient Medications Current Inpatient Medications: Current Inpatient Medications Acetaminophen (Acetaminophen 325 Mg Tab) 650 mg PO Q4H PRN PRN Reason: Headache or Minor Fever Stop: 11/27/20 21:52 Al Hydrox/Mg Hydrox/Simethicone (Aluminum/Magnesium Susp 30 Ml Udc) 30 ml PO Q4H PRN PRN Reason: GI Upset Stop: 11/27/20 21:52 Bismuth Subsalicylate (Bismuth Subsalicylate Liqd 236 Ml) 15 ml PO PRN PRN PRN Reason: Loose Stool Stop: 11/27/20 21:52 Haloperidol Lactate (Haloperidol Lactate 5 Mg/Ml 1 Ml Vial) 5 mg IM Q6 PRN PRN Reason: Anxiety/Agitation Stop: 11/30/20 10:16 Hydroxyzine HCl (Hydroxyzine Hcl 25 Mg Tab) 50 mg PO HSZ PRN PRN Reason: Insomnia Stop: 11/27/20 21:52 Hydroxyzine HCl (Hydroxyzine Hcl 25 Mg Tab) 25 mg PO Q4H PRN PRN Reason: Anxiety Stop: 11/27/20 21:52 Liothyronine Sodium (Liothyronine Sodium 25 Mcg Tab) 50 mcg PO QAM [place] Stop: 11/28/20 08:59 Last Admin: 11/03/20 07:35 Dose: 50 mcg Documented by: Lorazepam (Lorazepam 1 Mg Tab) 2 mg PO Q6 PRN PRN Reason: Anxiety/Agitation Stop: 11/27/20 21:42 Last Admin: 11/01/20 22:35 Dose: 2 mg Documented by: Lorazepam (Lorazepam 2 Mg/Ml Vial (Im Use)) 2 mg IM Q6 PRN PRN Reason: Agitation Stop: 11/30/20 10:16 Magnesium Hydroxide (Magnesium Hydroxide Susp 30 Ml Udc) 30 ml PO DAILY PRN PRN Reason: Constipation Stop: 11/27/20 21:52 Last Admin: 10/31/20 17:47 Dose: 30 ml Documented by: Propranolol HCl (Propranolol Hcl 10 Mg Tab) 10 mg PO BID [place] Stop: 11/27/20 21:59 Last Admin: 11/03/20 07:36 Dose: 10 mg Documented by: Risperidone (Risperidone 1 Mg Tablet) 1 mg PO Q6 PRN PRN Reason: Anxiety/Agitation Stop: 11/27/20 21:43 Last Admin: 10/29/20 05:15 Dose: 1 mg Documented by: Risperidone (Risperidone 3 Mg Tablet) 3 mg PO QAM [place] Stop: 12/01/20 08:59 Last Admin: 11/03/20 07:36 Dose: 3 mg Documented by: Risperidone (Risperidone 2 Mg Tablet) 4 mg PO HS [place] Stop: 11/30/20 21:59 Last Admin: 11/02/20 19:38 Dose: 4 mg Documented by: Sodium Chloride (Sodium Chloride 0.65% Na Soln 45 Ml ([place])) 1 - 2 sprays NA PRN PRN PRN Reason: Nasal Dryness/Congestion Stop: 08/08/21 21:52 Temazepam (Temazepam 15 Mg Capsule) 30 mg PO 2100 [place] Stop: 11/28/20 20:59 Last Admin: 11/02/20 19:38 Dose: 30 mg Documented by: Mental Health & Subst Abuse Tx Psychiatrist Name of Psychiatrist: [facility] [address] - Dr. Locke Psychiatrist's Psychiatric Appointment Comment: [address] [facility], [place] Therapist Name of Therapist: Dr. Swathi Owusu Therapist's Therapy [facility]ment [facility] Name of Soap Grinder: None Post Discharge Appointments Primary Care Physician Name Of Family Doctor: EVA Mcdowell Primary Care Provider Appointment Comment: [address], [place] Smoking Cessation Counseling Tobacco Cessation Medication Prescribed at Discharge: Not Applicable/Non-Smoker Contact Information Discharge Discharge Address: [address] [place] [id number]
[2020-11-03] MEDS: LORazepam 1 MG TAB PO PRN (18:17)
[2020-11-03] MEDS: risperiDONE 2 MG TABLET PO SCH (20:12)
[2020-11-03] MEDS: TEMAZEPAM 15 MG CAPSULE PO SCH (20:18)
[2020-11-04] MEDS: PROPRANOLOL HCL 10 MG TAB PO SCH ×2 (07:33→20:43)
[2020-11-04] MEDS: risperiDONE 2 MG TABLET PO SCH ×2 (07:33→20:44)
[2020-11-04] MEDS: LIOTHYRONINE SODIUM 25 MCG TAB PO SCH (07:33)
--- NOTE | 2020-11-04 12:28 | Psychiatric Progress Note ---
Date of Service November 04, 2020 Impression / Recommendations Impression 45-year-old female with bipolar 1 and history of medication noncompliance presenting in a manic state. Patient has been taking a very low dose of risperidone which is likely contributing to her symptoms. Compliance has been an issue with this patient as she will frequently refuse increases in her medication regimen. Patient will require inpatient hospitalization for safety, stabilization, medication management. (1) Bipolar 1 disorder: The patient was admitted to the [facility] ([facility]) on every 15 minute checks (behavioral with suicide precautions for safety. The patient will participate in group, recreational, and milieu therapies and will be offered additional individual and family sessions as clinically appropriate. 11/04/2020atient continues to be psychotic and delusional. We will continue with risperidone 4 mg p.o. twice daily 11/03/2020atient was compliant with medications, will plan to increase to 4 mg twice daily starting tomorrow. 11/02/2020-- Patient noncompliant and refusing medications. Continues to to be psychotic and delusional. 11/01/2020atient continues to be compliant on risperidone and seems to be i mproving although mood remains labile with psychosis evident. We will plan to continue to uptitrate risperidone to max dose over the next two days 10/31/2020atient took 2 mg of risperidone this morning, will plan to increase to 3 mg to 4 tomorrow morning. Will increase nightly dose to 4 mg today. Also added Haldol and Ativan as needed agitation. 10/30/2020atient risperidone now up to 4 mg daily, patient remains psychotic and delusional, will plan to increase medication over the next coming days. 10/29/2020- patient formerly 1 mg twice daily of risperidone, will plan to increase this to 2 mg twice daily over the next 2 days. Inventory Assets Strengths: Intelligence Needs: Insight Risk Factors Assessment Male: No : Yes Do You Have Access To A Gun?: No Health Problems: No Mental Health Diagnoses: Yes Substance Use Disorders: No Previous Attempt: No Interval History Identifying Information 45-year-old woman who presented with acute manic episode in the context of known bipolar disorder. Chief Complaint "I am okay I need to stop the new world order from spreading the coronavirus". Review of Systems Sleep Information Total Hours of Sleep: 8 Meal Information Percent Meal Consumed - Breakfast: 100 Percent Meal Consumed - Lunch: 100 Percent Meal Consumed - Dinner: 100 Nutrition Comment: Sleeping Subjective Subjective Patient was seen & assessed and interval progress reviewed with treatment team nursing and social work Patient is still delusional and at times psychotic. Seem to be internally preoccupied, laughing and crying inappropriately. She is however compliant with medications and cooperative and redirectable. Eating meals and sleeping okay at this time. I spent 30 minutes with the patient, 50% of which was dedicated to counselling and coordination of care. Physical Exam Psychiatric Orientation: alert and oriented x 3 Apperance: appropriately groomed Eye Contact: + poor eye contact Speech: normal rate/rhythm/volume of speech Affect: + anxious affect, + labile affect and + irritable affect Mood: + anxious mood and + irritable mood Thought Process: + tangential thought process, + flight of ideas, + looseness of associations and + perseveration Thought Content: + preoccupation, + paranoid, + delusions, + ideas of reference, + persecution and + self deprecation Suicidal Thoughts: denies suicidal thoughts Homicidal Thoughts: denies homicidal thoughts Hallucinations: no auditory hallucinations and no gustatory hallucinations Cognition: recent memory grossly intact Estimated Intelligence: consistent with education level Insight: + poor insight Judgement: + poor judgement Vital Signs (Past 24 Hours) Last Vital Signs Temp 36.5 C 11/04/20 06:31 Pulse 86 11/04/20 06:31 Resp 16 11/04/20 06:31 BP 131/93 11/04/20 06:31 Pulse Ox 97 10/28/20 22:19 Results & Data ([facility]) Current Inpatient Medications Current Inpatient Medications: Current Inpatient Medications Acetaminophen (Acetaminophen 325 Mg Tab) 650 mg PO Q4H PRN PRN Reason: Headache or Minor Fever Stop: 11/27/20 21:52 Al Hydrox/Mg Hydrox/Simethicone (Aluminum/Magnesium Susp 30 Ml Udc) 30 ml PO Q4H PRN PRN Reason: GI Upset Stop: 11/27/20 21:52 Bismuth Subsalicylate (Bismuth Subsalicylate Liqd 236 Ml) 15 ml PO PRN PRN PRN Reason: Loose Stool Stop: 11/27/20 21:52 Haloperidol Lactate (Haloperidol Lactate 5 Mg/Ml 1 Ml Vial) 5 mg IM Q6 PRN PRN Reason: Anxiety/Agitation Stop: 11/30/20 10:16 Hydroxyzine HCl (Hydroxyzine Hcl 25 Mg Tab) 50 mg PO HSZ PRN PRN Reason: Insomnia Stop: 11/27/20 21:52 Hydroxyzine HCl (Hydroxyzine Hcl 25 Mg Tab) 25 mg PO Q4H PRN PRN Reason: Anxiety Stop: 11/27/20 21:52 Liothyronine Sodium (Liothyronine Sodium 25 Mcg Tab) 50 mcg PO QAM [place] Stop: 11/28/20 08:59 Last Admin: 11/04/20 07:33 Dose: 50 mcg Documented by: Lorazepam (Lorazepam 1 Mg Tab) 2 mg PO Q6 PRN PRN Reason: Anxiety/Agitation Stop: 11/27/20 21:42 Last Admin: 11/03/20 18:17 Dose: 2 mg Documented by: Lorazepam (Lorazepam 2 Mg/Ml Vial (Im Use)) 2 mg IM Q6 PRN PRN Reason: Agitation Stop: 11/30/20 10:16 Magnesium Hydroxide (Magnesium Hydroxide Susp 30 Ml Udc) 30 ml PO DAILY PRN PRN Reason: Constipation Stop: 11/27/20 21:52 Last Admin: 10/31/20 17:47 Dose: 30 ml Documented by: Propranolol HCl (Propranolol Hcl 10 Mg Tab) 10 mg PO BID [place] Stop: 11/27/20 21:59 Last Admin: 11/04/20 07:33 Dose: 10 mg Documented by: Risperidone (Risperidone 1 Mg Tablet) 1 mg PO Q6 PRN PRN Reason: Anxiety/Agitation Stop: 11/27/20 21:43 Last Admin: 10/29/20 05:15 Dose: 1 mg Documented by: Risperidone (Risperidone 2 Mg Tablet) 4 mg PO BID [place] Stop: 12/03/20 20:59 Last Admin: 11/04/20 07:33 Dose: 4 mg Documented by: Sodium Chloride (Sodium Chloride 0.65% Na Soln 45 Ml ([place])) 1 - 2 sprays NA PRN PRN PRN Reason: Nasal Dryness/Congestion Stop: 11/27/20 21:52 Temazepam (Temazepam 15 Mg Capsule) 30 mg PO 2100 [place] Stop: 11/28/20 20:59 Last Admin: 11/03/20 20:18 Dose: 30 mg Documented by: Mental Health & Subst Abuse Tx Psychiatrist Name of Psychiatrist: [facility] - Dr. Locke Psychiatrist's Psychiatric Appointment Comment: [address] [facility], [address], [place] Therapist Name of Therapist: Dr. Swathi Owusu Therapist's Therapy Appointment Comment: [address] [facility] Sales Enablement Consultant Name of Sales Enablement Consultant: None Post Discharge Appointments Primary Care Physician Name Of Family Doctor: EVA Mcdowell Primary Care Provider Appointment Comment: [address], [place] Smoking Cessation Counseling Tobacco Cessation Medication Prescribed at Discharge: Not Applicable/Non-Smoker Contact Information Discharge Discharge Address: [address] [place] [id number]
[2020-11-04] MEDS: LORazepam 1 MG TAB PO PRN (14:55)
[2020-11-04] MEDS: TEMAZEPAM 15 MG CAPSULE PO SCH (20:46)
[2020-11-05] MEDS: LIOTHYRONINE SODIUM 25 MCG TAB PO SCH (08:39)
[2020-11-05] MEDS: risperiDONE 2 MG TABLET PO SCH ×2 (08:39→21:07)
[2020-11-05] MEDS: PROPRANOLOL HCL 10 MG TAB PO SCH ×2 (08:39→21:07)
--- NOTE | 2020-11-05 11:51 | Psychiatric Progress Note ---
Date of Service November 05, 2020 Impression / Recommendations Impression 45-year-old female with bipolar 1 and history of medication noncompliance presenting in a manic state. Patient has been taking a very low dose of risperidone which is likely contributing to her symptoms. Compliance has been an issue with this patient as she will frequently refuse increases in her medication regimen. Patient will require inpatient hospitalization for safety, stabilization, medication management. (1) Bipolar 1 disorder: The patient was admitted to the [facility] ([facility]) on every 15 minute checks (behavioral with suicide precautions for safety. The patient will participate in group, recreational, and milieu therapies and will be offered additional individual and family sessions as clinically appropriate. 11/04/2020atient continues to be psychotic and delusional. We will continue with risperidone 4 mg p.o. twice daily 11/03/2020atient was compliant with medications, will plan to increase to 4 mg twice daily starting tomorrow. 11/02/2020-- Patient noncompliant and refusing medications. Continues to to be psychotic and delusional. 11/01/2020atient continues to be compliant on risperidone and seems to be i mproving although mood remains labile with psychosis evident. We will plan to continue to uptitrate risperidone to max dose over the next two days 10/31/2020atient took 2 mg of risperidone this morning, will plan to increase to 3 mg to 4 tomorrow morning. Will increase nightly dose to 4 mg today. Also added Haldol and Ativan as needed agitation. 10/30/2020atient risperidone now up to 4 mg daily, patient remains psychotic and delusional, will plan to increase medication over the next coming days. 10/29/2020- patient formerly 1 mg twice daily of risperidone, will plan to increase this to 2 mg twice daily over the next 2 days. Inventory Assets Strengths: Intelligence Needs: Insight Risk Factors Assessment Male: No : Yes Do You Have Access To A Gun?: No Health Problems: No Mental Health Diagnoses: Yes Substance Use Disorders: No Previous Attempt: No Interval History Identifying Information 45-year-old woman who presented with acute manic episode in the context of known bipolar disorder. Chief Complaint "I am feeling fine thank you". Review of Systems Sleep Information Total Hours of Sleep: 8.25 Meal Information Percent Meal Consumed - Breakfast: 75 Percent Meal Consumed - Lunch: 100 Percent Meal Consumed - Dinner: 100 Nutrition Comment: Sleeping Subjective Subjective Patient was seen & assessed and interval progress reviewed with treatment team nursing and social work. Patient is compliant with the medication, however remains psychotic and delusional. At times inappropriate with peers and unable to handle group. Patient is seen to be internally preoccupied and laughing inappropriately to herself at times. When approached patient is calm and will superficially answer that she is feeling fine. Per report she is eating and sleeping well. I spent 30 minutes with the patient, 50% of which was dedicated to counselling and coordination of care. Physical Exam Psychiatric Orientation: alert and oriented x 3 Apperance: appropriately groomed Eye Contact: + poor eye contact Speech: normal rate/rhythm/volume of speech Affect: + anxious affect, + labile affect and + irritable affect Mood: + anxious mood and + irritable mood Thought Process: + tangential thought process, + flight of ideas, + looseness of associations and + perseveration Thought Content: + preoccupation, + paranoid, + delusions, + ideas of reference, + persecution and + self deprecation Suicidal Thoughts: denies suicidal thoughts Homicidal Thoughts: denies homicidal thoughts Hallucinations: no auditory hallucinations and no gustatory hallucinations Cognition: recent memory grossly intact Estimated Intelligence: consistent with education level Insight: + poor insight Judgement: + poor judgement Vital Signs (Past 24 Hours) Last Vital Signs Temp 36.6 C 11/05/20 06:37 Pulse 75 11/05/20 06:37 Resp 16 11/05/20 06:37 BP 116/79 11/05/20 06:37 Pulse Ox 97 10/28/20 22:19 Results & Data ([facility]) Current Inpatient Medications Current Inpatient Medications: Current Inpatient Medications Acetaminophen (Acetaminophen 325 Mg Tab) 650 mg PO Q4H PRN PRN Reason: Headache or Minor Fever Stop: 11/27/20 21:52 Al Hydrox/Mg Hydrox/Simethicone (Aluminum/Magnesium Susp 30 Ml Udc) 30 ml PO Q4H PRN PRN Reason: GI Upset Stop: 11/27/20 21:52 Bismuth Subsalicylate (Bismuth Subsalicylate Liqd 236 Ml) 15 ml PO PRN PRN PRN Reason: Loose Stool Stop: 11/27/20 21:52 Haloperidol Lactate (Haloperidol Lactate 5 Mg/Ml 1 Ml Vial) 5 mg IM Q6 PRN PRN Reason: Anxiety/Agitation Stop: 11/30/20 10:16 Hydroxyzine HCl (Hydroxyzine Hcl 25 Mg Tab) 50 mg PO HSZ PRN PRN Reason: Insomnia Stop: 11/27/20 21:52 Hydroxyzine HCl (Hydroxyzine Hcl 25 Mg Tab) 25 mg PO Q4H PRN PRN Reason: Anxiety Stop: 11/27/20 21:52 Liothyronine Sodium (Liothyronine Sodium 25 Mcg Tab) 50 mcg PO QAM [place] Stop: 11/28/20 08:59 Last Admin: 11/05/20 08:39 Dose: 50 mcg Documented by: Lorazepam (Lorazepam 1 Mg Tab) 2 mg PO Q6 PRN PRN Reason: Anxiety/Agitation Stop: 11/27/20 21:42 Last Admin: 11/04/20 14:55 Dose: 2 mg Documented by: Lorazepam (Lorazepam 2 Mg/Ml Vial (Im Use)) 2 mg IM Q6 PRN PRN Reason: Agitation Stop: 11/30/20 10:16 Magnesium Hydroxide (Magnesium Hydroxide Susp 30 Ml Udc) 30 ml PO DAILY PRN PRN Reason: Constipation Stop: 11/27/20 21:52 Last Admin: 10/31/20 17:47 Dose: 30 ml Documented by: Propranolol HCl (Propranolol Hcl 10 Mg Tab) 10 mg PO BID [facility] Stop: 11/27/20 21:59 Last Admin: 11/05/20 08:39 Dose: 10 mg Documented by: Risperidone (Risperidone 1 Mg Tablet) 1 mg PO Q6 PRN PRN Reason: Anxiety/Agitation Stop: 11/27/20 21:43 Last Admin: 10/29/20 05:15 Dose: 1 mg Documented by: Risperidone (Risperidone 2 Mg Tablet) 4 mg PO BID [place] Stop: 12/03/20 20:59 Last Admin: 11/05/20 08:39 Dose: 4 mg Documented by: Sodium Chloride (Sodium Chloride 0.65% Na Soln 45 Ml ([place])) 1 - 2 sprays NA PRN PRN PRN Reason: Nasal Dryness/Congestion Stop: 11/27/20 21:52 Temazepam (Temazepam 15 Mg Capsule) 30 mg PO 2100 [place] Stop: 11/28/20 20:59 Last Admin: 11/04/20 20:46 Dose: 30 mg Documented by: Mental Health & Subst Abuse Tx Psychiatrist Name of Psychiatrist: [facility] - Dr. Locke Psychiatrist's Psychiatric Appointment Comment: [address] [facility], [facility], [place] Therapist Name of Therapist: Dr. Swathi Owusu Therapist's [facility]ment [facility] [address] [facility] Consultant Name of Bi Consultant: None Post Discharge Appointments Primary Care Physician Name Of Family Doctor: EVA Mcdowell Primary Care Provider Appointment Comment: [address], [address], [place] Smoking Cessation Counseling Tobacco Cessation Medication Prescribed at Discharge: Not Applicable/Non-Smoker Contact Information Discharge Discharge Address: [address] [place] [id number]
[2020-11-05] MEDS: TEMAZEPAM 15 MG CAPSULE PO SCH (21:47)
[2020-11-06] MEDS: risperiDONE 2 MG TABLET PO SCH ×2 (07:40→19:32)
[2020-11-06] MEDS: LIOTHYRONINE SODIUM 25 MCG TAB PO SCH (07:40)
[2020-11-06] MEDS: PROPRANOLOL HCL 10 MG TAB PO SCH ×2 (07:40→19:32)
--- NOTE | 2020-11-06 11:56 | Psychiatric Progress Note ---
Date of Service November 06, 2020 Impression / Recommendations Impression 45-year-old female with bipolar 1 and history of medication noncompliance presenting in a manic state. Patient has been taking a very low dose of risperidone which is likely contributing to her symptoms. Compliance has been an issue with this patient as she will frequently refuse increases in her medication regimen. Patient will require inpatient hospitalization for safety, stabilization, medication management. (1) Bipolar 1 disorder: The patient was admitted to the [facility] ([facility]) on every 15 minute checks (behavioral with suicide precautions for safety. The patient will participate in group, recreational, and milieu therapies and will be offered additional individual and family sessions as clinically appropriate. 11/06/2020atient with slight improvement. Is compliant with medication and in behavioral control. 11/04/2020atient continues to be psychotic and delusional. We will continue with risperidone 4 mg p.o. twice daily 11/03/2020atient was compliant with medications, will plan to increase to 4 mg twice daily starting tomorrow. 11/02/2020-- Patient noncompliant and refusing medications. Continues to to be p sychotic and delusional. 11/01/2020atient continues to be compliant on risperidone and seems to be improving although mood remains labile with psychosis evident. We will plan to continue to uptitrate risperidone to max dose over the next two days 10/31/2020atient took 2 mg of risperidone this morning, will plan to increase to 3 mg to 4 tomorrow morning. Will increase nightly dose to 4 mg today. Also added Haldol and Ativan as needed agitation. 10/30/2020atient risperidone now up to 4 mg daily, patient remains psychotic and delusional, will plan to increase medication over the next coming days. 10/29/2020- patient formerly 1 mg twice daily of risperidone, will plan to increase this to 2 mg twice daily over the next 2 days. Inventory Assets Strengths: Intelligence Needs: Insight Risk Factors Assessment Male: No : Yes Do You Have Access To A Gun?: No Health Problems: No Mental Health Diagnoses: Yes Substance Use Disorders: No Previous Attempt: No Interval History Identifying Information 45-year-old woman who presented with acute manic episode in the context of known bipolar disorder. Chief Complaint Good morning Review of Systems Sleep Information Total Hours of Sleep: 6.5 Sleep Comments: Pt awake once through night. She made delusional comments about mother then returned to bed. Meal Information Percent Meal Consumed - Breakfast: 100 Percent Meal Consumed - Lunch: 100 Percent Meal Consumed - Dinner: 100 Nutrition Comment: Sleeping Subjective Subjective Patient seen, chart reviewed and case discussed with treatment team, nursing and social work. Patient reports a good night of sleep and strong appetite. No side effects rep orted or observed. Patient remains delusional, tangential, labile. Overall seems less psychotic and less distressed by her delusions but is still having significant mood swings and acting erratically. I spent 30 minutes with the patient, 50% of which was dedicated to counselling and coordination of care. Physical Exam Psychiatric Orientation: alert and oriented x 3 Apperance: appropriately groomed Eye Contact: + poor eye contact Speech: normal rate/rhythm/volume of speech Affect: + anxious affect, + labile affect and + irritable affect Mood: + anxious mood and + irritable mood Thought Process: + tangential thought process, + flight of ideas, + looseness of associations and + perseveration Thought Content: + preoccupation, + paranoid, + delusions, + ideas of reference, + persecution and + self deprecation Suicidal Thoughts: denies suicidal thoughts Homicidal Thoughts: denies homicidal thoughts Hallucinations: no auditory hallucinations and no gustatory hallucinations Cognition: recent memory grossly intact Estimated Intelligence: consistent with education level Insight: + poor insight Judgement: + poor judgement Vital Signs (Past 24 Hours) Last Vital Signs Temp 36.7 C 11/06/20 06:44 Pulse 86 11/06/20 06:46 Resp 16 11/06/20 06:44 BP 126/86 11/06/20 06:46 Pulse Ox 97 10/28/20 22:19 Results & Data ([facility]) Current Inpatient Medications Current Inpatient Medications: Current Inpatient Medications Acetaminophen (Acetaminophen 325 Mg Tab) 650 mg PO Q4H PRN PRN Reason: Headache or Minor Fever Stop: 11/27/20 21:52 Al Hydrox/Mg Hydrox/Simethicone (Aluminum/Magnesium Susp 30 Ml Udc) 30 ml PO Q4H PRN PRN Reason: GI Upset Stop: 11/27/20 21:52 Bismuth Subsalicylate (Bismuth Subsalicylate Liqd 236 Ml) 15 ml PO PRN PRN PRN Reason: Loose Stool Stop: 11/27/20 21:52 Haloperidol Lactate (Haloperidol Lactate 5 Mg/Ml 1 Ml Vial) 5 mg IM Q6 PRN PRN Reason: Anxiety/Agitation Stop: 11/30/20 10:16 Hydroxyzine HCl (Hydroxyzine Hcl 25 Mg Tab) 50 mg PO HSZ PRN PRN Reason: Insomnia Stop: 11/27/20 21:52 Hydroxyzine HCl (Hydroxyzine Hcl 25 Mg Tab) 25 mg PO Q4H PRN PRN Reason: Anxiety Stop: 11/27/20 21:52 Liothyronine Sodium (Liothyronine Sodium 25 Mcg Tab) 50 mcg PO QAM [place] Stop: 11/28/20 08:59 Last Admin: 11/06/20 07:40 Dose: 50 mcg Documented by: Lorazepam (Lorazepam 1 Mg Tab) 2 mg PO Q6 PRN PRN Reason: Anxiety/Agitation Stop: 11/27/20 21:42 Last Admin: 11/04/20 14:55 Dose: 2 mg Documented by: Lorazepam (Lorazepam 2 Mg/Ml Vial (Im Use)) 2 mg IM Q6 PRN PRN Reason: Agitation Stop: 11/30/20 10:16 Magnesium Hydroxide (Magnesium Hydroxide Susp 30 Ml Udc) 30 ml PO DAILY PRN PRN Reason: Constipation Stop: 11/27/20 21:52 Last Admin: 10/31/20 17:47 Dose: 30 ml Documented by: Propranolol HCl (Propranolol Hcl 10 Mg Tab) 10 mg PO BID [place] Stop: 11/27/20 21:59 Last Admin: 11/06/20 07:40 Dose: 10 mg Documented by: Risperidone (Risperidone 1 Mg Tablet) 1 mg PO Q6 PRN PRN Reason: Anxiety/Agitation Stop: 11/27/20 21:43 Last Admin: 10/29/20 05:15 Dose: 1 mg Documented by: Risperidone (Risperidone 2 Mg Tablet) 4 mg PO BID [place] Stop: 12/03/20 20:59 Last Admin: 11/06/20 07:40 Dose: 4 mg Documented by: Sodium Chloride (Sodium Chloride 0.65% Na Soln 45 Ml (Vinco)) 1 - 2 sprays NA PRN PRN PRN Reason: Nasal Dryness/Congestion Stop: 11/27/20 21:52 Temazepam (Temazepam 15 Mg Capsule) 30 mg PO 2100 [place] Stop: 11/28/20 20:59 Last Admin: 11/05/20 21:47 Dose: 30 mg Documented by: Mental Health & Subst Abuse Tx Psychiatrist Name of Psychiatrist: [facility] - Dr. Locke Psychiatrist's Psychiatric Appointment Comment: [address] [facility], [place] Therapist Name of Therapist: Dr. Swathi Owusu Therapist's Therapy [facility] [address] [facility] [place] Animal Husbandman Name of Animal Husbandman: None Post Discharge Appointments Primary Care Physician Name Of Family Doctor: EVA Mcdowell Primary Care Provider Appointment Comment: [address], [place] Smoking Cessation Counseling Tobacco Cessation Medication Prescribed at Discharge: Not Applicable/Non-Smoker Contact Information Discharge Discharge Address: [address] [place] [id number]
[2020-11-06] MEDS: LORazepam 1 MG TAB PO PRN (19:34)
[2020-11-06] MEDS: TEMAZEPAM 15 MG CAPSULE PO SCH (19:34)
[2020-11-07] MEDS: PROPRANOLOL HCL 10 MG TAB PO SCH ×2 (08:52→20:51)
[2020-11-07] MEDS: LIOTHYRONINE SODIUM 25 MCG TAB PO SCH (08:52)
[2020-11-07] MEDS: risperiDONE 2 MG TABLET PO SCH ×2 (08:52→21:01)
[2020-11-07] MEDS ORDERED: DIVALPROEX DELAY RELEASE 500 MG TAB PO ONE (11:53)
[2020-11-07] MEDS ORDERED: DIVALPROEX DELAY RELEASE 500 MG TAB PO STA (11:55)
--- NOTE | 2020-11-07 14:43 | Psychiatric Progress Note ---
Date of Service November 07, 2020 Impression / Recommendations Impression 45-year-old female with bipolar 1 and history of medication noncompliance presenting in a manic state. Patient has been taking a very low dose of risperidone which is likely contributing to her symptoms. Compliance has been an issue with this patient as she will frequently refuse increases in her medication regimen. Patient will require inpatient hospitalization for safety, stabilization, medication management. (1) Bipolar 1 disorder: The patient was admitted to the [facility] ([facility]) on every 15 minute checks (behavioral with suicide precautions for safety. The patient will participate in group, recreational, and milieu therapies and will be offered additional individual and family sessions as clinically appropriate. 11/07/2020isperidone now at 8 mg p.o. twice daily, Depakote 500mg BID added to regimen 11/06/2020atient with slight improvement. Is compliant with medication and in behavioral control. 11/04/2020atient continues to be psychotic and delusional. We will continue with risperidone 4 mg p.o. twice daily 11/03/2020atient was compliant with medications, will plan to increase to 4 mg twice daily starting tomorrow. 11/02/2020-- Patient noncompliant and refusing medications. Continues to to be psychotic and delusional. 11/01/2020atient continues to be compliant on risperidone and seems to be improving although mood remains labile with psychosis evident. We will plan to continue to uptitrate risperidone to max dose over the next two days 10/31/2020atient took 2 mg of risperidone this morning, will plan to increase to 3 mg to 4 tomorrow morning. Will increase nightly dose to 4 mg today. Also added Haldol and Ativan as needed agitation. 10/30/2020atient risperidone now up to 4 mg daily, patient remains psychotic and delusional, will plan to increase medication over the next coming days. 10/29/2020- patient formerly 1 mg twice daily of risperidone, will plan to increase this to 2 mg twice daily over the next 2 days. Inventory Assets Strengths: Intelligence Needs: Insight Risk Factors Assessment Male: No : Yes Do You Have Access To A Gun?: No Health Problems: No Mental Health Diagnoses: Yes Substance Use Disorders: No Previous Attempt: No Interval History Identifying Information 45-year-old woman who presented with acute manic episode in the context of known bipolar disorder. Chief Complaint "Prescribe me control, never mind". Review of Systems Sleep Information Total Hours of Sleep: 7.25 Sleep Comments: Pt awake once through night. She made delusional comments about mother then returned to bed. Meal Information Percent Meal Consumed - Breakfast: 100 Percent Meal Consumed - Lunch: 100 Percent Meal Consumed - Dinner: 100 Nutrition Comment: Sleeping Subjective Subjective Patient seen, chart reviewed and case discussed with treatment team, nursing and social work. Patient reports a good night of sleep and strong appetite. No side effects reported or observed. Patient remains psychotic and delusional. Quite labile and at times threatening towards peers. No violence or aggression, but patient will stare uncomfortably or make fist motions at other patients. The idea of Depakote was discussed with the patient who was initially reluctant but then ultimately willing to take the medication. I spent 30 minutes with the patient, 50% of which was dedicated to counselling and coordination of care. Physical Exam Psychiatric Orientation: alert and oriented x 3 Apperance: appropriately groomed Eye Contact: + poor eye contact Speech: normal rate/rhythm/volume of speech Affect: + anxious affect, + labile affect and + irritable affect Mood: + anxious mood and + irritable mood Thought Process: + tangential thought process, + flight of ideas, + looseness of associations and + perseveration Thought Content: + preoccupation, + paranoid, + delusions, + ideas of reference, + persecution and + self deprecation Suicidal Thoughts: denies suicidal thoughts Homicidal Thoughts: denies homicidal thoughts Hallucinations: no auditory hallucinations and no gustatory hallucinations Cognition: recent memory grossly intact Estimated Intelligence: consistent with education level Insight: + poor insight Judgement: + poor judgement Vital Signs (Past 24 Hours) Last Vital Signs Temp 36.8 C 11/07/20 06:37 Pulse 77 11/07/20 06:38 Resp 16 11/07/20 06:37 BP 128/90 11/07/20 06:38 Pulse Ox 97 10/28/20 22:19 Results & Data ([facility]) Current Inpatient Medications Current Inpatient Medications: Current Inpatient Medications Acetaminophen (Acetaminophen 325 Mg Tab) 650 mg PO Q4H PRN PRN Reason: Headache or Minor Fever Stop: 11/27/20 21:52 Al Hydrox/Mg Hydrox/Simethicone (Aluminum/Magnesium Susp 30 Ml Udc) 30 ml PO Q4H PRN PRN Reason: GI Upset Stop: 11/27/20 21:52 Bismuth Subsalicylate (Bismuth Subsalicylate Liqd 236 Ml) 15 ml PO PRN PRN PRN Reason: Loose Stool Stop: 11/27/20 21:52 Haloperidol Lactate (Haloperidol Lactate 5 Mg/Ml 1 Ml Vial) 5 mg IM Q6 PRN PRN Reason: Anxiety/Agitation Stop: 11/30/20 10:16 Hydroxyzine HCl (Hydroxyzine Hcl 25 Mg Tab) 50 mg PO HSZ PRN PRN Reason: Insomnia Stop: 11/27/20 21:52 Hydroxyzine HCl (Hydroxyzine Hcl 25 Mg Tab) 25 mg PO Q4H PRN PRN Reason: Anxiety Stop: 11/27/20 21:52 Liothyronine Sodium (Liothyronine Sodium 25 Mcg Tab) 50 mcg PO QAM [place] Stop: 11/28/20 08:59 Last Admin: 11/07/20 08:52 Dose: 50 mcg Documented by: Lorazepam (Lorazepam 1 Mg Tab) 2 mg PO Q6 PRN PRN Reason: Anxiety/Agitation Stop: 11/27/20 21:42 Last Admin: 11/06/20 19:34 Dose: 2 mg Documented by: Lorazepam (Lorazepam 2 Mg/Ml Vial (Im Use)) 2 mg IM Q6 PRN PRN Reason: Agitation Stop: 11/30/20 10:16 Magnesium Hydroxide (Magnesium Hydroxide Susp 30 Ml Udc) 30 ml PO DAILY PRN PRN Reason: Constipation Stop: 11/27/20 21:52 Last Admin: 10/31/20 17:47 Dose: 30 ml Documented by: Propranolol HCl (Propranolol Hcl 10 Mg Tab) 10 mg PO BID [place] Stop: 11/27/20 21:59 Last Admin: 11/07/20 08:52 Dose: 10 mg Documented by: Risperidone (Risperidone 1 Mg Tablet) 1 mg PO Q6 PRN PRN Reason: Anxiety/Agitation Stop: 11/27/20 21:43 Last Admin: 10/29/20 05:15 Dose: 1 mg Documented by: Risperidone (Risperidone 2 Mg Tablet) 4 mg PO BID [place] Stop: 12/03/20 20:59 Last Admin: 11/07/20 08:52 Dose: 4 mg Documented by: Sodium Chloride (Sodium Chloride 0.65% Na Soln 45 Ml (Gilliam)) 1 - 2 sprays NA PRN PRN PRN Reason: Nasal Dryness/Congestion Stop: 11/27/20 21:52 Temazepam (Temazepam 15 Mg Capsule) 30 mg PO 2100 [place] Stop: 11/28/20 20:59 Last Admin: 11/06/20 19:34 Dose: 30 mg Documented by: Mental Health & Subst Abuse Tx Psychiatrist Name of Psychiatrist: [facility] - Dr. Locke Psychiatrist's Psychiatric Appointment Comment: [address] [facility], [place] Therapist Name of Therapist: Dr. Swathi Owusu Therapist's Therapy Appointment Comment: [address] [facility] Flatbed Press Operator Name of Flatbed Press Operator: None Post Discharge Appointments Primary Care Physician Name Of Family Doctor: EVA Mcdowell Primary Care Provider Appointment Comment: [address], [place] Smoking Cessation Counseling Tobacco Cessation Medication Prescribed at Discharge: Not Applicable/Non-Smoker Contact Information Discharge Discharge Address: [address] [place] [id number]
[2020-11-07] MEDS: TEMAZEPAM 15 MG CAPSULE PO SCH (20:51)
[2020-11-07] MEDS: DIVALPROEX DELAY RELEASE 500 MG TAB PO SCH (20:53)
[2020-11-08] MEDS: LIOTHYRONINE SODIUM 25 MCG TAB PO SCH (08:40)
[2020-11-08] MEDS: PROPRANOLOL HCL 10 MG TAB PO SCH ×2 (08:40→20:39)
[2020-11-08] MEDS: DIVALPROEX DELAY RELEASE 500 MG TAB PO SCH ×2 (08:40→20:39)
[2020-11-08] MEDS: risperiDONE 2 MG TABLET PO SCH ×2 (08:40→20:39)
--- NOTE | 2020-11-08 11:30 | Psychiatric Progress Note ---
Date of Service November 08, 2020 Impression / Recommendations Impression 45-year-old female with bipolar 1 and history of medication noncompliance presenting in a manic state. Patient has been taking a very low dose of risperidone which is likely contributing to her symptoms. Compliance has been an issue with this patient as she will frequently refuse increases in her medication regimen. Patient will require inpatient hospitalization for safety, stabilization, medication management. (1) Bipolar 1 disorder: The patient was admitted to the [facility] ([facility]) on every 15 minute checks (behavioral with suicide precautions for safety. The patient will participate in group, recreational, and milieu therapies and will be offered additional individual and family sessions as clinically appropriate. 1continue with risperidone 8 mg p.o. twice daily, Depakote 500 mg p.o. twice daily. 11/07/2020isperidone now at 8 mg p.o. twice daily, Depakote 500mg BID added to regimen 11/06/2020atient with slight improvement. Is compliant with medication and in behavioral control. 11/04/2020atient continues to be psychotic and delusional. We will continue with risperidone 4 mg p.o. twice daily 11/03/2020atient was compliant with medications, will plan to increase to 4 mg twice daily starting tomorrow. 11/02/2020-- Patient noncompliant and refusing medications. Continues to to be psychotic and delusional. 11/01/2020atient continues to be compliant on risperidone and seems to be improving although mood remains labile with psychosis evident. We will plan to continue to uptitrate risperidone to max dose over the next two days 10/31/2020atient took 2 mg of risperidone this morning, will plan to increase to 3 mg to 4 tomorrow morning. Will increase nightly dose to 4 mg today. Also added Haldol and Ativan as needed agitation. 10/30/2020atient risperidone now up to 4 mg daily, patient remains psychotic and delusional, will plan to increase medication over the next coming days. 10/29/2020- patient formerly 1 mg twice daily of risperidone, will plan to increase this to 2 mg twice daily over the next 2 days. Inventory Assets Strengths: Intelligence Needs: Insight Risk Factors Assessment Male: No : Yes Do You Have Access To A Gun?: No Health Problems: No Mental Health Diagnoses: Yes Substance Use Disorders: No Previous Attempt: No Interval History Identifying Information 45-year-old woman who presented with acute manic episode in the context of known bipolar disorder. Chief Complaint "I need to leave". Review of Systems Sleep Information Total Hours of Sleep: 6.5 Sleep Comments: Pt awake once through night. She made delusional comments about mother then returned to bed. Meal Information Percent Meal Consumed - Breakfast: 100 Percent Meal Consumed - Lunch: 100 Percent Meal Consumed - Dinner: 100 Nutrition Comment: Sleeping Subjective Subjective Patient was seen & assessed and interval progress reviewed with treatment team nursing and social work Patient continues to be psychotic and delusional although compliant with medi cations. Yesterday Depakote medication was started to which patient is compliant with. She does continue to verbalize strong delusions regarding Makayla Velasquez, the news, and numbers. At times seen laughing inappropriately. During rounds this morning patient broke down crying about rosary beads but was unable to explain why she was upset. Reports a good appetite and a good night of sleep. I spent 30 minutes with the patient, 50% of which was dedicated to counselling and coordination of care. Physical Exam Psychiatric Orientation: alert and oriented x 3 Apperance: appropriately groomed Eye Contact: + poor eye contact Speech: normal rate/rhythm/volume of speech Affect: + anxious affect, + labile affect and + irritable affect Mood: + anxious mood and + irritable mood Thought Process: + tangential thought process, + flight of ideas, + looseness of associations and + perseveration Thought Content: + preoccupation, + paranoid, + delusions, + ideas of reference, + persecution and + self deprecation Suicidal Thoughts: denies suicidal thoughts Homicidal Thoughts: denies homicidal thoughts Hallucinations: no auditory hallucinations and no gustatory hallucinations Cognition: recent memory grossly intact Estimated Intelligence: consistent with education level Insight: + poor insight Judgement: + poor judgement Vital Signs (Past 24 Hours) Last Vital Signs Temp 36.6 C 11/08/20 06:42 Pulse 103 H 11/08/20 06:42 Resp 16 11/08/20 06:42 BP 126/90 11/08/20 06:42 Pulse Ox 97 10/28/20 22:19 Results & Data ([facility]) Current Inpatient Medications Current Inpatient Medications: Current Inpatient Medications Acetaminophen (Acetaminophen 325 Mg Tab) 650 mg PO Q4H PRN PRN Reason: Headache or Minor Fever Stop: 11/27/20 21:52 Al Hydrox/Mg Hydrox/Simethicone (Aluminum/Magnesium Susp 30 Ml Udc) 30 ml PO Q4H PRN PRN Reason: GI Upset Stop: 11/27/20 21:52 Bismuth Subsalicylate (Bismuth Subsalicylate Liqd 236 Ml) 15 ml PO PRN PRN PRN Reason: Loose Stool Stop: 11/27/20 21:52 Divalproex Sodium (Divalproex Delay Release 500 Mg Tab) 500 mg PO BID [place] Stop: 12/07/20 20:59 Last Admin: 11/08/20 08:40 Dose: 500 mg Documented by: Haloperidol Lactate (Haloperidol Lactate 5 Mg/Ml 1 Ml Vial) 5 mg IM Q6 PRN PRN Reason: Anxiety/Agitation Stop: 11/30/20 10:16 Hydroxyzine HCl (Hydroxyzine Hcl 25 Mg Tab) 50 mg PO HSZ PRN PRN Reason: Insomnia Stop: 11/27/20 21:52 Hydroxyzine HCl (Hydroxyzine Hcl 25 Mg Tab) 25 mg PO Q4H PRN PRN Reason: Anxiety Stop: 11/27/20 21:52 Liothyronine Sodium (Liothyronine Sodium 25 Mcg Tab) 50 mcg PO QAM [place] Stop: 11/28/20 08:59 Last Admin: 11/08/20 08:40 Dose: 50 mcg Documented by: Lorazepam (Lorazepam 1 Mg Tab) 2 mg PO Q6 PRN PRN Reason: Anxiety/Agitation Stop: 11/27/20 21:42 Last Admin: 11/06/20 19:34 Dose: 2 mg Documented by: Lorazepam (Lorazepam 2 Mg/Ml Vial (Im Use)) 2 mg IM Q6 PRN PRN Reason: Agitation Stop: 11/30/20 10:16 Magnesium Hydroxide (Magnesium Hydroxide Susp 30 Ml Udc) 30 ml PO DAILY PRN PRN Reason: Constipation Stop: 11/27/20 21:52 Last Admin: 10/31/20 17:47 Dose: 30 ml Documented by: Propranolol HCl (Propranolol Hcl 10 Mg Tab) 10 mg PO BID [place] Stop: 11/27/20 21:59 Last Admin: 11/08/20 08:40 Dose: 10 mg Documented by: Risperidone (Risperidone 1 Mg Tablet) 1 mg PO Q6 PRN PRN Reason: Anxiety/Agitation Stop: 11/27/20 21:43 Last Admin: 10/29/20 05:15 Dose: 1 mg Documented by: Risperidone (Risperidone 2 Mg Tablet) 4 mg PO BID [place] Stop: 12/03/20 20:59 Last Admin: 11/08/20 08:40 Dose: 4 mg Documented by: Sodium Chloride (Sodium Chloride 0.65% Na Soln 45 Ml (Acme)) 1 - 2 sprays NA PRN PRN PRN Reason: Nasal Dryness/Congestion Stop: 11/27/20 21:52 Temazepam (Temazepam 15 Mg Capsule) 30 mg PO 2100 [place] Stop: 11/28/20 20:59 Last Admin: 11/07/20 20:51 Dose: 30 mg Documented by: Mental Health & Subst Abuse Tx Psychiatrist Name of Psychiatrist: [facility] - Dr. Locke Psychiatrist's Psychiatric Appointment Comment: [address] [facility], [address], [place] Therapist Name of Therapist: Dr. Swathi Owusu [facility]rapist[facility] Cylinder Devalver Name of Cylinder Devalver: None Post Discharge Appointments Primary Care Physician Name Of Family Doctor: EVA Mcdowell Primary Care Provider Appointment Comment: [address], [place] Smoking Cessation Counseling Tobacco Cessation Medication Prescribed at Discharge: Not Applicable/Non-Smoker Contact Information Discharge Discharge Address: [address] [place] [id number]
[2020-11-08] MEDS: TEMAZEPAM 15 MG CAPSULE PO SCH (20:42)
[2020-11-09] MEDS: PROPRANOLOL HCL 10 MG TAB PO SCH ×2 (08:48→20:03)
[2020-11-09] MEDS: LIOTHYRONINE SODIUM 25 MCG TAB PO SCH (08:48)
[2020-11-09] MEDS: DIVALPROEX DELAY RELEASE 500 MG TAB PO SCH ×2 (08:48→20:03)
[2020-11-09] MEDS: risperiDONE 2 MG TABLET PO SCH ×2 (08:49→20:03)
--- NOTE | 2020-11-09 16:09 | Psychiatric Progress Note ---
Date of Service November 09, 2020 Impression / Recommendations Impression 45-year-old female with bipolar 1 and history of medication noncompliance presenting in a manic state. Patient has been taking a very low dose of risperidone which is likely contributing to her symptoms. Compliance has been an issue with this patient as she will frequently refuse increases in her medication regimen. Patient will require inpatient hospitalization for safety, stabilization, medication management. (1) Bipolar 1 disorder: The patient was admitted to the [facility] ([facility] health unit) on every 15 minute checks (behavioral with suicide precautions for safety. The patient will participate in group, recreational, and milieu therapies and will be offered additional individual and family sessions as clinically appropriate. 1little to no progress, continue on current regimen, plan to draw Depakote level in 2 days time. 1continue with risperidone 8 mg p.o. twice daily, Depakote 500 mg p.o. twice daily. 11/07/2020isperidone now at 8 mg p.o. twice daily, Depakote 500mg BID added to regimen 11/06/2020atient with slight improvement. Is compliant with medication and in behavioral control. 11/04/2020atient continues to be psychotic and delusional. We will continue with risperidone 4 mg p.o. twice daily 11/03/2020atient was compliant with medications, will plan to increase to 4 mg twice daily starting tomorrow. 11/02/2020-- Patient noncompliant and refusing medications. Continues to to be psychotic and delusional. 11/01/2020atient continues to be compliant on risperidone and seems to be impro ving although mood remains labile with psychosis evident. We will plan to continue to uptitrate risperidone to max dose over the next two days 10/31/2020atient took 2 mg of risperidone this morning, will plan to increase to 3 mg to 4 tomorrow morning. Will increase nightly dose to 4 mg today. Also added Haldol and Ativan as needed agitation. 10/30/2020atient risperidone now up to 4 mg daily, patient remains psychotic and delusional, will plan to increase medication over the next coming days. 10/29/2020- patient formerly 1 mg twice daily of risperidone, will plan to increase this to 2 mg twice daily over the next 2 days. Inventory Assets Strengths: Intelligence Needs: Insight Risk Factors Assessment Male: No : Yes Do You Have Access To A Gun?: No Health Problems: No Mental Health Diagnoses: Yes Substance Use Disorders: No Previous Attempt: No Interval History Identifying Information 45-year-old woman who presented with acute manic episode in the context of known bipolar disorder. Chief Complaint "I need to leave and you need to hospitalize Gildardo Gifford". Review of Systems Sleep Information Total Hours of Sleep: 7.5 Sleep Comments: Pt awake once through night. She made delusional comments about mother then returned to bed. Meal Information Percent Meal Consumed - Breakfast: 100 Percent Meal Consumed - Lunch: 100 Percent Meal Consumed - Dinner: 100 Nutrition Comment: Sleeping Subjective Subjective Patient was seen & assessed and interval progress reviewed with treatment team nursing and social work Despite compliance with medication, maylin's condition continues as she still remains delusional and psychotic. Today patient showed a little bit of irritability as she stormed in and out of the office demanding her ex-boyfriend from high school be hospitalized but for no logical reason. Furthermore patient stated that she has not spoken to this person for years. Patient is still somewhat redirectable and pleasant when engaged in certain situations although he does become irritable when discussing discharge or medication changes. Patient appears to be eating well and sleeping well. I spent 30 minutes with the patient, 50% of which was dedicated to counselling and coordination of care. Physical Exam Psychiatric Orientation: alert and oriented x 3 Apperance: appropriately groomed Eye Contact: + poor eye contact Speech: normal rate/rhythm/volume of speech Affect: + anxious affect, + labile affect and + irritable affect Mood: + anxious mood and + irritable mood Thought Process: + tangential thought process, + flight of ideas, + looseness of associations and + perseveration Thought Content: + preoccupation, + paranoid, + delusions, + ideas of reference, + persecution and + self deprecation Suicidal Thoughts: denies suicidal thoughts Homicidal Thoughts: denies homicidal thoughts Hallucinations: no auditory hallucinations and no gustatory hallucinations Cognition: recent memory grossly intact Estimated Intelligence: consistent with education level Insight: + poor insight Judgement: + poor judgement Vital Signs (Past 24 Hours) Last Vital Signs Temp 36.5 C 11/09/20 06:44 Pulse 93 H 11/09/20 06:44 Resp 16 11/09/20 06:44 BP 114/79 11/09/20 06:44 Pulse Ox 97 10/28/20 22:19 Results & Data ([facility]) Current Inpatient Medications Current Inpatient Medications: Current Inpatient Medications Acetaminophen (Acetaminophen 325 Mg Tab) 650 mg PO Q4H PRN PRN Reason: Headache or Minor Fever Stop: 11/27/20 21:52 Al Hydrox/Mg Hydrox/Simethicone (Aluminum/Magnesium Susp 30 Ml Udc) 30 ml PO Q4H PRN PRN Reason: GI Upset Stop: 11/27/20 21:52 Bismuth Subsalicylate (Bismuth Subsalicylate Liqd 236 Ml) 15 ml PO PRN PRN PRN Reason: Loose Stool Stop: 11/27/20 21:52 Divalproex Sodium (Divalproex Delay Release 500 Mg Tab) 500 mg PO BID [place] Stop: 12/07/20 20:59 Last Admin: 11/09/20 08:48 Dose: 500 mg Documented by: Haloperidol Lactate (Haloperidol Lactate 5 Mg/Ml 1 Ml Vial) 5 mg IM Q6 PRN PRN Reason: Anxiety/Agitation Stop: 11/30/20 10:16 Hydroxyzine HCl (Hydroxyzine Hcl 25 Mg Tab) 50 mg PO HSZ PRN PRN Reason: Insomnia Stop: 11/27/20 21:52 Hydroxyzine HCl (Hydroxyzine Hcl 25 Mg Tab) 25 mg PO Q4H PRN PRN Reason: Anxiety Stop: 11/27/20 21:52 Liothyronine Sodium (Liothyronine Sodium 25 Mcg Tab) 50 mcg PO QAM [place] Stop: 11/28/20 08:59 Last Admin: 11/09/20 08:48 Dose: 50 mcg Documented by: Lorazepam (Lorazepam 1 Mg Tab) 2 mg PO Q6 PRN PRN Reason: Anxiety/Agitation Stop: 11/27/20 21:42 Last Admin: 11/06/20 19:34 Dose: 2 mg Documented by: Lorazepam (Lorazepam 2 Mg/Ml Vial (Im Use)) 2 mg IM Q6 PRN PRN Reason: Agitation Stop: 11/30/20 10:16 Magnesium Hydroxide (Magnesium Hydroxide Susp 30 Ml Udc) 30 ml PO DAILY PRN PRN Reason: Constipation Stop: 11/27/20 21:52 Last Admin: 10/31/20 17:47 Dose: 30 ml Documented by: Propranolol HCl (Propranolol Hcl 10 Mg Tab) 10 mg PO BID [place] Stop: 11/27/20 21:59 Last Admin: 11/09/20 08:48 Dose: 10 mg Documented by: Risperidone (Risperidone 1 Mg Tablet) 1 mg PO Q6 PRN PRN Reason: Anxiety/Agitation Stop: 11/27/20 21:43 Last Admin: 10/29/20 05:15 Dose: 1 mg Documented by: Risperidone (Risperidone 2 Mg Tablet) 4 mg PO BID [place] Stop: 12/03/20 20:59 Last Admin: 11/09/20 08:49 Dose: 4 mg Documented by: Sodium Chloride (Sodium Chloride 0.65% Na Soln 45 Ml ([place])) 1 - 2 sprays NA PRN PRN PRN Reason: Nasal Dryness/Congestion Stop: 11/27/20 21:52 Temazepam (Temazepam 15 Mg Capsule) 30 mg PO 2100 [place] Stop: 11/28/20 20:59 Last Admin: 11/08/20 20:42 Dose: 30 mg Documented by: Mental Health & Subst Abuse Tx Psychiatrist Name of Psychiatrist: [facility] - Dr. Locke Psychiatrist's [facility] [address] [place] Therapist Name of Therapist: Dr. Swathi Owusu Therapist's Therapy Appointment [facility]: [address] [facility] Mason Helper Name of Mason Helper: None Post Discharge Appointments Primary Care Physician Name Of Family Doctor: EVA Mcdowell Primary Care Provider Appointment Comment: [address], [place] Smoking Cessation Counseling Tobacco Cessation Medication Prescribed at Discharge: Not Applicable/Non-Smoker Contact Information Discharge Discharge Address: [address] [place] [id number]
[2020-11-09] MEDS: TEMAZEPAM 15 MG CAPSULE PO SCH (20:04)
[2020-11-10] MEDS: LIOTHYRONINE SODIUM 25 MCG TAB PO SCH (08:05)
[2020-11-10] MEDS: PROPRANOLOL HCL 10 MG TAB PO SCH ×2 (08:05→20:54)
[2020-11-10] MEDS: risperiDONE 2 MG TABLET PO SCH ×2 (08:06→20:54)
[2020-11-10] MEDS: DIVALPROEX DELAY RELEASE 500 MG TAB PO SCH ×2 (08:06→20:54)
[2020-11-10] MEDS: LORazepam 1 MG TAB PO PRN (10:13)
--- NOTE | 2020-11-10 10:15 | Psychiatric Progress Note ---
Date of Service November 10, 2020 Impression / Recommendations Impression 45-year-old female with bipolar 1 and history of medication noncompliance presenting in a manic state. Patient has been taking a very low dose of risperidone which is likely contributing to her symptoms. Compliance has been an issue with this patient as she will frequently refuse increases in her medication regimen. Patient will require inpatient hospitalization for safety, stabilization, medication management. (1) Bipolar 1 disorder: The patient was admitted to the [facility] ([facility] health unit) on every 15 minute checks (behavioral with suicide precautions for safety. The patient will participate in group, recreational, and milieu therapies and will be offered additional individual and family sessions as clinically appropriate. 11/10/2020--Patient with no improvement. Plan to draw labs tomorrow. regimen remains at risperidone 4mg BID, Depakote 500mg BID. PRN Ativan and Haldol Available 1little to no progress, continue on current regimen, plan to draw Depakote level in 2 days time. 1continue with risperidone 4 mg p.o. twice daily, Depakote 500 mg p.o. twice daily. 11/07/2020isperidone now at 4 mg p.o. twice daily, Depakote 500mg BID added to regimen 11/06/2020atient with slight improvement. Is compliant with medication and in behavioral control. 11/04/2020atient continues to be psychotic and delusional. We will continue with risperidone 4 mg p.o. twice daily 11/03/2020atient was compliant with medications, will plan to increase to 4 mg twice daily starting tomorrow. 11/02/2020-- Patient noncompliant and refusing medications. Continues to to be psychotic and delusional. 11/01/2020atient continues to be compliant on risperidone and seems to be improving although mood remains labile with psychosis evident. We will plan to continue to uptitrate risperidone to max dose over the next two days 10/31/2020atient took 2 mg of risperidone this morning, will plan to increase to 3 mg to 4 tomorrow morning. Will increase nightly dose to 4 mg today. Also added Haldol and Ativan as needed agitation. 10/30/2020atient risperidone now up to 4 mg daily, patient remains psychotic and delusional, will plan to increase medication over the next coming days. 10/29/2020- patient formerly 1 mg twice daily of risperidone, will plan to increase this to 2 mg twice daily over the next 2 days. Inventory Assets Strengths: Intelligence Needs: Insight Risk Factors Assessment Male: No : Yes Do You Have Access To A Gun?: No Health Problems: No Mental Health Diagnoses: Yes Substance Use Disorders: No Previous Attempt: No Interval History Identifying Information 45-year-old woman who presented with acute manic episode in the context of known bipolar disorder. Chief Complaint "Your fired, you put me on depakote and I hate you". Review of Systems Sleep Information Total Hours of Sleep: 8.25 Sleep Comments: Pt awake once through night. She made delusional comments about mother then returned to bed. Meal Information Percent Meal Consumed - Breakfast: 100 Percent Meal Consumed - Lunch: 100 Percent Meal Consumed - Dinner: 100 Nutrition Comment: Sleeping Subjective Subjective Patient was seen & assessed and interval progress reviewed with treatment team nursing and social work Patient is reported to be sleeping and eating well. No side effects of medication observed or reported. Patient is more irritable and aggressive today, yelling at both marketing copywriter as well as counselor. Accosted marketing copywriter for placing her on Depakote and " drugging her". Patient is displaying extreme mood swings with psychotic like behavior. Is complaint with medication but requires much encouragement. At times patient is seen laughing inappropriately. She was offered PRN ativan which she took willingly. I spent 30 minutes with the patient, 50% of which was dedicated to counselling and coordination of care. Physical Exam Psychiatric Orientation: alert and oriented x 3 Apperance: appropriately groomed Eye Contact: + poor eye contact Speech: normal rate/rhythm/volume of speech Affect: + anxious affect, + labile affect and + irritable affect Mood: + anxious mood and + irritable mood Thought Process: + tangential thought process, + flight of ideas, + looseness of associations and + perseveration Thought Content: + preoccupation, + paranoid, + delusions, + ideas of reference, + persecution and + self deprecation Suicidal Thoughts: denies suicidal thoughts Homicidal Thoughts: denies homicidal thoughts Hallucinations: no auditory hallucinations and no gustatory hallucinations Cognition: recent memory grossly intact Estimated Intelligence: consistent with education level Insight: + poor insight Judgement: + poor judgement Vital Signs (Past 24 Hours) Last Vital Signs Temp 36.5 C 11/10/20 06:36 Pulse 75 11/10/20 06:37 Resp 16 11/10/20 06:36 BP 133/93 11/10/20 06:37 Pulse Ox 97 10/28/20 22:19 Results & Data ([facility]) Current Inpatient Medications Current Inpatient Medications: Current Inpatient Medications Acetaminophen (Acetaminophen 325 Mg Tab) 650 mg PO Q4H PRN PRN Reason: Headache or Minor Fever Stop: 11/27/20 21:52 Al Hydrox/Mg Hydrox/Simethicone (Aluminum/Magnesium Susp 30 Ml Udc) 30 ml PO Q4H PRN PRN Reason: GI Upset Stop: 11/27/20 21:52 Bismuth Subsalicylate (Bismuth Subsalicylate Liqd 236 Ml) 15 ml PO PRN PRN PRN Reason: Loose Stool Stop: 11/27/20 21:52 Divalproex Sodium (Divalproex Delay Release 500 Mg Tab) 500 mg PO BID [place] Stop: 12/07/20 20:59 Last Admin: 11/10/20 08:06 Dose: 500 mg Documented by: Haloperidol Lactate (Haloperidol Lactate 5 Mg/Ml 1 Ml Vial) 5 mg IM Q6 PRN PRN Reason: Anxiety/Agitation Stop: 11/30/20 10:16 Hydroxyzine HCl (Hydroxyzine Hcl 25 Mg Tab) 50 mg PO HSZ PRN PRN Reason: Insomnia Stop: 11/27/20 21:52 Hydroxyzine HCl (Hydroxyzine Hcl 25 Mg Tab) 25 mg PO Q4H PRN PRN Reason: Anxiety Stop: 11/27/20 21:52 Liothyronine Sodium (Liothyronine Sodium 25 Mcg Tab) 50 mcg PO QAM [place] Stop: 11/28/20 08:59 Last Admin: 11/10/20 08:05 Dose: 50 mcg Documented by: Lorazepam (Lorazepam 1 Mg Tab) 2 mg PO Q6 PRN PRN Reason: Anxiety/Agitation Stop: 11/27/20 21:42 Last Admin: 11/06/20 19:34 Dose: 2 mg Documented by: Lorazepam (Lorazepam 2 Mg/Ml Vial (Im Use)) 2 mg IM Q6 PRN PRN Reason: Agitation Stop: 11/30/20 10:16 Magnesium Hydroxide (Magnesium Hydroxide Susp 30 Ml Udc) 30 ml PO DAILY PRN PRN Reason: Constipation Stop: 11/27/20 21:52 Last Admin: 10/31/20 17:47 Dose: 30 ml Documented by: Propranolol HCl (Propranolol Hcl 10 Mg Tab) 10 mg PO BID [place] Stop: 11/27/20 21:59 Last Admin: 11/10/20 08:05 Dose: 10 mg Documented by: Risperidone (Risperidone 1 Mg Tablet) 1 mg PO Q6 PRN PRN Reason: Anxiety/Agitation Stop: 11/27/20 21:43 Last Admin: 10/29/20 05:15 Dose: 1 mg Documented by: Risperidone (Risperidone 2 Mg Tablet) 4 mg PO BID [place] Stop: 12/03/20 20:59 Last Admin: 11/10/20 08:06 Dose: 4 mg Documented by: Sodium Chloride (Sodium Chloride 0.65% Na Soln 45 Ml ([place])) 1 - 2 sprays NA PRN PRN PRN Reason: Nasal Dryness/Congestion Stop: 11/27/20 21:52 Temazepam (Temazepam 15 Mg Capsule) 30 mg PO 2100 [place] Stop: 11/28/20 20:59 Last Admin: 11/09/20 20:04 Dose: 30 mg Documented by: Mental Health & Subst Abuse Tx Psychiatrist Name of Psychiatrist: [facility] - Dr. Locke Psychiatrist's Psychiatric Appointment Comment: [address] Therapist Name of Therapist: Dr. Swathi Owusu [facility]rapist[facility] Name of Nuclear Medicine Tech: None Post Discharge Appointments Primary Care Physician Name Of Family Doctor: EVA Mcdowell Primary Care Provider Appointment Comment: [address], [facility] [place], [place] Smoking Cessation Counseling Tobacco Cessation Medication Prescribed at Discharge: Not Applicable/Non-Smoker Contact Information Discharge Discharge Address: [address] [place] [address]
[2020-11-10] MEDS ORDERED: haloperidoL 5 MG TAB PO PRN (10:17)
[2020-11-10] MEDS: TEMAZEPAM 15 MG CAPSULE PO SCH (20:54)
[2020-11-11 09:08] LABS: Basophils # (auto) 0.01 K/uL (0-0.2); Basophils % (auto) 0.2 %; Eosinophils # (auto) 0.18 K/uL (0-0.5); Eosinophils % (auto) 3.4 %; Hematocrit (blood only) 41.9 % (37-47); Hemoglobin 14.1 g/dL (12.0-16.0); Immature Granulocytes # (auto) 0.01 K/uL (0.00-0.02); Immature Granulocytes % (auto) 0.2 %; Lymphocytes # (auto) 1.56 K/uL (1.2-3.4); Lymphocytes % (auto) 29.3 %; Mean Corpuscular Hemoglobin 30.9 pg (25-34); Mean Corpuscular Hgb Conc 33.7 g/dL (32-36); Mean Corpuscular Volume 91.7 fL (80-100); Mean Platelet Volume 9.5 fL (7.4-10.4); Monocytes # (auto) 0.39 K/uL (0.11-0.59); Monocytes % (auto) 7.3 %; Neutrophils # (auto) 3.17 K/uL (1.4-6.5); Neutrophils % (auto) 59.6 %; Platelet Count 279 K/uL (130-400); RDW Coefficient of Variation 13.8 % (11.5-14.5); RDW Standard Deviation 46.1 fL (36.4-46.3); Red Blood Count 4.57 M/uL (4.2-5.4); White Blood Count 5.32 K/uL (4.8-10.8)
[2020-11-11 09:36] LABS: Alanine Aminotransferase 28 U/L (12-78); Albumin Level 3.1 gm/dl (3.4-5.0); Aspartate Aminotransferase 15 U/L (15-37); BUN Creatinine Ratio 34.7 (10-20); Bilirubin Direct < 0.1 mg/dl (0-0.2); Blood Urea Nitrogen 15 mg/dl (7-18); Calcium 8.5 mg/dl (8.5-10.1); Carbon Dioxide 23 mmol/L (21-32); Chloride 109 mmol/L (98-107); Creatinine Clr Calc Pharmacy 166.5 ml/min; Est GFR (African American) 142.5 ml/min; Est GFR (Non-African American) 122.9 ml/min; Glucose 79 mg/dl (70-99); Potassium 3.9 mmol/L (3.5-5.1); Sodium 139 mmol/L (136-145)
[2020-11-11 09:47] LABS: Albumin Globulin Ratio 0.9 (0.9-2); Alkaline Phosphatase 66 U/L (45-117); Bilirubin,Total 0.6 mg/dl (0.2-1); Globulin 3.6 gm/dl (2.5-4.0); Thyroid Stimulating Hormone 0.029 uIu/ml (0.300-4.500); Total Protein 6.7 gm/dl (6.4-8.2)
[2020-11-11] MEDS: LIOTHYRONINE SODIUM 25 MCG TAB PO SCH (09:52)
[2020-11-11] MEDS: DIVALPROEX DELAY RELEASE 500 MG TAB PO SCH ×2 (09:52→21:27)
[2020-11-11] MEDS: risperiDONE 2 MG TABLET PO SCH (09:52)
[2020-11-11] MEDS: PROPRANOLOL HCL 10 MG TAB PO SCH ×2 (09:52→21:28)
[2020-11-11 10:02] LABS: T4 Free Thyroxine 0.19 ng/dl (0.8-1.6)
[2020-11-11 10:04] LABS: Prolactin 112.24 ng/ml; T3 Free 2.75 pg/ml (2.3-4.2)
--- NOTE | 2020-11-11 14:55 | Psychiatric Progress Note ---
Date of Service November 11, 2020 Impression / Recommendations Impression 45-year-old female with bipolar 1 and history of medication noncompliance presenting in a manic state. Patient has been taking a very low dose of risperidone which is likely contributing to her symptoms. Compliance has been an issue with this patient as she will frequently refuse increases in her medication regimen. Patient will require inpatient hospitalization for safety, stabilization, medication management. (1) Bipolar 1 disorder: The patient was admitted to the [facility] ([facility] health unit) on every 15 minute checks (behavioral with suicide precautions for safety. The patient will participate in group, recreational, and milieu therapies and will be offered additional individual and family sessions as clinically appropriate. 11/11/2020atient's Depakote level at 77. Patient does have some prolactinemia that is asymptomatic at this time. Will lower risperidone dose to 3 mg twice daily and continue to monitor. Patient's mood is somewhat improved although she still remains labile. 11/10/2020--Patient with no improvement. Plan to draw labs tomorrow. regimen remains at risperidone 4mg BID, Depakote 500mg BID. PRN Ativan and Haldol Available 1little to no progress, continue on current regimen, plan to draw Depakote level in 2 days time. 1continue with risperidone 4 mg p.o. twice daily, Depakote 500 mg p.o. twice daily. 1risperidone now at 4 mg p.o. twice daily, Depakote 500mg BID added to regimen 11/06/2020atient with slight improvement. Is compliant with medication and in behavioral control. 11/04/2020atient continues to be psychotic and delusional. We will continue with risperidone 4 mg p.o. twice daily 11/03/2020atient was compliant with medications, will plan to increase to 4 mg twice daily starting tomorrow. 11/02/2020-- Patient noncompliant and refusing medications. Continues to to be psychotic and delusional. 11/01/2020atient continues to be compliant on risperidone and seems to be improving although mood remains labile with psychosis evident. We will plan to continue to uptitrate risperidone to max dose over the next two days 10/31/2020atient took 2 mg of risperidone this morning, will plan to increase to 3 mg to 4 tomorrow morning. Will increase nightly dose to 4 mg today. Also added Haldol and Ativan as needed agitation. 10/30/2020atient risperidone now up to 4 mg daily, patient remains psychotic and delusional, will plan to increase medication over the next coming days. 10/29/2020- patient formerly 1 mg twice daily of risperidone, will plan to increase this to 2 mg twice daily over the next 2 days. Inventory Assets Strengths: Intelligence Needs: Insight Risk Factors Assessment Male: No : Yes Do You Have Access To A Gun?: No Health Problems: No Mental Health Diagnoses: Yes Substance Use Disorders: No Previous Attempt: No Interval History Identifying Information 45-year-old woman who presented with acute manic episode in the context of known bipolar disorder. Chief Complaint "I am still getting another psychiatrist". Review of Systems Sleep Information Total Hours of Sleep: 7.75 Sleep Comments: Pt awake once through night. She made delusional comments about mother then returned to bed. Meal Information Percent Meal Consumed - Breakfast: 100 Percent Meal Consumed - Lunch: 100 Percent Meal Consumed - Dinner: 100 Nutrition Comment: Sleeping Subjective Subjective Patient was seen & assessed and interval progress reviewed with treatment team nursing and social work. Patient is seen eating and sleeping well. Patient is subjectively reporting a better mood. She is compliant with med ications. She has had less help episodes of outbursts and aggression yesterday and today. Laboratory results reveal that she is therapeutic with Depakote at a level of 77. Her prolactin level was elevated however patient is denying any symptoms of prolactinemia. Agreeable to lower risperidone dose and continue to monitor prolactin level. The idea of Abilify augmentation was brought up with the patient to which she is not open to at this time. Court paperwork was filled out today to extend treatment as well as gather resources for transition to outpatient. I spent 30 minutes with the patient, 50% of which was dedicated to counselling and coordination of care. Physical Exam Psychiatric Orientation: alert and oriented x 3 Apperance: appropriately groomed Eye Contact: + poor eye contact Speech: normal rate/rhythm/volume of speech Affect: + anxious affect, + labile affect and + irritable affect Mood: + anxious mood and + irritable mood Thought Process: + tangential thought process, + flight of ideas, + looseness of associations and + perseveration Thought Content: + preoccupation, + paranoid, + delusions, + ideas of reference, + persecution and + self deprecation Suicidal Thoughts: denies suicidal thoughts Homicidal Thoughts: denies homicidal thoughts Hallucinations: no auditory hallucinations and no gustatory hallucinations Cognition: recent memory grossly intact Estimated Intelligence: consistent with education level Insight: + poor insight Judgement: + poor judgement Vital Signs (Past 24 Hours) Last Vital Signs Temp 36.8 C 11/11/20 06:37 Pulse 80 11/11/20 06:37 Resp 16 11/11/20 06:37 BP 145/94 H 11/11/20 06:37 Pulse Ox 97 10/28/20 22:19 Results & Data ([facility]) Laboratory Results Laboratory Results - last 24 hr 11/11/20 11/11/20 11/11/20 08:08 08:08 08:08 WBC 5.32 RBC 4.57 Hgb 14.1 Hct 41.9 MCV 91.7 MCH 30.9 MCHC 33.7 RDW Std Deviation 46.1 RDW Coeff of Snow 13.8 Plt Count 279 MPV 9.5 Immature Gran % (Auto) 0.2 Neut % (Auto) 59.6 Lymph % (Auto) 29.3 [place] % (Auto) 7.3 Eos % (Auto) 3.4 Baso % (Auto) 0.2 Neut # (Auto) 3.17 Lymph # (Auto) 1.56 [place] # (Auto) 0.39 Eos # (Auto) 0.18 Baso # (Auto) 0.01 Immature Gran # (Auto) 0.01 Sodium 139 Potassium 3.9 Chloride 109 H Carbon Dioxide 23 Anion Gap 7.0 BUN 15 Creatinine 0.42 L Est Cr Clr Drug Dosing 166.5 Est GFR ( Amer) 142.5 Est GFR (Non-Af Amer) 122.9 BUN/Creatinine Ratio 34.7 H Glucose 79 Calcium 8.5 Total Bilirubin 0.6 Direct Bilirubin < 0.1 AST 15 ALT 28 Alkaline Phosphatase 66 Total Protein 6.7 Albumin 3.1 L Globulin 3.6 Albumin/Globulin Ratio 0.9 TSH 0.029 L Free T4 0.19 L Free T3 2.75 Total T3 Prolactin 112.24 Valproic Acid 11/11/20 11/11/20 08:08 08:08 WBC RBC Hgb Hct MCV MCH MCHC RDW Std Deviation RDW Coeff of [place] Plt Count MPV Immature Gran % (Auto) Neut % (Auto) Lymph % (Auto) [place] % (Auto) Eos % (Auto) Baso % (Auto) Neut # (Auto) Lymph # (Auto) [place] # (Auto) Eos # (Auto) Baso # (Auto) Immature Gran # (Auto) Sodium Potassium Chloride Carbon Dioxide Anion Gap BUN Creatinine Est Cr Clr Drug Dosing Est GFR ( Amer) Est GFR (Non-Af Amer) BUN/Creatinine Ratio Glucose Calcium Total Bilirubin Direct Bilirubin AST ALT Alkaline Phosphatase Total Protein Albumin Globulin Albumin/Globulin Ratio TSH Free T4 Free T3 Total T3 Pending Prolactin Valproic Acid 73 Current Inpatient Medications Current Inpatient Medications: Current Inpatient Medications Acetaminophen (Acetaminophen 325 Mg Tab) 650 mg PO Q4H PRN PRN Reason: Headache or Minor Fever Stop: 11/27/20 21:52 Al Hydrox/Mg Hydrox/Simethicone (Aluminum/Magnesium Susp 30 Ml Udc) 30 ml PO Q4H PRN PRN Reason: GI Upset Stop: 11/27/20 21:52 Bismuth Subsalicylate (Bismuth Subsalicylate Liqd 236 Ml) 15 ml PO PRN PRN PRN Reason: Loose Stool Stop: 11/27/20 21:52 Divalproex Sodium (Divalproex Delay Release 500 Mg Tab) 500 mg PO BID [place] Stop: 12/07/20 20:59 Last Admin: 11/11/20 09:52 Dose: 500 mg Documented by: Haloperidol (Haloperidol 5 Mg Tab) 5 mg PO Q6 PRN PRN Reason: Agitation Stop: 12/10/20 10:16 Haloperidol Lactate (Haloperidol Lactate 5 Mg/Ml 1 Ml Vial) 5 mg IM Q6 PRN PRN Reason: Anxiety/Agitation Stop: 11/30/20 10:16 Hydroxyzine HCl (Hydroxyzine Hcl 25 Mg Tab) 50 mg PO HSZ PRN PRN Reason: Insomnia Stop: 11/27/20 21:52 Hydroxyzine HCl (Hydroxyzine Hcl 25 Mg Tab) 25 mg PO Q4H PRN PRN Reason: Anxiety Stop: 11/27/20 21:52 Liothyronine Sodium (Liothyronine Sodium 25 Mcg Tab) 50 mcg PO QAM [place] Stop: 11/28/20 08:59 Last Admin: 11/11/20 09:52 Dose: 50 mcg Documented by: Lorazepam (Lorazepam 1 Mg Tab) 2 mg PO Q6 PRN PRN Reason: Anxiety/Agitation Stop: 11/27/20 21:42 Last Admin: 11/10/20 10:13 Dose: 2 mg Documented by: Lorazepam (Lorazepam 2 Mg/Ml Vial (Im Use)) 2 mg IM Q6 PRN PRN Reason: Agitation Stop: 11/30/20 10:16 Magnesium Hydroxide (Magnesium Hydroxide Susp 30 Ml Udc) 30 ml PO DAILY PRN PRN Reason: Constipation Stop: 11/27/20 21:52 Last Admin: 10/31/20 17:47 Dose: 30 ml Documented by: Propranolol HCl (Propranolol Hcl 10 Mg Tab) 10 mg PO BID [place] Stop: 11/27/20 21:59 Last Admin: 11/11/20 09:52 Dose: 10 mg Documented by: Risperidone (Risperidone 2 Mg Tablet) 4 mg PO BID [place] Stop: 12/03/20 20:59 Last Admin: 11/11/20 09:52 Dose: 4 mg Documented by: Sodium Chloride (Sodium Chloride 0.65% Na Soln 45 Ml ([place])) 1 - 2 sprays NA PRN PRN PRN Reason: Nasal Dryness/Congestion Stop: 11/27/20 21:52 Temazepam (Temazepam 15 Mg Capsule) 30 mg PO 2100 [place] Stop: 11/28/20 20:59 Last Admin: 11/10/20 20:54 Dose: 30 mg Documented by: Mental Health & Subst Abuse Tx Psychiatrist Name of Psychiatrist: [facility] [address] - Dr. Locke Psychiatrist's Psychiatric Appointment Comment: [address] [facility], [place] Therapist Name of Therapist: Dr. Swathi Owusu Therapist's Therapy [facility]ment [facility] Shell Reprint Operator Name of Shell Reprint Operator: None Post Discharge Appointments Primary Care Physician Name Of Family Doctor: ORQUIDEA Mcdowell Primary Care Provider Appointment Comment: [address], [place] Smoking Cessation Counseling Tobacco Cessation Medication Prescribed at Discharge: Not Applicable/Non-Smoker Contact Information Discharge Discharge Address: [address] [place] [address], [facility] [id number]
[2020-11-11] MEDS: TEMAZEPAM 15 MG CAPSULE PO SCH (21:26)
[2020-11-11] MEDS: risperiDONE 3 MG TABLET PO SCH (21:27)
[2020-11-12] MEDS: DIVALPROEX DELAY RELEASE 500 MG TAB PO SCH ×2 (09:12→20:34)
[2020-11-12] MEDS: LIOTHYRONINE SODIUM 25 MCG TAB PO SCH (09:12)
[2020-11-12] MEDS: PROPRANOLOL HCL 10 MG TAB PO SCH ×2 (09:12→20:35)
[2020-11-12] MEDS: risperiDONE 3 MG TABLET PO SCH ×2 (09:12→20:35)
--- NOTE | 2020-11-12 13:40 | Psychiatric Progress Note ---
Date of Service November 12, 2020 Impression / Recommendations Impression 45-year-old female with bipolar 1 and history of medication noncompliance presenting in a manic state. Patient has been taking a very low dose of risperidone which is likely contributing to her symptoms. Compliance has been an issue with this patient as she will frequently refuse increases in her medication regimen. Patient will require inpatient hospitalization for safety, stabilization, medication management. (1) Bipolar 1 disorder: The patient was admitted to the [facility] ([facility] health unit) on every 15 minute checks (behavioral with suicide precautions for safety. The patient will participate in group, recreational, and milieu therapies and will be offered additional individual and family sessions as clinically appropriate. 11/11/2020atient's Depakote level at 77. Patient does have some prolactinemia that is asymptomatic at this time. Will lower risperidone dose to 3 mg twice daily and continue to monitor. Patient's mood is somewhat improved although she still remains labile. 11/10/2020--Patient with no improvement. Plan to draw labs tomorrow. regimen remains at risperidone 4mg BID, Depakote 500mg BID. PRN Ativan and Haldol Available 1little to no progress, continue on current regimen, plan to draw Depakote level in 2 days time. 11/08/2020ontinue with risperidone 4 mg p.o. twice daily, Depakote 500 mg p.o. twice daily. 1risperidone now at 4 mg p.o. twice daily, Depakote 500mg BID added to regimen 11/06/2020atient with slight improvement. Is compliant with medication and in behavioral control. 11/04/2020atient continues to be psychotic and delusional. We will continue with risperidone 4 mg p.o. twice daily 11/03/2020atient was compliant with medications, will plan to increase to 4 mg twice daily starting tomorrow. 11/02/2020-- Patient noncompliant and refusing medications. Continues to to be psychotic and delusional. 11/01/2020atient continues to be compliant on risperidone and seems to be improving although mood remains labile with psychosis evident. We will plan to continue to uptitrate risperidone to max dose over the next two days 10/31/2020atient took 2 mg of risperidone this morning, will plan to increase to 3 mg to 4 tomorrow morning. Will increase nightly dose to 4 mg today. Also added Haldol and Ativan as needed agitation. 10/30/2020atient risperidone now up to 4 mg daily, patient remains psychotic and delusional, will plan to increase medication over the next coming days. 10/29/2020- patient formerly 1 mg twice daily of risperidone, will plan to increase this to 2 mg twice daily over the next 2 days. Inventory Assets Strengths: Intelligence Needs: Insight Risk Factors Assessment Male: No : Yes Do You Have Access To A Gun?: No Health Problems: No Mental Health Diagnoses: Yes Substance Use Disorders: No Previous Attempt: No Interval History Identifying Information 45-year-old woman who presented with acute manic episode in the context of known bipolar disorder. Chief Complaint "I am fine thank you". Review of Systems Sleep Information Total Hours of Sleep: 8 Sleep Comments: Pt awake once through night. She made delusional comments about mother then returned to bed. Meal Information Percent Meal Consumed - Breakfast: 100 Percent Meal Consumed - Lunch: 100 Percent Meal Consumed - Dinner: 100 Nutrition Comment: Sleeping Subjective Subjective Patient was seen & assessed and interval progress reviewed with treatment team nursing and social work Patient was seen spending most of her time in her room. At times patient is seen smiling for no apparent reason but continues to deny any hallucinations. Her mood is still somewhat labile although less outbursts recently. Patient is still quite dismissive when discussing potential medication options. Still not agreeable to the idea of Abilify augmentation. She is sleeping okay with the use of temazepam as well as eating fine. Attends some groups. I spent 30 minutes with the patient, 50% of which was dedicated to counselling and coordination of care. Physical Exam Psychiatric Orientation: alert and oriented x 3 Apperance: appropriately groomed Eye Contact: + poor eye contact Speech: normal rate/rhythm/volume of speech Affect: + anxious affect, + labile affect and + irritable affect Mood: + anxious mood and + irritable mood Thought Process: + tangential thought process, + flight of ideas, + looseness of associations and + perseveration Thought Content: + preoccupation, + paranoid, + delusions, + ideas of reference, + persecution and + self deprecation Suicidal Thoughts: denies suicidal thoughts Homicidal Thoughts: denies homicidal thoughts Hallucinations: no auditory hallucinations and no gustatory hallucinations Cognition: recent memory grossly intact Estimated Intelligence: consistent with education level Insight: + poor insight Judgement: + poor judgement Vital Signs (Past 24 Hours) Last Vital Signs Temp 36.8 C 11/12/20 07:00 Pulse 94 H 11/12/20 07:01 Resp 14 11/12/20 07:00 BP 107/75 11/12/20 07:01 Pulse Ox 97 10/28/20 22:19 Results & Data ([facility]) Laboratory Results Laboratory Results - last 24 hr 11/11/20 08:08 Total T3 94 Current Inpatient Medications Current Inpatient Medications: Current Inpatient Medications Acetaminophen (Acetaminophen 325 Mg Tab) 650 mg PO Q4H PRN PRN Reason: Headache or Minor Fever Stop: 11/27/20 21:52 Al Hydrox/Mg Hydrox/Simethicone (Aluminum/Magnesium Susp 30 Ml Udc) 30 ml PO Q4H PRN PRN Reason: GI Upset Stop: 11/27/20 21:52 Bismuth Subsalicylate (Bismuth Subsalicylate Liqd 236 Ml) 15 ml PO PRN PRN PRN Reason: Loose Stool Stop: 11/27/20 21:52 Divalproex Sodium (Divalproex Delay Release 500 Mg Tab) 500 mg PO BID [place] Stop: 12/07/20 20:59 Last Admin: 11/12/20 09:12 Dose: 500 mg Documented by: Haloperidol (Haloperidol 5 Mg Tab) 5 mg PO Q6 PRN PRN Reason: Agitation Stop: 12/10/20 10:16 Haloperidol Lactate (Haloperidol Lactate 5 Mg/Ml 1 Ml Vial) 5 mg IM Q6 PRN PRN Reason: Anxiety/Agitation Stop: 11/30/20 10:16 Hydroxyzine HCl (Hydroxyzine Hcl 25 Mg Tab) 50 mg PO HSZ PRN PRN Reason: Insomnia Stop: 11/27/20 21:52 Hydroxyzine HCl (Hydroxyzine Hcl 25 Mg Tab) 25 mg PO Q4H PRN PRN Reason: Anxiety Stop: 11/27/20 21:52 Liothyronine Sodium (Liothyronine Sodium 25 Mcg Tab) 50 mcg PO QAM [place] Stop: 11/28/20 08:59 Last Admin: 11/12/20 09:12 Dose: 50 mcg Documented by: Lorazepam (Lorazepam 1 Mg Tab) 2 mg PO Q6 PRN PRN Reason: Anxiety/Agitation Stop: 11/27/20 21:42 Last Admin: 11/10/20 10:13 Dose: 2 mg Documented by: Lorazepam (Lorazepam 2 Mg/Ml Vial (Im Use)) 2 mg IM Q6 PRN PRN Reason: Agitation Stop: 11/30/20 10:16 Magnesium Hydroxide (Magnesium Hydroxide Susp 30 Ml Udc) 30 ml PO DAILY PRN PRN Reason: Constipation Stop: 11/27/20 21:52 Last Admin: 10/31/20 17:47 Dose: 30 ml Documented by: Propranolol HCl (Propranolol Hcl 10 Mg Tab) 10 mg PO BID [place] Stop: 11/27/20 21:59 Last Admin: 11/12/20 09:12 Dose: 10 mg Documented by: Risperidone (Risperidone 3 Mg Tablet) 3 mg PO BID [place] Stop: 12/11/20 20:59 Last Admin: 11/12/20 09:12 Dose: 3 mg Documented by: Sodium Chloride (Sodium Chloride 0.65% Na Soln 45 Ml ([place])) 1 - 2 sprays NA PRN PRN PRN Reason: Nasal Dryness/Congestion Stop: 11/27/20 21:52 Temazepam (Temazepam 15 Mg Capsule) 30 mg PO 2100 [place] Stop: 11/28/20 20:59 Last Admin: 11/11/20 21:26 Dose: 30 mg Documented by: Mental Health & Subst Abuse Tx Psychiatrist Name of Psychiatrist: [facility] - Dr. Locke Psychiatrist's Psychiatric Appointment Comment: [address] [facility], [address], [place] Therapist Name of Therapist: Dr. Swathi Owusu Therapist's Therapy Appointment Comment: [address] [facility] Technical Business Systems Analyst Name of Technical Business Systems Analyst: None Post Discharge Appointments Primary Care Physician Name Of Family Doctor: ORQUIDEA Mcdowell Primary Care Provider Appointment Comment: [address], [address], [place] Smoking Cessation Counseling Tobacco Cessation Medication Prescribed at Discharge: Not Applicable/Non-Smoker Contact Information Discharge Discharge Address: [address] [place], [place] [id number]
[2020-11-12] MEDS: TEMAZEPAM 15 MG CAPSULE PO SCH (20:35)
[2020-11-13] MEDS: DIVALPROEX DELAY RELEASE 500 MG TAB PO SCH ×2 (09:12→21:05)
[2020-11-13] MEDS: LIOTHYRONINE SODIUM 25 MCG TAB PO SCH (09:12)
[2020-11-13] MEDS: PROPRANOLOL HCL 10 MG TAB PO SCH ×2 (09:13→21:05)
[2020-11-13] MEDS: risperiDONE 3 MG TABLET PO SCH ×2 (09:13→21:05)
[2020-11-13] MEDS: ARIPiprazole 5 MG TAB PO SCH ×2 (09:17→21:04)
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
[2020-11-13] MEDS: TEMAZEPAM 15 MG CAPSULE PO SCH (21:05)
[2020-11-14] MEDS: risperiDONE 3 MG TABLET PO SCH ×2 (08:32→21:19)
[2020-11-14] MEDS: LIOTHYRONINE SODIUM 25 MCG TAB PO SCH (08:32)
[2020-11-14] MEDS: PROPRANOLOL HCL 10 MG TAB PO SCH ×2 (08:32→21:19)
[2020-11-14] MEDS: DIVALPROEX DELAY RELEASE 500 MG TAB PO SCH ×2 (08:32→21:18)
[2020-11-14] MEDS: ARIPiprazole 5 MG TAB PO SCH ×2 (08:35→21:25)
--- NOTE | 2020-11-14 11:04 | Psychiatric Progress Note ---
Date of Service November 14, 2020 Impression / Recommendations Impression 45-year-old female with bipolar 1 and history of medication noncompliance presenting in a manic state. Patient has been taking a very low dose of risperidone which is likely contributing to her symptoms. Compliance has been an issue with this patient as she will frequently refuse increases in her medication regimen. Patient will require inpatient hospitalization for safety, stabilization, medication management. (1) Bipolar 1 disorder: The patient was admitted to the [facility] ([facility]) on every 15 minute checks (behavioral with suicide precautions for safety. The patient will participate in group, recreational, and milieu therapies and will be offered additional individual and family sessions as clinically appropriate. 11/14/2020atient continues to display mood lability and psychotic behaviors although making incremental progress. 11/11/2020atient's Depakote level at 77. Patient does have some prolactinemia that is asymptomatic at this time. Will lower risperidone dose to 3 mg twice daily and continue to monitor. Patient's mood is somewhat improved although she still remains labile. 11/10/2020--Patient with no improvement. Plan to draw labs tomorrow. regimen remains at risperidone 4mg BID, Depakote 500mg BID. PRN Ativan and Haldol Available 1little to no progress, continue on current regimen, plan to draw Depakote level in 2 days time. 1continue with risperidone 4 mg p.o. twice daily, Depakote 500 mg p.o. twice daily. 11/07/2020isperidone now at 4 mg p.o. twice daily, Depakote 500mg BID added to regimen 11/06/2020atient with slight improvement. Is compliant with medication and in behavioral control. 11/04/2020atient continues to be psychotic and delusional. We will continue with risperidone 4 mg p.o. twice daily 11/03/2020atient was compliant with medications, will plan to increase to 4 mg twice daily starting tomorrow. 11/02/2020-- Patient noncompliant and refusing medications. Continues to to be psychotic and delusional. 11/01/2020atient continues to be compliant on risperidone and seems to be improving although mood remains labile with psychosis evident. We will plan to continue to uptitrate risperidone to max dose over the next two days 10/31/2020atient took 2 mg of risperidone this morning, will plan to increase to 3 mg to 4 tomorrow morning. Will increase nightly dose to 4 mg today. Also added Haldol and Ativan as needed agitation. 10/30/2020atient risperidone now up to 4 mg daily, patient remains psychotic and delusional, will plan to increase medication over the next coming days. 10/29/2020- patient formerly 1 mg twice daily of risperidone, will plan to increase this to 2 mg twice daily over the next 2 days. Inventory Assets Strengths: Intelligence Needs: Insight Risk Factors Assessment Male: No : Yes Do You Have Access To A Gun?: No Health Problems: No Mental Health Diagnoses: Yes Substance Use Disorders: No Previous Attempt: No Interval History Identifying Information 45-year-old woman who presented with acute manic episode in the context of known bipolar disorder. Chief Complaint "I am not taking the Abilify ". Review of Systems Sleep Information Total Hours of Sleep: 7.75 Sleep Comments: Pt awake once through night. She made delusional comments about mother then returned to bed. Meal Information Percent Meal Consumed - Breakfast: 100 Percent Meal Consumed - Lunch: 100 Percent Meal Consumed - Dinner: 100 Nutrition Comment: Sleeping Subjective Subjective Patient was seen & assessed and interval progress reviewed with treatment team nursing and social work Patient is making some progress with regards to her mood and lability. Patient has less outbursts and less episodes of screaming. She is still somewhat delusional with regards to her former 's and her illness. Patient has very little insight. Still continues to refuse Abilify medication, but is compliant with risperidone and Depakote. Eating well and sleeping well with the use of temazepam I spent 30 minutes with the patient, 50% of which was dedicated to counselling and coordination of care. Physical Exam Psychiatric Orientation: alert and oriented x 3 Apperance: appropriately groomed Eye Contact: + poor eye contact Speech: normal rate/rhythm/volume of speech Affect: + anxious affect, + labile affect and + irritable affect Mood: + anxious mood and + irritable mood Thought Process: + tangential thought process, + flight of ideas, + looseness of associations and + perseveration Thought Content: + preoccupation, + paranoid, + delusions, + ideas of reference, + persecution and + self deprecation Suicidal Thoughts: denies suicidal thoughts Homicidal Thoughts: denies homicidal thoughts Hallucinations: no auditory hallucinations and no gustatory hallucinations Cognition: recent memory grossly intact Estimated Intelligence: consistent with education level Insight: + poor insight Judgement: + poor judgement Vital Signs (Past 24 Hours) Last Vital Signs Temp 36.7 C 11/14/20 06:30 Pulse 77 11/14/20 06:30 Resp 16 11/14/20 06:30 BP 130/94 11/14/20 06:30 Pulse Ox 97 10/28/20 22:19 Results & Data ([facility]) Laboratory Results Laboratory Results - last 24 hr 11/13/20 08:14 Prolactin 100.67 Current Inpatient Medications Current Inpatient Medications: Current Inpatient Medications Acetaminophen (Acetaminophen 325 Mg Tab) 650 mg PO Q4H PRN PRN Reason: Headache or Minor Fever Stop: 11/27/20 21:52 Al Hydrox/Mg Hydrox/Simethicone (Aluminum/Magnesium Susp 30 Ml Udc) 30 ml PO Q4H PRN PRN Reason: GI Upset Stop: 11/27/20 21:52 Aripiprazole (Aripiprazole 5 Mg Tab) 2.5 mg PO BID [facility] Stop: 12/14/20 20:59 Bismuth Subsalicylate (Bismuth Subsalicylate Liqd 236 Ml) 15 ml PO PRN PRN PRN Reason: Loose Stool Stop: 11/27/20 21:52 Divalproex Sodium (Divalproex Delay Release 500 Mg Tab) 500 mg PO BID [facility] Stop: 12/07/20 20:59 Last Admin: 11/14/20 08:32 Dose: 500 mg Documented by: Haloperidol (Haloperidol 5 Mg Tab) 5 mg PO Q6 PRN PRN Reason: Agitation Stop: 12/10/20 10:16 Haloperidol Lactate (Haloperidol Lactate 5 Mg/Ml 1 Ml Vial) 5 mg IM Q6 PRN PRN Reason: Anxiety/Agitation Stop: 11/30/20 10:16 Hydroxyzine HCl (Hydroxyzine Hcl 25 Mg Tab) 50 mg PO HSZ PRN PRN Reason: Insomnia Stop: 11/27/20 21:52 Hydroxyzine HCl (Hydroxyzine Hcl 25 Mg Tab) 25 mg PO Q4H PRN PRN Reason: Anxiety Stop: 11/27/20 21:52 Liothyronine Sodium (Liothyronine Sodium 25 Mcg Tab) 50 mcg PO QAM [place] Stop: 11/28/20 08:59 Last Admin: 11/14/20 08:32 Dose: 50 mcg Documented by: Lorazepam (Lorazepam 1 Mg Tab) 2 mg PO Q6 PRN PRN Reason: Anxiety/Agitation Stop: 11/27/20 21:42 Last Admin: 11/10/20 10:13 Dose: 2 mg Documented by: Lorazepam (Lorazepam 2 Mg/Ml Vial (Im Use)) 2 mg IM Q6 PRN PRN Reason: Agitation Stop: 11/30/20 10:16 Magnesium Hydroxide (Magnesium Hydroxide Susp 30 Ml Udc) 30 ml PO DAILY PRN PRN Reason: Constipation Stop: 11/27/20 21:52 Last Admin: 10/31/20 17:47 Dose: 30 ml Documented by: Propranolol HCl (Propranolol Hcl 10 Mg Tab) 10 mg PO BID [facility] Stop: 11/27/20 21:59 Last Admin: 11/14/20 08:32 Dose: 10 mg Documented by: Risperidone (Risperidone 3 Mg Tablet) 3 mg PO BID [facility] Stop: 12/11/20 20:59 Last Admin: 11/14/20 08:32 Dose: 3 mg Documented by: Sodium Chloride (Sodium Chloride 0.65% Na Soln 45 Ml ([place])) 1 - 2 sprays NA PRN PRN PRN Reason: Nasal Dryness/Congestion Stop: 11/27/20 21:52 Temazepam (Temazepam 15 Mg Capsule) 30 mg PO 2100 [place] Stop: 11/28/20 20:59 Last Admin: 11/13/20 21:05 Dose: 30 mg Documented by: Mental Health & Subst Abuse Tx Psychiatrist Name of Psychiatrist: [facility] - Dr. Locke Psychiatrist's Psychiatric App[facility]ment Comment[facility] [address] [facility] [address] [place] Therapist Name of Therapist: Dr. Swathi Owusu Therapist's [facility] [address] [facility] Name of Cashier Credit: None Post Discharge Appointments Primary Care Physician Name Of Family Doctor: ORQUIDEA Mcdowell Primary Care Provider Appointment Comment: [address] [place] Smoking Cessation Counseling Tobacco Cessation Medication Prescribed at Discharge: Not Applicable/Non-Smoker Contact Information Discharge Discharge Address: [address] [place] [address]
[2020-11-14] MEDS: TEMAZEPAM 15 MG CAPSULE PO SCH (21:20)
[2020-11-15] MEDS: risperiDONE 3 MG TABLET PO SCH ×2 (08:34→21:07)
[2020-11-15] MEDS: LIOTHYRONINE SODIUM 25 MCG TAB PO SCH (08:34)
[2020-11-15] MEDS: DIVALPROEX DELAY RELEASE 500 MG TAB PO SCH ×2 (08:34→21:07)
[2020-11-15] MEDS: PROPRANOLOL HCL 10 MG TAB PO SCH ×2 (08:34→21:07)
[2020-11-15] MEDS: ARIPiprazole 5 MG TAB PO SCH ×2 (08:39→21:12)
--- NOTE | 2020-11-15 15:25 | Psychiatric Progress Note ---
Date of Service November 15, 2020 Impression / Recommendations Impression 45-year-old female with bipolar 1 and history of medication noncompliance presenting in a manic state. Patient has been taking a very low dose of risperidone which is likely contributing to her symptoms. Compliance has been an issue with this patient as she will frequently refuse increases in her medication regimen. Patient will require inpatient hospitalization for safety, stabilization, medication management. (1) Bipolar 1 disorder: The patient was admitted to the [facility] ([facility]) on every 15 minute checks (behavioral with suicide precautions for safety. The patient will participate in group, recreational, and milieu therapies and will be offered additional individual and family sessions as clinically appropriate. 11/15/2020atient making incremental progress. Does continue to refuse Abilify 2.5 mg twice daily. Is compliant with risperidone and Depakote. 11/14/2020atient continues to display mood lability and psychotic behaviors although making incremental progress. 11/11/2020atient's Depakote level at 77. Patient does have some prolactinemia that is asymptomatic at this time. Will lower risperidone dose to 3 mg twice daily and continue to monitor. Patient's mood is somewhat improved although she still remains labile. 11/10/2020--Patient with no improvement. Plan to draw labs tomorrow. regimen remains at risperidone 4mg BID, Depakote 500mg BID. PRN Ativan and Haldol Available 1little to no progress, continue on current regimen, plan to draw Depakote level in 2 days time. 11/08/2020ontinue with risperidone 4 mg p.o. twice daily, Depakote 500 mg p.o. twice daily. 11/07/2020isperidone now at 4 mg p.o. twice daily, Depakote 500mg BID added to regimen 11/06/2020atient with slight improvement. Is compliant with medication and in behavioral control. 11/04/2020atient continues to be psychotic and delusional. We will continue with risperidone 4 mg p.o. twice daily 11/03/2020atient was compliant with medications, will plan to increase to 4 mg twice daily starting tomorrow. 11/02/2020-- Patient noncompliant and refusing medications. Continues to to be psychotic and delusional. 11/01/2020atient continues to be compliant on risperidone and seems to be improving although mood remains labile with psychosis evident. We will plan to continue to uptitrate risperidone to max dose over the next two days 10/31/2020atient took 2 mg of risperidone this morning, will plan to increase to 3 mg to 4 tomorrow morning. Will increase nightly dose to 4 mg today. Also added Haldol and Ativan as needed agitation. 10/30/2020atient risperidone now up to 4 mg daily, patient remains psychotic and delusional, will plan to increase medication over the next coming days. 10/29/2020- patient formerly 1 mg twice daily of risperidone, will plan to increase this to 2 mg twice daily over the next 2 days. Inventory Assets Strengths: Intelligence Needs: Insight Risk Factors Assessment Male: No : Yes Do You Have Access To A Gun?: No Health Problems: No Mental Health Diagnoses: Yes Substance Use Disorders: No Previous Attempt: No Interval History Identifying Information 45-year-old woman who presented with acute manic episode in the context of known bipolar disorder. Chief Complaint "I am fine". Review of Systems Sleep Information Total Hours of Sleep: 7.75 Sleep Comments: Pt awake once through night. She made delusional comments about mother then returned to bed. Meal Information Percent Meal Consumed - Breakfast: 100 Percent Meal Consumed - Lunch: 100 Percent Meal Consumed - Dinner: 100 Nutrition Comment: Sleeping Subjective Subjective Patient was seen & assessed and interval progress reviewed with treatment team nursing and social work 304 hearing held today for patient, 304 was granted. Patient continues to have episodes of mood lability with occasional delusional speech although overall progress is improving steadily. Patient continues to refuse Abilify medication despite being told that it will help with her flat affect and will also help to lower the risperidone dose. Patient remains adamant that she does not require any additional medications at this time. No side effects reported, prolactin level trending down most recent draw was 106, will plan to redraw in several days. Patient is eating well and sleeping well with the use of temazepam. I spent 30 minutes with the patient, 50% of which was dedicated to counselling and coordination of care. Physical Exam Psychiatric Orientation: alert and oriented x 3 Apperance: appropriately groomed Eye Contact: + poor eye contact Speech: normal rate/rhythm/volume of speech Affect: + anxious affect, + labile affect and + irritable affect Mood: + anxious mood and + irritable mood Thought Process: + tangential thought process, + flight of ideas, + looseness of associations and + perseveration Thought Content: + preoccupation, + paranoid, + delusions, + ideas of reference, + persecution and + self deprecation Suicidal Thoughts: denies suicidal thoughts Homicidal Thoughts: denies homicidal thoughts Hallucinations: no auditory hallucinations and no gustatory hallucinations Cognition: recent memory grossly intact Estimated Intelligence: consistent with education level Insight: + poor insight Judgement: + poor judgement Vital Signs (Past 24 Hours) Last Vital Signs Temp 36.7 C 11/15/20 06:48 Pulse 72 11/15/20 06:48 Resp 16 11/15/20 06:48 BP 121/87 11/15/20 06:48 Pulse Ox 97 10/28/20 22:19 Results & Data ([facility]) Current Inpatient Medications Current Inpatient Medications: Current Inpatient Medications Acetaminophen (Acetaminophen 325 Mg Tab) 650 mg PO Q4H PRN PRN Reason: Headache or Minor Fever Stop: 11/27/20 21:52 Al Hydrox/Mg Hydrox/Simethicone (Aluminum/Magnesium Susp 30 Ml Udc) 30 ml PO Q4H PRN PRN Reason: GI Upset Stop: 11/27/20 21:52 Aripiprazole (Aripiprazole 5 Mg Tab) 2.5 mg PO BID [facility] Stop: 12/14/20 20:59 Last Admin: 11/15/20 08:39 Dose: Not Given Documented by: Bismuth Subsalicylate (Bismuth Subsalicylate Liqd 236 Ml) 15 ml PO PRN PRN PRN Reason: Loose Stool Stop: 11/27/20 21:52 Divalproex Sodium (Divalproex Delay Release 500 Mg Tab) 500 mg PO BID [facility] Stop: 12/07/20 20:59 Last Admin: 11/15/20 08:34 Dose: 500 mg Documented by: Haloperidol (Haloperidol 5 Mg Tab) 5 mg PO Q6 PRN PRN Reason: Agitation Stop: 12/10/20 10:16 Haloperidol Lactate (Haloperidol Lactate 5 Mg/Ml 1 Ml Vial) 5 mg IM Q6 PRN PRN Reason: Anxiety/Agitation Stop: 11/30/20 10:16 Hydroxyzine HCl (Hydroxyzine Hcl 25 Mg Tab) 50 mg PO HSZ PRN PRN Reason: Insomnia Stop: 11/27/20 21:52 Hydroxyzine HCl (Hydroxyzine Hcl 25 Mg Tab) 25 mg PO Q4H PRN PRN Reason: Anxiety Stop: 11/27/20 21:52 Liothyronine Sodium (Liothyronine Sodium 25 Mcg Tab) 50 mcg PO QAM [place] Stop: 11/28/20 08:59 Last Admin: 11/15/20 08:34 Dose: 50 mcg Documented by: Lorazepam (Lorazepam 1 Mg Tab) 2 mg PO Q6 PRN PRN Reason: Anxiety/Agitation Stop: 11/27/20 21:42 Last Admin: 11/10/20 10:13 Dose: 2 mg Documented by: Lorazepam (Lorazepam 2 Mg/Ml Vial (Im Use)) 2 mg IM Q6 PRN PRN Reason: Agitation Stop: 11/30/20 10:16 Magnesium Hydroxide (Magnesium Hydroxide Susp 30 Ml Udc) 30 ml PO DAILY PRN PRN Reason: Constipation Stop: 11/27/20 21:52 Last Admin: 10/31/20 17:47 Dose: 30 ml Documented by: Propranolol HCl (Propranolol Hcl 10 Mg Tab) 10 mg PO BID [place] Stop: 11/27/20 21:59 Last Admin: 11/15/20 08:34 Dose: 10 mg Documented by: Risperidone (Risperidone 3 Mg Tablet) 3 mg PO BID [facility] Stop: 12/11/20 20:59 Last Admin: 11/15/20 08:34 Dose: 3 mg Documented by: Sodium Chloride (Sodium Chloride 0.65% Na Soln 45 Ml ([place])) 1 - 2 sprays NA PRN PRN PRN Reason: Nasal Dryness/Congestion Stop: 11/27/20 21:52 Temazepam (Temazepam 15 Mg Capsule) 30 mg PO 2100 [place] Stop: 11/28/20 20:59 Last Admin: 11/14/20 21:20 Dose: 30 mg Documented by: Mental Health & Subst Abuse Tx Psychiatrist Name of Psychiatrist: [facility] - Dr. Locke Psychiatrist's Psychiatric Appointment Comment: [address] Therapist Name of Therapist: Dr. Swathi Owusu Therapist's Therapy Appointment Comment: [address], [place] [facility] [place] Name of [facility] [place]: None Post Discharge Appointments Primary Care Physician Name Of Family Doctor: ORQUIDEA Mcdowell Primary Care Provider Appointment Comment: [address], [facility], [place] Smoking Cessation Counseling Tobacco Cessation Medication Prescribed at Discharge: Not Applicable/Non-Smoker Contact Information Discharge Discharge Address: [address] [place], [place] [id number]
[2020-11-15] MEDS: TEMAZEPAM 15 MG CAPSULE PO SCH (21:07)
[2020-11-16] MEDS: ARIPiprazole 5 MG TAB PO SCH ×2 (08:30→21:11)
[2020-11-16] MEDS: DIVALPROEX DELAY RELEASE 500 MG TAB PO SCH ×2 (08:30→21:08)
[2020-11-16] MEDS: PROPRANOLOL HCL 10 MG TAB PO SCH ×2 (08:30→21:08)
[2020-11-16] MEDS: risperiDONE 3 MG TABLET PO SCH ×2 (08:30→21:08)
[2020-11-16] MEDS: LIOTHYRONINE SODIUM 25 MCG TAB PO SCH (08:30)
--- NOTE | 2020-11-16 11:21 | Psychiatric Progress Note ---
Date of Service November 16, 2020 Impression / Recommendations Impression 45-year-old female with bipolar 1 and history of medication noncompliance presenting in a manic state. Patient has been taking a very low dose of risperidone which is likely contributing to her symptoms. Compliance has been an issue with this patient as she will frequently refuse increases in her medication regimen. Patient will require inpatient hospitalization for safety, stabilization, medication management. (1) Bipolar 1 disorder: The patient was admitted to the [facility]) on every 15 minute checks (behavioral with suicide precautions for safety. The patient will participate in group, recreational, and milieu therapies and will be offered additional individual and family sessions as clinically appropriate. 11/16/2020atient's mood and psychosis seem to be improving. Compliant with risperidone and Depakote. Prolactin level to be drawn tomorrow. 11/15/2020atient making incremental progress. Does continue to refuse Abilify 2.5 mg twice daily. Is compliant with risperidone and Depakote. 11/14/2020atient continues to display mood lability and psychotic behaviors although making incremental progress. 11/11/2020atient's Depakote level at 77. Patient does have some prolactinemia that is asymptomatic at this time. Will lower risperidone dose to 3 mg twice daily and continue to monitor. Patient's mood is somewhat improved although she still remains labile. 11/10/2020--Patient with no improvement. Plan to draw labs tomorrow. regimen remains at risperidone 4mg BID, Depakote 500mg BID. PRN Ativan and Haldol Available 1little to no progress, continue on current regimen, plan to draw Depakote level in 2 days time. 11/08/2020ontinue with risperidone 4 mg p.o. twice daily, Depakote 500 mg p.o. twice daily. 11/07/2020isperidone now at 4 mg p.o. twice daily, Depakote 500mg BID added to regimen 11/06/2020atient with slight improvement. Is compliant with medication and in behavioral control. 11/04/2020atient continues to be psychotic and delusional. We will continue with risperidone 4 mg p.o. twice daily 11/03/2020atient was compliant with medications, will plan to increase to 4 mg twice daily starting tomorrow. 11/02/2020-- Patient noncompliant and refusing medications. Continues to to be psychotic and delusional. 11/01/2020atient continues to be compliant on risperidone and seems to be improving although mood remains labile with psychosis evident. We will plan to continue to uptitrate risperidone to max dose over the next two days 10/31/2020atient took 2 mg of risperidone this morning, will plan to increase to 3 mg to 4 tomorrow morning. Will increase nightly dose to 4 mg today. Also added Haldol and Ativan as needed agitation. 10/30/2020atient risperidone now up to 4 mg daily, patient remains psychotic and delusional, will plan to increase medication over the next coming days. 10/29/2020- patient formerly 1 mg twice daily of risperidone, will plan to increase this to 2 mg twice daily over the next 2 days. Inventory Assets Strengths: Intelligence Needs: Insight Risk Factors Assessment Male: No : Yes Do You Have Access To A Gun?: No Health Problems: No Mental Health Diagnoses: Yes Substance Use Disorders: No Previous Attempt: No Interval History Identifying Information 45-year-old woman who presented with acute manic episode in the context of known bipolar disorder. Chief Complaint "I am okay today thank you". Review of Systems Sleep Information Total Hours of Sleep: 8 Sleep Comments: Pt awake once through night. She made delusional comments about mother then returned to bed. Meal Information Percent Meal Consumed - Breakfast: 100 Percent Meal Consumed - Lunch: 100 Percent Meal Consumed - Dinner: 100 Nutrition Comment: Sleeping Subjective Subjective Patient was seen & assessed and interval progress reviewed with treatment team nursing and social work Patient is reportedly sleeping well and eating well. No medication side effects observed or reported. We are continuing to observe patient's prolactin level which is trending down. Regarding her perceptual disturbance, patient appears to be making improvements. She has less episodes of inappropriate laughter and paranoid outbursts. Regarding her mood, patient is improving and her affect appears brighter today. 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 I spent 30 minutes with the patient, 50% of which was dedicated to counselling and coordination of care. Physical Exam Psychiatric Orientation: alert and oriented x 3 Apperance: appropriately groomed Eye Contact: + poor eye contact Speech: normal rate/rhythm/volume of speech Affect: + anxious affect, + labile affect and + irritable affect Mood: + anxious mood and + irritable mood Thought Process: + tangential thought process, + flight of ideas, + looseness of associations and + perseveration Thought Content: + preoccupation, + paranoid, + delusions, + ideas of reference, + persecution and + self deprecation Suicidal Thoughts: denies suicidal thoughts Homicidal Thoughts: denies homicidal thoughts Hallucinations: no auditory hallucinations and no gustatory hallucinations Cognition: recent memory grossly intact Estimated Intelligence: consistent with education level Insight: + poor insight Judgement: + poor judgement Vital Signs (Past 24 Hours) Last Vital Signs Temp 36.9 C 11/16/20 06:37 Pulse 98 H 11/16/20 06:39 Resp 16 11/16/20 06:37 BP 114/80 11/16/20 06:39 Pulse Ox 97 10/28/20 22:19 Results & Data ([facility]) Current Inpatient Medications Current Inpatient Medications: Current Inpatient Medications Acetaminophen (Acetaminophen 325 Mg Tab) 650 mg PO Q4H PRN PRN Reason: Headache or Minor Fever Stop: 11/27/20 21:52 Al Hydrox/Mg Hydrox/Simethicone (Aluminum/Magnesium Susp 30 Ml Udc) 30 ml PO Q4H PRN PRN Reason: GI Upset Stop: 11/27/20 21:52 Aripiprazole (Aripiprazole 5 Mg Tab) 2.5 mg PO BID [facility] Stop: 12/14/20 20:59 Last Admin: 11/16/20 08:30 Dose: Not Given Documented by: Bismuth Subsalicylate (Bismuth Subsalicylate Liqd 236 Ml) 15 ml PO PRN PRN PRN Reason: Loose Stool Stop: 11/27/20 21:52 Divalproex Sodium (Divalproex Delay Release 500 Mg Tab) 500 mg PO BID [facility] Stop: 12/07/20 20:59 Last Admin: 11/16/20 08:30 Dose: 500 mg Documented by: Haloperidol (Haloperidol 5 Mg Tab) 5 mg PO Q6 PRN PRN Reason: Agitation Stop: 12/10/20 10:16 Haloperidol Lactate (Haloperidol Lactate 5 Mg/Ml 1 Ml Vial) 5 mg IM Q6 PRN PRN Reason: Anxiety/Agitation Stop: 11/30/20 10:16 Hydroxyzine HCl (Hydroxyzine Hcl 25 Mg Tab) 50 mg PO HSZ PRN PRN Reason: Insomnia Stop: 11/27/20 21:52 Hydroxyzine HCl (Hydroxyzine Hcl 25 Mg Tab) 25 mg PO Q4H PRN PRN Reason: Anxiety Stop: 11/27/20 21:52 Liothyronine Sodium (Liothyronine Sodium 25 Mcg Tab) 50 mcg PO QAM [facility] Stop: 11/28/20 08:59 Last Admin: 11/16/20 08:30 Dose: 50 mcg Documented by: Lorazepam (Lorazepam 1 Mg Tab) 2 mg PO Q6 PRN PRN Reason: Anxiety/Agitation Stop: 11/27/20 21:42 Last Admin: 11/10/20 10:13 Dose: 2 mg Documented by: Lorazepam (Lorazepam 2 Mg/Ml Vial (Im Use)) 2 mg IM Q6 PRN PRN Reason: Agitation Stop: 11/30/20 10:16 Magnesium Hydroxide (Magnesium Hydroxide Susp 30 Ml Udc) 30 ml PO DAILY PRN PRN Reason: Constipation Stop: 11/27/20 21:52 Last Admin: 10/31/20 17:47 Dose: 30 ml Documented by: Propranolol HCl (Propranolol Hcl 10 Mg Tab) 10 mg PO BID [facility] Stop: 11/27/20 21:59 Last Admin: 11/16/20 08:30 Dose: 10 mg Documented by: Risperidone (Risperidone 3 Mg Tablet) 3 mg PO BID [facility] Stop: 12/11/20 20:59 Last Admin: 11/16/20 08:30 Dose: 3 mg Documented by: Sodium Chloride (Sodium Chloride 0.65% Na Soln 45 Ml ([place])) 1 - 2 sprays NA PRN PRN PRN Reason: Nasal Dryness/Congestion Stop: 11/27/20 21:52 Temazepam (Temazepam 15 Mg Capsule) 30 mg PO 2100 [place] Stop: 11/28/20 20:59 Last Admin: 11/15/20 21:07 Dose: 30 mg Documented by: Mental Health & Subst Abuse Tx Psychiatrist Name of Psychiatrist: [facility] - Dr. Locke Psychiatrist's Psychiatric Appointment Comment: [facility] Therapist Name of Therapist: Dr. Swathi Owusu Therapist's Therapy [facility]ment [facility] Name of Flexo Operator: [employer] Phone Number for Flexo Operator: [phone] Post Discharge Appointments Primary Care Physician Name Of Family Doctor: ORQUIDEA Mcdowell Primary Care Provider Appointment Comment: [address], [facility], [place] Smoking Cessation Counseling Tobacco Cessation Medication Prescribed at Discharge: Not Applicable/Non-Smoker Contact Information Discharge Discharge Address: [address] [place] [id number]
[2020-11-16] MEDS: TEMAZEPAM 15 MG CAPSULE PO SCH (21:08)
[2020-11-17] MEDS: LIOTHYRONINE SODIUM 25 MCG TAB PO SCH (08:58)
[2020-11-17] MEDS: PROPRANOLOL HCL 10 MG TAB PO SCH ×2 (08:58→20:55)
[2020-11-17] MEDS: DIVALPROEX DELAY RELEASE 500 MG TAB PO SCH ×2 (08:58→20:55)
[2020-11-17] MEDS: risperiDONE 3 MG TABLET PO SCH ×2 (08:59→20:55)
[2020-11-17] MEDS: ARIPiprazole 5 MG TAB PO SCH ×2 (09:02→20:54)
--- NOTE | 2020-11-17 16:36 | Psychiatric Progress Note ---
Date of Service November 17, 2020 Impression / Recommendations Impression 45-year-old female with bipolar 1 and history of medication noncompliance presenting in a manic state. Patient has been taking a very low dose of risperidone which is likely contributing to her symptoms. Compliance has been an issue with this patient as she will frequently refuse increases in her medication regimen. Patient will require inpatient hospitalization for safety, stabilization, medication management. (1) Bipolar 1 disorder: The patient was admitted to the [facility] ([facility]) on every 15 minute checks (behavioral with suicide precautions for safety. The patient will participate in group, recreational, and milieu therapies and will be offered additional individual and family sessions as clinically appropriate. 11/17/2020atient making incremental progress. Endocrinology was consulted today with regard to patient's prolactinemia. No further treatment indicated at this time, however endocrinology did note that Cytomel dosage is inappropriate and likely contributing to patient's symptoms and mood. Recommendations were made to stop Cytomel and replace for 2 to 3 days with levothyroxine 50 mcg. We will continue the current dosages of risperidone 3 mg twice daily, Depakote 500 mg twice daily, temazepam 15 mg nightly. 11/16/2020atient's mood and psychosis seem to be improving. Compliant with risperidone and Depakote. Prolactin level to be drawn tomorrow. 11/15/2020atient making incremental progress. Does continue to refuse Abilify 2.5 mg twice daily. Is compliant with risperidone and Depakote. 11/14/2020atient continues to display mood lability and psychotic behaviors although making incremental progress. 11/11/2020atient's Depakote level at 77. Patient does have some prolactinemia that is asymptomatic at this time. Will lower risperidone dose to 3 mg twice daily and continue to monitor. Patient's mood is somewhat improved although she still remains labile. 11/10/2020--Patient with no improvement. Plan to draw labs tomorrow. regimen remains at risperidone 4mg BID, Depakote 500mg BID. PRN Ativan and Haldol Available 1little to no progress, continue on current regimen, plan to draw Depakote level in 2 days time. 11/08/2020ontinue with risperidone 4 mg p.o. twice daily, Depakote 500 mg p.o. twice daily. 11/07/2020isperidone now at 4 mg p.o. twice daily, Depakote 500mg BID added to regimen 11/06/2020atient with slight improvement. Is compliant with medication and in behavioral control. 11/04/2020atient continues to be psychotic and delusional. We will continue with risperidone 4 mg p.o. twice daily 11/03/2020atient was compliant with medications, will plan to increase to 4 mg twice daily starting tomorrow. 11/02/2020-- Patient noncompliant and refusing medications. Continues to to be psychotic and delusional. 11/01/2020atient continues to be compliant on risperidone and seems to be improving although mood remains labile with psychosis evident. We will plan to continue to uptitrate risperidone to max dose over the next two days 10/31/2020atient took 2 mg of risperidone this morning, will plan to increase to 3 mg to 4 tomorrow morning. Will increase nightly dose to 4 mg today. Also added Haldol and Ativan as needed agitation. 10/30/2020atient risperidone now up to 4 mg daily, patient remains psychotic and delusional, will plan to increase medication over the next coming days. 10/29/2020- patient formerly 1 mg twice daily of risperidone, will plan to increase this to 2 mg twice daily over the next 2 days. Inventory Assets Strengths: Intelligence Needs: Insight Risk Factors Assessment Male: No : Yes Do You Have Access To A Gun?: No Health Problems: No Mental Health Diagnoses: Yes Substance Use Disorders: No Previous Attempt: No Interval History Identifying Information 45-year-old woman who presented with acute manic episode in the context of known bipolar disorder. Chief Complaint "I'm okay". Review of Systems Sleep Information Total Hours of Sleep: 8.25 Sleep Comments: pt on q-15 minute checks Meal Information Percent Meal Consumed - Breakfast: 100 Percent Meal Consumed - Lunch: 100 Percent Meal Consumed - Dinner: 100 Nutrition Comment: Sleeping Subjective Subjective Patient was seen & assessed and interval progress reviewed with treatment team nursing and social work. Patient continues to make improvements with regards to mood and affect. Still somewhat delusional and intrusive at times but otherwise improving steadily. Patient is eating and sleeping well. Asked for her temazepam dose to be permanently lowered after trying the lower dose last night. Endocrinology was consulted today with regard to patient's prolactinemia. No further treatment indicated at this time, however endocrinology did note that Cytomel dosage is inappropriate and likely contributing to patient's symptoms and mood. Recommendations were made to stop Cytomel and replace for 2 to 3 days with levothyroxine 50 mcg. I spent 30 minutes with the patient, 50% of which was dedicated to counselling and coordination of care. Physical Exam Psychiatric Orientation: alert and oriented x 3 Apperance: appropriately groomed Eye Contact: + poor eye contact Speech: normal rate/rhythm/volume of speech Affect: + anxious affect, + labile affect and + irritable affect Mood: + anxious mood and + irritable mood Thought Process: + tangential thought process, + flight of ideas, + looseness of associations and + perseveration Thought Content: + preoccupation, + paranoid, + delusions, + ideas of reference, + persecution and + self deprecation Suicidal Thoughts: denies suicidal thoughts Homicidal Thoughts: denies homicidal thoughts Hallucinations: no auditory hallucinations and no gustatory hallucinations Cognition: recent memory grossly intact Estimated Intelligence: consistent with education level Insight: + poor insight Judgement: + poor judgement Vital Signs (Past 24 Hours) Last Vital Signs Temp 36.9 C 11/17/20 06:55 Pulse 79 11/17/20 06:55 Resp 16 11/17/20 06:55 BP 118/84 11/17/20 06:55 Pulse Ox 97 10/28/20 22:19 Results & Data ([facility]) Laboratory Results Laboratory Results - last 24 hr 11/17/20 07:59 Prolactin 105.92 Current Inpatient Medications Current Inpatient Medications: Current Inpatient Medications Acetaminophen (Acetaminophen 325 Mg Tab) 650 mg PO Q4H PRN PRN Reason: Headache or Minor Fever Stop: 11/27/20 21:52 Al Hydrox/Mg Hydrox/Simethicone (Aluminum/Magnesium Susp 30 Ml Udc) 30 ml PO Q4H PRN PRN Reason: GI Upset Stop: 11/27/20 21:52 Aripiprazole (Aripiprazole 5 Mg Tab) 2.5 mg PO BID [place] Stop: 12/14/20 20:59 Last Admin: 11/17/20 09:02 Dose: Not Given Documented by: Bismuth Subsalicylate (Bismuth Subsalicylate Liqd 236 Ml) 15 ml PO PRN PRN PRN Reason: Loose Stool Stop: 11/27/20 21:52 Divalproex Sodium (Divalproex Delay Release 500 Mg Tab) 500 mg PO BID [place] Stop: 12/07/20 20:59 Last Admin: 11/17/20 08:58 Dose: 500 mg Documented by: Haloperidol (Haloperidol 5 Mg Tab) 5 mg PO Q6 PRN PRN Reason: Agitation Stop: 12/10/20 10:16 Haloperidol Lactate (Haloperidol Lactate 5 Mg/Ml 1 Ml Vial) 5 mg IM Q6 PRN PRN Reason: Anxiety/Agitation Stop: 11/30/20 10:16 Hydroxyzine HCl (Hydroxyzine Hcl 25 Mg Tab) 50 mg PO HSZ PRN PRN Reason: Insomnia Stop: 11/27/20 21:52 Hydroxyzine HCl (Hydroxyzine Hcl 25 Mg Tab) 25 mg PO Q4H PRN PRN Reason: Anxiety Stop: 11/27/20 21:52 Levothyroxine Sodium (Levothyroxine Sodium 50 Mcg Tablet) 50 mcg PO DAILYBB [place] Stop: 12/18/20 07:59 Lorazepam (Lorazepam 1 Mg Tab) 2 mg PO Q6 PRN PRN Reason: Anxiety/Agitation Stop: 11/27/20 21:42 Last Admin: 11/10/20 10:13 Dose: 2 mg Documented by: Lorazepam (Lorazepam 2 Mg/Ml Vial (Im Use)) 2 mg IM Q6 PRN PRN Reason: Agitation Stop: 11/30/20 10:16 Magnesium Hydroxide (Magnesium Hydroxide Susp 30 Ml Udc) 30 ml PO DAILY PRN PRN Reason: Constipation Stop: 11/27/20 21:52 Last Admin: 10/31/20 17:47 Dose: 30 ml Documented by: Propranolol HCl (Propranolol Hcl 10 Mg Tab) 10 mg PO BID [place] Stop: 11/27/20 21:59 Last Admin: 11/17/20 08:58 Dose: 10 mg Documented by: Risperidone (Risperidone 3 Mg Tablet) 3 mg PO BID [place] Stop: 12/11/20 20:59 Last Admin: 11/17/20 08:59 Dose: 3 mg Documented by: Sodium Chloride (Sodium Chloride 0.65% Na Soln 45 Ml ([place])) 1 - 2 sprays NA PRN PRN PRN Reason: Nasal Dryness/Congestion Stop: 11/27/20 21:52 Temazepam (Temazepam 15 Mg Capsule) 15 mg PO 2100 [place] Stop: 12/16/20 20:59 Last Admin: 11/16/20 21:08 Dose: 15 mg Documented by: Mental Health & Subst Abuse Tx Psychiatrist Name of Psychiatrist: [facility] - Dr. Locke Psychiatrist's Psychiatric Appointment Comment: [address] [facility], [facility], [place] Therapist Name of Therapist: Dr. Swathi Owusu Therapist's Therapy App[facility]ment [facility] [address] [facility] Electrical Products Engineer Name of Electrical Products Engineer: [employer] [facility] [place] Phone Number for Electrical Products Engineer: [phone] Post Discharge Appointments Primary Care Physician Name Of Family Doctor: ORQUIDEA Mcdowell Primary Care Provider Appointment Comment: [address], [place] Smoking Cessation Counseling Tobacco Cessation Medication Prescribed at Discharge: Not Applicable/Non-Smoker Contact Information Discharge Discharge Address: [address] [place] [id number]
[2020-11-17] MEDS: TEMAZEPAM 15 MG CAPSULE PO SCH (20:55)
[2020-11-18] MEDS: LEVOTHYROXINE SODIUM 50 MCG TABLET PO SCH (08:53)
[2020-11-18] MEDS: DIVALPROEX DELAY RELEASE 500 MG TAB PO SCH ×2 (08:54→20:42)
[2020-11-18] MEDS: PROPRANOLOL HCL 10 MG TAB PO SCH ×2 (08:54→20:43)
[2020-11-18] MEDS: risperiDONE 3 MG TABLET PO SCH ×2 (08:54→20:43)
[2020-11-18] MEDS: ARIPiprazole 5 MG TAB PO SCH ×2 (08:57→20:52)
--- NOTE | 2020-11-18 15:47 | Psychiatric Progress Note ---
Date of Service November 18, 2020 Impression / Recommendations Impression 45-year-old female with bipolar 1 and history of medication noncompliance presenting in a manic state. Patient has been taking a very low dose of risperidone which is likely contributing to her symptoms. Compliance has been an issue with this patient as she will frequently refuse increases in her medication regimen. Patient will require inpatient hospitalization for safety, stabilization, medication management. (1) Bipolar 1 disorder: The patient was admitted to the [facility] ([facility]) on every 15 minute checks (behavioral with suicide precautions for safety. The patient will participate in group, recreational, and milieu therapies and will be offered additional individual and family sessions as clinically appropriate. 11/18/2020atient continues to make incremental progress. We will continue on the current regimen of risperidone 3 mg twice daily. Depakote 500 mg twice daily. Temazepam 50 mg nightly. Abilify 2.5 mg twice daily is prescribed however patient is noncompliant 11/17/2020atient making incremental progress. Endocrinology was consulted today with regard to patient's prolactinemia. No further treatment indicated at this time, however endocrinology did note that Cytomel dosage is inappropriate and likely contributing to patient's symptoms and mood. Recommendations were made to stop Cytomel and replace for 2 to 3 days with levothyroxine 50 mcg. We will continue the current dosages of risperidone 3 mg twice daily, Depakote 500 mg twice daily, temazepam 15 mg nightly. 11/16/2020atient's mood and psychosis seem to be improving. Compliant with risperidone and Depakote. Prolactin level to be drawn tomorrow. 11/15/2020atient making incremental progress. Does continue to refuse Abilify 2.5 mg twice daily. Is compliant with risperidone and Depakote. 11/14/2020atient continues to display mood lability and psychotic behaviors although making incremental progress. 11/11/2020atient's Depakote level at 77. Patient does have some prolactinemia that is asymptomatic at this time. Will lower risperidone dose to 3 mg twice daily and continue to monitor. Patient's mood is somewhat improved although she still remains labile. 11/10/2020--Patient with no improvement. Plan to draw labs tomorrow. regimen remains at risperidone 4mg BID, Depakote 500mg BID. PRN Ativan and Haldol Available 1little to no progress, continue on current regimen, plan to draw Depakote level in 2 days time. 11/08/2020ontinue with risperidone 4 mg p.o. twice daily, Depakote 500 mg p.o. twice daily. 1risperidone now at 4 mg p.o. twice daily, Depakote 500mg BID added to regimen 11/06/2020atient with slight improvement. Is compliant with medication and in behavioral control. 11/04/2020atient continues to be psychotic and delusional. We will continue with risperidone 4 mg p.o. twice daily 11/03/2020atient was compliant with medications, will plan to increase to 4 mg twice daily starting tomorrow. 11/02/2020-- Patient noncompliant and refusing medications. Continues to to be psychotic and delusional. 11/01/2020atient continues to be compliant on risperidone and seems to be improving although mood remains labile with psychosis evident. We will plan to continue to uptitrate risperidone to max dose over the next two days 10/31/2020atient took 2 mg of risperidone this morning, will plan to increase to 3 mg to 4 tomorrow morning. Will increase nightly dose to 4 mg today. Also added Haldol and Ativan as needed agitation. 10/30/2020atient risperidone now up to 4 mg daily, patient remains psychotic and delusional, will plan to increase medication over the next coming days. 10/29/2020- patient formerly 1 mg twice daily of risperidone, will plan to increase this to 2 mg twice daily over the next 2 days. Inventory Assets Strengths: Intelligence Needs: Insight Risk Factors Assessment Male: No : Yes Do You Have Access To A Gun?: No Health Problems: No Mental Health Diagnoses: Yes Substance Use Disorders: No Previous Attempt: No Interval History Identifying Information 45-year-old woman who presented with acute manic episode in the context of known bipolar disorder. Chief Complaint "I'm good, thank you". Review of Systems Sleep Information Total Hours of Sleep: 7 Sleep Comments: pt on q-15 minute checks Meal Information Percent Meal Consumed - Breakfast: 100 Percent Meal Consumed - Lunch: 100 Percent Meal Consumed - Dinner: 100 Nutrition Comment: Sleeping Subjective Subjective Patient was seen & assessed and interval progress reviewed with treatment team nursing and social work. Patient is reporting good mood. She was seen managing her ADLs well and interacting with peers appropriately. Patient attended some groups today and participating meaningfully. Her affect while still somewhat flat is improving. She is more verbally redirectable. She is denying any suicidal ideation. 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 Patient is compliant with the medication regimen with the exception of Abilify which she continues to refuse. I spent 30 minutes with the patient, 50% of which was dedicated to counselling and coordination of care. Physical Exam Psychiatric Orientation: alert and oriented x 3 Apperance: appropriately groomed Eye Contact: + poor eye contact Speech: normal rate/rhythm/volume of speech Affect: + anxious affect, + labile affect and + irritable affect Mood: + anxious mood and + irritable mood Thought Process: + tangential thought process, + flight of ideas, + looseness of associations and + perseveration Thought Content: + preoccupation, + paranoid, + delusions, + ideas of reference, + persecution and + self deprecation Suicidal Thoughts: denies suicidal thoughts Homicidal Thoughts: denies homicidal thoughts Hallucinations: no auditory hallucinations and no gustatory hallucinations Cognition: recent memory grossly intact Estimated Intelligence: consistent with education level Insight: + poor insight Judgement: + poor judgement Vital Signs (Past 24 Hours) Last Vital Signs Temp 36.5 C 11/18/20 06:40 Pulse 66 11/18/20 06:42 Resp 16 11/18/20 06:40 BP 101/67 11/18/20 06:42 Pulse Ox 97 10/28/20 22:19 Results & Data ([facility]) Current Inpatient Medications Current Inpatient Medications: Current Inpatient Medications Acetaminophen (Acetaminophen 325 Mg Tab) 650 mg PO Q4H PRN PRN Reason: Headache or Minor Fever Stop: 11/27/20 21:52 Al Hydrox/Mg Hydrox/Simethicone (Aluminum/Magnesium Susp 30 Ml Udc) 30 ml PO Q4H PRN PRN Reason: GI Upset Stop: 11/27/20 21:52 Aripiprazole (Aripiprazole 5 Mg Tab) 2.5 mg PO BID [place] Stop: 12/14/20 20:59 Last Admin: 11/18/20 08:57 Dose: Not Given Documented by: Bismuth Subsalicylate (Bismuth Subsalicylate Liqd 236 Ml) 15 ml PO PRN PRN PRN Reason: Loose Stool Stop: 11/27/20 21:52 Divalproex Sodium (Divalproex Delay Release 500 Mg Tab) 500 mg PO BID [facility] Stop: 12/07/20 20:59 Last Admin: 11/18/20 08:54 Dose: 500 mg Documented by: Haloperidol (Haloperidol 5 Mg Tab) 5 mg PO Q6 PRN PRN Reason: Agitation Stop: 12/10/20 10:16 Haloperidol Lactate (Haloperidol Lactate 5 Mg/Ml 1 Ml Vial) 5 mg IM Q6 PRN PRN Reason: Anxiety/Agitation Stop: 11/30/20 10:16 Hydroxyzine HCl (Hydroxyzine Hcl 25 Mg Tab) 50 mg PO HSZ PRN PRN Reason: Insomnia Stop: 11/27/20 21:52 Hydroxyzine HCl (Hydroxyzine Hcl 25 Mg Tab) 25 mg PO Q4H PRN PRN Reason: Anxiety Stop: 11/27/20 21:52 Levothyroxine Sodium (Levothyroxine Sodium 50 Mcg Tablet) 50 mcg PO DAILYBB [facility] Stop: 12/18/20 07:59 Last Admin: 11/18/20 08:53 Dose: 50 mcg Documented by: Lorazepam (Lorazepam 1 Mg Tab) 2 mg PO Q6 PRN PRN Reason: Anxiety/Agitation Stop: 11/27/20 21:42 Last Admin: 11/10/20 10:13 Dose: 2 mg Documented by: Lorazepam (Lorazepam 2 Mg/Ml Vial (Im Use)) 2 mg IM Q6 PRN PRN Reason: Agitation Stop: 11/30/20 10:16 Magnesium Hydroxide (Magnesium Hydroxide Susp 30 Ml Udc) 30 ml PO DAILY PRN PRN Reason: Constipation Stop: 11/27/20 21:52 Last Admin: 10/31/20 17:47 Dose: 30 ml Documented by: Propranolol HCl (Propranolol Hcl 10 Mg Tab) 10 mg PO BID [place] Stop: 11/27/20 21:59 Last Admin: 11/18/20 08:54 Dose: 10 mg Documented by: Risperidone (Risperidone 3 Mg Tablet) 3 mg PO BID [place] Stop: 12/11/20 20:59 Last Admin: 11/18/20 08:54 Dose: 3 mg Documented by: Sodium Chloride (Sodium Chloride 0.65% Na Soln 45 Ml ([place])) 1 - 2 sprays NA PRN PRN PRN Reason: Nasal Dryness/Congestion Stop: 11/27/20 21:52 Temazepam (Temazepam 15 Mg Capsule) 15 mg PO 2100 [place] Stop: 12/16/20 20:59 Last Admin: 11/17/20 20:55 Dose: 15 mg Documented by: Mental Health & Subst Abuse Tx Psychiatrist Name of Psychiatrist: [facility] - Dr. Locke Psychiatrist's Psychiatric Appointment Comment: [address] [facility], [address] [place] [address] Therapist Name of Therapist: Dr. Swathi Owusu [facility]rapist's [facility] Super[facility] Cell [facility] Name of Supervisor Cell Room: [facility] [place] Phone Number for Supervisor Cell Room: [phone] Post Discharge Appointments Primary Care Physician Name Of Family Doctor: ORQUIDEA Mcdowell Primary Care Provider Appointment Comment: [address], [place] Smoking Cessation Counseling Tobacco Cessation Medication Prescribed at Discharge: Not Applicable/Non-Smoker Contact Information Discharge Discharge Address: [address] [place] [id number]
[2020-11-18] MEDS: TEMAZEPAM 15 MG CAPSULE PO SCH (20:44)
[2020-11-19] MEDS: risperiDONE 3 MG TABLET PO SCH ×2 (09:00→21:01)
[2020-11-19] MEDS: LEVOTHYROXINE SODIUM 50 MCG TABLET PO SCH (09:00)
[2020-11-19] MEDS: ARIPiprazole 5 MG TAB PO SCH ×2 (09:00→09:03)
[2020-11-19] MEDS: DIVALPROEX DELAY RELEASE 500 MG TAB PO SCH ×2 (09:00→21:01)
[2020-11-19] MEDS: PROPRANOLOL HCL 10 MG TAB PO SCH ×2 (09:01→21:01)
--- NOTE | 2020-11-19 09:23 | Psychiatric Progress Note ---
Date of Service November 19, 2020 Impression / Recommendations Impression 45-year-old female with bipolar 1 and history of medication noncompliance presenting in a manic state. Patient initially resistant to medication changes but has been showing improvement on higher doses of Risperdal and addition of Depakote (level 73). Has hx of iatrogenic hyperthyroidism and now risperdal induced hyperprolactinemia. Impression: improved from last contact in ED and for second opinion (1) Bipolar 1 disorder: 11/19/20--interim care by Dr. Pappas reviewed (in italics). Clarification: dose of temazepam is 15 mg hs. Patient is refusing Abilify for ma ny days so it will be discontinued. Reviewed her recommended Depakote trough should be closer to 100. She is refusing additional Depakote 250 mg addition at this time. The patient was admitted to the [facility] ([facility]) on every 15 minute checks (behavioral with suicide precautions for safety. The patient will participate in group, recreational, and milieu therapies and will be offered additional individual and family sessions as clinically appropriate. 11/18/2020atient continues to make incremental progress. We will continue on the current regimen of risperidone 3 mg twice daily. Depakote 500 mg twice daily. Temazepam 50 mg nightly. Abilify 2.5 mg twice daily is prescribed however patient is noncompliant 11/17/2020atient making incremental progress. Endocrinology was consulted today with regard to patient's prolactinemia. No further treatment indicated at this time, however endocrinology did note that Cytomel dosage is inappropriate a nd likely contributing to patient's symptoms and mood. Recommendations were made to stop Cytomel and replace for 2 to 3 days with levothyroxine 50 mcg. We will continue the current dosages of risperidone 3 mg twice daily, Depakote 500 mg twice daily, temazepam 15 mg nightly. 11/16/2020atient's mood and psychosis seem to be improving. Compliant with risperidone and Depakote. Prolactin level to be drawn tomorrow. 11/15/2020atient making incremental progress. Does continue to refuse Abilify 2.5 mg twice daily. Is compliant with risperidone and Depakote. 11/14/2020atient continues to display mood lability and psychotic behaviors although making incremental progress. 11/11/2020atient's Depakote level at 77. Patient does have some prolactinemia that is asymptomatic at this time. Will lower risperidone dose to 3 mg twice daily and continue to monitor. Patient's mood is somewhat improved although she still remains labile. 11/10/2020--Patient with no improvement. Plan to draw labs tomorrow. regimen remains at risperidone 4mg BID, Depakote 500mg BID. PRN Ativan and Haldol Available 1little to no progress, continue on current regimen, plan to draw Depakote level in 2 days time. 11/08/2020ontinue with risperidone 4 mg p.o. twice daily, Depakote 500 mg p.o. twice daily. 11/07/2020isperidone now at 4 mg p.o. twice daily, Depakote 500mg BID added to regimen 11/06/2020ati with slight improvement. Is compliant with medication and in behavioral control. 11/04/2020atient continues to be psychotic and delusional. We will continue with risperidone 4 mg p.o. twice daily 11/03/2020atient was compliant with medications, will plan to increase to 4 mg twice daily starting tomorrow. 11/02/2020-- Patient noncompliant and refusing medications. Continues to to be psychotic and delusional. 11/01/2020atient continues to be compliant on risperidone and seems to be improving although mood remains labile with psychosis evident. We will plan to continue to uptitrate risperidone to max dose over the next two days 10/31/2020atient took 2 mg of risperidone this morning, will plan to increase to 3 mg to 4 tomorrow morning. Will increase nightly dose to 4 mg today. Also added Haldol and Ativan as needed agitation. 10/30/2020atient risperidone now up to 4 mg daily, patient remains psychotic and delusional, will plan to increase medication over the next coming days. 10/29/2020- patient formerly 1 mg twice daily of risperidone, will plan to increase this to 2 mg twice daily over the next 2 days. (2) Abnormal thyroid stimulating hormone (TSH) level: 11/19/20--dose and prep changed, patient feels less side effects, continue taper in a few days, will require repeat labs and f/u in 6 weeks. 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 Asymptomatic in that had menses upon admission by patient report and no galactorrhea. Will need follow up monitoring given unknown risks of longer term osteopenia with medication induced PRL elevations and if elevation worsens need to reassess pituitary. Inventory Assets Strengths: Intelligence Needs: Insight Risk Factors Assessment Male: No : Yes Do You Have Access To A Gun?: No Health Problems: No Mental Health Diagnoses: Yes Substance Use Disorders: No Previous Attempt: No Interval History Identifying Information 45-year-old woman who presented with acute manic episode in the context of known bipolar disorder. Currently on a 304 commitment. Chief Complaint "my only problem is I'm on too much Risperdal". Review of Systems Sleep Information Total Hours of Sleep: 8 Sleep Comments: pt on q-15 minute checks Meal Information Percent Meal Consumed - Breakfast: 100 Percent Meal Consumed - Lunch: 100 Percent Meal Consumed - Dinner: 100 Nutrition Comment: Sleeping Subjective Subjective Patient was seen & assessed and interval progress reviewed with nursing and social work. More cooperative. Remains focussed on her thyroid. Has been refusing Abilify. Sleep improved significantly. Physical Exam Psychiatric Orientation: alert and oriented x 3 Apperance: appropriately groomed Speech: normal rate/rhythm/volume of speech Affect: + anxious affect Mood: + anxious mood Thought Content: + preoccupation Suicidal Thoughts: denies suicidal thoughts Homicidal Thoughts: denies homicidal thoughts Hallucinations: no auditory hallucinations Insight: + poor insight Judgement: + poor judgement Vital Signs (Past 24 Hours) Last Vital Signs Temp 36.7 C 11/19/20 06:27 Pulse 76 11/19/20 06:27 Resp 16 11/19/20 06:27 BP 119/85 11/19/20 06:27 Pulse Ox 97 10/28/20 22:19 Results & Data ([facility]) Current Inpatient Medications Current Inpatient Medications: Current Inpatient Medications Acetaminophen (Acetaminophen 325 Mg Tab) 650 mg PO Q4H PRN PRN Reason: Headache or Minor Fever Stop: 11/27/20 21:52 Al Hydrox/Mg Hydrox/Simethicone (Aluminum/Magnesium Susp 30 Ml Udc) 30 ml PO Q4H PRN PRN Reason: GI Upset Stop: 11/27/20 21:52 Aripiprazole (Aripiprazole 5 Mg Tab) 2.5 mg PO BID [facility] Stop: 12/14/20 20:59 Last Admin: 11/19/20 09:03 Dose: Not Given Documented by: Bismuth Subsalicylate (Bismuth Subsalicylate Liqd 236 Ml) 15 ml PO PRN PRN PRN Reason: Loose Stool Stop: 11/27/20 21:52 Divalproex Sodium (Divalproex Delay Release 500 Mg Tab) 500 mg PO BID [facility] Stop: 12/07/20 20:59 Last Admin: 11/19/20 09:00 Dose: 500 mg Documented by: Haloperidol (Haloperidol 5 Mg Tab) 5 mg PO Q6 PRN PRN Reason: Agitation Stop: 12/10/20 10:16 Haloperidol Lactate (Haloperidol Lactate 5 Mg/Ml 1 Ml Vial) 5 mg IM Q6 PRN PRN Reason: Anxiety/Agitation Stop: 11/30/20 10:16 Hydroxyzine HCl (Hydroxyzine Hcl 25 Mg Tab) 50 mg PO HSZ PRN PRN Reason: Insomnia Stop: 11/27/20 21:52 Hydroxyzine HCl (Hydroxyzine Hcl 25 Mg Tab) 25 mg PO Q4H PRN PRN Reason: Anxiety Stop: 11/27/20 21:52 Levothyroxine Sodium (Levothyroxine Sodium 50 Mcg Tablet) 50 mcg PO DAILYBB [facility] Stop: 12/18/20 07:59 Last Admin: 11/19/20 09:00 Dose: 50 mcg Documented by: Lorazepam (Lorazepam 1 Mg Tab) 2 mg PO Q6 PRN PRN Reason: Anxiety/Agitation Stop: 11/27/20 21:42 Last Admin: 11/10/20 10:13 Dose: 2 mg Documented by: Lorazepam (Lorazepam 2 Mg/Ml Vial (Im Use)) 2 mg IM Q6 PRN PRN Reason: Agitation Stop: 11/30/20 10:16 Magnesium Hydroxide (Magnesium Hydroxide Susp 30 Ml Udc) 30 ml PO DAILY PRN PRN Reason: Constipation Stop: 11/27/20 21:52 Last Admin: 10/31/20 17:47 Dose: 30 ml Documented by: Propranolol HCl (Propranolol Hcl 10 Mg Tab) 10 mg PO BID [facility] Stop: 11/27/20 21:59 Last Admin: 11/19/20 09:01 Dose: 10 mg Documented by: Risperidone (Risperidone 3 Mg Tablet) 3 mg PO BID [facility] Stop: 12/11/20 20:59 Last Admin: 11/19/20 09:00 Dose: 3 mg Documented by: Sodium Chloride (Sodium Chloride 0.65% Na Soln 45 Ml ([place])) 1 - 2 sprays NA PRN PRN PRN Reason: Nasal Dryness/Congestion Stop: 11/27/20 21:52 Temazepam (Temazepam 15 Mg Capsule) 15 mg PO 2100 [facility] Stop: 12/16/20 20:59 Last Admin: 11/18/20 20:44 Dose: 15 mg Documented by: Mental Health & Subst Abuse Tx Psychiatrist Name of Psychiatrist: [facility] - Dr. Locke Psychiatrist's Psychiatric Appointment Comment: [address] [facility], [address] [place] [address] Therapist Name of Therapist: Dr. Swathi Owusu Therapist's Therapy [facility]ment [facility] Al[facility] Installation Technician Name of Alarm Installation Technician: [facility] - [place] Phone Number for Alarm Installation Technician: [phone] Post Discharge Appointments Primary Care Physician Name Of Family Doctor: ORQUIDEA Mcdowell Primary Care Provider Appointment Comment: [address], [facility], [place] Smoking Cessation Counseling Tobacco Cessation Medication Prescribed at Discharge: Not Applicable/Non-Smoker Contact Information Discharge Discharge Address: [address] [place] [address]
[2020-11-19] MEDS: TEMAZEPAM 15 MG CAPSULE PO SCH (21:01)
[2020-11-20] MEDS: PROPRANOLOL HCL 10 MG TAB PO SCH ×2 (09:07→20:29)
[2020-11-20] MEDS: DIVALPROEX DELAY RELEASE 500 MG TAB PO SCH ×2 (09:07→20:29)
[2020-11-20] MEDS: LEVOTHYROXINE SODIUM 50 MCG TABLET PO SCH (09:07)
[2020-11-20] MEDS: risperiDONE 3 MG TABLET PO SCH ×2 (09:08→20:29)
--- NOTE | 2020-11-20 13:37 | Psychiatric Progress Note ---
Date of Service November 20, 2020 Impression / Recommendations Impression 45-year-old female with bipolar 1 and history of medication noncompliance presenting in a manic state. Patient initially resistant to medication changes but has been showing improvement on higher doses of Risperdal and addition of Depakote (level 73). Has hx of iatrogenic hyperthyroidism and now risperdal induced hyperprolactinemia. Impression: remains improved. Plan: review pros/cons of outpatient commitment with outpatient psychiatrist tomorrow (office currently closed), family meeting around discharge planning. Inventory Assets Strengths: Intelligence Needs: Insight Risk Factors Assessment Male: No : Yes Do You Have Access To A Gun?: No Health Problems: No Mental Health Diagnoses: Yes Substance Use Disorders: No Previous Attempt: No Interval History Identifying Information 45-year-old woman who presented with acute manic episode in the context of known bipolar disorder. Currently on a 304 commitment. Chief Complaint "I'm fine, time to go". Review of Systems Sleep Information Total Hours of Sleep: 9.25 Sleep Comments: pt on q-15 minute checks Meal Information Percent Meal Consumed - Breakfast: 100 Percent Meal Consumed - Lunch: 100 Percent Meal Consumed - Dinner: 100 Nutrition Comment: Sleeping Subjective Subjective Patient was seen & assessed and interval progress reviewed with nursing. No changes over night. Is able to participate in groups and maintain conversation. Sleep normalized. Physical Exam Psychiatric Orientation: alert and oriented x 3 Apperance: appropriately dressed and appropriately groomed Eye Contact: good eye contact Motor Behavior: no abnormal motor movements Speech: normal rate/rhythm/volume of speech Affect: euthymic affect mood is "GOOD" Thought Process: goal directed thought process Thought Content: reality based without delusions Suicidal Thoughts: denies suicidal thoughts Homicidal Thoughts: denies homicidal thoughts Hallucinations: no auditory hallucinations and no visual hallucinations Cognition: attention grossly intact and language grossly intact Estimated Intelligence: consistent with education level Insight: + limited insight Judgement: + limited judgement Vital Signs (Past 24 Hours) Last Vital Signs Temp 36.7 C 11/20/20 06:55 Pulse 65 11/20/20 06:56 Resp 16 11/20/20 06:55 BP 101/67 11/20/20 06:56 Pulse Ox 97 10/28/20 22:19 Results & Data ([facility]) Current Inpatient Medications Current Inpatient Medications: Current Inpatient Medications Acetaminophen (Acetaminophen 325 Mg Tab) 650 mg PO Q4H PRN PRN Reason: Headache or Minor Fever Stop: 11/27/20 21:52 Al Hydrox/Mg Hydrox/Simethicone (Aluminum/Magnesium Susp 30 Ml Udc) 30 ml PO Q4H PRN PRN Reason: GI Upset Stop: 11/27/20 21:52 Bismuth Subsalicylate (Bismuth Subsalicylate Liqd 236 Ml) 15 ml PO PRN PRN PRN Reason: Loose Stool Stop: 11/27/20 21:52 Divalproex Sodium (Divalproex Delay Release 500 Mg Tab) 500 mg PO BID [facility] Stop: 12/07/20 20:59 Last Admin: 11/20/20 09:07 Dose: 500 mg Documented by: Haloperidol (Haloperidol 5 Mg Tab) 5 mg PO Q6 PRN PRN Reason: Agitation Stop: 12/10/20 10:16 Haloperidol Lactate (Haloperidol Lactate 5 Mg/Ml 1 Ml Vial) 5 mg IM Q6 PRN PRN Reason: Anxiety/Agitation Stop: 11/30/20 10:16 Hydroxyzine HCl (Hydroxyzine Hcl 25 Mg Tab) 50 mg PO HSZ PRN PRN Reason: Insomnia Stop: 11/27/20 21:52 Hydroxyzine HCl (Hydroxyzine Hcl 25 Mg Tab) 25 mg PO Q4H PRN PRN Reason: Anxiety Stop: 11/27/20 21:52 Levothyroxine Sodium (Levothyroxine Sodium 50 Mcg Tablet) 50 mcg PO DAILYBB [facility] Stop: 12/18/20 07:59 Last Admin: 11/20/20 09:07 Dose: 50 mcg Documented by: Lorazepam (Lorazepam 1 Mg Tab) 2 mg PO Q6 PRN PRN Reason: Anxiety/Agitation Stop: 11/27/20 21:42 Last Admin: 11/10/20 10:13 Dose: 2 mg Documented by: Lorazepam (Lorazepam 2 Mg/Ml Vial (Im Use)) 2 mg IM Q6 PRN PRN Reason: Agitation Stop: 11/30/20 10:16 Magnesium Hydroxide (Magnesium Hydroxide Susp 30 Ml Udc) 30 ml PO DAILY PRN PRN Reason: Constipation Stop: 11/27/20 21:52 Last Admin: 10/31/20 17:47 Dose: 30 ml Documented by: Propranolol HCl (Propranolol Hcl 10 Mg Tab) 10 mg PO BID [facility] Stop: 11/27/20 21:59 Last Admin: 11/20/20 09:07 Dose: 10 mg Documented by: Risperidone (Risperidone 3 Mg Tablet) 3 mg PO BID [facility] Stop: 12/11/20 20:59 Last Admin: 11/20/20 09:08 Dose: 3 mg Documented by: Sodium Chloride (Sodium Chloride 0.65% Na Soln 45 Ml ([place])) 1 - 2 sprays NA PRN PRN PRN Reason: Nasal Dryness/Congestion Stop: 11/27/20 21:52 Temazepam (Temazepam 15 Mg Capsule) 15 mg PO 2100 [facility] Stop: 12/16/20 20:59 Last Admin: 11/19/20 21:01 Dose: 15 mg Documented by: Mental Health & Subst Abuse Tx Psychiatrist Name of Psychiatrist: [facility] - Dr. Locke Psychiatrist's Psychiatric Appointment Comment: [address] [facility], [facility], [place] Therapist Name of Therapist: Dr. Swathi Owusu Therapist's Therapy Appointment Comment: [facility] Internet Sales Manager Name of Internet Sales Manager: [facility] [place] Phone Number for Internet Sales Manager: [phone] Post Discharge Appointments Primary Care Physician Name Of Family Doctor: ORQUIDEA Mcdowell Primary Care Provider Appointment Comment: [address], [facility], [place] Smoking Cessation Counseling Tobacco Cessation Medication Prescribed at Discharge: Not Applicable/Non-Smoker Contact Information Discharge Discharge Address: [address] [place] [id number]
[2020-11-20] MEDS: TEMAZEPAM 15 MG CAPSULE PO SCH (21:00)
--- NOTE | 2020-11-21 08:00 | Psychiatric Progress Note ---
Date of Service November 21, 2020 Impression / Recommendations Impression 45-year-old female with bipolar 1 and history of medication noncompliance presenting in a manic state. Patient initially resistant to medication changes but has been showing improvement on higher doses of Risperdal and addition of Depakote (level 73). Has hx of iatrogenic hyperthyroidism and now risperdal induced hyperprolactinemia. Impression: steady improvement Plan: confirming outpatient psychiatrist preferences re: commitment status at discharge, finalizing safety plan. Inventory Assets Strengths: Intelligence Needs: Insight Risk Factors Assessment Male: No : Yes Do You Have Access To A Gun?: No Health Problems: No Mental Health Diagnoses: Yes Substance Use Disorders: No Previous Attempt: No Interval History Identifying Information 45-year-old woman who presented with acute manic episode in the context of known bipolar disorder. Currently on a 304 commitment. Chief Complaint "I'm actually feeling very well and hope to leave soon". Review of Systems Sleep Information Total Hours of Sleep: 8 Sleep Comments: pt on q-15 minute checks Meal Information Percent Meal Consumed - Breakfast: 100 Percent Meal Consumed - Lunch: 100 Percent Meal Consumed - Dinner: 100 Nutrition Comment: Sleeping Subjective Subjective Patient was seen & assessed and interval progress reviewed with treatment team. Patient's sister would be available for pick up truck driver tomorrow for patient to spend time in [place] under her supervision, mother remains hospitalized there. Sister is reportedly very pleased with patient's progress in their phone conversations as feels baseline at this point. Physical Exam Psychiatric Orientation: alert and oriented x 3 Apperance: appropriately dressed and appropriately groomed Eye Contact: good eye contact Motor Behavior: no abnormal motor movements Speech: normal rate/rhythm/volume of speech Affect: euthymic affect mood is "GOOD" Thought Process: goal directed thought process Thought Content: reality based without delusions Suicidal Thoughts: denies suicidal thoughts Homicidal Thoughts: denies homicidal thoughts Hallucinations: no auditory hallucinations and no visual hallucinations Cognition: attention grossly intact and language grossly intact Estimated Intelligence: consistent with education level Insight: + fair insight Judgement: + fair judgement Vital Signs (Past 24 Hours) Last Vital Signs Temp 36.6 C 11/21/20 06:47 Pulse 84 11/21/20 06:47 Resp 16 11/21/20 06:47 BP 118/79 11/21/20 06:47 Pulse Ox 97 07/09/21 22:19 Results & Data ([facility]) Current Inpatient Medications Current Inpatient Medications: Current Inpatient Medications Acetaminophen (Acetaminophen 325 Mg Tab) 650 mg PO Q4H PRN PRN Reason: Headache or Minor Fever Stop: 11/27/20 21:52 Al Hydrox/Mg Hydrox/Simethicone (Aluminum/Magnesium Susp 30 Ml Udc) 30 ml PO Q4H PRN PRN Reason: GI Upset Stop: 11/27/20 21:52 Bismuth Subsalicylate (Bismuth Subsalicylate Liqd 236 Ml) 15 ml PO PRN PRN PRN Reason: Loose Stool Stop: 11/27/20 21:52 Divalproex Sodium (Divalproex Delay Release 500 Mg Tab) 500 mg PO BID [facility] Stop: 12/07/20 20:59 Last Admin: 11/20/20 20:29 Dose: 500 mg Documented by: Haloperidol (Haloperidol 5 Mg Tab) 5 mg PO Q6 PRN PRN Reason: Agitation Stop: 12/10/20 10:16 Haloperidol Lactate (Haloperidol Lactate 5 Mg/Ml 1 Ml Vial) 5 mg IM Q6 PRN PRN Reason: Anxiety/Agitation Stop: 11/30/20 10:16 Hydroxyzine HCl (Hydroxyzine Hcl 25 Mg Tab) 50 mg PO HSZ PRN PRN Reason: Insomnia Stop: 11/27/20 21:52 Hydroxyzine HCl (Hydroxyzine Hcl 25 Mg Tab) 25 mg PO Q4H PRN PRN Reason: Anxiety Stop: 11/27/20 21:52 Levothyroxine Sodium (Levothyroxine Sodium 25 Mcg Tablet) 25 mcg PO DAILYBB [facility] Stop: 12/21/20 07:59 Lorazepam (Lorazepam 1 Mg Tab) 2 mg PO Q6 PRN PRN Reason: Anxiety/Agitation Stop: 11/27/20 21:42 Last Admin: 11/10/20 10:13 Dose: 2 mg Documented by: Lorazepam (Lorazepam 2 Mg/Ml Vial (Im Use)) 2 mg IM Q6 PRN PRN Reason: Agitation Stop: 11/30/20 10:16 Magnesium Hydroxide (Magnesium Hydroxide Susp 30 Ml Udc) 30 ml PO DAILY PRN PRN Reason: Constipation Stop: 11/27/20 21:52 Last Admin: 10/31/20 17:47 Dose: 30 ml Documented by: Propranolol HCl (Propranolol Hcl 10 Mg Tab) 10 mg PO BID [facility] Stop: 11/27/20 21:59 Last Admin: 11/20/20 20:29 Dose: 10 mg Documented by: Risperidone (Risperidone 3 Mg Tablet) 3 mg PO BID [facility] Stop: 12/11/20 20:59 Last Admin: 11/20/20 20:29 Dose: 3 mg Documented by: Sodium Chloride (Sodium Chloride 0.65% Na Soln 45 Ml ([place])) 1 - 2 sprays NA PRN PRN PRN Reason: Nasal Dryness/Congestion Stop: 11/27/20 21:52 Temazepam (Temazepam 15 Mg Capsule) 15 mg PO 2100 [facility] Stop: 12/16/20 20:59 Last Admin: 11/20/20 21:00 Dose: 15 mg Documented by: Mental Health & Subst Abuse Tx Psychiatrist Name of Psychiatrist: [facility] - Dr. Locke Psychiatrist's Psychiatric Appointment Comment: [address] [facility], [facility], [place] Therapist Name of Therapist: Dr. Swathi Owusu Therapist's Therapy Appointment [facility]: [facility] Doctor Of Naprapathy Name of Doctor Of Naprapathy: [facility] - [place] Phone Number for Doctor Of Naprapathy: [phone] Post Discharge Appointments Primary Care Physician Name Of Family Doctor: ORQUIDEA Mcdowell Primary Care Provider Appointment Comment: [address], [address] [place] [address] Smoking Cessation Counseling Tobacco Cessation Medication Prescribed at Discharge: Not Applicable/Non-Smoker Contact Information Discharge Discharge Address: [address] [place] [id number]
[2020-11-21] MEDS: PROPRANOLOL HCL 10 MG TAB PO SCH ×2 (08:48→20:47)
[2020-11-21] MEDS: LEVOTHYROXINE SODIUM 25 MCG TABLET PO SCH (08:48)
[2020-11-21] MEDS: DIVALPROEX DELAY RELEASE 500 MG TAB PO SCH ×2 (08:48→20:47)
[2020-11-21] MEDS: risperiDONE 3 MG TABLET PO SCH ×2 (08:49→20:47)
[2020-11-21] MEDS: TEMAZEPAM 15 MG CAPSULE PO SCH (20:47)
--- NOTE | 2020-11-22 07:59 | Discharge Summary ---
Date of Service November 22, 2020 History of Present Illness As per admitting Dr. Pappas: As per food service manager" Patient brought into ED by PSP. Patient was seen at her residence by mobile reed worker/Lizet who followed to ED to meet LILIBETH Swan delegate/Malcom to complete a petitioning statement for involuntary commitment. Petition reads: "This reed worker responded to a wellness check with PSP for Albino. Albino displayed extreme psychosis as evidenced by delusional beliefs thinking she was/is the virgin Eva. She believes her loved ones are . Albino would repeat "I can't have a knife, I can't have a knife." Albino would become verbally aggressive at times telling PSP to "fuck off. This reed worker believes a mental health evaluation is needed as soon as possible. Furthermore, this reed worker observed Albino "Kneeing" "her mother while coming down the steps." Accompanied Dr. Alex to meet with patient. Patient stated she was discharged from [facility] yesterday morning. Patient stated "they kicked me out of there. Patient stated she was on a 303. Patient talking about the illuminate and stated she "need to go to a place in [place] and there are 4 guys that need to go with me." Patient stated she "knows something that is bad." When asked what that was she replied "sex." Patient is out of touch with reality. She has flight of ideas and tangential speech. Patient stated to this solar development engineer that she believes she aborted her sister. Process of medical clearance and mental health evaluation explained to patient by physician. " Patient then spent approximately 4 days in the emergency department where she was intermittently compliant with her medication. She was visited by remote mortgage underwriter in the emergency department for purposes of 303 petition at which point she continued to display delusional, psychotic and irritable behavior. Bed availability opened up on 3 S. and patient was admitted last night, upon meeting with the patient today she is more insightful and willing to acknowledge her need for help as well as increased dosages of medication. She has thus far been compliant with her medication on the unit. She continues to display psychotic and delusional believes including paranoid and persecutory delusions about the people in [place] being after her. She denies any recent substance use or abuse. Physical Exam Vital Signs (Past 24 Hours) Last Vital Signs Temp 36.2 C L 11/22/20 06:52 Pulse 73 11/22/20 06:52 Resp 16 11/21/20 06:47 BP 118/79 11/21/20 06:47 Pulse Ox 97 10/28/20 22:19 See admission H&P and DOD summary. Principal Diagnosis bipolar I disorder, most recent episode manic Psychiatric Data See daily stay summary. In short, safety was maintained and the patient was cooperative with care. Medication changes included titration of Risperdal (as high as 4 mg BID) and addition of Depakote and they tolerated this well. Continued taper of thyroid supplementation and switched to preparation that was less likely to exacerbate vargas. Sister was involved in her care (co POA with mother who is having health issues and hospitalized herself) and safety plan was completed prior to discharge. Her 304 commitment will be converted to an outpatient commitment and patient signed the appropriate treatment agreement to take meds and keep aftercare plan. She has traditionally been resistant to case management and therapeutic doses of mood stabilizing medication and/or insistenting on extra thyroid supplementation. Dr. Locke was updated prior to discharge and is aware if desires to continue outpatient commitment would need to contact county administrators prior to expiration. Current 304 is scheduled to 02/12/21. Dr. Mcdowell was also updated prior to discharge. Sister is bringing extra medications to the hospital this afternoon so that all non-prescribed medications can be disposed of to limit surreptitious use or use of doses less than currently prescribed. PDMP database was queried prior to issuing refill of lower dose temazepam. Day of Discharge Assessment Today the patient voices readiness for discharge. They note improvement in mood and deny thoughts to harm self or others. Thoughts remain organized and they are improved from admission. There is no evidence of psychosis. They agree to take mediations as prescribed and keep follow-up appointments. They are stable for discharge to outpatient level of care. Transition of Care Transition Of Care Record: was reviewed with the patient Advance Directives Advance Directives Information Provided: Yes Advance Directives: Yes Mental Health Advance Directive: Yes Advance Directives on File: Yes Living Will: No Power of Ship Carpenter: Yes Power of Ship Carpenter Name: Елена Saenz Advance Directives Reason:: Declines as Mental Health Visit. Risk Factors Assessment Male: No : Yes Do You Have Access To A Gun?: No Health Problems: No Mental Health Diagnoses: Yes Substance Use Disorders: No Previous Attempt: No Tobacco Cessation at Discharge Tobacco Cessation Medication Prescribed at Discharge: Not Applicable/Non-Smoker Total Time Total Time Spent: Greater Than 30 Minutes Total Time Includes: Examination of the patient, Discharge Planning and Medication Reconciliation Discharge Data Lab Results 11/11/20 11/11/20 11/11/20 08:08 08:08 08:08 WBC 5.32 RBC 4.57 Hgb 14.1 Hct 41.9 MCV 91.7 MCH 30.9 MCHC 33.7 RDW Std Deviation 46.1 RDW Coeff of Snow 13.8 Plt Count 279 MPV 9.5 Immature Gran % (Auto) 0.2 Neut % (Auto) 59.6 Lymph % (Auto) 29.3 Spink % (Auto) 7.3 Eos % (Auto) 3.4 Baso % (Auto) 0.2 Neut # (Auto) 3.17 Lymph # (Auto) 1.56 Spink # (Auto) 0.39 Eos # (Auto) 0.18 Baso # (Auto) 0.01 Immature Gran # (Auto) 0.01 Sodium 139 Potassium 3.9 Chloride 109 H Carbon Dioxide 23 Anion Gap 7.0 BUN 15 Creatinine 0.42 L Est Cr Clr Drug Dosing 166.5 Est GFR ( Amer) 142.5 Est GFR (Non-Af Amer) 122.9 BUN/Creatinine Ratio 34.7 H Glucose 79 Calcium 8.5 Total Bilirubin 0.6 Direct Bilirubin < 0.1 AST 15 ALT 28 Alkaline Phosphatase 66 Total Protein 6.7 Albumin 3.1 L Globulin 3.6 Albumin/Globulin Ratio 0.9 TSH 0.029 L Free T4 0.19 L Free T3 2.75 Total T3 Prolactin 112.24 Valproic Acid 11/11/20 11/11/20 11/13/20 08:08 08:08 08:14 WBC RBC Hgb Hct MCV MCH MCHC RDW Std Deviation RDW Coeff of Snow Plt Count MPV Immature Gran % (Auto) Neut % (Auto) Lymph % (Auto) Spink % (Auto) Eos % (Auto) Baso % (Auto) Neut # (Auto) Lymph # (Auto) Spink # (Auto) Eos # (Auto) Baso # (Auto) Immature Gran # (Auto) Sodium Potassium Chloride Carbon Dioxide Anion Gap BUN Creatinine Est Cr Clr Drug Dosing Est GFR ( Amer) Est GFR (Non-Af Amer) BUN/Creatinine Ratio Glucose Calcium Total Bilirubin Direct Bilirubin AST ALT Alkaline Phosphatase Total Protein Albumin Globulin Albumin/Globulin Ratio TSH Free T4 Free T3 Total T3 94 Prolactin 100.67 Valproic Acid 73 11/17/20 07:59 WBC RBC Hgb Hct MCV MCH MCHC RDW Std Deviation RDW Coeff of Snow Plt Count MPV Immature Gran % (Auto) Neut % (Auto) Lymph % (Auto) Spink % (Auto) Eos % (Auto) Baso % (Auto) Neut # (Auto) Lymph # (Auto) Spink # (Auto) Eos # (Auto) Baso # (Auto) Immature Gran # (Auto) Sodium Potassium Chloride Carbon Dioxide Anion Gap BUN Creatinine Est Cr Clr Drug Dosing Est GFR ( Amer) Est GFR (Non-Af Amer) BUN/Creatinine Ratio Glucose Calcium Total Bilirubin Direct Bilirubin AST ALT Alkaline Phosphatase Total Protein Albumin Globulin Albumin/Globulin Ratio TSH Free T4 Free T3 Total T3 Prolactin 105.92 Valproic Acid Hospital Course (1) Bipolar 1 disorder: 11/19/20--interim care by Dr. Pappas reviewed (in italics). Clarif ication: dose of temazepam is 15 mg hs. Patient is refusing Abilify for many days so it will be discontinued. Reviewed her recommended Depakote trough should be closer to 100. She is refusing additional Depakote 250 mg addition at this time. The patient was admitted to the [facility] ([facility] mental health unit) on every 15 minute checks (behavioral with suicide precautions for safety. The patient will participate in group, recreational, and milieu therapies and will be offered additional individual and family sessions as clinically appropriate. 11/18/2020atient continues to make incremental progress. We will continue on the current regimen of risperidone 3 mg twice daily. Depakote 500 mg twice daily. Temazepam 50 mg nightly. Abilify 2.5 mg twice daily is prescribed however patient is noncompliant 11/17/2020atient making incremental progress. Endocrinology was consulted today with regard to patient's prolactinemia. No further treatment indicated at this time, however endocrinology did note that Cytomel dosage is inappropriate and likely contributing to patient's symptoms and mood. Recommendations were made to stop Cytomel and replace for 2 to 3 days with levothyroxine 50 mcg. We will continue the current dosages of risperidone 3 mg twice daily, Depakote 500 mg twice daily, temazepam 15 mg nightly. 11/16/2020atient's mood and psychosis seem to be improving. Compliant with risperidone and Depakote. Prolactin level to be drawn tomorrow. 11/15/2020atient making incremental progress. Does continue to refuse Abilify 2.5 mg twice daily. Is compliant with risperidone and Depakote. 11/14/2020atient continues to display mood lability and psychotic behaviors although making incremental progress. 11/11/2020atient's Depakote level at 77. Patient does have some prolactinemia that is asymptomatic at this time. Will lower risperidone dose to 3 mg twice daily and continue to monitor. Patient's mood is somewhat improved although she still remains labile. 11/10/2020--Patient with no improvement. Plan to draw labs tomorrow. regimen remains at risperidone 4mg BID, Depakote 500mg BID. PRN Ativan and Haldol Available 11/09/2020ittle to no progress, continue on current regimen, plan to draw Depakote level in 2 days time. 11/08/2020ontinue with risperidone 4 mg p.o. twice daily, Depakote 500 mg p.o. twice daily. 11/07/2020isperidone now at 4 mg p.o. twice daily, Depakote 500mg BID added to regimen 11/06/2020atient with slight improvement. Is compliant with medication and in behavioral control. 11/04/2020atient continues to be psychotic and delusional. We will continue with risperidone 4 mg p.o. twice daily 11/03/2020atient was compliant with medications, will plan to increase to 4 mg twice daily starting tomorrow. 11/02/2020-- Patient noncompliant and refusing medications. Continues to to be psychotic and delusional. 11/01/2020atient continues to be compliant on risperidone and seems to be improving although mood remains labile with psychosis evident. We will plan to continue to uptitrate risperidone to max dose over the next two days 10/31/2020atient took 2 mg of risperidone this morning, will plan to increase to 3 mg to 4 tomorrow morning. Will increase nightly dose to 4 mg today. Also added Haldol and Ativan as needed agitation. 10/30/2020atient risperidone now up to 4 mg daily, patient remains psychotic and delusional, will plan to increase medication over the next coming days. 10/29/2020- patient formerly 1 mg twice daily of risperidone, will plan to increase this to 2 mg twice daily over the next 2 days. (2) Abnormal thyroid stimulating hormone (TSH) level: 11/21/20--Synthroid tapered to 25 mcg, will need follow up level in approximately 1 month for additional adjustment, staff confirming f/u with Dr. Mcdowell. 11/19/20--dose and prep changed, patient feels less side effects, continue taper in a few days, will require repeat labs and f/u in 6 weeks. 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 Asymptomatic in that had menses upon admission by patient report and no galactorrhea. Will need follow up monitoring given unknown risks of longer term osteopenia with medication induced PRL elevations and if elevation worsens need to reassess pituitary. Mental Health & Subst Abuse Tx Psychiatrist Name of Psychiatrist: [facility] - Dr. Locke Psychiatrist's Date of Appointment with Psychiatrist: 11/24/20 Time of Appointment with Psychiatrist: 9:40 a.m. Psychiatric Appointment Comment: Telehealth Therapist Name of Therapist: Dr. Swathi Owusu Therapist's Therapy Appointment Comment: 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 Provider Appointment Comment: *Must be in person* - [address], [place] Smoking Cessation Counseling Tobacco Cessation Medication Prescribed at Discharge: Not Applicable/Non-Smoker Contact Information Discharge Discharge Address: [address] [place] [id number] Discharge Plan Discharge Items Patient Disposition: Home - Self-Care Reason For Visit: BIPOLAR Discharge Diagnosis: bipolar I disorder, most recent episode manic Activity: Resume your previous activity Non-emergency contact: Primary Care Provider, Psychiatrist and Therapist Call non-emergency contact if: you have any medication questions and your symptoms worsen Follow-up/Referrals: James Mcdowell MD [Primary Care Provider] - Diet: Regular Addtl Attending Provider Instructions: SPECIAL CARE INSTRUCTIONS: 1. Follow through with your scheduled aftercare appointments. If unable to keep an appointment, please call to reschedule. 2. Take your medication only as prescribed. Medication should not be changed or stopped without the approval of your doctor. In the event of worsening symptoms or concerns about side effects, contact your doctor immediately. 3. Utilize new healthy coping skills, anger management skills, and stress management skills learned during your hospitalization. Journal feelings and process them with a support person. Identify stressors or situations that may result in relapse, deterioration or inappropriate behaviors and develop a plan to deal with those issues. 4. If your coping skills are ineffective and you are in crisis, contact your outpatient providers for direction. If unable to reach your providers, please call the [facility] CRISIS LINE AT , go to the [facility] walk-in center at [address], [address], [place], or go to the closest Emergency Room. 5. Avoid alcohol and un-prescribed drugs. 6. You have been provided with the Mental Health Advance Directives Pamphlet for your review. AFTERCARE APPOINTMENTS: * Please call your insurance company prior to your scheduled appointment to confirm your aftercare providers are covered. Take your insurance information to your appointments. WHO TO CALL AND WHEN: Medical Emergencies: For questions or emergencies related to your hospital stay, please contact the Inpatient Behavioral Health Unit at [phone]. A exploitation analyst is on-call 12/11 for the Behavioral Health Unit for emergencies At any time you feel your situation is an emergency, you may also call 911 immediately. Pending Studies at Discharge: No Stand-Alone Forms: My [facility], Smoking Cessation Medications and DC Order Prescriptions: New divalproex 500 mg Tablet,Delayed Release (Dr/Ec) 500 mg PO BID 30 Days Qty: 60 RF: 0 risperidone 3 mg Tablet 3 mg PO BID 30 Days Qty: 60 RF: 0 levothyroxine [Synthroid] 25 mcg Tablet 25 mcg PO DAILYBB 10 Days Qty: 10 RF: 0 propranolol 10 mg Tablet 10 mg PO BID 30 Days Qty: 60 RF: 0 temazepam 15 mg Capsule 15 mg PO 2100 30 Days Qty: 30 RF: 0 Discontinued risperidone 1 mg tablet 1 mg PO BID RF: 0 temazepam 30 mg Capsule 30 mg PO HS RF: 0 diazepam [Valium] 2 mg Tablet 2 mg PO TID PRN (Reason: anxiety) RF: 0 liothyronine [Cytomel] 50 mcg Tablet 50 mcg DAILY RF: 0 Discharge Orders: Discharge Order (Routine); Ordered 11/22/20 Ordered By: Audrey Keen Admission Data Admit Date/Time: 10/28/20 20:56 Attending Provider: Audrey Keen Admit Provider: Chandana Pappas Primary Care Provider: James Mcdowell Other Interventions: PSY Interdisciplinary Discharge Planning Last Done: 11/22/20 09:10 Coding Level of Care Code 63304 D/C day mgmt > 30 min Diagnoses Bipolar 1 disorder F31.9 Abnormal thyroid stimulating hormone (TSH) level R79.89 Hyperprolactinemia E22.1
[2020-11-22] MEDS: PROPRANOLOL HCL 10 MG TAB PO SCH (09:01)
[2020-11-22] MEDS: LEVOTHYROXINE SODIUM 25 MCG TABLET PO SCH (09:01)
[2020-11-22] MEDS: DIVALPROEX DELAY RELEASE 500 MG TAB PO SCH (09:01)
[2020-11-22] MEDS: risperiDONE 3 MG TABLET PO SCH (09:02)
[2020-11-22] MEDS ORDERED: DESTROY THIS MEDICATION ONE (17:01)
== END 2020-11-22 16:37 | disposition home or self-care (01) | DRG 885 ==
LOC: SUATTDRO 20:56 → 3S 20:56